=== PATIENT | female | born 1955 | race Two or more races ===

== ENCOUNTER → 2020-06-14 14:00 | Outpatient (BNV) | payer OTHER, SELFPAY | PROVIDERS: PCP Internal Medicine; Visit Provider Internal Medicine Medical Oncology | DX: M85.80 Other specified disorders of bone density and structure, unspecified site (principal); Z85.3 Personal history of malignant neoplasm of breast; Z86.000 Personal history of in-situ neoplasm of breast | CPT/HCPCS: 99213; 99214 ==

== ENCOUNTER 2020-07-06 13:56 | Outpatient (REF) | payer OTHER, SELFPAY ==
--- NOTE | 2020-07-06 14:04 | US_ITS ---
EXAMINATION: US THYROID CLINICAL INFORMATION: Nontoxic single thyroid nodule. COMPARISON: Ultrasound soft tissue head/neck thyroid dated 10/07/2015. CT neck 12/24/2014. TECHNIQUE: Linear transducer rodriguez-scale and color Doppler examination with attention to the region of the thyroid. FINDINGS: SIZE: Measurements of the thyroid lobes and nodules are given in sagittal, anteroposterior and transverse dimensions respectively. Right Thyroid Lobe: 3.7 x 1.2 x 1.2 cm, volume 2.8 mL. Parenchyma: The gland echotexture is heterogeneous. Thyroid vascularity is normal. Left Thyroid Lobe: 4.5 x 1.3 x 1.1 cm, volume 3.4 mL. Parenchyma: The gland echotexture is homogeneous. Thyroid vascularity is normal. Isthmus: 0.5 cm in maximum AP dimension. RIGHT THYROID LOBE: There is 1 nodule seen. 1. Location: Middle. Size: 0.3 x 0.2 x 0.3 cm. Nodule characteristics: Hypoechoic, smoothly marginated with echogenic calcifications and no intranodular flow, likely colloid cyst. ISTHMUS: No nodules. LEFT THYROID LOBE: No nodules. NODES: There is a 1.3 cm right neck lymph node, likely benign. US/US thyroid IMPRESSION: Small colloid cyst midpole right lobe. Otherwise, unremarkable thyroid ultrasound.
== END 2020-07-06 13:57 | disposition home or self-care (01) ==
LOC: HO.US 13:56
PROVIDERS: PCP Internal Medicine; Visit Provider Internal Medicine
DX: E04.1 Nontoxic single thyroid nodule (principal)
CPT/HCPCS: 76536

== ENCOUNTER → 2020-07-14 14:53 | Outpatient (BNVA) | payer MEDICARE, SELFPAY | PROVIDERS: PCP Internal Medicine; Visit Provider Nurse Practitioner Family | DX: K21.9 Gastro-esophageal reflux disease without esophagitis (principal); R19.7 Diarrhea, unspecified | CPT/HCPCS: 99212 ==

== ENCOUNTER → 2020-09-07 09:38 | Outpatient (BNVA) | payer OTHER, SELFPAY | PROVIDERS: PCP Internal Medicine; Visit Provider Student in an Organized Health Care Education/Training Program | DX: M77.31 Calcaneal spur, right foot (principal); M25.471 Effusion, right ankle | CPT/HCPCS: 99212 ==

== ENCOUNTER → 2020-10-14 13:44 | Outpatient (BNVA) | payer OTHER, SELFPAY | PROVIDERS: PCP Internal Medicine; Visit Provider Student in an Organized Health Care Education/Training Program | DX: M19.011 Primary osteoarthritis, right shoulder (principal); M77.31 Calcaneal spur, right foot | CPT/HCPCS: 20610; 99212 ==

== ENCOUNTER 2020-12-08 11:08 | Outpatient (REF) | payer MEDICARE, SELFPAY ==
[2020-12-08 12:33] LABS: Blood Urea Nitrogen 16 mg/dL (9-16); Calcium 9.7 mg/dL (8.4-10.2); Estimated Glomerular Filt Rate > 60; Glucose Random 89 mg/dL (60-115)
[2020-12-08 12:37] LABS: Alanine Aminotransferase 22 U/L (0-31); Albumin Level 4.1 g/dL (3.5-5.0); Alkaline Phosphatase 94 U/L (39-117); Aspartate Amino Transferase 21 U/L (5-31); Bilirubin Total 0.5 mg/dL (0.0-1.0); Blood Urea Nitrogen 16 mg/dL (9-16); Calcium 9.7 mg/dL (8.4-10.2); Cholesterol 206 mg/dL; Estimated Glomerular Filt Rate > 60; Glucose Fasting 90 mg/dL (60-99); HDL Cholesterol 60 mg/dL; LDL Cholesterol Calculated 126 mg/dl; Total Protein 6.9 g/dL (6.5-8.0); Triglycerides 103 mg/dL
[2020-12-08 13:28] LABS: Anion Gap 12 (12-20); Carbon Dioxide 30 mmol/L (22-29); Chloride 105 mmol/L (96-108); Potassium 4.8 mmol/L (3.3-5.1); Sodium 142 mmol/L (135-145)
[2020-12-08 13:31] LABS: Anion Gap 15 (12-20); Carbon Dioxide 28 mmol/L (22-29); Chloride 104 mmol/L (96-108); Potassium 4.5 mmol/L (3.3-5.1); Sodium 142 mmol/L (135-145)
[2020-12-12 14:17] LABS: Vitamin D 25-OH, D2 26 ng/mL; Vitamin D 25-OH, D3 8 ng/mL; Vitamin D 25-OH, Total 34 ng/mL (30-100)
== END 2020-12-08 11:09 | disposition home or self-care (01) ==
LOC: HO.LAB 11:08
PROVIDERS: Absent Provider Internal Medicine; PCP Internal Medicine; Visit Provider Internal Medicine Hypertension Specialist
DX: E66.9 Obesity, unspecified (principal); I10 Essential (primary) hypertension; E78.5 Hyperlipidemia, unspecified; E55.9 Vitamin D deficiency, unspecified
CPT/HCPCS: 36415; 80048; 80053; 80061; 82306

== ENCOUNTER 2020-12-23 14:41 | Outpatient (REF) | payer MEDICARE, SELFPAY ==
[2020-12-23 18:04] LABS: Hematocrit 46.3 % (37-47); Hemoglobin 15.2 g/dl (12.0-16.0); Mean Corpuscular HGB Conc 32.8 g/dl (31.0-35.0); Mean Corpuscular Volume 91.5 fL (80-98); Mean Platelet Volume 11.7 fL (9.4-12.3); Platelet Count 233 X10*3/uL (160-400); Red Blood Count 5.06 X10*6/uL (4.20-5.50); Red Cell Distribution Width 15.1 % (11.0-16.0); White Blood Count 10.4 X10*3/uL (4.8-10.8)
[2020-12-23 18:23] LABS: C Reactive Protein 0.91 mg/dL (< or = 0.50)
[2020-12-23 19:02] LABS: Erythrocyte Sedimentation Rate 16 MM/HR (0-20)
== END 2020-12-23 14:42 | disposition home or self-care (01) ==
LOC: HO.LAB 14:41
PROVIDERS: PCP Internal Medicine; Visit Provider Nurse Practitioner Family
DX: I10 Essential (primary) hypertension (principal); R10.9 Unspecified abdominal pain; K21.9 Gastro-esophageal reflux disease without esophagitis; Z12.11 Encounter for screening for malignant neoplasm of colon
CPT/HCPCS: 36415; 85027; 85652; 86140; 99212

== ENCOUNTER 2021-01-27 03:24 | Emergency (ER) | payer MEDICARE, SELFPAY ==
--- NOTE | ~2021-01-27 | XR_ITS ---
EXAMINATION: XR CHEST CLINICAL INFORMATION: Right lower chest pain COMPARISON: 10/23/2013 TECHNIQUE: 2 views of the chest were obtained. FINDINGS: No significant abnormality is noted involving the heart, lungs, mediastinum, bony thorax or soft tissues. XR/XR chest 2V IMPRESSION: Unremarkable examination.
--- NOTE | ~2021-01-27 | CT_ITS ---
EXAMINATION: CT ABDOMEN AND PELVIS WITHOUT CONTRAST CLINICAL INFORMATION: Right upper quadrant/flank pain. History of breast cancer. COMPARISON: CT abdomen/pelvis dated 08/22/2011 TECHNIQUE: Multidetector volumetric imaging was performed from the superior aspect of the liver through the pubic symphysis. Sagittal and coronal reformatted images were obtained on the technologist's workstation. This CT examination was performed using dose optimization techniques as appropriate, variously including the following: *Automated exposure control *Adjustment of mA and/or kV according to patient size (this includes techniques or standardized protocols for targeted exams where dose is matched to indication/reason for exam; i.e. extremities or head) *Use of iterative reconstruction technique DLP: 800 mGy-cm FINDINGS: LUNG BASES: The visualized lung bases are unremarkable. LIVER, GALLBLADDER, AND BILIARY TREE: The liver is normal in size, shape, and attenuation. No focal hepatic lesion or biliary ductal dilatation is present. Cholecystectomy. PANCREAS: There is mild fat stranding about the inferior pancreatic head. Pancreatic body and tail unremarkable. SPLEEN: Unremarkable. ADRENAL GLANDS: Unremarkable. KIDNEYS AND URETERS: The kidneys are normal in size, shape, and attenuation. No hydronephrosis, hydroureter, or calculi seen. No perinephric stranding. BLADDER: Unremarkable. GASTROINTESTINAL TRACT: The small and large bowel are unremarkable. The appendix is unremarkable. ABDOMINAL WALL: No significant hernia is appreciated. LYMPH NODES: Normal. VASCULAR: Aorta is atherosclerotic but normal caliber. PELVIC VISCERA: Uterus and adnexa unremarkable. OSSEOUS STRUCTURES: No acute or suspicious osseous abnormalities. CT/CT abdomen pelvis wo con IMPRESSION: Findings compatible with mild focal acute pancreatitis involving the inferior pancreatic head
[2021-01-27 03:31] VITALS: BP 188/86; BP 189/90; PULSE 78; PULSE 96; RESP 18; TEMP 36.8; O2SAT 96; BMI 41.0
--- NOTE | 2021-01-27 03:38 | ECG_ITS ---
Test Reason : ABD PAIN Blood Pressure : / mmHG Vent. Rate : 088 BPM Atrial Rate : 088 BPM P-R Int : 132 ms QRS Dur : 084 ms QT Int : 382 ms P-R-T Axes : 043 -10 069 degrees QTc Int : 462 ms Normal sinus rhythm Minimal voltage criteria for LVH, may be normal variant Borderline ECG When compared with ECG of 09-APR-2018 13:20, No significant change was found Referred By: Zonia Lo Electronically Signed By:SETH SO
--- NOTE | 2021-01-27 03:52 | ED.ABDPAIN ---
HPI - Abdominal Pain General Chief Complaint: Abdominal Pain Stated Complaint: ABDOMINAL PAIN Time Seen by Provider: 01/27/21 03:37 Source: patient Mode of arrival: EMS History of Present Illness HPI narrative: 65-year-old female who reports right upper quadrant abdominal pain for 3 days with worsening pain that she describes as constant and sharp. This is not been associated with fever, chills, nausea, vomiting, new cough, diarrhea, or urinary pain/burning/frequency. Patient's past medical history is significant for bilateral breast CA with diagnosis of right breast in 2010. Patient states that she is currently in remission. Related Data Previous Rx's Medication Instructions Recorded diltiazem HCl 60 mg 60 mg PO BID #180 cap 04/28/20 capsule,extended release 12 hr simethicone 80 mg chewable tablet 80 mg PO BID-QID PRN 30 Days #110 04/28/20 tab loratadine 10 mg tablet 10 mg PO DAILY #90 tab 05/14/20 esomeprazole magnesium 40 mg 40 mg PO DAILY #30 cap 07/14/20 capsule,delayed release (Nexium) triamcinolone acetonide 0.5 % 1 appl TOPICAL BID 30 Days #45 g 08/17/20 topical cream loperamide 2 mg capsule 2 mg PO Q4H PRN #120 cap 09/21/20 walker (Ultra-Light Rollator) #1 ea 10/17/20 ergocalciferol (vitamin D2) 1,250 1,250 mcg PO QWEEK 30 Days #5 cap 12/07/20 mcg (50,000 unit) capsule cholestyramine (with sugar) 4 gram 4 g PO BID #378 g 12/23/20 oral powder (Questran) methylcellulose (laxative) 500 mg 500 mg PO DAILY #60 tab 12/23/20 tablet (Citrucel) sennosides 8.6 mg tablet (Natural 8.6 mg PO BEDTIME PRN #30 tab 12/23/20 Senna Laxative) olmesartan 40 mg tablet 40 mg PO DAILY #90 tab 01/03/21 Allergies Allergy/AdvReac Type Severity Reaction Status Date / Time codeine [Codeine] Allergy Severe DIFFICULTY Verified 01/27/21 03:39 BREATHING albuterol Allergy Intermediate unknown Verified 01/27/21 03:39 adhesive [Adhesive] Allergy Mild RASH Verified 01/27/21 03:39 amlodipine [AMLODIPINE] Allergy Mild ITCHING Verified 01/27/21 03:39 clonidine [CLONIDINE] Allergy Mild sleepiness Verified 01/27/21 03:39 hydralazine [HYDRALAZINE] Allergy Mild dizziness Verified 01/27/21 03:39 Iodinated Contrast Media Allergy Mild HIVES Verified 01/27/21 03:39 [IV Dye, Iodine Containing] latex [LATEX] Allergy Mild RASH Verified 01/27/21 03:39 lisinopril [LISINOPRIL] Allergy Mild ITCHING Verified 01/27/21 03:39 oxybutynin [From Ditropan] Allergy Mild UNKNOWN Verified 01/27/21 03:39 Ditropan Allergy Unknown Unknown Verified 01/27/21 03:39 doxazosin [DOXAZOSIN] Allergy Unknown PURITIS, Verified 01/27/21 03:39 pruritus hydrochlorothiazide Allergy Unknown ITCHING, Verified 01/27/21 03:39 [HYDROCHLOROTHIAZIDE] syncope losartan Allergy Unknown pruritus Verified 01/27/21 03:39 metoprolol [METOPROLOL] Allergy Unknown ITCHING Verified 01/27/21 03:39 metronidazole [From FLAGYL] Allergy Unknown VOMITING Verified 01/27/21 03:39 omeprazole [OMEPRAZOLE] Allergy Unknown RASH Verified 01/27/21 03:39 psyllium [Metamucil] Allergy Unknown diarrhea Verified 01/27/21 03:39 Environmental Allergy Mild RUNNY NOSE Uncoded 10/17/20 14:18 IV dye Allergy Unknown Unknown Uncoded 10/17/20 14:18 Toprol XL Allergy Unknown Unknown Uncoded 10/17/20 14:18 Review of Systems Review of Systems Pertinent positives and negatives as stated in HPI 10 point review of systems is otherwise negative. Physical Exam Vital Signs: Vital Signs: Last Vital Signs Temp 98.8 F 01/27/21 07:13 Pulse 77 01/27/21 07:13 Resp 18 01/27/21 07:13 BP 190/76 H 01/27/21 07:13 Pulse Ox 95 01/27/21 07:13 Body Mass Index 41.0 VITAL SIGNS: Reviewed. GENERAL: Well developed, well nourished, in no acute distress. HEAD: Normocephalic/atraumatic EYES: PERRLA, EOMI EARS: Ext canals without abnormality OROPHARYNX: no oral lesions noted, posterior pharynx clear NECK: Supple, no adenopathy LUNGS: Normal breath sounds. No adventitious sounds or accessory muscle use. SpO2<96> CARDIOVASCULAR: Regular rate and rhythm without noted murmurs, no JVD or lower extremity edema. ABDOMEN: Soft, tenderness to palpation right upper quadrant without rebound, non-distended with bowel sounds, no CVA tenderness SKIN: Inspection of the skin reveals no rashes NEUROLOGIC: Alert and oriented x 4. Strength and sensation to light touch were grossly intact x 4. Course Course Course Narrative: 65-year-old female with history and clinical presentation suggestive of possible cancer related symptoms, gastritis, renal colic, but patient is status post cholecystectomy and low clinical suspicion for pancreatitis. Review of all investigations significant for leukocytosis and CT findings demonstrating focal pancreatitis and on re-evaluation patient has had good resolution of her pain with combination analgesics and is otherwise tolerating oral intake. This case was discussed with GI seo consultant who agrees that as patient is otherwise getting good pain control and tolerating oral intake she is stable for discharge to home and follow-up with her county records management officer. No other etiologies were identified for patient's leukocytosis and left shift. All results and findings discussed with the patient at bedside and she was discharged home in stable condition, tolerating oral intake, and provided with return precautions. MDM - Abdominal Pain Lab Data Result diagrams: 01/27/21 04:36 01/27/21 04:36 Labs: Lab Results 01/27/21 01/27/21 01/27/21 Range/Units 04:22 04:36 04:36 WBC 15.9 H (4.8-10.8) X10*3/uL RBC 5.04 (4.20-5.50) X10*6/uL Hgb 14.4 (12.0-16.0) g/dl Hct 44.7 (37-47) % MCV 88.7 (80-98) fL MCH 28.6 (27.0-33.0) pg MCHC 32.2 (31.0-35.0) g/dl RDW 13.9 (11.0-16.0) % Plt Count 255 (160-400) X10*3/uL MPV 11.2 (9.4-12.3) fL Immature Gran % (Auto) 0.4 (0.0-0.4) % Neut % (Auto) 83.2 H (45-73) % Lymph % (Auto) 10.2 L (20-40) % Republic % (Auto) 5.8 (2-11) % Eos % (Auto) 0.1 (0-4) % Baso % (Auto) 0.3 (0-2) % Lymph # (Auto) 1.6 (1.2-4.9) X10*3/uL [place] # (Auto) 0.9 (0.1-1.2) X10*3/uL Eos # (Auto) 0.0 (0.0-0.4) X10*3/uL Baso # (Auto) 0.0 (0.0-0.2) X10*3/uL Abs Immat Gran (auto) 0.07 H (0.00-0.03) X10*3/uL Absolute Neuts (auto) 13.2 H (2.0-8.3) X10*3/uL Absolute Nucleated RBC 0.000 (0.0-0.012) X10*3/uL Nucleated RBC % (auto) 0.0 (0.0-0.2) /100WBC Sodium 140 (135-145) mmol/L Potassium 5.2 H (3.3-5.1) mmol/L Chloride 103 (96-108) mmol/L Carbon Dioxide 26 (22-29) mmol/L Anion Gap 16 (12-20) BUN 11 (9-16) mg/dL Creatinine 0.83 (0.5-1.4) mg/dL Estim Creat Clear Calc 62.5 Estimated GFR > 60 Random Glucose 117 H (60-115) mg/dL Calcium 9.7 (8.4-10.2) mg/dL Total Bilirubin 0.8 (0.0-1.0) mg/dL AST 30 D (5-31) U/L ALT 16 (0-31) U/L Alkaline Phosphatase 105 (39-117) U/L Total Protein 7.7 (6.5-8.0) g/dL Albumin 4.2 (3.5-5.0) g/dL Lipase 49 (8-78) U/L Urine Color YELLOW Urine Appearance CLEAR Urine pH 6.0 (5.0-8.0) Ur Specific [place] 1.010 (1.005-1.025) Urine Protein NEG (NEG-TRACE) MG/DL Urine Glucose (UA) NEG (NEG) MG/DL Urine Ketones 5 (NEG) MG/DL Urine Blood TRACE (NEG) Urine Nitrite NEG (NEG) Ur Leukocyte Esterase NEG (NEG) Urine RBC 0-2 (0) /HPF Urine WBC 1-4 (0-4) /HPF Ur Squamous Epith Cells 1+ /LPF Amorphous Sediment 1+ /LPF Urine Bacteria TRACE /LPF ECG Data Attestation: I personally reviewed and interpreted this ECG as follows: Prior ECG tracings: available for review (04/09/2018 no acute changes on comparison) Interpretation: Normal sinus rhythm, no STEMI, HR-88, CA/QRS/QTC are within normal limits. Discharge Plan Discharge Clinical Impression: Pancreatitis Patient Disposition: Home, Self-Care Instructions: Pancreatitis (ED) Additional Instructions: 1. Resume all home medications as prescribed. 2. Continue to drink plenty of water. 3. Tylenol 1000 mg, orally, every 6 hours as needed for pain control. Do not exceed 4000 mg within 24 hours. 4. Ibuprofen 400 mg, orally with milk or food, every 6 hours as needed for pain control. 5. Please call the office of your county records management officer this morning to set up an appointment for re-evaluation and further outpatient management for your pancreatitis. Do not hesitate to return to the emergency room if you experience any acute worsening of symptoms, development of fevers/chills, nausea, or vomiting. Prescriptions: No Action diltiazem HCl 60 mg capsule,extended release 12 hr 60 mg PO BID Qty: 180 RF: 3 simethicone 80 mg tablet,chewable 80 mg PO BID-QID PRN (Reason: abdominal distention) 30 Days Qty: 110 RF: 4 loratadine 10 mg tablet 10 mg PO DAILY Qty: 90 RF: 3 triamcinolone acetonide 0.5 % cream 1 appl topical BID 30 Days Qty: 45 RF: 2 loperamide 2 mg capsule 2 mg PO Q4H PRN (Reason: for diarrhea) Qty: 120 RF: 7 ergocalciferol (vitamin D2) 1,250 mcg (50,000 unit) capsule 1,250 mcg PO QWEEK 30 Days Qty: 5 RF: 4 olmesartan 40 mg tablet 40 mg PO DAILY Qty: 90 RF: 2 (DME) Ultra-Light Rollator Misc See Rx Instructions .ROUTE .MEDSUPPLY Qty: 1 RF: 0 esomeprazole magnesium [Nexium] 40 mg capsule,delayed release(DR/EC) 40 mg PO DAILY Qty: 30 RF: 5 Citrucel 500 mg tablet 500 mg PO DAILY Qty: 60 RF: 2 cholestyramine (with sugar) [Questran] 4 gram powder 4 g PO BID Qty: 378 RF: 0 sennosides [Natural Senna Laxative] 8.6 mg tablet 8.6 mg PO BEDTIME PRN (Reason: constipation) Qty: 30 RF: 1 Referrals: Aura Frankel, [employer] [Nurse Practitioner] - 2 days (Re-evaluation for focal pancreatitis.) [facility] Past Medical History Source: nursing notes reviewed Medical History Breast implant status Essential hypertension Hypovitaminosis D Obese Thyroid nodule Surgical History H/O esophagogastroduodenoscopy History of appendectomy History of breast biopsy History of breast reconstruction History of breast surgery History of carpal tunnel release History of cholecystectomy History of tubal ligation Hx of colonoscopy Family History Family History Father Prostate cancer Mother Ovarian cancer Chronic mental illness Paternal Aunt Cancer Family/Other FH: mental illness Social History Social History Alcohol intake: former Smoked in Last 30 Days: No Use of substances other than those prescribed or required for medical reasons: No Advance Directives: No Advance Directives Information Provided: No
[2021-01-27 04:17] VITALS: BP 175/85; PULSE 92; RESP 16; O2SAT 96
[2021-01-27 04:32] LABS: Glucose Urine UA NEG (NEG); Leukocyte Esterase Urine NEG (NEG); Nitrite Urine NEG (NEG); UACC Culture Trigger NO; Urine Blood TRACE (NEG); Urine Ketones 5 MG/DL (NEG); Urine Protein NEG (NEG-TRACE)
[2021-01-27 04:34] LABS: Appearance Urine CLEAR; Color Urine YELLOW
[2021-01-27 04:42] LABS: Basophils Percent Auto 0.3 % (0-2); Eosinophils Percent Auto 0.1 % (0-4); Hematocrit 44.7 % (37-47); Hemoglobin 14.4 g/dl (12.0-16.0); Imm Gran Abs Auto 0.07 X10*3/uL (0.00-0.03); Imm Gran Pct Auto 0.4 % (0.0-0.4); Lymphocytes Absolute Auto 1.6 X10*3/uL (1.2-4.9); Lymphocytes Percent Auto 10.2 % (20-40); MANUAL DIFF FLAG NO; Mean Corpuscular HGB Conc 32.2 g/dl (31.0-35.0); Mean Corpuscular Hemoglobin 28.6 pg (27.0-33.0); Mean Corpuscular Volume 88.7 fL (80-98); Mean Platelet Volume 11.2 fL (9.4-12.3); Monocytes Absolute Auto 0.9 X10*3/uL (0.1-1.2); Monocytes Percent Auto 5.8 % (2-11); Neutrophils Absolute Auto 13.2 X10*3/uL (2.0-8.3); Neutrophils Percent Auto 83.2 % (45-73); Platelet Count 255 X10*3/uL (160-400); Red Blood Count 5.04 X10*6/uL (4.20-5.50); Red Cell Distribution Width 13.9 % (11.0-16.0); White Blood Count 15.9 X10*3/uL (4.8-10.8)
[2021-01-27 04:47] LABS: Amorphous Sediment Urine 1+ /LPF; Bacteria Urine TRACE /LPF; RBC Urine 0-2 /HPF (0); Squamous Epithelial Cell Urine 1+ /LPF
[2021-01-27 05:04] LABS: Potassium 5.2 mmol/L (3.3-5.1)
[2021-01-27 05:05] LABS: Alanine Aminotransferase 16 U/L (0-31); Albumin Level 4.2 g/dL (3.5-5.0); Alkaline Phosphatase 105 U/L (39-117); Anion Gap 16 (12-20); Aspartate Amino Transferase 30 U/L (5-31); Bilirubin Total 0.8 mg/dL (0.0-1.0); Blood Urea Nitrogen 11 mg/dL (9-16); Calcium 9.7 mg/dL (8.4-10.2); Carbon Dioxide 26 mmol/L (22-29); Chloride 103 mmol/L (96-108); Creatinine Clr Calc Pharmacy 62.5; Estimated Glomerular Filt Rate > 60; Glucose Random 117 mg/dL (60-115); Lipase 49 U/L (8-78); Sodium 140 mmol/L (135-145); Total Protein 7.7 g/dL (6.5-8.0)
[2021-01-27] MEDS: Acetaminophen 325 MG TABLET 975 MG PO (05:40)
[2021-01-27] MEDS: Ketorolac Tromethamine 15 MG/ML VIAL IVPUSH (05:40)
[2021-01-27 07:13] VITALS: BP 190/76; PULSE 77; RESP 18; TEMP 37.1; O2SAT 95
--- NOTE | 2021-01-27 07:41 | PC.NURSE ---
MD AWARE OF ELEVATED BP. PATIENT ASYMPTOMATIC, OK FOR PATIENT TO BE DC HOME AND TAKE HOME MEDS.
== END 2021-01-27 07:43 | disposition home or self-care (01) ==
PROVIDERS: Emergency Provider Student in an Organized Health Care Education/Training Program
DX: K85.90 Acute pancreatitis without necrosis or infection, unspecified (principal); I10 Essential (primary) hypertension; Z85.3 Personal history of malignant neoplasm of breast; Z79.899 Other long term (current) drug therapy
CPT/HCPCS: 36415; 71046; 74176; 80053; 81001; 83690; 85025; 93005; 96374; 99285; J1885

== ENCOUNTER 2021-01-27 12:52 | Inpatient (IN) | payer MEDICARE, SELFPAY ==
[2021-01-27] VITALS (8 sets, daily range): BP systolic 160–213; BP diastolic 69–100; PULSE 78–120; RESP 16–19; TEMP 35.4–37.1; O2SAT 94–99; BMI 38.8; BMI 40.0
[2021-01-27] MEDS: Morphine Sulfate 4 MG/ML CARTRIDGE IVPUSH (16:35)
--- NOTE | 2021-01-27 16:37 | ED.ABDPAIN ---
HPI - Abdominal Pain General Chief Complaint: Abdominal Pain Stated Complaint: abd pain Time Seen by Provider: 01/27/21 16:11 Source: patient and family Mode of arrival: ambulatory Limitations: no limitations History of Present Illness HPI narrative: 65-year-old female with a past medical history of breast cancer in 2010 in remission, thyroid nodule, hypertension, obesity and diagnosed with pancreatitis this morning and discharged home presenting to the ED with complaints of worsening abdominal pain that has been present for the past 3 days worse since this morning after she was discharged. She reports she was not discharged with any pain medications and that is what she needs. She reports the pain is constant and sharp. She reports she had nausea and 1 episode of vomiting last night. She reports she was constipated although had 2 episodes of diarrhea prior to arrival. She denies any fevers, dizziness, headaches, chest pain, shortness of breath, hematuria, dysuria, black or bloody stools, constipation or any other symptoms complaints or concerns at this time. MD elicited complaint: abdominal pain Pertinent past history: other (Pancreatitis) Onset (ago): day(s) (Three days) Pain Consistency: constant Location: epigastric and RUQ Severity: severe Pain scale (0-10): 10 Quality: sharp Radiation: none Migration to: no migration Exacerbating factors: nothing Relieving factors: nothing Associated symptoms: nausea, vomiting and diarrhea Related Data Home Medications Medication Instructions Recorded Confirmed acetaminophen 325 mg tablet 650 mg PO Q6H PRN 01/27/21 01/27/21 diltiazem HCl 90 mg tablet 1 tab PO BID@0800,1700 01/27/21 01/27/21 ergocalciferol (vitamin D2) 1,250 1,250 mcg PO MO 01/27/21 01/27/21 mcg (50,000 unit) capsule fluticasone propionate 50 1 spray INTRANASAL DAILY PRN 01/27/21 01/27/21 mcg/actuation nasal spray,suspension simethicone 80 mg chewable tablet 80 mg PO QID PRN 01/27/21 01/27/21 triamcinolone acetonide 0.5 % 1 appl TOPICAL BID PRN 01/27/21 01/27/21 topical cream Previous Rx's Medication Instructions Recorded loratadine 10 mg tablet 10 mg PO DAILY #90 tab 05/14/20 esomeprazole magnesium 40 mg 40 mg PO DAILY #30 cap 07/14/20 capsule,delayed release (Nexium) walker (Ultra-Light Rollator) #1 ea 10/17/20 sennosides 8.6 mg tablet (Natural 8.6 mg PO BEDTIME PRN #30 tab 12/23/20 Senna Laxative) olmesartan 40 mg tablet 40 mg PO DAILY #90 tab 01/03/21 Allergies Allergy/AdvReac Type Severity Reaction Status Date / Time codeine [Codeine] Allergy Severe DIFFICULTY Verified 01/27/21 03:39 BREATHING albuterol Allergy Intermediate unknown Verified 01/27/21 03:39 adhesive [Adhesive] Allergy Mild RASH Verified 01/27/21 03:39 amlodipine [AMLODIPINE] Allergy Mild ITCHING Verified 01/27/21 03:39 clonidine [CLONIDINE] Allergy Mild sleepiness Verified 01/27/21 03:39 hydralazine [HYDRALAZINE] Allergy Mild dizziness Verified 01/27/21 03:39 Iodinated Contrast Media Allergy Mild HIVES Verified 01/27/21 03:39 [IV Dye, Iodine Containing] latex [LATEX] Allergy Mild RASH Verified 01/27/21 03:39 lisinopril [LISINOPRIL] Allergy Mild ITCHING Verified 01/27/21 03:39 oxybutynin [From Ditropan] Allergy Mild UNKNOWN Verified 01/27/21 03:39 Ditropan Allergy Unknown Unknown Verified 01/27/21 03:39 doxazosin [DOXAZOSIN] Allergy Unknown PURITIS, Verified 01/27/21 03:39 pruritus hydrochlorothiazide Allergy Unknown ITCHING, Verified 01/27/21 03:39 [HYDROCHLOROTHIAZIDE] syncope losartan Allergy Unknown pruritus Verified 01/27/21 03:39 metoprolol [METOPROLOL] Allergy Unknown ITCHING Verified 01/27/21 03:39 metronidazole [From FLAGYL] Allergy Unknown VOMITING Verified 01/27/21 03:39 omeprazole [OMEPRAZOLE] Allergy Unknown RASH Verified 01/27/21 03:39 psyllium [Metamucil] Allergy Unknown diarrhea Verified 01/27/21 03:39 Environmental Allergy Mild RUNNY NOSE Uncoded 10/17/20 14:18 IV dye Allergy Unknown Unknown Uncoded 10/17/20 14:18 Toprol XL Allergy Unknown Unknown Uncoded 10/17/20 14:18 Review of Systems Review of Systems Constitutional : No Weight loss, No Fever, No Chills, No Night Sweats, No Fatigue, NoMalaise ENT/Mouth: No ear pain, No sore throat, No Difficulty swallowing Cardiovascular : No Chest Pain, No SOB, No Dyspnea on Exertion, No Orthopnea, NoEdema, No Palpitations Respiratory : No Cough, No Sputum, No Wheezing, No Dyspnea Gastrointestinal : Positive nausea/vomiting/abdominal pain/diarrhea, No blood streaked emesis, No coffee-ground emesis, No gross hematemesis, No blood streak stool, No gross hematochezia, No Melena Genitourinary : No irregular bleeding, No Dysuria, No Urinary Frequency, No Hematuria,No Urinary Incontinence, No Urgency, No Flank Pain Musculoskeletal : No joint pain, No Myalgias, No Joint Swelling Skin : No Skin Lesions, No rash Neuro : No Weakness, No Numbness, No Paresthesias, No Loss of Consciousness, NoDizziness, No Headache Psych : No Social Issues, Heme/Lymph: No Bruising, No Bleeding,No Lymphadenopathy Endocrine : No Polyuria, No Polydipsia, No Temperature Intolerance Yes all other systems are reviewed and are negative Physical Exam Vital Signs: Vital Signs: Last Vital Signs Temp 98.8 F 01/27/21 16:48 Pulse 78 01/27/21 18:07 Resp 18 01/27/21 16:48 BP 160/69 H 01/27/21 18:07 Pulse Ox 96 01/27/21 16:48 Body Mass Index 38.8 vital signs have been reviewed as normal and appeared to be correct. Blood pressure normal hypertensive 199/99 Heart rate normal. Respiration rate normal. Temperature low at 95.8. Oxygen saturation normal. Appearance: Alert. Oriented X3. In pain otherwise no other acute distress. Head: Normal external exam. Normocephalic. Eyes: PERRLA. EOMI. Conjunctiva and sclera normal. Eyelids normal. ENT: Pharynx normal. Uvula midline. Moist mucous membranes. Neck: Normal inspection. Neck supple. FROM. No adenopathy. No meningeal signs. CVS: Normal heart rate and rhythm. Heart sound normal. No murmurs noted. Pulses normal throughout. Respiratory: No respiratory distress. Painless inspiration. Breath sounds normal. No wheezes/rales/rhonchi noted. Chest nontender. No accessory muscle usage noted or decreased air movement noted. Abdomen: Soft and moderate tenderness to palpation to right upper quadrant/epigastric abdominal area with guarding. Nondistended. No rigidity. Bowel sounds normal in all 4 quadrants. No distention noted. No organomegaly noted. No visible injury noted. No rebound tenderness. Negative Rovsing sign. Negative obturator's sign. Negative psoas sign. Negative Lopez sign. Back: No CVA tenderness. Full range of motion noted. Skin: Skin warm and dry. Normal skin color. Normal skin turgor. No rashes/lesions/lacerations noted. Extremities: Extremities exhibit normal range of motion. Extremities nontender. Neuro: Oriented X 3. No motor deficit. No sensory deficit. Reflexes normal. Normal steady gait. Course Course Course Narrative: 16:18pm - 65-year-old female who was recently diagnosed with pancreatitis this morning and discharged home without any symptomatic with treatment presenting to the ED with complaints of worsening abdominal pain in the epigastric/right upper quadrant with associated N/V/D. Denies fevers, chills or any other symptoms. Plan: Labs, UA. Provide a L of IV fluids, 4 mg of Zofran and 4 mg of morphine and plan to admit for acute pancreatitis. Patient and family at bedside understand and agree with this plan. Reevaluation(s) Reevaluation #1: - labs reviewed patient when elevated white blood cell count at 17,000. Total bilirubin 1.1. LDH 311. Otherwise all other labs are within normal limits. UA with +1 protein and blood with 40 ketones otherwise no evidence of UTI. COVID swab negative. Patient was hypertensive therefore I gave her 10 mg of labetalol. I also gave her some Dilaudid and more Zofran and she is much comfortable now and now her blood pressure is 160/69. Dr. Zendejas to admit at this time for acute pancreatitis. Patient understands agrees with this plan. Time: 18:16 MDM - Abdominal Pain Lab Data Result diagrams: 01/27/21 16:47 01/27/21 16:46 Labs: Lab Results 01/27/21 01/27/21 01/27/21 Range/Units 16:29 16:39 16:46 WBC (4.8-10.8) X10*3/uL RBC (4.20-5.50) X10*6/uL Hgb (12.0-16.0) g/dl Hct (37-47) % MCV (80-98) fL MCH (27.0-33.0) pg MCHC (31.0-35.0) g/dl RDW (11.0-16.0) % Plt Count (160-400) X10*3/uL MPV (9.4-12.3) fL Immature Gran % (Auto) (0.0-0.4) % Neut % (Auto) (45-73) % Lymph % (Auto) (20-40) % [place] % (Auto) (2-11) % Eos % (Auto) (0-4) % Baso % (Auto) (0-2) % Lymph # (Auto) (1.2-4.9) X10*3/uL [place] # (Auto) (0.1-1.2) X10*3/uL Eos # (Auto) (0.0-0.4) X10*3/uL Baso # (Auto) (0.0-0.2) X10*3/uL Abs Immat Gran (auto) (0.00-0.03) X10*3/uL Absolute Neuts (auto) (2.0-8.3) X10*3/uL Absolute Nucleated RBC (0.0-0.012) X10*3/uL Nucleated RBC % (auto) (0.0-0.2) /100WBC Smear Tech's Comments Sodium 142 (135-145) mmol/L Potassium 4.3 (3.3-5.1) mmol/L Chloride 104 (96-108) mmol/L Carbon Dioxide 24 (22-29) mmol/L Anion Gap 18 (12-20) BUN 10 (9-16) mg/dL Creatinine 0.77 (0.5-1.4) mg/dL Estim Creat Clear Calc 65.2 Estimated GFR > 60 Random Glucose 86 (60-115) mg/dL Calcium 9.6 (8.4-10.2) mg/dL Magnesium 2.2 (1.6-2.6) mg/dL Total Bilirubin 1.1 H (0.0-1.0) mg/dL AST 26 (5-31) U/L ALT 19 (0-31) U/L Alkaline Phosphatase 114 (39-117) U/L Lactate Dehydrogenase 311 H (122-220) U/L Total Protein 7.7 (6.5-8.0) g/dL Albumin 4.3 (3.5-5.0) g/dL Triglycerides 69 mg/dL Lipase 36 (8-78) U/L Urine Color YELLOW Urine Appearance HAZY Urine pH 6.0 (5.0-8.0) Ur Specific [place] >= 1.030 H (1.005-1.025) Urine Protein 1+ H (NEG-TRACE) MG/DL Urine Glucose (UA) NEG (NEG) MG/DL Urine Ketones 40 (NEG) MG/DL Urine Blood 1+ H (NEG) Urine Nitrite NEG (NEG) Ur Leukocyte Esterase NEG (NEG) Urine RBC 1-4 (0) /HPF Urine WBC 0 (0-4) /HPF Ur Squamous Epith Cells 3+ /LPF Urine Bacteria 2+ /LPF Urine Mucus 1+ /LPF COVID-19 ([facility]) Negative (Negative) COVID-19 Clin Com See Note 01/27/21 Range/Units 16:47 WBC 17.3 H (4.8-10.8) X10*3/uL RBC 5.11 (4.20-5.50) X10*6/uL Hgb 14.4 (12.0-16.0) g/dl Hct 45.4 (37-47) % MCV 88.8 (80-98) fL MCH 28.2 (27.0-33.0) pg MCHC 31.7 (31.0-35.0) g/dl RDW 13.7 (11.0-16.0) % Plt Count 211 (160-400) X10*3/uL MPV 11.5 (9.4-12.3) fL Immature Gran % (Auto) 0.5 H (0.0-0.4) % Neut % (Auto) 85.0 H (45-73) % Lymph % (Auto) 8.5 L (20-40) % [place] % (Auto) 5.6 (2-11) % Eos % (Auto) 0.1 (0-4) % Baso % (Auto) 0.3 (0-2) % Lymph # (Auto) 1.5 (1.2-4.9) X10*3/uL [place] # (Auto) 1.0 (0.1-1.2) X10*3/uL Eos # (Auto) 0.0 (0.0-0.4) X10*3/uL Baso # (Auto) 0.1 (0.0-0.2) X10*3/uL Abs Immat Gran (auto) 0.08 H (0.00-0.03) X10*3/uL Absolute Neuts (auto) 14.8 H (2.0-8.3) X10*3/uL Absolute Nucleated RBC 0.000 (0.0-0.012) X10*3/uL Nucleated RBC % (auto) 0.0 (0.0-0.2) /100WBC Smear Tech's Comments VERIFIED Sodium (135-145) mmol/L Potassium (3.3-5.1) mmol/L Chloride (96-108) mmol/L Carbon Dioxide (22-29) mmol/L Anion Gap (12-20) BUN (9-16) mg/dL Creatinine (0.5-1.4) mg/dL Estim Creat Clear Calc Estimated GFR Random Glucose (60-115) mg/dL Calcium (8.4-10.2) mg/dL Magnesium (1.6-2.6) mg/dL Total Bilirubin (0.0-1.0) mg/dL AST (5-31) U/L ALT (0-31) U/L Alkaline Phosphatase (39-117) U/L Lactate Dehydrogenase (122-220) U/L Total Protein (6.5-8.0) g/dL Albumin (3.5-5.0) g/dL Triglycerides mg/dL Lipase (8-78) U/L Urine Color Urine Appearance Urine pH (5.0-8.0) Ur Specific [place] (1.005-1.025) Urine Protein (NEG-TRACE) MG/DL Urine Glucose (UA) (NEG) MG/DL Urine Ketones (NEG) MG/DL Urine Blood (NEG) Urine Nitrite (NEG) Ur Leukocyte Esterase (NEG) Urine RBC (0) /HPF Urine WBC (0-4) /HPF Ur Squamous Epith Cells /LPF Urine Bacteria /LPF Urine Mucus /LPF COVID-19 ([facility]) (Negative) COVID-19 Clin Com Critical Care Time Critical Care Time Critical Care Time: Yes Total Critical Care Time: 60 Attestation: I personally attest to this time spent taking care of the patient Discharge Plan Discharge Clinical Impression: Pancreatitis Patient Disposition: Admitted As Inpatient [facility] Past Medical History Attestation statement: The following information was validated with the patient. Medical History Breast implant status Essential hypertension Hypovitaminosis D Obese Thyroid nodule Surgical History H/O esophagogastroduodenoscopy History of appendectomy History of breast biopsy History of breast reconstruction History of breast surgery History of carpal tunnel release History of cholecystectomy History of tubal ligation Hx of colonoscopy Family History Family History Father Prostate cancer Mother Ovarian cancer Chronic mental illness Paternal Aunt Cancer Family/Other FH: mental illness Social History Social History Alcohol intake: former Advance Directives: No Advance Directives Information Provided: No
[2021-01-27 16:44] LABS: Glucose Urine UA NEG (NEG); Leukocyte Esterase Urine NEG (NEG); Nitrite Urine NEG (NEG); Specific Gravity - Urine >= 1.030 (1.005-1.025); UACC Culture Trigger NO; Urine Blood 1+ (NEG); Urine Ketones 40 MG/DL (NEG); Urine Protein 1+ MG/DL (NEG-TRACE)
[2021-01-27 16:45] LABS: Appearance Urine HAZY; Color Urine YELLOW
[2021-01-27 16:50] LABS: Bacteria Urine 2+ /LPF; Mucus Urine 1+ /LPF; Squamous Epithelial Cell Urine 3+ /LPF; WBC Urine 0 /HPF (0-4)
[2021-01-27 17:00] LABS: Basophils Absolute Auto 0.1 X10*3/uL (0.0-0.2); Basophils Percent Auto 0.3 % (0-2); Eosinophils Percent Auto 0.1 % (0-4); MANUAL DIFF FLAG SCAN; PLT CLUMP 1; SCAN SMEAR FLAG 1
[2021-01-27 17:01] LABS: COVID-19 Test Negative (Negative)
[2021-01-27 17:02] LABS: Hematocrit 45.4 % (37-47); Hemoglobin 14.4 g/dl (12.0-16.0); Imm Gran Abs Auto 0.08 X10*3/uL (0.00-0.03); Imm Gran Pct Auto 0.5 % (0.0-0.4); Lymphocytes Absolute Auto 1.5 X10*3/uL (1.2-4.9); Lymphocytes Percent Auto 8.5 % (20-40); Mean Corpuscular HGB Conc 31.7 g/dl (31.0-35.0); Mean Corpuscular Hemoglobin 28.2 pg (27.0-33.0); Mean Corpuscular Volume 88.8 fL (80-98); Monocytes Percent Auto 5.6 % (2-11); Neutrophils Absolute Auto 14.8 X10*3/uL (2.0-8.3); Red Blood Count 5.11 X10*6/uL (4.20-5.50); Red Cell Distribution Width 13.7 % (11.0-16.0); White Blood Count 17.3 X10*3/uL (4.8-10.8)
--- NOTE | 2021-01-27 17:18 | PHA.MEDREC ---
Pharmacy Consult ? Medication Reconciliation Pharmacy has completed the medication reconciliation. Patient reports that she takes her second dose of diltiazem at 1700. There are no other remarkable issues for provider's attention Trinity LedbetterD
[2021-01-27 17:19] LABS: Mean Platelet Volume 11.5 fL (9.4-12.3); Platelet Count 211 X10*3/uL (160-400); SLIDE REVIEW VERIFIED
[2021-01-27 17:39] LABS: Alanine Aminotransferase 19 U/L (0-31); Albumin Level 4.3 g/dL (3.5-5.0); Alkaline Phosphatase 114 U/L (39-117); Anion Gap 18 (12-20); Aspartate Amino Transferase 26 U/L (5-31); Bilirubin Total 1.1 mg/dL (0.0-1.0); Blood Urea Nitrogen 10 mg/dL (9-16); Calcium 9.6 mg/dL (8.4-10.2); Carbon Dioxide 24 mmol/L (22-29); Chloride 104 mmol/L (96-108); Creatinine Clr Calc Pharmacy 65.2; Estimated Glomerular Filt Rate > 60; Glucose Random 86 mg/dL (60-115); Lactate Dehydrogenase 311 U/L (122-220); Lipase 36 U/L (8-78); Magnesium 2.2 mg/dL (1.6-2.6); Potassium 4.3 mmol/L (3.3-5.1); Sodium 142 mmol/L (135-145); Total Protein 7.7 g/dL (6.5-8.0); Triglycerides 69 mg/dL
[2021-01-27] MEDS: Labetalol HCL 100 MG/20 ML VIAL 10 MG IVPUSH (17:43)
[2021-01-27] MEDS: HYDROmorphone HCl 0.5 MG/0.5 ML SYRINGE IVPUSH (17:43)
[2021-01-27] MEDS: 0.9 % Sodium Chloride 1,000 ML 999 ML IVCONT ×2 (17:47→18:51)
--- NOTE | 2021-01-27 18:22 | P.HPHOSP_ITS ---
History of Present Illness Date of Service: 01/27/21 Chief Complaint: abdominal pain, nausea a 65 years old lady with PMH of HTN, GERD who presents to the hospital with a complaint of abdominal pain for the last 4 days associated with nausea and vomiting. The patient reported that she was doing well until 4 days ago when she started feeling abdominal pain in the epigastric and right upper quadrant. Deep, aching, associated with nausea and vomiting with no associated fever, chills, shortness of breath or chest pain. She was unable to tolerate diet and was vomiting almost everything she is eating including pain medications and her blood pressure meds. She came to the emergency last night but she ended up leaving as she thought she is doing better. Later this noon she started vomiting again in the pain was unbearable so she came back to the hospital. A CT scan in the emergency was consistent with head of pancreas picture of pancreatitis involving the inferior part. Admitted for further evaluation and treatment. Review of Systems Review of Systems: No fever, chills But reportsweakness No chest pain, palpitation No shortness of breath or coughing epigastric and right upper quadrant pain associated with nausea and vomiting, decreased oral intake No urinary symptoms No any rash or wounds PMFSH Medical History Breast implant status Essential hypertension Hypovitaminosis D Obese Thyroid nodule Family History Father Prostate cancer Mother Ovarian cancer Chronic mental illness Paternal Aunt Cancer Family/Other FH: mental illness Surgical History H/O esophagogastroduodenoscopy History of appendectomy History of breast biopsy History of breast reconstruction History of breast surgery History of carpal tunnel release History of cholecystectomy History of tubal ligation Hx of colonoscopy Social History Alcohol intake: former Advance Directives: No Advance Directives Information Provided: No Meds Allergies Allergy/AdvReac Type Severity Reaction Status Date / Time codeine [Codeine] Allergy Severe DIFFICULTY Verified 01/27/21 03:39 BREATHING albuterol Allergy Intermediate unknown Verified 01/27/21 03:39 adhesive [Adhesive] Allergy Mild RASH Verified 01/27/21 03:39 amlodipine [AMLODIPINE] Allergy Mild ITCHING Verified 01/27/21 03:39 clonidine [CLONIDINE] Allergy Mild sleepiness Verified 01/27/21 03:39 hydralazine [HYDRALAZINE] Allergy Mild dizziness Verified 01/27/21 03:39 Iodinated Contrast Media Allergy Mild HIVES Verified 01/27/21 03:39 [IV Dye, Iodine Containing] latex [LATEX] Allergy Mild RASH Verified 01/27/21 03:39 lisinopril [LISINOPRIL] Allergy Mild ITCHING Verified 01/27/21 03:39 oxybutynin [From Ditropan] Allergy Mild UNKNOWN Verified 01/27/21 03:39 Ditropan Allergy Unknown Unknown Verified 01/27/21 03:39 doxazosin [DOXAZOSIN] Allergy Unknown PURITIS, Verified 01/27/21 03:39 pruritus hydrochlorothiazide Allergy Unknown ITCHING, Verified 01/27/21 03:39 [HYDROCHLOROTHIAZIDE] syncope losartan Allergy Unknown pruritus Verified 01/27/21 03:39 metoprolol [METOPROLOL] Allergy Unknown ITCHING Verified 01/27/21 03:39 metronidazole [From FLAGYL] Allergy Unknown VOMITING Verified 01/27/21 03:39 omeprazole [OMEPRAZOLE] Allergy Unknown RASH Verified 01/27/21 03:39 psyllium [Metamucil] Allergy Unknown diarrhea Verified 01/27/21 03:39 Environmental Allergy Mild RUNNY NOSE Uncoded 10/17/20 14:18 IV dye Allergy Unknown Unknown Uncoded 10/17/20 14:18 Toprol XL Allergy Unknown Unknown Uncoded 10/17/20 14:18 Active Medications: Current Medications Generic Name Dose Route Start Last Admin Trade Name Freq PRN Reason Stop Dose Admin Sodium Chloride 1,000 mls @ 999 mls/hr 01/27/21 17:30 01/27/21 17:47 Ns IVCONT 01/27/21 18:30 999 mls/hr .Q1H1M ERICA Administration Sodium Chloride 1,000 mls @ 999 mls/hr 01/27/21 17:30 Ns IVCONT 01/27/21 18:30 .Q1H1M ERICA Pharmacy Consult 1 each 01/27/21 16:18 Consult Rx Perform Med Rec MISCELLANE ONCE PRN Consult order Home Medications Medication Instructions Recorded Confirmed Last Taken Type acetaminophen 325 mg tablet 650 mg PO Q6H PRN 01/27/21 01/27/21 Unknown History diltiazem HCl 90 mg tablet 1 tab PO BID@0800,1700 01/27/21 01/27/21 01/27/21 History ergocalciferol (vitamin D2) 1,250 1,250 mcg PO MO 01/27/21 01/27/21 01/27/21 History mcg (50,000 unit) capsule fluticasone propionate 50 1 spray INTRANASAL DAILY PRN 01/27/21 01/27/21 01/26/21 History mcg/actuation nasal spray,suspension simethicone 80 mg chewable tablet 80 mg PO QID PRN 01/27/21 01/27/21 01/26/21 History triamcinolone acetonide 0.5 % 1 appl TOPICAL BID PRN 01/27/21 01/27/21 Unknown History topical cream Physical Exam Vital Signs and Narrative: Vital Signs: Last Vital Signs Temp 98.8 F 01/27/21 16:48 Pulse 78 01/27/21 18:07 Resp 18 01/27/21 16:48 BP 160/69 H 01/27/21 18:07 Pulse Ox 96 01/27/21 16:48 Body Mass Index 38.8 Const: Other: Constitutional : Alert, oriented, in mild distress from the pain Neck : Normal inspection, Supple Cardiovascular : RRR, S1 S2, no lower extremity edema Respiratory : Good bilateral air entry, no crackles, wheezes or rhonchi Gastrointestinal: soft, lax, decreased bowel sounds, mainly epigastric tenderness Skin : Warm/Dry, No rash Neurological : Alert & oriented x3, No focal deficit Results Labs CBC and Chem 7: 01/27/21 16:47 01/27/21 16:46 Labs: Laboratory Results - last 24 hr 01/27/21 01/27/21 01/27/21 16:29 16:39 16:46 MCV MCH MCHC RDW Plt Count MPV Immature Gran % (Auto) Neut % (Auto) Lymph % (Auto) [place] % (Auto) Eos % (Auto) Baso % (Auto) Lymph # (Auto) [place] # (Auto) Eos # (Auto) Baso # (Auto) Abs Immat Gran (auto) Absolute Neuts (auto) Absolute Nucleated RBC Nucleated RBC % (auto) Smear Tech's Comments Anion Gap 18 Estim Creat Clear Calc 65.2 Estimated GFR > 60 Random Glucose 86 Calcium 9.6 Magnesium 2.2 Total Bilirubin 1.1 H AST 26 ALT 19 Alkaline Phosphatase 114 Lactate Dehydrogenase 311 H Total Protein 7.7 Albumin 4.3 Triglycerides 69 Lipase 36 Urine Color YELLOW Urine Appearance HAZY Urine pH 6.0 Ur Specific [place] >= 1.030 H Urine Protein 1+ H Urine Glucose (UA) NEG Urine Ketones 40 Urine Blood 1+ H Urine Nitrite NEG Ur Leukocyte Esterase NEG Urine RBC 1-4 Urine WBC 0 Ur Squamous Epith Cells 3+ Urine Bacteria 2+ Urine Mucus 1+ COVID-19 ([facility]) Negative COVID-19 Clin Com See Note 01/27/21 16:47 MCV 88.8 MCH 28.2 MCHC 31.7 RDW 13.7 Plt Count 211 MPV 11.5 Immature Gran % (Auto) 0.5 H Neut % (Auto) 85.0 H Lymph % (Auto) 8.5 L [place] % (Auto) 5.6 Eos % (Auto) 0.1 Baso % (Auto) 0.3 Lymph # (Auto) 1.5 [place] # (Auto) 1.0 Eos # (Auto) 0.0 Baso # (Auto) 0.1 Abs Immat Gran (auto) 0.08 H Absolute Neuts (auto) 14.8 H Absolute Nucleated RBC 0.000 Nucleated RBC % (auto) 0.0 Smear Tech's Comments VERIFIED Anion Gap Estim Creat Clear Calc Estimated GFR Random Glucose Calcium Magnesium Total Bilirubin AST ALT Alkaline Phosphatase Lactate Dehydrogenase Total Protein Albumin Triglycerides Lipase Urine Color Urine Appearance Urine pH Ur Specific [place] Urine Protein Urine Glucose (UA) Urine Ketones Urine Blood Urine Nitrite Ur Leukocyte Esterase Urine RBC Urine WBC Ur Squamous Epith Cells Urine Bacteria Urine Mucus COVID-19 ([facility]) COVID-19 Clin Com Assessment and Plan (1) Pancreatitis: Status: Acute (2) Obese: Status: Acute (3) Intractable nausea and vomiting: Status: Acute (4) Leukocytosis: Status: Acute (5) Hypertensive urgency: Status: Acute a 65 years old lady with PMH of HTN, GERD who presents to the hospital with a complaint of abdominal pain for the last 4 days associated with nausea and vomiting. acute pancreatitis Reports social drinking, gallbladder is out, low triglyceride CT scan showing evidence of head of pancreas pancreatitis, concerning Start IV fluid Pain medication with morphine Intractable nausea and vomiting From pancreatitis Zofran as needed for nausea Advanced diet as tolerated Hypertensive urgency Blood pressure of 210/100 in the emergency From vomiting her blood pressure medications Received IV labetalol with fair response Start Cardizem and losartan Continue to monitor leukocytosis No source of infection identified Likely secondary to vomiting Obesity Advised to lose weight DVT PPX Lovenox Quality Stroke Does the patient have a stroke diagnosis?: No VTE Prior VTE?: No VTE Risk Level:: Medical - moderate - high VTE Device Contraindication: Treatment Not Indicated VTE Drug Contraindication: N/A - Med Ordered
[2021-01-27] MEDS: Enoxaparin Sodium 40 MG/0.4 ML SYRINGE SUBCUT (18:52)
[2021-01-27] MEDS: Metoclopramide HCl 10 MG/2 ML VIAL IVPUSH (19:05)
[2021-01-27] MEDS: diphenhydrAMINE HCL 50 MG/ML VIAL IVPUSH (19:05)
[2021-01-27] MEDS: 0.9 % Sodium Chloride 1,000 ML 150 ML IVCONT (21:09)
[2021-01-28] VITALS (10 sets, daily range): BP systolic 138–205; BP diastolic 63–90; PULSE 69–103; RESP 16–18; TEMP 35.9–36.9; O2SAT 94–97
[2021-01-28] MEDS: 0.9 % Sodium Chloride 1,000 ML 150 ML IVCONT ×3 (04:34→21:28)
[2021-01-28 08:22] LABS: Hematocrit 43.3 % (37-47); Mean Corpuscular HGB Conc 32.3 g/dl (31.0-35.0); Mean Corpuscular Hemoglobin 28.7 pg (27.0-33.0); Mean Corpuscular Volume 88.9 fL (80-98); Mean Platelet Volume 11.5 fL (9.4-12.3); Platelet Count 255 X10*3/uL (160-400); Red Blood Count 4.87 X10*6/uL (4.20-5.50); Red Cell Distribution Width 13.8 % (11.0-16.0); White Blood Count 17.5 X10*3/uL (4.8-10.8)
[2021-01-28] MEDS: dilTIAZem HCL 30 MG TABLET 90 MG PO ×2 (08:23→16:17)
[2021-01-28 09:01] LABS: Anion Gap 14 (12-20); Blood Urea Nitrogen 6 mg/dL (9-16); Carbon Dioxide 21 mmol/L (22-29); Chloride 108 mmol/L (96-108); Estimated Glomerular Filt Rate > 60; Glucose Random 87 mg/dL (60-115); Potassium 4.1 mmol/L (3.3-5.1); Sodium 139 mmol/L (135-145)
[2021-01-28] MEDS: Labetalol HCL 100 MG TABLET 50 MG PO ×2 (09:43→12:42)
--- NOTE | 2021-01-28 12:08 | P.PNIM_ITS ---
Subjective Subjective Date of Service: 01/28/21 Interval History: the patient was seen and evaluated this morning Laying in bed, feels little better but still complaining of abdominal pain No vomiting Blood pressure is better controlled Denies any fever, chills or shortness of breath No reported other overnight events. Review of Systems No fever, chills But reportsweakness No chest pain, palpitation No shortness of breath or coughing epigastric and right upper quadrant pain improved, decreased oral intake No urinary symptoms No wounds Physical Exam Vital Signs: Vital Signs: Last Vital Signs Temp 98.4 F 01/28/21 11:39 Pulse 71 01/28/21 11:39 Resp 18 01/28/21 11:39 BP 173/74 H 01/28/21 11:39 Pulse Ox 97 01/28/21 11:39 Body Mass Index 40.0 Const: Other: Constitutional : Alert, oriented, not in distress Neck : Normal inspection, Supple Cardiovascular : RRR, S1 S2, no lower extremity edema Respiratory : Fair bilateral air entry, no crackles, wheezes or rhonchi Gastrointestinal: soft, lax, decreased bowel sounds, mainly epigastric tenderness Skin : Warm/Dry, No rash Neurological : Alert & oriented x3, No focal deficit Objective Data Current Medications Generic Name Dose Route Start Last Admin Trade Name Freq PRN Reason Stop Dose Admin Acetaminophen 650 mg 01/27/21 18:17 Acetaminophen 325 Mg Tablet PO Q6H PRN Pain Acetaminophen 650 mg 01/27/21 18:18 Acetaminophen 325 Mg Tablet PO Q6H PRN Pain, Mild (Pain Scale 1-3) Diltiazem HCl 90 mg 01/28/21 08:00 01/28/21 08:23 Diltiazem Hcl 30 Mg Tablet PO 90 mg BID@0800,1700 [facility] Administration Protocol Enoxaparin Sodium 40 mg 01/27/21 19:00 01/27/21 18:52 Enoxaparin Sodium 40 Mg/0.4 Ml Syringe SUBCUT 40 mg Q24H ERICA Administration Ergocalciferol 1,250 mcg 01/30/21 09:00 Ergocalciferol (Vitamin D2) 1,250 Mcg Capsule PO MO ERICA Fluticasone Propionate 1 spray 01/27/21 18:17 Fluticasone Propionate Nasal 16 Gm Howe NOSTRIL-B DAILY PRN Allergy Symptoms Sodium Chloride 1,000 mls @ 150 mls/hr 01/27/21 18:30 01/28/21 08:29 Ns IVCONT 0 mls/hr .Q6H40M ERICA Infusion Labetalol HCl 100 mg 01/28/21 21:00 Labetalol Hcl 100 Mg Tablet PO BID [facility] Protocol Loratadine 10 mg 01/28/21 09:00 01/28/21 08:28 Loratadine 10 Mg Tablet PO Not Given DAILY ERICA Morphine Sulfate 4 mg 01/27/21 18:25 Morphine Sulfate 4 Mg/Ml Cartridge IVPUSH Q4H PRN Pain, Severe (Pain Scale 7-10) Ondansetron HCl 4 mg 01/27/21 18:18 Ondansetron Hcl 4 Mg/2 Ml Vial IVPUSH Q8H PRN Nausea and Vomiting Pharmacy Consult 1 each 01/27/21 16:18 Consult Rx Perform Med Rec MISCELLANE ONCE PRN Consult order Senna 8.6 mg 01/27/21 18:17 Sennosides 8.6 Mg Tablet PO BEDTIME PRN constipation Simethicone 80 mg 01/27/21 18:17 Simethicone 80 Mg Tab.Chew PO QID PRN abdominal distention Labs CBC & Chem 7: 01/28/21 08:00 01/28/21 08:00 Labs: Laboratory Results - last 24 hr 01/27/21 01/27/21 01/27/21 16:29 16:39 16:46 MCV MCH MCHC RDW Plt Count MPV Immature Gran % (Auto) Neut % (Auto) Lymph % (Auto) [place] % (Auto) Eos % (Auto) Baso % (Auto) Lymph # (Auto) [place] # (Auto) Eos # (Auto) Baso # (Auto) Abs Immat Gran (auto) Absolute Neuts (auto) Absolute Nucleated RBC Nucleated RBC % (auto) Smear Tech's Comments Anion Gap 18 Estim Creat Clear Calc 65.2 Estimated GFR > 60 Random Glucose 86 Calcium 9.6 Magnesium 2.2 Total Bilirubin 1.1 H AST 26 ALT 19 Alkaline Phosphatase 114 Lactate Dehydrogenase 311 H Total Protein 7.7 Albumin 4.3 Triglycerides 69 Lipase 36 Urine Color YELLOW Urine Appearance HAZY Urine pH 6.0 Ur Specific [place] >= 1.030 H Urine Protein 1+ H Urine Glucose (UA) NEG Urine Ketones 40 Urine Blood 1+ H Urine Nitrite NEG Ur Leukocyte Esterase NEG Urine RBC 1-4 Urine WBC 0 Ur Squamous Epith Cells 3+ Urine Bacteria 2+ Urine Mucus 1+ COVID-19 ([facility]) Negative COVID-19 Clin Com See Note 01/27/21 01/28/21 01/28/21 16:47 08:00 08:00 MCV 88.8 88.9 MCH 28.2 28.7 MCHC 31.7 32.3 RDW 13.7 13.8 Plt Count 211 255 MPV 11.5 11.5 Immature Gran % (Auto) 0.5 H Neut % (Auto) 85.0 H Lymph % (Auto) 8.5 L [place] % (Auto) 5.6 Eos % (Auto) 0.1 Baso % (Auto) 0.3 Lymph # (Auto) 1.5 [place] # (Auto) 1.0 Eos # (Auto) 0.0 Baso # (Auto) 0.1 Abs Immat Gran (auto) 0.08 H Absolute Neuts (auto) 14.8 H Absolute Nucleated RBC 0.000 0.000 Nucleated RBC % (auto) 0.0 0.0 Smear Tech's Comments VERIFIED Anion Gap 14 Estim Creat Clear Calc 71.0 Estimated GFR > 60 Random Glucose 87 Calcium 9.0 D Magnesium Total Bilirubin AST ALT Alkaline Phosphatase Lactate Dehydrogenase Total Protein Albumin Triglycerides Lipase Urine Color Urine Appearance Urine pH Ur Specific [place] Urine Protein Urine Glucose (UA) Urine Ketones Urine Blood Urine Nitrite Ur Leukocyte Esterase Urine RBC Urine WBC Ur Squamous Epith Cells Urine Bacteria Urine Mucus COVID-19 ([facility]) COVID-19 Clin Com Assessment and Plan (1) Hypertensive urgency: Status: Acute (2) Leukocytosis: Status: Acute (3) Intractable nausea and vomiting: Status: Acute (4) Pancreatitis: Status: Acute Assessment and Plan: a 65 years old lady with PMH of HTN, GERD who presents to the hospital with a complaint of abdominal pain for the last 4 days associated with nausea and vomiting. acute pancreatitis Reports social drinking, gallbladder is out, low triglyceride Could be secondary to cholelithiasis CT scan showing evidence of head of pancreas pancreatitis, concerning Continue IV fluid Pain medication with morphine Intractable nausea and vomiting From pancreatitis Zofran as needed for nausea Advanced diet as tolerated Hypertensive urgency Better controlled blood pressures From vomiting her blood pressure medications Start p.o. labetalol 100 b.i.d. Continue Cardizem Continue to monitor leukocytosis No source of infection identified Likely secondary to vomiting Obesity Advised to lose weight DVT PPX Lovenox Quality Stroke Does the patient have a stroke diagnosis?: No VTE Prior VTE?: No VTE Risk Level:: Medical - moderate - high VTE Device Contraindication: Treatment Not Indicated VTE Drug Contraindication: N/A - Med Ordered
--- NOTE | 2021-01-28 14:53 | MHC.CM.PN ---
NURSE HIRED HELP NOTE ELECTRONIC MEDICAL RECORD REVIEWED ALONG WITH CASE DISCUSSED WITH [facility] , MET WITH PATIENT ALERT AND ORIENTATED , SHE LIVES ALONE IN APARTMENT,SHE HAS [facility] [facility] [employer] [facility], SHE HAS NO VNA , NO DME SERVICES. SHE AT THIS TIME DOES NOT FEEL THIS SHE WILL NEED ANY VNA SERVICES SHE IS ABLE TO COMPLETE MOST OF HER ADLS FOR SELF CARE BUT AT TIMES SHE NEEDS ASSISTANCE. HER [employer] WILL HELP HER WITH THIS , OR DO HOUSE SHE HAS NO VNA /NO DME SERVICES IN THE HOME. DISCHARGE PLAN HOME NO SERVCIES SE;LF RESUMTPION OF HER [employer] THROUGHT [facility] [employer] FAMILY PCP DR DARIEN BOONE [employer] , AND [employer] AND [employer]
[2021-01-28] MEDS: NIFEdipine ER 30 MG TAB.ER.24 PO (16:18)
[2021-01-28] MEDS: Labetalol HCL 100 MG TABLET PO (21:28)
[2021-01-29] VITALS (7 sets, daily range): BP systolic 124–184; BP diastolic 54–81; PULSE 57–72; RESP 16–18; TEMP 36–36.4; O2SAT 93–99
[2021-01-29] MEDS: 0.9 % Sodium Chloride 1,000 ML 150 ML IVCONT (05:27)
[2021-01-29 07:27] LABS: Hematocrit 40.5 % (37-47); Mean Corpuscular HGB Conc 32.1 g/dl (31.0-35.0); Mean Corpuscular Hemoglobin 28.6 pg (27.0-33.0); Mean Corpuscular Volume 89.2 fL (80-98); Mean Platelet Volume 11.8 fL (9.4-12.3); Platelet Count 250 X10*3/uL (160-400); Red Blood Count 4.54 X10*6/uL (4.20-5.50); Red Cell Distribution Width 13.9 % (11.0-16.0)
[2021-01-29 08:00] LABS: Anion Gap 15 (12-20); Blood Urea Nitrogen 5 mg/dL (9-16); Calcium 8.7 mg/dL (8.4-10.2); Carbon Dioxide 23 mmol/L (22-29); Chloride 109 mmol/L (96-108); Estimated Glomerular Filt Rate > 60; Glucose Random 87 mg/dL (60-115); Potassium 3.7 mmol/L (3.3-5.1); Sodium 143 mmol/L (135-145)
[2021-01-29] MEDS: NIFEdipine ER 30 MG TAB.ER.24 60 MG PO (08:19)
[2021-01-29] MEDS: dilTIAZem HCL 30 MG TABLET 90 MG PO ×2 (08:19→16:20)
[2021-01-29] MEDS: Labetalol HCL 100 MG TABLET PO ×2 (08:20→20:15)
--- NOTE | 2021-01-29 11:03 | HO.PM.IMPN ---
Subjective Subjective Date of Service: 01/29/21 Interval History: the patient was seen and evaluated this morning Abdominal pain improved Tolerating clear liquids, no vomiting but feeling nauseous Blood pressure still running high Denies any fever, chills or shortness of breath No reported other overnight events. No fever, chills ? But reportsweakness No chest pain, palpitation No shortness of breath or coughing ?epigastric and? right upper quadrant pain improved, decreased oral intake No urinary symptoms Physical Exam Vital Signs: Vital Signs: Last Vital Signs Temp 97.6 F 01/29/21 07:58 Pulse 72 01/29/21 07:58 Resp 16 01/29/21 07:58 BP 184/81 H 01/29/21 07:58 Pulse Ox 99 01/29/21 07:58 Body Mass Index 40.0 Const: Other: Constitutional : Alert, oriented,? not in distress Neck : Normal inspection, Supple Cardiovascular : RRR, S1 S2, no lower extremity edema Respiratory :? Fair bilateral air entry,? no crackles, wheezes or rhonchi Gastrointestinal:? soft, lax,? decreased bowel sounds,? mild epigastric tenderness Skin : Warm/Dry, No rash Neurological : Alert & oriented x3, No focal deficit Objective Data Current Medications Generic Name Dose Route Start Last Admin Trade Name Freq PRN Reason Stop Dose Admin Acetaminophen 650 mg 01/27/21 18:17 Acetaminophen 325 Mg Tablet PO Q6H PRN Pain Acetaminophen 650 mg 01/27/21 18:18 Acetaminophen 325 Mg Tablet PO Q6H PRN Pain, Mild (Pain Scale 1-3) Diltiazem HCl 90 mg 01/28/21 08:00 01/29/21 08:19 Diltiazem Hcl 30 Mg Tablet PO 90 mg BID@0800,1700 [facility] Administration Protocol Enoxaparin Sodium 40 mg 01/27/21 19:00 01/28/21 18:08 Enoxaparin Sodium 40 Mg/0.4 Ml Syringe SUBCUT Not Given Q24H [facility] Ergocalciferol 1,250 mcg 01/30/21 09:00 Ergocalciferol (Vitamin D2) 1,250 Mcg Capsule PO MO [facility] Fluticasone Propionate 1 spray 01/27/21 18:17 Fluticasone Propionate Nasal 16 Gm Moriarty NOSTRIL-B DAILY PRN Allergy Symptoms Sodium Chloride 1,000 mls @ 100 mls/hr 07/30/21 18:30 01/29/21 10:49 Ns IVCONT 100 mls/hr .Q10H ERICA Infusion Labetalol HCl 100 mg 01/28/21 21:00 01/29/21 08:20 Labetalol Hcl 100 Mg Tablet PO 100 mg BID ERICA Administration Protocol Loratadine 10 mg 01/28/21 09:00 01/29/21 08:20 Loratadine 10 Mg Tablet PO Not Given DAILY [facility] Morphine Sulfate 4 mg 01/27/21 18:25 Morphine Sulfate 4 Mg/Ml Cartridge IVPUSH Q4H PRN Pain, Severe (Pain Scale 7-10) Nifedipine 60 mg 01/29/21 09:00 01/29/21 08:19 Nifedipine Er 30 Mg Tab.Er.24 PO 60 mg DAILY ERICA Administration Protocol Ondansetron HCl 4 mg 01/27/21 18:18 Ondansetron Hcl 4 Mg/2 Ml Vial IVPUSH Q8H PRN Nausea and Vomiting Pharmacy Consult 1 each 01/27/21 16:18 Consult Rx Perform Med Rec MISCELLANE ONCE PRN Consult order Senna 8.6 mg 01/27/21 18:17 Sennosides 8.6 Mg Tablet PO BEDTIME PRN constipation Simethicone 80 mg 01/27/21 18:17 Simethicone 80 Mg Tab.Chew PO QID PRN abdominal distention Labs CBC & Chem 7: 01/29/21 06:34 01/29/21 06:34 Labs: Laboratory Results - last 24 hr 01/29/21 01/29/21 06:34 06:34 MCV 89.2 MCH 28.6 MCHC 32.1 RDW 13.9 Plt Count 250 MPV 11.8 Absolute Nucleated RBC 0.000 Nucleated RBC % (auto) 0.0 Anion Gap 15 Estim Creat Clear Calc 71.0 Estimated GFR > 60 Random Glucose 87 Calcium 8.7 Assessment and Plan (1) Hypertensive urgency: Status: Acute (2) Intractable nausea and vomiting: Status: Acute (3) Pancreatitis: Status: Acute Assessment and Plan: a 65 years old lady with PMH of HTN, GERD who presents to the hospital with a complaint of abdominal pain for the last 4 days associated with nausea and vomiting. acute pancreatitis Reports social drinking, gallbladder is out, low triglyceride Could be secondary to cholelithiasis CT scan showing evidence of head of pancreas pancreatitis, concerning Continue IV fluid Pain medication with morphine Advanced diet to full liquids Intractable nausea and vomiting From pancreatitis Improving Zofran as needed for nausea Advanced diet as tolerated Hypertensive urgency Still running high around 180s Continue p.o. labetalol 100 b.i.d. Continue Cardizem Start nifedipine 60 mg daily Continue to monitor leukocytosis No source of infection identified Likely secondary to vomiting Obesity Advised to lose weight DVT PPX Lovenox Quality Stroke Does the patient have a stroke diagnosis?: No VTE Prior VTE?: No VTE Risk Level:: Medical - moderate - high VTE Device Contraindication: Treatment Not Indicated VTE Drug Contraindication: N/A - Med Ordered
[2021-01-29] MEDS: 0.9 % Sodium Chloride 1,000 ML 100 ML IVCONT ×2 (13:47→23:52)
[2021-01-29] MEDS: Omeprazole 40 MG CAPSULE.DR PO (22:08)
[2021-01-30] VITALS: BP 125/67; PULSE 62; RESP 16; TEMP 36.7; O2SAT 94
[2021-01-30 04:00] VITALS: BP 141/70; PULSE 78; RESP 18; TEMP 36.2; O2SAT 94
[2021-01-30] MEDS: Omeprazole 40 MG CAPSULE.DR PO (05:46)
[2021-01-30 08:00] VITALS: BP 131/61; PULSE 76; RESP 19; TEMP 36.6; O2SAT 95
[2021-01-30] MEDS: dilTIAZem HCL 30 MG TABLET 90 MG PO (09:29)
[2021-01-30] MEDS: Labetalol HCL 100 MG TABLET PO (09:29)
[2021-01-30] MEDS: NIFEdipine ER 30 MG TAB.ER.24 60 MG PO (09:30)
--- NOTE | 2021-01-30 11:38 | MHC.CM.PN ---
IMM 01/30/21, PT DISCHARGING HOME W/[employer]UMP OF [employer], PT WILL CALL [facility] FOR TRANSPORT.
[2021-01-30 11:52] VITALS: BP 115/59; PULSE 59; RESP 18; TEMP 36.1; O2SAT 96
--- NOTE | 2021-01-30 11:53 | PM.DS ---
DS: Providers Provider Date of Service: 01/30/21 Date of admission: 01/27/21 18:18 Primary care physician: Susana Holcomb MD DS: Diagnosis Discharge Diagnosis (1) Hypertensive urgency: Status: Acute (2) Intractable nausea and vomiting: Status: Acute (3) Pancreatitis: Status: Acute DS: Medications Discharge Medications Home Medications: Home Medications Medication Instructions Recorded Confirmed acetaminophen 325 mg tablet 650 mg PO Q6H PRN 01/27/21 01/27/21 diltiazem HCl 90 mg tablet 1 tab PO BID@0800,1700 01/27/21 01/27/21 ergocalciferol (vitamin D2) 1,250 1,250 mcg PO MO 01/27/21 01/27/21 mcg (50,000 unit) capsule fluticasone propionate 50 1 spray INTRANASAL DAILY PRN 01/27/21 01/27/21 mcg/actuation nasal spray,suspension simethicone 80 mg chewable tablet 80 mg PO QID PRN 01/27/21 01/27/21 triamcinolone acetonide 0.5 % 1 appl TOPICAL BID PRN 01/27/21 01/27/21 topical cream Previous Rx's Medication Instructions Recorded loratadine 10 mg tablet 10 mg PO DAILY #90 tab 05/14/20 esomeprazole magnesium 40 mg 40 mg PO DAILY #30 cap 07/14/20 capsule,delayed release (Nexium) walker (Ultra-Light Rollator) #1 ea 10/17/20 sennosides 8.6 mg tablet (Natural 8.6 mg PO BEDTIME PRN #30 tab 12/23/20 Senna Laxative) olmesartan 40 mg tablet 40 mg PO DAILY #90 tab 01/03/21 nifedipine 30 mg tablet,extended 30 mg PO DAILY #30 tab 01/30/21 release 24 hr ondansetron 4 mg disintegrating 4 mg PO Q8H PRN #10 tab 01/30/21 tablet DS: Summary Hospital Course Hospital Course: Admission note HPI ?a 65 years old lady with PMH of HTN, GERD who presents to the hospital with a complaint of abdominal pain for the last 4 days? associated with nausea and vomiting.? The patient reported that she was doing well until 4 days ago when she started feeling abdominal pain in the epigastric and? right upper quadrant.? Deep, aching, associated with nausea and vomiting with no associated fever, chills, shortness of breath or chest pain. She was unable to tolerate diet and was vomiting almost everything she is eating including pain medications and her blood pressure meds.? She came to the emergency last night but she ended up leaving as she thought she is doing better.? Later this noon she started vomiting again in the pain was unbearable so she came back to the hospital.? A CT scan in the? emergency was consistent with head of pancreas picture of pancreatitis involving the inferior part. Admitted for further evaluation and treatment. Hospital course Patient was admitted for evaluation of abdominal pain. CT scan was concerning for head of pancreas pancreatitis. Treated with IV fluids with good response over the course of hospital stay as Zofran was used for nausea and morphine for pain as needed. Her diet was advanced slowly with good tolerance. Her blood pressure was noticed to be significantly elevated. She has multiple allergies to a lot of blood pressure medications and her olmesartan was not available so she was treated with nifedipine and labetalol with good response of her blood pressure. Upon discharge labetalol was held as she will restart her home does on meds start an and continue on nifedipine. Advised to continue advancing her diet as tolerated and to follow up with GI as outpatient for further evaluation of the head of pancreas pancreatitis. Ask to monitor her blood pressure at home and started using nifedipine. Time Spent with Patient Time attestation: Total time spent providing and/or coordinating discharge services: Discharge coordination time: Greater than 30 minutes Quality: Stroke Does the patient have a stroke diagnosis?: No Physical Exam Vital Signs: Vital Signs: Last Vital Signs Temp 97.0 F 01/30/21 11:52 Pulse 59 01/30/21 11:52 Resp 18 01/30/21 11:52 BP 115/59 L 01/30/21 11:52 Pulse Ox 96 01/30/21 11:52 Body Mass Index 40.0 Const: Other: Constitutional : Alert, oriented,? not in distress Neck : Normal inspection, Supple Cardiovascular : RRR, S1 S2, no lower extremity edema Respiratory :? Fair bilateral air entry,? no crackles, wheezes or rhonchi Gastrointestinal:? soft, lax,? decreased bowel sounds, no tenderness Skin : Warm/Dry, No rash Neurological : Alert & oriented x3, No focal deficit Discharge Plan Discharge Patient Disposition: Home, Self-Care Discharge Diagnosis: Acute pancreatitis Hypertensive urgency Referrals: Susana Schmitz MD [Primary Care Provider] - 1 Week Discharge Medications: New nifedipine 30 mg Tablet Extended Release 24hr 30 mg PO DAILY Qty: 30 RF: 1 ondansetron 4 mg tablet,disintegrating 4 mg PO Q8H PRN (Reason: nausea and vomiting) Qty: 10 RF: 0 Continued loratadine 10 mg tablet 10 mg PO DAILY Qty: 90 RF: 3 olmesartan 40 mg tablet 40 mg PO DAILY Qty: 90 RF: 2 fluticasone propionate 50 mcg/actuation spray,suspension 1 spray intranasal DAILY PRN (Reason: Allergy Symptoms) RF: 0 diltiazem HCl 90 mg tablet 1 tab PO BID@0800,1700 RF: 0 triamcinolone acetonide 0.5 % cream 1 appl topical BID PRN (Reason: Rash) RF: 0 ergocalciferol (vitamin D2) 1,250 mcg (50,000 unit) capsule 1,250 mcg PO MO RF: 0 simethicone 80 mg tablet,chewable 80 mg PO QID PRN (Reason: abdominal distention) RF: 0 acetaminophen 325 mg Tablet 650 mg PO Q6H PRN (Reason: Pain) RF: 0 (DME) Ultra-Light Rollator Misc See Rx Instructions .ROUTE .MEDSUPPLY Qty: 1 RF: 0 esomeprazole magnesium [Nexium] 40 mg capsule,delayed release(DR/EC) 40 mg PO DAILY Qty: 30 RF: 5 sennosides [Natural Senna Laxative] 8.6 mg tablet 8.6 mg PO BEDTIME PRN (Reason: constipation) Qty: 30 RF: 1 Discharge Orders: Discharge Order (Routine); Ordered 01/30/21 Ordered By: Mary Zendejas Diet: advance to usual diet Activity on Discharge: As tolerated Stand Alone Forms: Patient Portal Discharge page Care Plan Goals: Read below Health Concerns: Read below Plan of Treatment: You were admitted to the hospital for evaluation of abdominal pain. Found to have pancreatitis. Treated with IV fluid with good response over the course of hospital stay. You were noticed to have significantly elevated blood pressure readings requiring IV and oral medications. Blood pressure controlled during the hospital stay. Assessment: Advance your diet slowly over the next few days Use Zofran as needed for nausea Start nifedipine 30 mg XL, you tolerated that well in the hospital Monitor your blood pressure at home twice daily and report 1 week readings to your PCP for further adjustments
== END 2021-01-30 12:47 | disposition home or self-care (01) | DRG 439 ==
LOC: HO.ED 16:52 → HO.EDOVER 19:11 → HO.S3 19:25
PROVIDERS: Physician Assistant Medical; Admitting Provider Student in an Organized Health Care Education/Training Program; Emergency Provider Internal Medicine; PCP Internal Medicine; Visit Provider Student in an Organized Health Care Education/Training Program
DX: K85.90 Acute pancreatitis without necrosis or infection, unspecified (principal); Z68.41 Body mass index [BMI] 40.0-44.9, adult; K21.9 Gastro-esophageal reflux disease without esophagitis; Z20.822 Contact with and (suspected) exposure to COVID-19; I10 Essential (primary) hypertension; D72.829 Elevated white blood cell count, unspecified; E66.9 Obesity, unspecified; I16.0 Hypertensive urgency; Z88.5 Allergy status to narcotic agent; Z79.51 Long term (current) use of inhaled steroids; Z79.899 Other long term (current) drug therapy
CPT/HCPCS: 36415; 80048; 80053; 81001; 83615; 83690; 83735; 84478; 85025; 85027; 87635; 99285; J1170; J1200; J1650; J2270; J2405; J2765

== ENCOUNTER → 2021-02-08 15:03 | Outpatient (BNVA) | payer MEDICARE, SELFPAY | PROVIDERS: PCP Internal Medicine; Visit Provider Nurse Practitioner Family | DX: K59.01 Slow transit constipation (principal); Z87.19 Personal history of other diseases of the digestive system | CPT/HCPCS: 99212 ==

== ENCOUNTER → 2021-03-01 14:43 | Outpatient (BNVA) | payer MEDICARE, SELFPAY | PROVIDERS: PCP Internal Medicine; Referring Provider Internal Medicine; Visit Provider Internal Medicine | DX: I10 Essential (primary) hypertension (principal); E55.9 Vitamin D deficiency, unspecified; Z88.5 Allergy status to narcotic agent; Z88.8 Allergy status to other drugs, medicaments and biological substances; Z91.041 Radiographic dye allergy status; Z91.040 Latex allergy status; Z79.899 Other long term (current) drug therapy | CPT/HCPCS: 99202 ==

== ENCOUNTER → 2021-05-01 15:01 | Outpatient (BNVA) | payer MEDICARE, SELFPAY | PROVIDERS: PCP Internal Medicine; Visit Provider Internal Medicine | DX: I10 Essential (primary) hypertension (principal) | CPT/HCPCS: Q3014 ==

== ENCOUNTER → 2021-05-17 14:15 | Outpatient (BNVA) | payer MEDICARE, SELFPAY | PROVIDERS: PCP Internal Medicine; Referring Provider Internal Medicine; Visit Provider Nurse Practitioner Family | DX: R19.7 Diarrhea, unspecified (principal); K59.01 Slow transit constipation; K58.2 Mixed irritable bowel syndrome; K64.9 Unspecified hemorrhoids; Z90.49 Acquired absence of other specified parts of digestive tract; Z80.42 Family history of malignant neoplasm of prostate; Z80.41 Family history of malignant neoplasm of ovary; Z81.8 Family history of other mental and behavioral disorders; Z79.899 Other long term (current) drug therapy | CPT/HCPCS: 99212 ==

== ENCOUNTER 2021-06-13 10:08 | Outpatient (REF) | payer MEDICARE, SELFPAY ==
[2021-06-13 11:50] LABS: MANUAL DIFF FLAG NO
[2021-06-13 12:10] LABS: Basophils Percent Auto 0.5 % (0-2); Eosinophils Absolute Auto 0.1 X10*3/uL (0.0-0.4); Eosinophils Percent Auto 0.7 % (0-4); Hematocrit 45.9 % (37.0-47.0); Hemoglobin 14.5 g/dl (12.0-16.0); Imm Gran Abs Auto 0.03 X10*3/uL (0.00-0.03); Imm Gran Pct Auto 0.4 % (0.0-0.4); Lymphocytes Absolute Auto 2.3 X10*3/uL (1.2-4.9); Lymphocytes Percent Auto 27.3 % (20-40); Mean Corpuscular HGB Conc 31.6 g/dl (31.0-35.0); Mean Corpuscular Hemoglobin 28.3 pg (27.0-33.0); Mean Corpuscular Volume 89.5 fL (80.0-98.0); Mean Platelet Volume 11.5 fL (9.4-12.3); Monocytes Absolute Auto 0.5 X10*3/uL (0.1-1.2); Monocytes Percent Auto 6.2 % (2-11); Neutrophils Absolute Auto 5.4 x10*3/uL (2.0-8.3); Neutrophils Percent Auto 64.9 % (45-73); Platelet Count 253 X10*3/uL (160-400); Red Blood Count 5.13 X10*6/uL (4.20-5.50); Red Cell Distribution Width 15.3 % (11.0-16.0); White Blood Count 8.3 X10*3/uL (4.8-10.8)
[2021-06-13 12:43] LABS: Alanine Aminotransferase 17 U/L (0-31); Albumin Level 4.3 g/dL (3.5-5.0); Alkaline Phosphatase 108 U/L (39-117); Anion Gap 13 (12-20); Aspartate Amino Transferase 19 U/L (5-31); Bilirubin Total 0.5 mg/dL (0.0-1.0); Blood Urea Nitrogen 17 mg/dL (9-16); Calcium 9.9 mg/dL (8.4-10.2); Carbon Dioxide 28 mmol/L (22-29); Chloride 106 mmol/L (96-108); Estimated Glomerular Filt Rate > 60; Glucose Random 94 mg/dL (60-115); Lipase 46 U/L (8-78); Potassium 4.8 mmol/L (3.3-5.1); Sodium 142 mmol/L (135-145); Total Protein 7.4 g/dL (6.5-8.0)
[2021-06-13 12:56] LABS: TSH reflex Free T4 1.81 uIU/mL (0.32-4.0)
[2021-06-13 13:09] LABS: Folate 9.1 ng/mL (> or = 4.0); Vitamin B12 246 pg/mL (200-900)
[2021-06-17 12:11] LABS: Vitamin D 25-OH, D2 37 ng/mL; Vitamin D 25-OH, D3 6 ng/mL; Vitamin D 25-OH, Total 43 ng/mL (30-100)
== END 2021-06-13 10:09 | disposition home or self-care (01) ==
LOC: HO.LAB 10:08
PROVIDERS: Absent Provider Internal Medicine Medical Oncology; PCP Internal Medicine; Referring Provider Internal Medicine; Visit Provider Nurse Practitioner Family
DX: K58.2 Mixed irritable bowel syndrome (principal); R19.7 Diarrhea, unspecified; K59.01 Slow transit constipation; E55.9 Vitamin D deficiency, unspecified; R10.9 Unspecified abdominal pain; C50.919 Malignant neoplasm of unspecified site of unspecified female breast
CPT/HCPCS: 36415; 80053; 81479; 82306; 82397; 82607; 82746; 83520; 83690; 84443; 85025; 86140; 88346; 88350; 99212

== ENCOUNTER 2021-07-25 14:32 | Outpatient (REF) | payer MEDICARE, SELFPAY ==
[2021-07-31 23:12] LABS: Pancreatic Elastase-1 >500 mcg/g
== END 2021-07-25 14:33 | disposition home or self-care (01) ==
LOC: CF 14:32
PROVIDERS: PCP Internal Medicine; Visit Provider Nurse Practitioner Family
DX: R19.7 Diarrhea, unspecified (principal); K86.1 Other chronic pancreatitis; K58.2 Mixed irritable bowel syndrome; K21.9 Gastro-esophageal reflux disease without esophagitis
CPT/HCPCS: 82656; 99212

== ENCOUNTER 2021-11-30 14:35 | Outpatient (REF) | payer MEDICARE, SELFPAY ==
[2021-12-01 02:31] LABS: CT PCR NOT DETECTED (Not Detect.); NG PCR NOT DETECTED (Not Detect.)
[2021-12-01 08:49] LABS: BV Int Neg Control Negative (Negative); BV Int Pos Control Positive (Positive)
[2021-12-05 09:47] LABS: HPV mRNA E6/E7 rflx Not Detected (Not Detected)
== END 2021-11-30 14:36 | disposition home or self-care (01) ==
LOC: HO.LAB 14:35
PROVIDERS: PCP Internal Medicine; Visit Provider Advanced Practice Midwife
DX: Z01.411 Encounter for gynecological examination (general) (routine) with abnormal findings (principal); Z11.51 Encounter for screening for human papillomavirus (HPV); N95.0 Postmenopausal bleeding; Z20.2 Contact with and (suspected) exposure to infections with a predominantly sexual mode of transmission
CPT/HCPCS: 87480; 87491; 87510; 87591; 87624; 87660; 88142; 99212

== ENCOUNTER 2022-01-04 14:44 | Outpatient (REF) | payer MEDICARE, SELFPAY ==
--- NOTE | ~2022-01-04 | US_ITS ---
EXAMINATION: US PELVIS CLINICAL INFORMATION: Postmenopausal bleeding COMPARISON: CT abdomen pelvis 01/27/2021, pelvic ultrasound 02/17/2019 TECHNIQUE: Ultrasound of the pelvis is performed using both transabdominal and transvaginal transducers along with Doppler. Transvaginal imaging is performed due to inadequate visualization transabdominally. FINDINGS: Uterus: The uterus is anteverted and measures 7.2 x 3.0 x 4.1 cm. There is complex fluid within the endocervical canal compatible with history of postmenopausal bleeding. The double wall endometrial thickness is 8 mm. The uterus is smooth in contour and has normal myometrial echogenicity. Again seen is an 6 mm echogenic focus along the lower uterine segment, possibly reflective of an adjacent calcified phlebolith or myometrial vascular calcification given no definite CT findings of calcified myoma on prior. Adnexa: The ovaries are not identified. No adnexal mass. No free fluid. US/US pelvic and transvaginal IMPRESSION: Endometrium measures 8 mm in thickness. There is complex fluid within the endocervical canal, compatible with history of postmenopausal bleeding. Recommend gynecologic evaluation. Again seen is an 6 mm echogenic focus along the lower uterine segment, possibly reflective of an adjacent calcified phlebolith or myometrial vascular calcification given no definite CT findings of calcified myoma on prior. Ovaries were not identified sonographically. No adnexal mass.
== END 2022-01-04 14:45 | disposition home or self-care (01) ==
LOC: HO.US 14:44
PROVIDERS: Visit Provider Advanced Practice Midwife
DX: N95.0 Postmenopausal bleeding (principal)
CPT/HCPCS: 76830; 76856

== ENCOUNTER → 2022-01-22 14:13 | Outpatient (BNVA) | payer MEDICARE, SELFPAY | PROVIDERS: PCP Internal Medicine; Referring Provider Internal Medicine; Visit Provider Nurse Practitioner Family | DX: K86.1 Other chronic pancreatitis (principal); K58.9 Irritable bowel syndrome, unspecified; K64.9 Unspecified hemorrhoids | CPT/HCPCS: 99212 ==

== ENCOUNTER → 2022-02-01 15:16 | Outpatient (BNVA) | payer MEDICARE, SELFPAY | PROVIDERS: PCP Internal Medicine; Visit Provider Advanced Practice Midwife | DX: Z71.2 Person consulting for explanation of examination or test findings (principal) | CPT/HCPCS: 99212 ==

== ENCOUNTER → 2022-03-13 15:25 | Outpatient (BNVA) | payer MEDICARE, SELFPAY | PROVIDERS: Visit Provider Obstetrics & Gynecology | DX: N95.0 Postmenopausal bleeding (principal) | CPT/HCPCS: 99212 ==

== ENCOUNTER 2022-03-27 19:08 | Emergency (ER) | payer MEDICARE, SELFPAY ==
--- NOTE | ~2022-03-27 | XR_ITS ---
EXAMINATION: XR CHEST CLINICAL INFORMATION: Chest pain COMPARISON: Previous chest x-ray most recent December 2020 TECHNIQUE: Frontal view of the chest was obtained. FINDINGS: The cardiac and mediastinal contours are stable. The lungs are clear. There is no pleural effusion or pneumothorax. There are degenerative changes of the spine. There are surgical clips in the left axilla. There are bilateral breast implants. XR/XR chest 1V IMPRESSION: No evidence for acute disease in the chest.
--- NOTE | 2022-03-27 19:15 | ECG_ITS ---
Test Reason : CHEST PRESSURE Blood Pressure : / mmHG Vent. Rate : 085 BPM Atrial Rate : 085 BPM P-R Int : 130 ms QRS Dur : 084 ms QT Int : 374 ms P-R-T Axes : 047 000 080 degrees QTc Int : 445 ms Normal sinus rhythm Left ventricular hypertrophy with repolarization abnormality ( R in aVL , Stanton product ) Abnormal ECG When compared with ECG of 27-JAN-2021 03:52, No significant change was found Referred By: Generic ED Physician Electronically Signed By:KULWINDER CHAMORRO
[2022-03-27 19:20] VITALS: BP 212/96; BP 224/106; PULSE 84; PULSE 87; RESP 16; TEMP 36.8; O2SAT 97; O2SAT 99; BMI 37.3
--- NOTE | 2022-03-27 19:25 | ED.CHESTPAIN ---
HPI - Chest Pain General Chief Complaint: Chest Pain Stated Complaint: CHEST PRESSURE Time Seen by Provider: 03/27/22 19:16 Source: patient and EMS Mode of arrival: EMS Limitations: no limitations History of Present Illness HPI narrative: 66-year-old female presents with 3 days of intermittent chest pressure that started substernally and radiates out to the left chest and shoulder. States pressure is intermittent it is not associated with fevers, shortness of breath. She does report some nausea this morning, however the nausea and the chest pressure subsided. She presents now because the chest pressure has returned and she noted elevated blood pressure she does have a history of breast cancer, had bilateral mastectomies MD complaint: chest pain and chest heaviness Onset (ago): day(s) (3) Timing of current episode: episodic Prior episodes: Yes Onset: during rest Pain location: substernal and left chest Pain radiation: left arm Severity: moderate Pain scale (0-10): 6 Quality: heaviness Relieving factors: nothing Exacerbating factors: exertion and movement Associated symptoms: nausea Treatment prior to arrival: none Risk Factors Coronary artery disease risk factors: hypertension Pulmonary embolism risk factors: malignancy Related Data On Oral Contraceptives: No Previous Rx's Medication Instructions Recorded walker (Ultra-Light Rollator misc) #1 ea 10/17/20 loratadine 10 mg tablet 10 mg PO DAILY #90 tabs 05/09/21 olmesartan 40 mg tablet 40 mg PO DAILY #90 tabs 07/10/21 acetaminophen 650 mg 650 mg PO Q8H PRN pain 30 days #90 11/27/21 tablet,extended release (Mapap tabs Arthritis Pain) triamcinolone acetonide 0.5 % 1 appl topical BID PRN Rash 30 01/03/22 topical cream days #15 grams hydrocortisone 2.5 % topical cream 1 appl IN BID-QID PRN hemorrhoids 01/22/22 with perineal applicator #30 grams (Proctosol HC) cholecalciferol (vitamin D3) 25 25 mcg PO DAILY 90 days #90 caps 02/02/22 mcg (1,000 unit) capsule esomeprazole magnesium 40 mg 40 mg PO DAILY 90 days #90 caps 02/02/22 capsule,delayed release loperamide 2 mg capsule 2 mg PO Q4H PRN loose stool 30 02/02/22 days #180 caps diltiazem HCl 60 mg 60 mg PO BID 90 days #180 caps 02/05/22 capsule,extended release 12 hr cefuroxime axetil 500 mg tablet 500 mg PO Q12H 7 days #14 tabs 03/27/22 Allergies Allergy/AdvReac Type Severity Reaction Status Date / Time codeine [Codeine] Allergy Severe DIFFICULTY Verified 03/13/22 15:29 BREATHING albuterol Allergy Intermediate unknown Verified 03/13/22 15:29 adhesive [Adhesive] Allergy Mild RASH Verified 03/13/22 15:29 amlodipine [AMLODIPINE] Allergy Mild ITCHING Verified 03/13/22 15:29 clonidine [CLONIDINE] Allergy Mild sleepiness Verified 03/13/22 15:29 hydralazine [HYDRALAZINE] Allergy Mild dizziness Verified 03/13/22 15:29 Iodinated Contrast Media Allergy Mild HIVES Verified 03/13/22 15:29 [IV Dye, Iodine Containing] latex [LATEX] Allergy Mild RASH Verified 03/13/22 15:29 lisinopril [LISINOPRIL] Allergy Mild ITCHING Verified 03/13/22 15:29 oxybutynin [From Ditropan] Allergy Mild UNKNOWN Verified 03/13/22 15:29 doxazosin [DOXAZOSIN] Allergy Unknown PURITIS, Verified 03/13/22 15:29 pruritus hydrochlorothiazide Allergy Unknown ITCHING, Verified 03/13/22 15:29 [HYDROCHLOROTHIAZIDE] syncope losartan Allergy Unknown pruritus Verified 03/13/22 15:29 metoprolol [METOPROLOL] Allergy Unknown ITCHING Verified 03/13/22 15:29 metronidazole [From FLAGYL] Allergy Unknown VOMITING Verified 03/13/22 15:29 omeprazole [OMEPRAZOLE] Allergy Unknown RASH Verified 03/13/22 15:29 psyllium [Metamucil] Allergy Unknown diarrhea Verified 03/13/22 15:29 Review of Systems Review of Systems: Constitutional: No Fever, No Chills ENT/Mouth: No Ear Pain, No Hoarseness, No sore throat Eyes: No Eye Pain, No Swelling, No Redness, No Foreign Body Cardiovascular: Positive chest pressure, No Chest Pain, No SOB Respiratory: No Cough, No Dyspnea Gastrointestinal: Positive Nausea, No Vomiting, No Diarrhea, No abdominal Pain Genitourinary: No Dysuria, No Hematuria Musculoskeletal: positive joint pain, No Myalgias, No Joint Swelling Skin: No Skin lacerations, No rash Neuro: No Weakness, No Numbness, No Paresthesias, No Loss of Consciousness, No Dizziness, No Headache Psych: No Anxiety/Panic, No Depression Heme/Lymph: no easy bruising, no Lymphadenopathy Endocrine: No Polyuria, No Polydipsia Yes all other systems are reviewed and are negative [facility] Past Medical History Attestation statement: The following information was validated with the patient. Source: old records reviewed Medical History Breast implant status Chronic pancreatitis Essential hypertension History of breast cancer HTN (hypertension) Hypovitaminosis D Obese Polyarthralgia Postmenopausal bleeding Thyroid nodule Surgical History H/O esophagogastroduodenoscopy History of appendectomy History of breast biopsy History of breast reconstruction History of breast surgery History of carpal tunnel release History of cholecystectomy History of suburethral sling procedure History of tubal ligation Hx of colonoscopy Family History Family History Father Prostate cancer Mother Ovarian cancer Chronic mental illness Mental health disorder Paternal Aunt Cancer Family/Other FH: mental illness Mental health disorder Social History Social History Household Members: None Housing: Apartment Alcohol intake: former Patient Tobacco Use Status: Never used Tobacco e-Cigarette/Vaping Use: Never Used Second Hand Smoke Exposure: No Advance Directives: No service: No Current occupational status: unemployed Cognitive needs: Yes Hearing needs: No Vision needs: No Physical Exam Vital Signs: Vital Signs: Last Vital Signs Temp 97.7 F 03/27/22 21:36 Pulse 77 03/27/22 21:58 Resp 16 03/27/22 21:58 BP 178/90 H 03/27/22 21:58 Pulse Ox 97 03/27/22 21:58 O2 Del Method 03/27/22 21:58 BMI result Body Mass Index 37.3 Appearance: Alert. Oriented X3. No acute distress. Eyes: Pupils equal, round and reactive to light. ENT: Pharynx normal. Neck: Normal inspection. Neck supple. CVS: Normal heart rate and rhythm. Apical pulse equal the pulses to extremities. S1-S2, no murmurs gallops or rubs. Bilateral mastectomy Well-healed surgical incisions with implants. Respiratory: No respiratory distress. Breath sounds normal. Abdomen: Soft and nontender. Skin: Skin warm and dry. Normal skin color. Normal skin turgor. Extremities: No lower extremity edema. Gait well-balanced well coordinated. Neuro: No motor deficit. No sensory deficit. Cranial nerves 2-12 intact. Course Course Course Narrative: 66-year-old female presents with 3 days substernal chest pressure that radiates out to the left chest and elevated blood pressure that is not controlled by her current medication. Has a history of bilateral mastectomy secondary to breast cancer, hypertension, hyperlipidemia, has multiple allergies to blood pressure medications. Patient's physical exam is unremarkable, even unlabored respirations, cranial nerves 2-12 intact, full range of motion to all extremities, no nuchal rigidity or tenderness. Will order labs, EKG, and troponins. EKG no significant changes, no ST elevations or depressions. Troponins are negative. Lab values are within normal limits. Urinalysis is positive for UTI. Blood pressure is elevated 212/96, this could be related to UTI, anxiety due to chest pressure, low likelihood of ACS. Will give Ativan for anxiety, I did discuss this with Dr. Chance who agrees with this plan. Will add on D-dimer. I did discuss this plan in detail with the patient, patient feels that Ativan is a more appropriate choice versus blood pressure medications as she does have significant sensitivities. D-dimer 273, age adjusted D-dimer is within normal limits. Low likelihood of VTE. Heart rate is within normal limits at 77 beats per minute, O2 sat 97% on room air, no pain on inspiration. No reports of recent syncope. Plan of care is to treat for UTI, I did offer IV and p.o. antibiotics while patient was in the emergency department waiting room. She states that she prefers to start the home tomorrow morning. Did order cefuroxime 500 mg twice a day for the next 7 days. Patient verbalized understanding of and agrees to plan of care to discharge home with follow-up with primary care physician. Patient verbalized understanding of signs and symptoms indicating need for emergent intervention. MDM - Chest Pain Differential Diagnosis Differential diagnosis: Likely fracture of rib, pneumothorax, stable angina, unstable angina pectoris, atypical chest pain, st elevation myocardial infarction, costochondritis and biliary colic Medical Records Data Attestation: I reviewed the patient's medical records. Lab Data Attestation: I reviewed the patient's lab results. Result diagrams: 03/27/22 19:38 03/27/22 19:38 Labs: Lab Results 03/27/22 03/27/22 03/27/22 Range/Units 19:38 19:38 19:38 WBC 11.8 H (4.8-10.8) X10*3/uL RBC 5.12 (4.20-5.50) X10*6/uL Hgb 14.4 (12.0-16.0) g/dl Hct 44.8 (37.0-47.0) % MCV 87.5 (80.0-98.0) fL MCH 28.1 (27.0-33.0) pg MCHC 32.1 (31.0-35.0) g/dl RDW 15.6 (11.0-16.0) % Plt Count 220 (160-400) X10*3/uL MPV 11.2 (9.4-12.3) fL Immature Gran % (Auto) 0.3 (0.0-0.4) % Neut % (Auto) 72.8 (45-73) % Lymph % (Auto) 20.3 (20-40) % Antelope % (Auto) 6.0 (2-11) % Eos % (Auto) 0.2 (0-4) % Baso % (Auto) 0.4 (0-2) % Lymph # (Auto) 2.4 (1.2-4.9) X10*3/uL Antelope # (Auto) 0.7 (0.1-1.2) X10*3/uL Eos # (Auto) 0.0 (0.0-0.4) X10*3/uL Baso # (Auto) 0.1 (0.0-0.2) X10*3/uL Abs Immat Gran (auto) 0.03 (0.00-0.03) X10*3/uL Absolute Neuts (auto) 8.6 H (2.0-8.3) x10*3/uL Absolute Nucleated RBC 0.000 (0.0-0.012) X10*3/uL Nucleated RBC % (auto) 0.0 (0.0-0.2) /100WBC PT 11.9 (10.0-13.1) SEC INR 1.0 (0.9-1.1) D-Dimer High Sensitivty 273 NG/ML Sodium 141 (135-145) mmol/L Potassium 4.5 (3.3-5.1) mmol/L Chloride 106 (96-108) mmol/L Carbon Dioxide 22 (22-29) mmol/L Anion Gap 18 (12-20) BUN 16 (9-16) mg/dL Creatinine 0.97 (0.5-1.4) mg/dL Estim Creat Clear Calc 49.9 Estimated GFR 57 Random Glucose 117 H (60-115) mg/dL Calcium 9.0 D (8.4-10.2) mg/dL Magnesium 1.8 (1.6-2.6) mg/dL Total Bilirubin 0.3 (0.0-1.0) mg/dL Direct Bilirubin < 0.2 (0.0-0.5) mg/dL AST 20 (5-31) U/L ALT 27 (0-31) U/L Alkaline Phosphatase 98 (39-117) U/L Troponin I High Sens (<3.5-17.0) ng/L B-Natriuretic Peptide (<100) pg/mL Total Protein 6.9 (6.5-8.0) g/dL Albumin 4.0 (3.5-5.0) g/dL Lipase 36 (8-78) U/L Urine Color Urine Appearance Urine pH (5.0-9.0) Ur Specific D[place]man (1.005-1.025) Urine Protein (Neg-Trace) mg/dL Urine Glucose (UA) (Negative) mg/dL Urine Ketones (Negative) mg/dL Urine Blood (Negative) Urine Nitrite (Negative) Ur Leukocyte Esterase (Negative) Urine RBC (0-2) /HPF Urine WBC (0-5) /HPF Ur Squamous Epith Cells (0-2) /HPF Urine Bacteria (None Seen) Hyaline Casts (0-2) /LPF 03/27/22 03/27/22 Range/Units 19:38 20:09 WBC (4.8-10.8) X10*3/uL RBC (4.20-5.50) X10*6/uL Hgb (12.0-16.0) g/dl Hct (37.0-47.0) % MCV (80.0-98.0) fL MCH (27.0-33.0) pg MCHC (31.0-35.0) g/dl RDW (11.0-16.0) % Plt Count (160-400) X10*3/uL MPV (9.4-12.3) fL Immature Gran % (Auto) (0.0-0.4) % Neut % (Auto) (45-73) % Lymph % (Auto) (20-40) % Antelope % (Auto) (2-11) % Eos % (Auto) (0-4) % Baso % (Auto) (0-2) % Lymph # (Auto) (1.2-4.9) X10*3/uL Antelope # (Auto) (0.1-1.2) X10*3/uL Eos # (Auto) (0.0-0.4) X10*3/uL Baso # (Auto) (0.0-0.2) X10*3/uL Abs Immat Gran (auto) (0.00-0.03) X10*3/uL Absolute Neuts (auto) (2.0-8.3) x10*3/uL Absolute Nucleated RBC (0.0-0.012) X10*3/uL Nucleated RBC % (auto) (0.0-0.2) /100WBC PT (10.0-13.1) SEC INR (0.9-1.1) D-Dimer High Sensitivty NG/ML Sodium (135-145) mmol/L Potassium (3.3-5.1) mmol/L Chloride (96-108) mmol/L Carbon Dioxide (22-29) mmol/L Anion Gap (12-20) BUN (9-16) mg/dL Creatinine (0.5-1.4) mg/dL Estim Creat Clear Calc Estimated GFR Random Glucose (60-115) mg/dL Calcium (8.4-10.2) mg/dL Magnesium (1.6-2.6) mg/dL Total Bilirubin (0.0-1.0) mg/dL Direct Bilirubin (0.0-0.5) mg/dL AST (5-31) U/L ALT (0-31) U/L Alkaline Phosphatase (39-117) U/L Troponin I High Sens < 3.5 (<3.5-17.0) ng/L B-Natriuretic Peptide 46 (<100) pg/mL Total Protein (6.5-8.0) g/dL Albumin (3.5-5.0) g/dL Lipase (8-78) U/L Urine Color Yellow Urine Appearance Clear Urine pH 6.0 (5.0-9.0) Ur Specific [place] 1.010 (1.005-1.025) Urine Protein Negative (Neg-Trace) mg/dL Urine Glucose (UA) Negative (Negative) mg/dL Urine Ketones Negative (Negative) mg/dL Urine Blood Large (3+) H (Negative) Urine Nitrite Negative (Negative) Ur Leukocyte Esterase Moderate (2+) H (Negative) Urine RBC 3-5 H (0-2) /HPF Urine WBC 6-10 H (0-5) /HPF Ur Squamous Epith Cells 6-10 (0-2) /HPF Urine Bacteria Trace (None Seen) Hyaline Casts 0-2 (0-2) /LPF Imaging Data Chest x-ray: Attestation: I personally reviewed and interpreted this imaging study as follows: Radiologist's impression: EXAMINATION: XR CHEST CLINICAL INFORMATION: Chest pain COMPARISON: Previous chest x-ray most recent December 2020 TECHNIQUE: Frontal view of the chest was obtained. FINDINGS: The cardiac and mediastinal contours are stable. The lungs are clear. There is no pleural effusion or pneumothorax. There are degenerative changes of the spine. There are surgical clips in the left axilla. There are bilateral breast implants. XR/XR chest 1V IMPRESSION: No evidence for acute disease in the chest. ? ECG Data ECG #1: Attestation: I personally reviewed and interpreted this ECG as follows: ECG interpretation date: 03/27/22 ECG interpretation time: 19:20 Prior ECG tracings: available for review Interpretation: Vent. rate 85 BPM IN interval 130 ms QRS duration 84 ms QT/QTc 374/445 ms P-R-T axes 47 0 80 Normal sinus rhythm Left ventricular hypertrophy with repolarization abnormality ( R in aVL , Subhash product ) Abnormal ECG When compared with ECG of 27-JAN-2021 03:52, No significant change was found Discharge Plan Discharge Clinical Impression: Essential hypertension, Atypical chest pain, Urinary tract infection Patient Disposition: Home, Self-Care Instructions: Urinary Tract Infection in Women (ED), Chronic Hypertension (ED), Chest Wall Pain (ED) Additional Instructions: You were evaluated for chest pressure. EKG is normal sinus. Your lab values are within your normal limits. Your cardiac enzymes are negative. Her chest x-ray is normal. Urinalysis is positive for urinary tract infection. Please take cefuroxime twice a day for the next 7 days. Follow-up with primary care provider for elevated blood pressures. Thank you for choosing this emergency department for evaluation. Please follow-up with primary care physician as needed. Return to the emergency department for any new, concerning, or worsening symptoms. Prescriptions: New cefuroxime axetil 500 mg tablet 500 mg PO Q12H 7 Days Qty: 14 0RF No Action loratadine 10 mg tablet 10 mg PO DAILY Qty: 90 3RF acetaminophen [Mapap Arthritis Pain] 650 mg tablet extended release 650 mg PO Q8H PRN (Reason: pain) 30 Days Qty: 90 3RF triamcinolone acetonide 0.5 % cream 1 appl topical BID PRN (Reason: Rash) 30 Days Qty: 15 3RF esomeprazole magnesium 40 mg capsule,delayed release(DR/EC) 40 mg PO DAILY 90 Days Qty: 90 1RF cholecalciferol (vitamin D3) 25 mcg (1,000 unit) capsule 25 mcg PO DAILY 90 Days Qty: 90 0RF loperamide 2 mg capsule 2 mg PO Q4H PRN (Reason: loose stool) 30 Days Qty: 180 7RF Rx Instructions: administer after each loose stool until symptoms controlled; do not exceed 8 mg per 24 hrs (DME) Ultra-Light Rollator Misc See Rx Instructions .ROUTE .MEDSUPPLY Qty: 1 0RF Rx Instructions: As directed olmesartan 40 mg tablet 40 mg PO DAILY Qty: 90 2RF diltiazem HCl 60 mg capsule,extended release 12 hr 60 mg PO BID 90 Days Qty: 180 0RF hydrocortisone [Proctosol HC] 2.5 % cream with perineal applicator 1 appl IN BID-QID PRN (Reason: hemorrhoids) Qty: 30 2RF Interventions: ED Discharge Assessment Last Done: 03/27/22 21:53 Discharge Date/Time: 03/27/22 21:59
[2022-03-27 19:28] VITALS: BP 212/96; PULSE 84; RESP 16; TEMP 37.1; O2SAT 97
[2022-03-27 19:43] LABS: MANUAL DIFF FLAG NO
[2022-03-27 19:47] LABS: Basophils Absolute Auto 0.1 X10*3/uL (0.0-0.2); Basophils Percent Auto 0.4 % (0-2); Eosinophils Percent Auto 0.2 % (0-4); Hematocrit 44.8 % (37.0-47.0); Hemoglobin 14.4 g/dl (12.0-16.0); Imm Gran Abs Auto 0.03 X10*3/uL (0.00-0.03); Imm Gran Pct Auto 0.3 % (0.0-0.4); Lymphocytes Absolute Auto 2.4 X10*3/uL (1.2-4.9); Lymphocytes Percent Auto 20.3 % (20-40); Mean Corpuscular HGB Conc 32.1 g/dl (31.0-35.0); Mean Corpuscular Hemoglobin 28.1 pg (27.0-33.0); Mean Corpuscular Volume 87.5 fL (80.0-98.0); Mean Platelet Volume 11.2 fL (9.4-12.3); Monocytes Absolute Auto 0.7 X10*3/uL (0.1-1.2); Neutrophils Absolute Auto 8.6 x10*3/uL (2.0-8.3); Neutrophils Percent Auto 72.8 % (45-73); Platelet Count 220 X10*3/uL (160-400); Red Blood Count 5.12 X10*6/uL (4.20-5.50); Red Cell Distribution Width 15.6 % (11.0-16.0); White Blood Count 11.8 X10*3/uL (4.8-10.8)
[2022-03-27 19:53] LABS: Prothrombin Time 11.9 SEC (10.0-13.1)
[2022-03-27 20:00] VITALS: BP 218/95; PULSE 74; RESP 18; TEMP 36.8; O2SAT 99
[2022-03-27 20:04] LABS: Alanine Aminotransferase 27 U/L (0-31); Alkaline Phosphatase 98 U/L (39-117); Anion Gap 18 (12-20); Aspartate Amino Transferase 20 U/L (5-31); Bilirubin Direct < 0.2 mg/dL (0.0-0.5); Bilirubin Total 0.3 mg/dL (0.0-1.0); Blood Urea Nitrogen 16 mg/dL (9-16); Carbon Dioxide 22 mmol/L (22-29); Chloride 106 mmol/L (96-108); Creatinine Clr Calc Pharmacy 49.9; Estimated Glomerular Filt Rate 57; Glucose Random 117 mg/dL (60-115); Lipase 36 U/L (8-78); Magnesium 1.8 mg/dL (1.6-2.6); Potassium 4.5 mmol/L (3.3-5.1); Sodium 141 mmol/L (135-145); Total Protein 6.9 g/dL (6.5-8.0)
[2022-03-27 20:06] LABS: B Type Natriuretic Peptide 46 pg/mL (<100); Troponin-I High Sensitivity < 3.5 ng/L (<3.5-17.0)
[2022-03-27 20:25] LABS: Appearance Urine Clear; Color Urine Yellow; Glucose Urine UA Negative (Negative); Leukocyte Esterase Urine Moderate (2+) (Negative); Nitrite Urine Negative (Negative); UMIC TRIGGER UACC YES; Urine Blood Large (3+) (Negative); Urine Ketones Negative (Negative); Urine Protein Negative (Neg-Trace)
[2022-03-27 20:48] LABS: Bacteria Urine Trace (None Seen); Hyaline Casts Urine 0-2 /LPF (0-2); UACC Culture Trigger YES
[2022-03-27] MEDS: LORazepam 0.5 MG TABLET PO (20:48)
[2022-03-27 20:55] LABS: D Dimer High Sensitivity 273 NG/ML
[2022-03-27 21:36] VITALS: BP 199/90; PULSE 77; RESP 16; TEMP 36.5; O2SAT 97
[2022-03-27 21:58] VITALS: BP 178/90; PULSE 77; RESP 16; O2SAT 97
== END 2022-03-27 21:59 | disposition home or self-care (01) ==
PROVIDERS: Nurse Practitioner Family; Emergency Provider Emergency Medicine; PCP Internal Medicine
DX: R07.89 Other chest pain (principal); N39.0 Urinary tract infection, site not specified; I10 Essential (primary) hypertension; R06.02 Shortness of breath; M25.512 Pain in left shoulder; Z79.899 Other long term (current) drug therapy
CPT/HCPCS: 36415; 71045; 80048; 80076; 81001; 83690; 83735; 83880; 84484; 85025; 85379; 85610; 87086; 93005; 99283; 99285

== ENCOUNTER 2022-04-04 10:27 | Outpatient (REF) | payer MEDICARE, SELFPAY ==
[2022-04-04 11:59] LABS: Anion Gap 17 (12-20); Blood Urea Nitrogen 15 mg/dL (9-16); Calcium 9.4 mg/dL (8.4-10.2); Carbon Dioxide 26 mmol/L (22-29); Chloride 106 mmol/L (96-108); Estimated Glomerular Filt Rate > 60; Glucose Random 81 mg/dL (60-115); Potassium 4.2 mmol/L (3.3-5.1); Sodium 145 mmol/L (135-145)
== END 2022-04-04 10:28 | disposition home or self-care (01) ==
LOC: HO.LAB 10:27
PROVIDERS: Absent Provider Otolaryngology; PCP Internal Medicine; Visit Provider Internal Medicine
DX: J30.89 Other allergic rhinitis (principal)
CPT/HCPCS: 36415; 80048; 82785; 86003

== ENCOUNTER 2022-04-20 14:41 | Outpatient (REF) | payer MEDICARE, SELFPAY ==
[2022-04-20 15:34] LABS: Creatinine Urine 156.93 mg/dL; Protein/Creatinine Ratio, Ur 0.08 (<0.2); Total Protein Urine Random 12 mg/dL (<12)
== END 2022-04-20 14:42 | disposition home or self-care (01) ==
LOC: HO.LNP 14:41
PROVIDERS: Visit Provider Otolaryngology
DX: F41.9 Anxiety disorder, unspecified (principal); I10 Essential (primary) hypertension; J30.89 Other allergic rhinitis
CPT/HCPCS: 84156

== ENCOUNTER 2022-05-31 14:55 | Outpatient (REF) | payer MEDICARE, SELFPAY | END 2022-05-31 14:56 | disposition home or self-care (01) | LOC: HO.LNP 14:55 | PROVIDERS: Visit Provider Obstetrics & Gynecology | DX: N95.0 Postmenopausal bleeding (principal) | CPT/HCPCS: 58100; 88305 ==

== ENCOUNTER → 2022-07-05 15:10 | Outpatient (BNVA) | payer MEDICARE, SELFPAY | PROVIDERS: Visit Provider Obstetrics & Gynecology | DX: N95.0 Postmenopausal bleeding (principal); Z98.890 Other specified postprocedural states | CPT/HCPCS: 99212 ==

== ENCOUNTER 2022-07-13 14:45 | Outpatient (REF) | payer OTHER, SELFPAY ==
--- NOTE | ~2022-07-13 | MM_ITS ---
EXAMINATION: BONE DENSITOMETRY CLINICAL INDICATION: Osteopenia. COMPARISON: Previous BD dated 09/25/2018 and baseline BD dated 11/25/2007. TECHNIQUE: Using a [employer] medical DXA System (software version: 13.1) manufactured by [employer], dual-energy x-ray absorptiometry was performed of the lumbar spine and left hip. The images are of good technical quality. Summary results are attached. FINDINGS: AP SPINE L1-L4: Current: BMD 1.040 g/cm2, Z-score -0.1, T-score -1.2, osteopenia, 1.2% decrease from previous, 3.5% increase from baseline (<5% change is not significant). Prior: BMD 1.053 g/cm2. Baseline: BMD 1.005 g/cm2. LEFT FEMUR, NECK: Current: BMD 0.743 g/cm2, Z-score -0.9, T-score -2.1, osteopenia. Prior: BMD 0.778 g/cm2. Baseline: BMD 0.827 g/cm2. LEFT FEMUR, TOTAL: Current: BMD 0.942 g/cm2, Z-score 0.5, T-score -0.5, normal, 6.4% decrease from previous, 11.8% decrease from baseline (<5% change is not significant). Prior: BMD 1.006 g/cm2. Baseline: BMD 1.068 g/cm2. IDENTIFIED RISK FACTORS: Menopause, height loss, osteoporosis. HISTORY OF FRACTURE: None listed. MEDICATIONS: Vitamin D. MM/XR DEXA axial skeleton IMPRESSION: 1. DIAGNOSIS: Osteopenia based on the lowest T-score value of -2.1 in the femoral neck applying World Health Organization criteria. 2. 10-YEAR FRACTURE RISK PREDICTION, FRAX: Major osteoporotic fracture (clinical spine, forearm, hip or shoulder) 6.3%. Hip fracture 1.2%. 3. Treatment Recommendations: NOF guidelines recommend consideration for treatment in postmenopausal women and men age 50 and older presenting with the following: -A hip or vertebral (clinical or morphometric) fracture. -T-score less than or equal to -2.5 at the femoral neck or spine after appropriate evaluation to exclude secondary causes. -Low bone mass at the hip or spine and a 10-year fracture probability by FRAX of greater than or equal to 3% for hip fracture or greater than or equal to 20% for major osteoporotic fracture based on the [place] adapted WHO algorithm. 4. Other Recommendations: All treatment decisions require clinical judgment and consideration of individual patient factors, including patient preferences, comorbidities, previous drug use, risk factors not captured in the FRAX model (e.g. frailty, falls, vitamin D deficiency, increased bone turnover, interval significant decline in bone density) and possible under or overestimation of fracture risk by FRAX. Additional medical evaluation for secondary cause of low bone mineral density may be appropriate. FUTURE SCAN RECOMMENDATION: People with diagnosed cases of osteoporosis or at high risk for fracture should have regular bone mineral density tests. For patients eligible for Medicare, routine testing is allowed once every 2 years. The testing frequency can be increased to one year for patients who have rapidly progressing disease, those who are receiving or discontinuing medical therapy to restore bone mass, or have additional risk factors.
== END 2022-07-13 14:46 | disposition home or self-care (01) ==
LOC: HO.MAMMO 14:45
PROVIDERS: PCP Internal Medicine; Visit Provider Internal Medicine Medical Oncology
DX: Z13.820 Encounter for screening for osteoporosis (principal); M85.80 Other specified disorders of bone density and structure, unspecified site; Z78.0 Asymptomatic menopausal state
CPT/HCPCS: 77080

== ENCOUNTER → 2022-07-25 14:25 | Outpatient (BNVA) | payer OTHER, SELFPAY | PROVIDERS: PCP Internal Medicine; Referring Provider Internal Medicine; Visit Provider Nurse Practitioner Family | DX: K86.1 Other chronic pancreatitis (principal); K21.9 Gastro-esophageal reflux disease without esophagitis; K52.9 Noninfective gastroenteritis and colitis, unspecified | CPT/HCPCS: 99212 ==

== ENCOUNTER 2022-07-31 09:44 | Outpatient (REF) | payer OTHER, SELFPAY ==
[2022-07-31 11:21] LABS: Influenza A PCR NEGATIVE (Negative); Influenza B PCR NEGATIVE (Negative); Resp Syncy Virus RNA Qual PCR NEGATIVE (Negative); SARS COV2 PCR INHOUSE NEGATIVE (Negative)
== END 2022-07-31 09:45 | disposition home or self-care (01) ==
LOC: HO.LAB 09:44
PROVIDERS: Visit Provider Nurse Practitioner Family
DX: Z20.822 Contact with and (suspected) exposure to COVID-19 (principal); R09.89 Other specified symptoms and signs involving the circulatory and respiratory systems
CPT/HCPCS: 0241U

== ENCOUNTER → 2022-08-31 15:03 | Outpatient (BNVA) | payer OTHER, SELFPAY | PROVIDERS: PCP Internal Medicine; Referring Provider Internal Medicine; Visit Provider Nurse Practitioner Family | DX: Z12.11 Encounter for screening for malignant neoplasm of colon (principal); K52.9 Noninfective gastroenteritis and colitis, unspecified; K21.9 Gastro-esophageal reflux disease without esophagitis; K58.0 Irritable bowel syndrome with diarrhea; R68.81 Early satiety | CPT/HCPCS: 99212 ==

== ENCOUNTER 2022-10-26 13:19 | Day surgery (SDC) | payer OTHER, SELFPAY ==
[2022-10-24 11:07] VITALS: BMI 39.4
--- NOTE | 2022-10-25 10:16 | HO.ANESPROP2 ---
Documented by User: Kassidy Stanley NP 10/25/22 10:18 HPI - Anesthesia Eval Consult details Narrative: 67yo F for Upper Endoscopy and Colonoscopy *Multiple Allergies* PMFSH Active Problems Active Problems: All Active Problems (Updated 07/31/22 @ 09:39 by NIKOLAS Amezcua) Right ear pain (Acute) Conjunctivitis (Acute) Bilateral breast cancer (Acute) Calcaneal spur, right (Acute) Right ankle swelling (Acute) Primary osteoarthritis, right shoulder (Acute) Acute pancreatitis (Acute) Uncontrolled hypertension (Acute) Encounter to discuss test results (Acute) Allergic reaction (Acute) Anxiety (Acute) Chronic diarrhea (Acute) Chronic GERD (Acute) Chronic pancreatitis (Acute) Postmenopausal bleeding (Acute) Polyarthralgia (Acute) History of breast cancer (Acute) Thyroid nodule (Acute) Hypovitaminosis D (Acute) Essential hypertension (Acute) Past Medical History Medical History Breast implant status Chronic pancreatitis Essential hypertension History of breast cancer HTN (hypertension) Hypovitaminosis D Obese Polyarthralgia Postmenopausal bleeding Thyroid nodule Family History Family History Father Prostate cancer Mother Ovarian cancer Chronic mental illness Mental health disorder Paternal Aunt Cancer Family/Other FH: mental illness Mental health disorder Surgical History Surgical History H/O esophagogastroduodenoscopy History of appendectomy History of biopsy History of breast biopsy History of breast reconstruction History of breast surgery History of carpal tunnel release History of cholecystectomy History of suburethral sling procedure History of tubal ligation Hx of colonoscopy Social History Social History Household Members: None Housing: Apartment Are you a primary healthcare management consultant to a significant other at home: No Do you presently have visiting nurse or other home services: Yes Alcohol intake: former Patient Tobacco Use Status: Never used Tobacco e-Cigarette/Vaping Use: Never Used Second Hand Smoke Exposure: No Are you DNR?: No Advance Directives: No Advance Directives Information Provided: Yes Nutrition Risks: No Nutritional Risk service: No Current occupational status: unemployed Cognitive needs: Yes Hearing needs: No Vision needs: No Meds Allergies Allergy/AdvReac Type Severity Reaction Status Date / Time codeine [Codeine] Allergy Severe DIFFICULTY Verified 10/26/22 13:48 BREATHING albuterol Allergy Intermediate unknown Verified 10/26/22 13:48 adhesive [Adhesive] Allergy Mild RASH Verified 10/26/22 13:48 amlodipine [AMLODIPINE] Allergy Mild ITCHING Verified 10/26/22 13:48 clonidine [CLONIDINE] Allergy Mild sleepiness Verified 10/26/22 13:48 hydralazine [HYDRALAZINE] Allergy Mild dizziness Verified 10/26/22 13:48 Iodinated Contrast Media Allergy Mild HIVES Verified 10/26/22 13:48 [IV Dye, Iodine Containing] latex [LATEX] Allergy Mild RASH Verified 10/26/22 13:48 lisinopril [LISINOPRIL] Allergy Mild ITCHING Verified 10/26/22 13:48 oxybutynin [From Ditropan] Allergy Mild UNKNOWN Verified 10/26/22 13:48 doxazosin [DOXAZOSIN] Allergy Unknown PURITIS, Verified 10/26/22 13:48 pruritus hydrochlorothiazide Allergy Unknown ITCHING, Verified 10/26/22 13:48 [HYDROCHLOROTHIAZIDE] syncope losartan Allergy Unknown pruritus Verified 10/26/22 13:48 metoprolol [METOPROLOL] Allergy Unknown ITCHING Verified 10/26/22 13:48 metronidazole [From FLAGYL] Allergy Unknown VOMITING Verified 10/26/22 13:48 omeprazole [OMEPRAZOLE] Allergy Unknown RASH Verified 10/26/22 13:48 psyllium [Metamucil] Allergy Unknown diarrhea Verified 10/26/22 13:48 diltiazem AdvReac Intermediate Palpitation Verified 10/26/22 13:48 s Home Medications Medication Instructions Recorded Confirmed Last Taken Type carvedilol 6.25 mg tablet 6.25 mg PO Q12H 10/25/22 10/25/22 Unknown History clonidine 0.1 mg/24 hr weekly 1 patch transdermal QWEEK 10/25/22 10/25/22 Unknown History transdermal patch olmesartan 40 mg tablet 40 mg PO DAILY 10/25/22 10/25/22 10/26/22 History Exam Exam Date and Time: October 25, 2022 1016 Height,Weight and Vital Signs: Height 4 ft 10 in Weight 85.729 kg Pertinent Lab Results Pertinent Lab Results: Laboratory Tests 07/03/22 07/03/22 14:42 14:42 WBC 9.1 Hgb 14.3 Hct 44.6 Plt Count 253 Sodium 144 Potassium 4.2 Chloride 106 Carbon Dioxide 30 H BUN 15 Creatinine 0.83 Assessment and Plan Assessment Anesthesia Assessment: Chart Reviewed Documented by User: Domi Wiley MD 10/26/22 15:33 PMFSH Active Problems Active Problems: All Active Problems (Updated 10/26/22 @ 15:20 by Domi Wiley MD) Right ear pain (Acute) Conjunctivitis (Acute) Bilateral breast cancer (Acute) Calcaneal spur, right (Acute) Right ankle swelling (Acute) Primary osteoarthritis, right shoulder (Acute) Acute pancreatitis (Acute) Uncontrolled hypertension (Acute) SBP today 180-209 Encounter to discuss test results (Acute) Allergic reaction (Acute) Anxiety (Acute) Chronic diarrhea (Acute) Chronic GERD (Acute) Chronic pancreatitis (Acute) Postmenopausal bleeding (Acute) Polyarthralgia (Acute) History of breast cancer (Acute) Thyroid nodule (Acute) Hypovitaminosis D (Acute) Essential hypertension (Acute) Denies ABHIJIT Past Medical History Medical History Breast implant status Chronic pancreatitis Essential hypertension History of breast cancer HTN (hypertension) Hypovitaminosis D Obese Polyarthralgia Postmenopausal bleeding Thyroid nodule Family History Family History Father Prostate cancer Mother Ovarian cancer Chronic mental illness Mental health disorder Paternal Aunt Cancer Family/Other FH: mental illness Mental health disorder Family history of problems with anesthesia: No Surgical History Surgical History H/O esophagogastroduodenoscopy History of appendectomy History of biopsy History of breast biopsy History of breast reconstruction History of breast surgery History of carpal tunnel release History of cholecystectomy History of suburethral sling procedure History of tubal ligation Hx of colonoscopy History of Problems with Anesthesia: No Social History Social History Household Members: None Housing: Apartment Are you a primary healthcare management consultant to a significant other at home: No Do you presently have visiting nurse or other home services: Yes Alcohol intake: former Patient Tobacco Use Status: Never used Tobacco e-Cigarette/Vaping Use: Never Used Second Hand Smoke Exposure: No Are you DNR?: No Advance Directives: No Advance Directives Information Provided: Yes Nutrition Risks: No Nutritional Risk service: No Current occupational status: unemployed Cognitive needs: Yes Hearing needs: No Vision needs: No Meds Allergies Allergy/AdvReac Type Severity Reaction Status Date / Time codeine [Codeine] Allergy Severe DIFFICULTY Verified 10/26/22 13:48 BREATHING albuterol Allergy Intermediate unknown Verified 10/26/22 13:48 adhesive [Adhesive] Allergy Mild RASH Verified 10/26/22 13:48 amlodipine [AMLODIPINE] Allergy Mild ITCHING Verified 10/26/22 13:48 clonidine [CLONIDINE] Allergy Mild sleepiness Verified 10/26/22 13:48 hydralazine [HYDRALAZINE] Allergy Mild dizziness Verified 10/26/22 13:48 Iodinated Contrast Media Allergy Mild HIVES Verified 10/26/22 13:48 [IV Dye, Iodine Containing] latex [LATEX] Allergy Mild RASH Verified 10/26/22 13:48 lisinopril [LISINOPRIL] Allergy Mild ITCHING Verified 10/26/22 13:48 oxybutynin [From Ditropan] Allergy Mild UNKNOWN Verified 10/26/22 13:48 doxazosin [DOXAZOSIN] Allergy Unknown PURITIS, Verified 10/26/22 13:48 pruritus hydrochlorothiazide Allergy Unknown ITCHING, Verified 10/26/22 13:48 [HYDROCHLOROTHIAZIDE] syncope losartan Allergy Unknown pruritus Verified 10/26/22 13:48 metoprolol [METOPROLOL] Allergy Unknown ITCHING Verified 10/26/22 13:48 metronidazole [From FLAGYL] Allergy Unknown VOMITING Verified 10/26/22 13:48 omeprazole [OMEPRAZOLE] Allergy Unknown RASH Verified 10/26/22 13:48 psyllium [Metamucil] Allergy Unknown diarrhea Verified 10/26/22 13:48 diltiazem AdvReac Intermediate Palpitation Verified 10/26/22 13:48 s Home Medications Medication Instructions Recorded Confirmed Last Taken Type carvedilol 6.25 mg tablet 6.25 mg PO Q12H 10/25/22 10/25/22 Unknown History clonidine 0.1 mg/24 hr weekly 1 patch transdermal QWEEK 10/25/22 10/25/22 Unknown History transdermal patch olmesartan 40 mg tablet 40 mg PO DAILY 10/25/22 10/25/22 10/26/22 History Exam Height,Weight and Vital Signs: Height 4 ft 10 in Weight 85.729 kg Vital Signs Temp Pulse Resp BP Pulse Ox O2 Del Method 10/26/22 14:01 97.7 F 103 H 16 182/90 H 99 Room Air Airway Mallampati Class: II TM Dist: >3cm Neck ROM: Full Partial: Upper Loose/Missing/Broken Teeth: Yes (Poor dentition. Broken teeth front. Denies loose teeth) Heart: RRR Lungs: CTAB Assessment and Plan Assessment Anesthesia Assessment: Anesthesia Plan Discussed Final Anesthetic Review Family History of Problems with Anesthesia: No History of Problems with Anesthesia: No NPO: Yes ASA Class: III Final Preanesthetic Review: No Changes in Pt Med Stat, Meds/Allgs Chart Reviewed, Consent Obtained/Reviewed and Anes Risks/Benef Reviewed Patient Risk: Intermediate Procedure Risk: Low Assessment/Block/Sedation in SS: Assess/Block/Sedation-SS Anesthetic Plan Anesthetic Plan: MAC: Disposition: Standard PACU
[2022-10-26 14:01] VITALS: BP 182/90; PULSE 103; RESP 16; TEMP 36.5; O2SAT 99
[2022-10-26] MEDS: Lactated Ringers 1,000 ML 100 ML IVCONT (14:05)
--- NOTE | 2022-10-26 15:35 | MHC.SHP ---
Pre-Procedural Eval Section A Date of Service: 10/26/22 The patient is an INPATIENT: No The History & Physical has been completed within 30 days and I have reviewed it.: No Section B Chief Complaint: reflux,ibs,Noninfective gastroenteritis and coliti Relevant Family History (Specify if Yes): No Relevant Social History: None Present Medications: see Short Stay Collaborative assessment Medical History: Significant History (Breast implant status Chronic pancreatitis Essential hypertension History of breast cancer HTN (hypertension) Hypovitaminosis D Obese Polyarthralgia Postmenopausal bleeding Thyroid nodule) History of Previous Operations: Relevant previous surgery/procedure and date(s) (H/O esophagogastroduodenoscopy History of appendectomy History of biopsy History of breast biopsy History of breast reconstruction History of breast surgery History of carpal tunnel release History of cholecystectomy History of suburethral sling procedure History of tubal ligation Hx of colonoscopy) Allergies: Allergies Allergy/AdvReac Type Severity Reaction Status Date / Time codeine [Codeine] Allergy Severe DIFFICULTY Verified 10/26/22 13:48 BREATHING albuterol Allergy Intermediate unknown Verified 10/26/22 13:48 adhesive [Adhesive] Allergy Mild RASH Verified 10/26/22 13:48 amlodipine [AMLODIPINE] Allergy Mild ITCHING Verified 10/26/22 13:48 clonidine [CLONIDINE] Allergy Mild sleepiness Verified 10/26/22 13:48 hydralazine [HYDRALAZINE] Allergy Mild dizziness Verified 10/26/22 13:48 Iodinated Contrast Media Allergy Mild HIVES Verified 10/26/22 13:48 [IV Dye, Iodine Containing] latex [LATEX] Allergy Mild RASH Verified 10/26/22 13:48 lisinopril [LISINOPRIL] Allergy Mild ITCHING Verified 10/26/22 13:48 oxybutynin [From Ditropan] Allergy Mild UNKNOWN Verified 10/26/22 13:48 doxazosin [DOXAZOSIN] Allergy Unknown PURITIS, Verified 10/26/22 13:48 pruritus hydrochlorothiazide Allergy Unknown ITCHING, Verified 10/26/22 13:48 [HYDROCHLOROTHIAZIDE] syncope losartan Allergy Unknown pruritus Verified 10/26/22 13:48 metoprolol [METOPROLOL] Allergy Unknown ITCHING Verified 10/26/22 13:48 metronidazole [From FLAGYL] Allergy Unknown VOMITING Verified 10/26/22 13:48 omeprazole [OMEPRAZOLE] Allergy Unknown RASH Verified 10/26/22 13:48 psyllium [Metamucil] Allergy Unknown diarrhea Verified 10/26/22 13:48 diltiazem AdvReac Intermediate Palpitation Verified 10/26/22 13:48 s Review of Systems Sugical H&P ROS: Negative: Constitution, Cardiovascular, Respiratory and Gastrointestinal Exam Surgical H&P Exam: Normal: Heart, Normal: Lungs, Normal: Extremities and Normal: Abdomen Plan Diagnosis/Plan: Unchanged I have reviewed the history and physical and performed a pertinent physical examination on my patient. No changes have occurred unless specified. Time Spent With Patient Time: Total time managing care of this patient today ____ minutes.
--- NOTE | 2022-10-26 15:42 | P.OP_ITS ---
Operative Note Operative Note Date of Service: 10/26/22 Narrative: FLEXIBLE TRANSORAL UPPER GASTROINTESTINAL ENDOSCOPY WITH BIOPSIES AND COLONOSCOPY TILL CECUM WITH BIOPSIES Pre-op diagnosis: screening, post prandial diarrhea, GERD, dyspepsia Post-op diagnosis: GERD, gastritis, pyloric channel ulcer, colon polyp, diverticulosis, hemorrhoids Endoscopist:? Jina Sandy MD Anesthesia:?MAC UPPER ENDOSCOPY Consent: Indications for the procedure and potential complications of bleeding, perforation, reaction to medications and missed diagnosis were discussed with the patient and informed consent was obtained. Instrument: Olympus GIF H 190 mid size upper endoscope Monitoring: Vital signs and clinical assessment, continuous EKG monitoring, Pulse oximetry, Carbon Dioxide monitoring and blood pressure monitoring were done throughout the procedure. Procedure: The patient was placed in the left lateral decubitis position and pre-procedure medications were administered and a bite block was placed. The endoscope was inserted into the mouth and advanced under direct vision to the third part of duodenum. A careful inspection was made as the upper endoscope was withdrawn including a retroflexed examination of the proximal stomach; Findings and interventions are described below. Findings: Larynx: Normal Esophagus: GE junction at 36 cms. Minimal focal esophagitis at GE junction. Stomach: Mild gastric erythema. Biopsies were obtained. A 1 cms superficial ulcer in the pyloric channel - biopsied Grade 2 flap valve on retroflexed examination of the cardia. Duodenum: Normal bulb and descending duodenum. Biopsies were obtained from 3rd part of duodenum to check for celiac sprue Intervention: Biopsies as noted above COLONOSCOPY PROCEDURE NOTE Consent: Indications for the procedure and potential complications of bleeding, perforation, reaction to medications and missed diagnosis were discussed with the patient and informed consent was obtained. Instrument: Olympus PCF H 190 L variable stiffness pediatric colonoscope Monitoring: Vital signs and clinical assessment, intermittent blood pressure monitoring, continuous EKG monitoring, Pulse oximetry and Carbon Dioxide monitoring were done throughout the procedure. Colon withdrawl time was 25 minutes. Procedure: The patient was placed in the left lateral decubitis position and pre-procedure medications were administered. After a digital rectal examination of the ano-rectum, the video colonoscope was inserted into the rectum and advanced through the colon to the cecum. The colonoscope was slowly withdrawn in a retrograde panoramic fashion and the colon mucosa was carefully examined including a retroflexed view of the rectum. Findings and interventions are described below. Procedure Difficulty: Without difficulty. There was excessive spasm in the colon Findings: Terminal Ileum: Not evaluated Cecum: A 5-6 mm diminutive appearing polyp adjacent to appendicular orifice - removed with a cold biopsy Ascending Colon: Normal Transverse Colon: Moderate diverticulosis Descending Colon: Moderate diverticulosis Sigmoid Colon: Moderate diverticulosis Rectum: Normal Ano-rectum: Moderate internal hemorrhoids Colon preparation: Good in the left colon and fair in the right colon with a thin layer of adherent stools. No large lesions seen and smaller/flat polyps could be missed Impression and Post Procedure Diagnosis: Endoscopy Findings: ESOPHAGUS: Focal esophagitis at GE junction STOMACH: Gastritis, superfical pyloric channel ulcer DUODENUM: Normal Colonoscopy Findings: One small polyp removed Random biopsies were obtained from the right and left colon to check for microscopic colitis Moderate diverticulosis seen in the Transverse and left colon Moderate hemorrhoids on retroflexed exam. Plan: Await pathology results Patient has an appointment on 10/30/22 in the [facility] with Aura Frankel FNP- [facility]. Repeat Colonoscopy interval based on path results - in 5 years if polyp is adenomatous and due to fair prep in the right colon. Above findings were reviewed with the patient and colon polyps and diverticulosis handouts were given in the discharge area
[2022-10-26 16:33] VITALS: BP 110/80; PULSE 80; RESP 16; TEMP 36.2; O2SAT 97
[2022-10-26 16:48] VITALS: BP 165/88; PULSE 79; RESP 20; TEMP 36.1; O2SAT 97
== END 2022-10-26 17:04 | disposition home or self-care (01) ==
PROVIDERS: PCP Internal Medicine; Visit Provider Internal Medicine Gastroenterology
PROC: (CPT 45380; principal; 2022-10-26 14:40)
DX: Z12.11 Encounter for screening for malignant neoplasm of colon (principal); K63.5 Polyp of colon; K57.30 Diverticulosis of large intestine without perforation or abscess without bleeding; K64.8 Other hemorrhoids; K52.9 Noninfective gastroenteritis and colitis, unspecified; K21.9 Gastro-esophageal reflux disease without esophagitis; K29.50 Unspecified chronic gastritis without bleeding; K25.9 Gastric ulcer, unspecified as acute or chronic, without hemorrhage or perforation; K86.1 Other chronic pancreatitis; I10 Essential (primary) hypertension; E55.9 Vitamin D deficiency, unspecified; E04.1 Nontoxic single thyroid nodule; E66.9 Obesity, unspecified; Z68.39 Body mass index [BMI] 39.0-39.9, adult; Z85.3 Personal history of malignant neoplasm of breast; Z98.82 Breast implant status; Z79.899 Other long term (current) drug therapy; L23.1 Allergic contact dermatitis due to adhesives; Z88.8 Allergy status to other drugs, medicaments and biological substances; Z91.040 Latex allergy status; Z91.041 Radiographic dye allergy status; Z90.49 Acquired absence of other specified parts of digestive tract
CPT/HCPCS: 45380; 43239; 88305; 88342

== ENCOUNTER → 2022-10-30 15:27 | Outpatient (BNVA) | payer OTHER, SELFPAY | PROVIDERS: PCP Internal Medicine; Visit Provider Nurse Practitioner Family | DX: K52.9 Noninfective gastroenteritis and colitis, unspecified (principal); K21.9 Gastro-esophageal reflux disease without esophagitis; K85.90 Acute pancreatitis without necrosis or infection, unspecified; K58.2 Mixed irritable bowel syndrome | CPT/HCPCS: 99212 ==

== ENCOUNTER 2023-01-30 15:23 | Outpatient (AMB) | payer OTHER, SELFPAY ==
--- NOTE | 2023-01-30 15:28 | MHC.OFFVIS ---
Intake Vital Signs 01/30/23 15:29 Height 4 ft 10 in Weight 180 lb 12.465 oz BMI 37.8 BP 150/86 H Blood Pressure Location Lt brachial Position Sitting Pulse 83 Intake Visit Reasons: 3 month follow up Intake Note: Serenity presents in office as a est.patient for a 6month f/u for IBS. 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 Accompanied by: Self / Same As Patient Allergies codeine [Codeine] Allergy (Severe, Verified 01/30/23 15:28) DIFFICULTY BREATHING albuterol Allergy (Intermediate, Verified 01/30/23 15:28) unknown adhesive [Adhesive] Allergy (Mild, Verified 01/30/23 15:28) RASH amlodipine [AMLODIPINE] Allergy (Mild, Verified 01/30/23 15:28) ITCHING clonidine [CLONIDINE] Allergy (Mild, Verified 01/30/23 15:28) sleepiness hydralazine [HYDRALAZINE] Allergy (Mild, Verified 01/30/23 15:28) dizziness Iodinated Contrast Media [IV Dye, Iodine Containing] Allergy (Mild, Verified 01/30/23 15:28) HIVES latex [LATEX] Allergy (Mild, Verified 01/30/23 15:28) RASH lisinopril [LISINOPRIL] Allergy (Mild, Verified 01/30/23 15:28) ITCHING oxybutynin [From Ditropan] Allergy (Mild, Verified 01/30/23 15:28) UNKNOWN doxazosin [DOXAZOSIN] Allergy (Unknown, Verified 01/30/23 15:28) PURITIS, pruritus hydrochlorothiazide [HYDROCHLOROTHIAZIDE] Allergy (Unknown, Verified 01/30/23 15:28) ITCHING, syncope losartan Allergy (Unknown, Verified 01/30/23 15:28) pruritus metoprolol [METOPROLOL] Allergy (Unknown, Verified 01/30/23 15:28) ITCHING metronidazole [From FLAGYL] Allergy (Unknown, Verified 01/30/23 15:28) VOMITING omeprazole [OMEPRAZOLE] Allergy (Unknown, Verified 01/30/23 15:28) RASH psyllium [Metamucil] Allergy (Unknown, Verified 01/30/23 15:28) diarrhea diltiazem Adverse Reaction (Intermediate, Verified 08/02/23 15:28) Palpitations HPI 3 month follow up HPI Details LAST VISIT Chronic diarrhea History of chronic loose stools. Will try to bulk her stools by increasing fiber in her diet. Patient also has severe diverticulosis throughout her transverse and left side of her colon. Most likely the peristalsis is decreased due to diverticulosis with loose stools passing through. Will give her MiraLax in the morning to help her evacuated better. Chronic GERD Long history of epigastric discomfort. Upper endoscopy done awaiting path results. She is taking pantoprazole now and states that it is helping her. Discussed with patient avoiding dietary triggers only and late night snacking. Staying upright for minimum 3 hours after meals discussed with her Acute pancreatitis Patient denies any abdominal discomfort. History of pancreatitis in the past. She will call us if she will develops any abdominal pain or discomfort any fever chills, any nausea or vomiting. IBS (irritable bowel syndrome) Loose stools occasionally then constipated. Patient does not feel like she empties her bowels completely. Severe diverticulosis transverse and left side of her colon might be slowing down her peristalsis. Discussed with patient low FODMAP diet. List of food recommended as well as list of food to avoid given to patient. Discussed with her also eliminate shins diet to see if this will be more effective and helpful. I will see her in 3 months, sooner on as needed basis. Patient is agreeable to this plan and verbalizes understanding of instructions. She was given the opportunity to ask questions and all questions answered. Plan Medications New polyethylene glycol 3350 (Miralax) 17 grams PO DAILY 510 grams 2RF sennosides (Natural Senna Laxative) 17.2 mg (2 x 8.6 mg) PO BEDTIME 180 tabs 3RF constipation K59.00 Discontinued methylcellulose (laxative) (Citrucel) Discontinued Reason: Doctor's Order 500 mg PO BID 180 tabs 2RF TODAY'S VISIT: Patient is here today for follow-up. Patient reports that she has epigastric and right upper quadrant discomfort without dyspepsia, dysphagia or odynophagia. Patient reports to have no nausea or vomiting. Symptoms of acid reflux are suppressed with Nexium and sucralfate. Patient continues to have occasional loose stools and she controls that with cholestyramine. Patient does not seem much of a difference. She usually takes it with food and she states that she eats about ones or twice a day the most. Patient denies melena, hematochezia, unintentional weight loss or ribbon like stools. Patient reports the pain is cramping like any usually happens after meals. However patient does report that she will have the pain in epigastric area sometimes even if she drinks water. [facility] Medical History Breast implant status Chronic pancreatitis Essential hypertension History of breast cancer HTN (hypertension) Hypovitaminosis D Obese Polyarthralgia Postmenopausal bleeding Thyroid nodule Surgical History H/O esophagogastroduodenoscopy History of appendectomy History of biopsy History of breast biopsy History of breast reconstruction History of breast surgery History of carpal tunnel release History of cholecystectomy History of suburethral sling procedure History of tubal ligation Hx of colonoscopy Family History Father Prostate cancer Mother Ovarian cancer Chronic mental illness Mental health disorder Paternal Aunt Cancer Family/Other FH: mental illness Mental health disorder Social History Household Members: None Housing: Apartment Are you a primary intensive care anaesthetist to a significant other at home: No Do you presently have visiting nurse or other home services: Yes Alcohol intake: former Patient Tobacco Use Status: Never used Tobacco e-Cigarette/Vaping Use: Never Used Second Hand Smoke Exposure: No service: No Current occupational status: unemployed Cognitive needs: Yes Hearing needs: No Vision needs: No Review of Systems Const Denies weight gain and Denies weight loss ENT Reports no additional complaints, Denies dysphagia and Denies odynophagia Card Reports no additional complaints Resp Reports no additional complaints GI Reports abdominal pain (RUQ), Denies belching, Denies melena, Denies bloating, Denies change in bowel habits, Denies dysphagia, Denies excessive flatus, Denies dyspepsia, Reports heartburn, Denies diarrhea, Reports loose stools (Occasional), Denies nausea, Denies odynophagia and Denies vomiting Reports no additional complaints Musc Reports no additional complaints Neuro Reports no additional complaints Psych Reports no additional complaints Endo Reports no additional complaints Physical Exam Vital Signs: Last Vital Signs Pulse 83 01/30/23 15:29 BP 150/86 H 01/30/23 15:29 BMI result Body Mass Index 37.8 Const General: healthy appearing, no acute distress and well developed Nutritional Appearance: obese Orientation/consciousness: patient oriented x3 HEENT Head: Yes normal to inspection, Yes normocephalic and Yes atraumatic Face and sinus: Yes normal facial exam Mouth: Normal oral and palatal mucosa present Throat: Yes posterior oropharynx normal, Yes tonsils normal and Yes uvula midline Eyes General: appearance normal, both eyes and all related structures Neck Neck: Yes normal visual inspection, Yes full ROM and Yes trachea midline Thyroid: Thyroid normal Resp Effort & Inspection: normal respiratory effort, able to speak in complete sentences, no tracheal deviation and symmetric chest movement Auscultation: clear to auscultation bilaterally Cardio Rate: regular rate Heart sounds: S1 normal heart sound present and S2 normal heart sound present GI Inspection: Yes normal to inspection, No distended and Yes obesity Palpation (GI): Soft to palpation, not firm, nontender and No hepatosplenomegaly present Auscultation: normal bowel sounds General: Yes no CVA tenderness Back/Spine/Pelvis Back: no CVA tenderness Skin General skin exam: elasticity normal, turgor normal and dry skin Neuro General: patient oriented x3 Psych Appearance: grossly normal Mental Status: mental status grossly normal Speech and movement: Normal speech and movement present Affect: normal affect Assessment & Plan Assessment & Plan (1) Chronic GERD: Code(s): K21.9 - Gastro-esophageal reflux disease without esophagitis Plan: Continue current treatment with Nexium and sucralfate. Patient was also encouraged to avoid dietary triggers and late night snacking. Staying upright for minimal 3 hours after meals discussed with patient (2) IBS (irritable bowel syndrome): Code(s): K58.9 - Irritable bowel syndrome without diarrhea Qualifiers: Irritable bowel syndrome type: with diarrhea Qualified Code(s): K58.0 - Irritable bowel syndrome with diarrhea Plan: Patient reports postprandial loose stools. Most likely related to cholecystectomy. Patient was encouraged to avoid food that is high in fat. Patient will continue try elimination diet. Low FODMAP diet recommended (3) RUQ abdominal pain: Code(s): R10.11 - Right upper quadrant pain Plan: Will do HIDA scan to rule out common bile duct obstruction. Patient has otherwise negative exam. Negative for Lopez sign. Hyperactive bowel sounds in the right upper and epigastric area will start patient on Creon to help with symptoms. Patient does postprandial abdominal bloating. States that she continues to have occasional postprandial loose stools taking cholestyramine with food usually once a day. Occasionally patient has to take loperamide. Patient reports that her symptoms of acid reflux are for the most part suppressed with Nexium. Patient also take sucralfate at bedtime. Patient denies melena, hematochezia, unintentional weight loss or ribbon like stools. I will see patient in 3 months, sooner on as needed basis. Patient is agreeable to this plan and verbalizes understanding of instructions. She was given the opportunity to ask questions and all questions answered. Thank you for allowing me to participate in her care Orders: Orders NM hepatobiliary w pharm 02/06/23 R10.11 - Right upper quadrant pain Medications: New qbwhmm-cbvaznkh-uoggyjc 12,000-38,000 -60,000 unit (Creon) administer with meals and/or snacks 1 cap PO QID 120 caps 3RF R10.9 - Unspecified abdominal pain sucralfate 10 mL PO BEDTIME 400 mL 3RF K21.9 - Gastro-esophageal reflux disease without esophagitis Quality Reporting (2019) Adult ([facility] 13808/22/68) Smoking risk assessment performed?: Yes Patient Tobacco Use Status: Never used Tobacco Coding Level of Care Code Est Pt Level 4 (46121) Diagnoses Chronic GERD K21.9 IBS (irritable bowel syndrome) K58.0 Irritable bowel syndrome type: with diarrhea RUQ abdominal pain R10.11 Time Spent (min) 35 Comment 20 minutes spent with patient and additional 15 minutes spent reviewing her records
[2023-01-30 15:29] VITALS: BP 150/86; PULSE 83; BMI 37.8
== END 2023-01-30 16:10 | disposition home or self-care (01) ==
PROVIDERS: Visit Provider Nurse Practitioner Family
DX: K21.9 Gastro-esophageal reflux disease without esophagitis (principal); K58.0 Irritable bowel syndrome with diarrhea; R10.11 Right upper quadrant pain
CPT/HCPCS: 99214

== ENCOUNTER → 2023-01-30 15:23 | Outpatient (BNVA) | payer OTHER, SELFPAY | PROVIDERS: Visit Provider Nurse Practitioner Family | DX: R10.11 Right upper quadrant pain (principal); K86.1 Other chronic pancreatitis; Z90.49 Acquired absence of other specified parts of digestive tract | CPT/HCPCS: 99212 ==

== ENCOUNTER → 2023-02-06 08:52 | Outpatient (REF) | payer OTHER, SELFPAY ==
--- NOTE | ~2023-02-06 | NM_ITS ---
EXAMINATION: RADIONUCLIDE SOLID FOOD GASTRIC EMPTYING 4-HOUR STUDY CLINICAL INFORMATION: GERD without esophagitis. COMPARISON: No previous gastric emptying study is available for comparison. TECHNIQUE: A standard meal consisting of 4 oz of Egg Beaters brand equivalent tagged with 830 microcuries Tc-99m Sulfur Colloid, 8 oz water and 2 slices of toast with jelly was administered orally to the patient. Images were obtained using a dual head gamma camera in the anterior and posterior projections over of the stomach immediately post ingestion and at hourly intervals up to 4 hours post ingestion. The anterior and posterior counts at each time interval were averaged using the geometric mean and expressed as percentage of the immediate post ingestion counts. FINDINGS: There is good visualization of activity in the stomach immediately post ingestion. As the study progresses, there is good clearance of activity from the stomach and visualization of progressively increasing small bowel activity. By the end of the study, there is almost no retention noted in the stomach. Retention in the stomach at each time interval was: 1 hour 57% (normal 37%-90%) 2 hours 33% (normal 30%-60%) 3 hours 10% 4 hours 8% (normal 0%-10%) NM/NM gastric emptying study IMPRESSION: Normal 4-hour solid food gastric emptying study.
== END ==
LOC: HO.NUCMED 08:52
PROVIDERS: PCP Internal Medicine; Visit Provider Nurse Practitioner Family
DX: K21.9 Gastro-esophageal reflux disease without esophagitis (principal)
CPT/HCPCS: 78264; A9541

== ENCOUNTER 2023-05-13 14:10 | Outpatient (AMB) | payer OTHER, SELFPAY ==
--- NOTE | 2023-05-13 14:19 | A.OFFVIS_ITS ---
Intake Vital Signs 05/13/23 14:20 Height 4 ft 10 in Weight 179 lb 7.3 oz BMI 37.5 BP 146/98 H Blood Pressure Location Rt brachial Position Sitting Intake Visit Reasons: 3 Month Follow up Intake Note: Serenity presents to in office visit today in 3 months follow up of IBS. CC: Patient reports that she was in bed from to Saturday with pain from pancreas . Patient states that the medication for pancrease enzymes is good but it gives her diarrhea. She also reports bloating. 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 Accompanied by: Self / Same As Patient Allergies codeine [Codeine] Allergy (Severe, Verified 05/13/23 14:24) DIFFICULTY BREATHING albuterol Allergy (Intermediate, Verified 05/13/23 14:24) unknown adhesive [Adhesive] Allergy (Mild, Verified 05/13/23 14:24) RASH amlodipine [AMLODIPINE] Allergy (Mild, Verified 05/13/23 14:24) ITCHING clonidine [CLONIDINE] Allergy (Mild, Verified 05/13/23 14:24) sleepiness hydralazine [HYDRALAZINE] Allergy (Mild, Verified 05/13/23 14:24) dizziness Iodinated Contrast Media [IV Dye, Iodine Containing] Allergy (Mild, Verified 05/13/23 14:24) HIVES latex [LATEX] Allergy (Mild, Verified 05/13/23 14:24) RASH lisinopril [LISINOPRIL] Allergy (Mild, Verified 05/13/23 14:24) ITCHING oxybutynin [From Ditropan] Allergy (Mild, Verified 05/13/23 14:24) UNKNOWN doxazosin [DOXAZOSIN] Allergy (Unknown, Verified 05/13/23 14:24) PURITIS, pruritus hydrochlorothiazide [HYDROCHLOROTHIAZIDE] Allergy (Unknown, Verified 05/13/23 14:24) ITCHING, syncope losartan Allergy (Unknown, Verified 05/13/23 14:24) pruritus metoprolol [METOPROLOL] Allergy (Unknown, Verified 05/13/23 14:24) ITCHING metronidazole [From FLAGYL] Allergy (Unknown, Verified 05/13/23 14:24) VOMITING omeprazole [OMEPRAZOLE] Allergy (Unknown, Verified 05/13/23 14:24) RASH psyllium [Metamucil] Allergy (Unknown, Verified 05/13/23 14:24) diarrhea diltiazem Adverse Reaction (Intermediate, Verified 05/13/23 14:24) Palpitations HPI 3 Month Follow up HPI Details LAST VISIT Chronic GERD Continue current treatment with Nexium and sucralfate. Patient was also encouraged to avoid dietary triggers and late night snacking. Staying upright for minimal 3 hours after meals discussed with patient IBS (irritable bowel syndrome) Patient reports postprandial loose stools. Most likely related to cholecystectomy. Patient was encouraged to avoid food that is high in fat. Patient will continue try elimination diet. Low FODMAP diet recommended RUQ abdominal pain Will do HIDA scan to rule out common bile duct obstruction. Patient has otherwise negative exam. Negative for Olpez sign. Hyperactive bowel sounds in the right upper and epigastric area will start patient on Creon to help with symptoms. Patient does postprandial abdominal bloating. States that she continues to have occasional postprandial loose stools taking cholestyramine with food usually once a day. Occasionally patient has to take loperamide. Patient reports that her symptoms of acid reflux are for the most part suppressed with Nexium. Patient also take sucralfate at bedtime. Patient denies melena, hematochezia, unintentional weight loss or ribbon like stools. I will see patient in 3 months, sooner on as needed basis. Patient is agreeable to this plan and verbalizes understanding of instructions. She was given the opportunity to ask questions and all questions answered. ? Thank you for allowing me to participate in her care Plan Orders Orders NM hepatobiliary w pharm 02/06/23 R10.11 - Right upper quadrant pain Medications New capgol-kobfupfh-zwzjtdi 12,000-38,000 -60,000 unit (Creon) administer with meals and/or snacks 1 cap PO QID 120 caps 3RF R10.9 - Unspecified abdominal pain sucralfate 10 mL PO BEDTIME 400 mL 3RF K21.9 - Gastro-esophageal reflux disease without esophagitis TODAY'S VISIT: Patient is here today for follow-up. Patient is accompanied by her daughter. Patient reports that past week and she was having abdominal discomfort. Patient reports postprandial abdominal bloating in the right upper quadrant pain. Patient states that she thought it would be her pancreas. Patient denies any nausea or vomiting. Reports that her pain was not after she ate. Gastric emptying study was done and patient had normal study. She was placed on Creon for abdominal bloating, however she feels like maybe does with would cost her diarrhea. However patient reports that she was doing okay on it without having loose stools just in the past week she started with loose stools. Patient did not go for HIDA scan yet, not sure why it was not scheduled yet. Patient is status post cholecystectomy we send her to rule out CBD stone, spasms. Today patient reports that her pain is better. She continues to have a postprandial abdominal bloating. Denies any diarrhea. Denies melena, hematochezia, unintentional weight loss or ribbon like stools. [facility] Medical History HTN (hypertension) Chronic pancreatitis Postmenopausal bleeding Polyarthralgia History of breast cancer Obese Thyroid nodule Hypovitaminosis D Essential hypertension Breast implant status Surgical History History of biopsy History of suburethral sling procedure H/O esophagogastroduodenoscopy Hx of colonoscopy History of breast reconstruction History of appendectomy History of breast surgery History of breast biopsy History of tubal ligation History of carpal tunnel release History of cholecystectomy Family History Father Prostate cancer Mother Ovarian cancer Chronic mental illness Mental health disorder Paternal Aunt Cancer Family/Other FH: mental illness Mental health disorder Household Members: None Housing: Apartment Are you a primary director of healthcare systems to a significant other at home: No Do you presently have visiting nurse or other home services: Yes Alcohol intake: former Patient Tobacco Use Status: Never used Tobacco e-Cigarette/Vaping Use: Never Used Second Hand Smoke Exposure: No service: No Current occupational status: unemployed Cognitive needs: Yes Hearing needs: No Vision needs: No Review of Systems Const Denies weight gain and Denies weight loss ENT Reports no additional complaints, Denies dysphagia and Denies odynophagia Card Reports no additional complaints Resp Reports no additional complaints GI Reports abdominal pain (RUQ), Denies belching, Denies melena, Reports bloating, Denies change in bowel habits, Denies dysphagia, Denies excessive flatus, Denies dyspepsia, Reports heartburn, Denies diarrhea, Reports loose stools, Denies nausea, Denies odynophagia and Denies vomiting Reports no additional complaints Musc Reports no additional complaints Neuro Reports no additional complaints Psych Reports no additional complaints Endo Reports no additional complaints Physical Exam Vital Signs: Last Vital Signs BP 146/98 H 05/13/23 14:20 BMI result Body Mass Index 37.5 Const General: healthy appearing, no acute distress and well developed Nutritional Appearance: obese Orientation/consciousness: patient oriented x3 HEENT Head: Yes normal to inspection, Yes normocephalic and Yes atraumatic Face and sinus: Yes normal facial exam Mouth: Normal oral and palatal mucosa present Throat: Yes posterior oropharynx normal, Yes tonsils normal and Yes uvula midline Eyes General: appearance normal, both eyes and all related structures Neck Neck: Yes normal visual inspection, Yes full ROM and Yes trachea midline Thyroid: Thyroid normal Resp Effort & Inspection: normal respiratory effort, able to speak in complete sentences, no tracheal deviation and symmetric chest movement Auscultation: clear to auscultation bilaterally Cardio Rate: regular rate Heart sounds: S1 normal heart sound present and S2 normal heart sound present GI Inspection: Yes normal to inspection, No distended and Yes obesity Palpation (GI): Soft to palpation, not firm, nontender and No hepatosplenomegaly present Auscultation: normal bowel sounds General: Yes no CVA tenderness Back/Spine/Pelvis Back: no CVA tenderness Skin General skin exam: elasticity normal, turgor normal and dry skin Neuro General: patient oriented x3 Psych Appearance: grossly normal Mental Status: mental status grossly normal Results Reviewed Results Reviewed: GASTRIC EMPTYING STUDY: FINDINGS: There is good visualization of activity in the stomach immediately post ingestion. As the study progresses, there is good clearance of activity from the stomach and visualization of progressively increasing small bowel activity. By the end of the study, there is almost no retention noted in the stomach. Retention in the stomach at each time interval was: 1 hour 57% (normal 37%-90%) 2 hours 33% (normal 30%-60%) 3 hours 10% 4 hours 8% (normal 0%-10%) NM/NM gastric emptying study IMPRESSION: Normal 4-hour solid food gastric emptying study. Assessment & Plan Assessment & Plan (1) RUQ abdominal pain: Code(s): R10.11 - Right upper quadrant pain (2) Chronic GERD: Code(s): K21.9 - Gastro-esophageal reflux disease without esophagitis (3) IBS (irritable bowel syndrome): Code(s): K58.9 - Irritable bowel syndrome without diarrhea Qualifiers: Irritable bowel syndrome type: with both diarrhea and constipation Qualified Code(s): K58.2 - Mixed irritable bowel syndrome (4) Postprandial abdominal bloating: Code(s): R14.0 - Abdominal distension (gaseous) Plan Will send patient for MRI, MRCP to rule out CBD stone/cBD blockage, pancreatitis. Patient was encouraged to avoid dietary triggers. Low FODMAP diet discussed with patient. Patient will start taking Citrucel daily and Dulcolax tablets in the evening to help her evaluate her bowels better. I will see patient in 3 weeks, sooner on as needed basis. Patient is agreeable to this plan and verbalizes understanding of instructions. She was given the opportunity to ask questions and all questions answered. Thank you for allowing me to participate in her care Orders: Orders MRCP 05/13/23 R10.11 - Right upper quadrant pain Medications: New bisacodyl (Dulcolax (bisacodyl)) 10 mg (2 x 5 mg) PO BEDTIME 180 tabs 4RF methylcellulose (laxative) (Citrucel) take it with full glass of water 500 mg PO DAILY 90 tabs 2RF K59.00 - Constipation, unspecified Refilled triamcinolone acetonide 0.5% 1 appl topical BID PRN 15 grams 3RF Rash 30 days hydrocortisone 2.5% (Proctosol HC) 1 appl [place] BID-QID PRN 30 grams 2RF hemorrhoids K64.9 - Unspecified hemorrhoids Discontinued loperamide administer after each loose stool until symptoms controlled; do not exceed 8 mg per 24 hrs Discontinued Reason: Doctor's Order 2 mg PO Q4H 30 days PRN 180 caps 7RF loose stool cholestyramine-aspartame 4 gram no meds 1 hr before/4-6 hr after dose Discontinued Reason: Doctor's Order 4 grams PO QIDACHS 60 ea 4RF sucralfate Discontinued Reason: Doctor's Order 10 mL PO BEDTIME 400 mL 3RF K21.9 - Gastro-esophageal reflux disease without esophagitis Quality Reporting (2019) Adult ([facility] 138/08/22/68) Smoking risk assessment performed?: Yes Patient Tobacco Use Status: Never used Tobacco Coding Level of Care Code Est Pt Level 4 (67343) Diagnoses RUQ abdominal pain R10.11 Chronic GERD K21.9 Irritable bowel syndrome with both constipation and diarrhea K58.2 Irritable bowel syndrome type: with both diarrhea and constipation Postprandial abdominal bloating R14.0 Time Spent (min) 35 Comment 20 minutes spent with patient and additional 15 minutes spent reviewing her records
[2023-05-13 14:20] VITALS: BP 146/98; BMI 37.5
== END 2023-05-13 15:22 | disposition home or self-care (01) ==
PROVIDERS: PCP Internal Medicine; Visit Provider Nurse Practitioner Family
DX: R10.11 Right upper quadrant pain (principal); K21.9 Gastro-esophageal reflux disease without esophagitis; K58.2 Mixed irritable bowel syndrome; R14.0 Abdominal distension (gaseous)
CPT/HCPCS: 99214

== ENCOUNTER → 2023-05-13 14:10 | Outpatient (BNVA) | payer OTHER, SELFPAY | PROVIDERS: PCP Internal Medicine; Visit Provider Nurse Practitioner Family | DX: K21.9 Gastro-esophageal reflux disease without esophagitis (principal); K58.2 Mixed irritable bowel syndrome; R10.11 Right upper quadrant pain; R14.0 Abdominal distension (gaseous) | CPT/HCPCS: 99212 ==

== ENCOUNTER 2023-06-11 14:51 | Outpatient (AMB) | payer OTHER, SELFPAY ==
[2023-06-11 14:59] VITALS: BP 142/82; BMI 36.8
--- NOTE | 2023-06-11 14:59 | A.OFFPC_ITS ---
Vital Signs 06/11/23 14:59 Height 4 ft 10 in Weight 176 lb BMI 36.8 BP 142/82 H Blood Pressure Location Lt brachial Position Sitting Intake Visit Reasons: pe Intake Note: Patient here for a physical exam Nut Grader Required: No Accompanied by: Daughter Allergies codeine [Codeine] Allergy (Severe, Verified 06/11/23 16:28) DIFFICULTY BREATHING albuterol Allergy (Intermediate, Verified 06/11/23 16:28) unknown adhesive [Adhesive] Allergy (Mild, Verified 06/11/23 16:28) RASH amlodipine [AMLODIPINE] Allergy (Mild, Verified 06/11/23 16:28) ITCHING clonidine [CLONIDINE] Allergy (Mild, Verified 06/11/23 16:28) sleepiness hydralazine [HYDRALAZINE] Allergy (Mild, Verified 06/11/23 16:28) dizziness Iodinated Contrast Media [IV Dye, Iodine Containing] Allergy (Mild, Verified 06/11/23 16:28) HIVES latex [LATEX] Allergy (Mild, Verified 06/11/23 16:28) RASH lisinopril [LISINOPRIL] Allergy (Mild, Verified 06/11/23 16:28) ITCHING oxybutynin [From Ditropan] Allergy (Mild, Verified 06/11/23 16:28) UNKNOWN doxazosin [DOXAZOSIN] Allergy (Unknown, Verified 06/11/23 16:28) PURITIS, pruritus hydrochlorothiazide [HYDROCHLOROTHIAZIDE] Allergy (Unknown, Verified 06/11/23 16:28) ITCHING, syncope losartan Allergy (Unknown, Verified 06/11/23 16:28) pruritus metoprolol [METOPROLOL] Allergy (Unknown, Verified 06/11/23 16:28) ITCHING metronidazole [From FLAGYL] Allergy (Unknown, Verified 06/11/23 16:28) VOMITING omeprazole [OMEPRAZOLE] Allergy (Unknown, Verified 06/11/23 16:28) RASH psyllium [Metamucil] Allergy (Unknown, Verified 06/11/23 16:28) diarrhea diltiazem Adverse Reaction (Intermediate, Verified 06/11/23 16:28) Palpitations Medication List - Last Reconciled 06/11/23 by Susana Holcomb MD acetaminophen ER (Mapap Arthritis Pain) 650 mg PO Q8H PRN 30 days bisacodyl (Dulcolax (bisacodyl)) 10 mg (2 x 5 mg) PO BEDTIME cholecalciferol (vitamin D3) 50 mcg (2 x 25 mcg (1,000 unit)) PO DAILY 90 days esomeprazole magnesium 40 mg PO DAILY 90 days hydrocortisone 2.5% (Proctosol HC) 1 appl CA BID-QID PRN [id number] 12,000-38,000 -60,000 unit (Creon) 1 cap PO QID loratadine 10 mg PO DAILY methylcellulose (laxative) (Citrucel) 500 mg PO DAILY olmesartan 40 mg PO DAILY sertraline 25 mg PO DAILY 90 days simethicone (Gas Relief (simethicone)) 125 mg PO TID-QID PRN spironolactone 25 mg PO DAILY triamcinolone acetonide 0.5% 1 appl topical BID PRN 30 days walker (Ultra-Light Rollator misc) As directed Tobacco use date assessed: 07/31/22 Fall risk assessment: No Falls in past year Last assessed Fall Risk: 06/11/23 Dental Screening Dental Screen Date: 06/11/23 Did you have a dental visit in the last 12 months?: No Did you have a dental problem in the last 6 months where you did not have access to dental care?: No Was dental information given to patient?: Patient has dentist HPI HPI Comments History of Present Illness Details This is a 72-year-old female that comes accompanied by daughter for her physical exam. Blood pressure has markedly improved. Last colonoscopy was 2022. Has history of bilateral breast cancer and this is follow by Hematology- Oncology. Has bilateral mastectomy. [facility] Medical History (Updated 06/11/23 @ 16:29 by Susana Holcomb MD) HTN (hypertension) Chronic pancreatitis Postmenopausal bleeding Polyarthralgia History of breast cancer Obese Thyroid nodule Hypovitaminosis D Essential hypertension Breast implant status Surgical History History of biopsy History of suburethral sling procedure H/O esophagogastroduodenoscopy Hx of colonoscopy History of breast reconstruction History of appendectomy History of breast surgery History of breast biopsy History of tubal ligation History of carpal tunnel release History of cholecystectomy Family History Father Prostate cancer Mother Ovarian cancer Chronic mental illness Mental health disorder Paternal Aunt Cancer Family/Other FH: mental illness Mental health disorder Social History Household Members: None Housing: Apartment Are you a primary wild animal caretaker to a significant other at home: No Do you presently have visiting nurse or other home services: Yes Alcohol intake: former Patient Tobacco Use Status: Never used Tobacco e-Cigarette/Vaping Use: Never Used Second Hand Smoke Exposure: No service: No Current occupational status: unemployed Cognitive needs: Yes Hearing needs: No Vision needs: No Questionnaire Thrive Questionnaire Date Thrive assessed: 07/31/22 VENESSA-7 AMB Questionnaire VENESSA-7 Date VENESSA - 7 assessed: 07/31/22 Source: Developed by Drs. Bunny Dennis, Jimena Stock, Jarred Mclaughlin and colleagues, with an educational cruzito from [employer]. Review of Systems Const All systems reviewed & are unremarkable except as noted in HPI and below Eyes Reports no additional complaints, Denies change in vision and Denies other visual disturbances Card Denies chest pain at rest, Denies chest pain with activity, Denies edema, Denies irregular heart rhythm, Denies claudication, Denies dyspnea, Denies dyspnea on exertion, Denies orthopnea, Denies paroxysmal nocturnal dyspnea and Denies slow heart rate Resp Denies cough, Denies dyspnea and Denies dyspnea on exertion GI Denies abdominal pain, Denies change in bowel habits, Denies excessive flatus, Denies nausea and Denies vomiting Denies urinary incontinence, Denies urinary hesitancy and Denies urinary urgency Musc Denies abnormal gait, Denies atrophy, Denies deformity and Denies limited range of motion Skin/Breast Denies bleeding lesions, Denies changing lesions and Denies rash Neuro Denies abnormal gait and Denies lack of coordination Physical exam (Primary Care) Vital Signs: Last Vital Signs BP 142/82 H 06/11/23 14:59 BMI result Body Mass Index 36.8 Tobacco/Smoking Status: Tobacco use Status Tobacco use date assessed 07/31/22 06/11/23 15:03 Patient Tobacco Use Status Never used Tobacco 06/11/23 15:03 e-Cigarette/Vaping Use Never Used 06/11/23 15:03 Thrive Assessment: Date of Thrive Assessment Date Thrive assessed 07/31/22 06/11/23 15:03 Const Orientation/consciousness: patient oriented x3 HENMT Head: Yes normal to inspection, Yes normocephalic and Yes atraumatic Ears: external ears normal Eyes General: appearance normal, both eyes and all related structures Eyelids: Yes eyelids normal Conjunctivae: conjunctivae normal Neck Neck: Yes normal visual inspection and Yes supple Resp Effort & Inspection: normal respiratory effort Auscultation: clear to auscultation bilaterally Cardio Jugular venous distension: no JVD Rate: regular rate Rhythm: regular rhythm Heart sounds: S1 normal heart sound present and S2 normal heart sound present GI Inspection: Yes normal to inspection Palpation (GI): Soft to palpation and nontender Auscultation: normal bowel sounds Skin General skin exam: no rashes or lesions noted Neuro General: patient oriented x3 and no focal motor deficits Extrem General: Yes full ROM Psych Appearance: grossly normal Office Procedures Flu Questionnaire Does the patient have a severe egg allergy?: No Immunizations flu vacc [id number] 6mos up(PF) 60 mcg(15 mcgx4)/0.5 mL IM syringe Performing Provider: Susana Holcomb MD [facility] Documented (not given) by: BEBE Mandel on 06/11/23 15:16 Reason Not Given: Patient Refused Assessment and Plan Assessment & Plan (1) Physical exam: Code(s): Z00.00 - Encounter for general adult medical examination without abnormal findings Plan: Repeat in a year. Orders: Orders Influenza [id number] Immunization Today Z23 - Encounter for immunization Vitamin D 25-OH Total Today E55.9 - Vitamin D deficiency, unspecified Comprehensive [place]. Panel Fast Today I10 - Essential (primary) hypertension Lipid Panel Today E78.5 - Hyperlipidemia, unspecified, I10 - Essential (primary) hypertension Medications: Refilled triamcinolone acetonide 0.5% 1 appl topical BID PRN 15 grams 3RF Rash 30 days Coding Level of Care Code Est Pt Prev Care >65y(52240) Diagnoses Physical exam Z00.00 Time Spent (min) 33
== END 2023-06-11 15:27 | disposition home or self-care (01) ==
PROVIDERS: PCP Internal Medicine; Visit Provider Internal Medicine
DX: Z00.00 Encounter for general adult medical examination without abnormal findings (principal)
CPT/HCPCS: 99397

== ENCOUNTER 2023-07-05 14:03 | Outpatient (AMB) | payer OTHER, SELFPAY ==
--- NOTE | 2023-07-05 14:09 | MHC.OFFVIS ---
Intake Vital Signs 07/05/23 14:11 Height 4 ft 10 in Weight 177 lb BMI 37.0 BP 136/76 Blood Pressure Location Lt brachial Position Sitting Intake Visit Reasons: 4 week follow up MRI results Intake Note: Patient follow up for Chronic GERD and MRI results. Patient denies any other GI issues. Seamer Panty Hose Required: No Accompanied by: Self / Same As Patient Allergies codeine [Codeine] Allergy (Severe, Verified 07/05/23 14:59) DIFFICULTY BREATHING albuterol Allergy (Intermediate, Verified 07/05/23 14:59) unknown adhesive [Adhesive] Allergy (Mild, Verified 07/05/23 14:59) RASH amlodipine [AMLODIPINE] Allergy (Mild, Verified 07/05/23 14:59) ITCHING clonidine [CLONIDINE] Allergy (Mild, Verified 07/05/23 14:59) sleepiness hydralazine [HYDRALAZINE] Allergy (Mild, Verified 07/05/23 14:59) dizziness Iodinated Contrast Media [IV Dye, Iodine Containing] Allergy (Mild, Verified 07/05/23 14:59) HIVES latex [LATEX] Allergy (Mild, Verified 07/05/23 14:59) RASH lisinopril [LISINOPRIL] Allergy (Mild, Verified 07/05/23 14:59) ITCHING oxybutynin [From Ditropan] Allergy (Mild, Verified 07/05/23 14:59) UNKNOWN doxazosin [DOXAZOSIN] Allergy (Unknown, Verified 07/05/23 14:59) PURITIS, pruritus hydrochlorothiazide [HYDROCHLOROTHIAZIDE] Allergy (Unknown, Verified 07/05/23 14:59) ITCHING, syncope losartan Allergy (Unknown, Verified 07/05/23 14:59) pruritus metoprolol [METOPROLOL] Allergy (Unknown, Verified 07/05/23 14:59) ITCHING metronidazole [From FLAGYL] Allergy (Unknown, Verified 07/05/23 14:59) VOMITING omeprazole [OMEPRAZOLE] Allergy (Unknown, Verified 07/05/23 14:59) RASH psyllium [Metamucil] Allergy (Unknown, Verified 07/05/23 14:59) diarrhea diltiazem Adverse Reaction (Intermediate, Verified 07/05/23 14:59) Palpitations HPI 4 week follow up MRI results HPI Details LAST VISIT: RUQ abdominal pain Chronic GERD IBS (irritable bowel syndrome) Postprandial abdominal bloating Plan Will send patient for MRI, MRCP to rule out CBD stone/cBD blockage, pancreatitis. Patient was encouraged to avoid dietary triggers. Low FODMAP diet discussed with patient. Patient will start taking Citrucel daily and Dulcolax tablets in the evening to help her evaluate her bowels better. I will see patient in 3 weeks, sooner on as needed basis. Patient is agreeable to this plan and verbalizes understanding of instructions. She was given the opportunity to ask questions and all questions answered. ? Thank you for allowing me to participate in her care Orders Orders MR MRCP 05/13/23 R10.11 Medications New bisacodyl (Dulcolax (bisacodyl)) 10 mg (2 x 5 mg) PO BEDTIME 180 tabs 4RF methylcellulose (laxative) (Citrucel) take it with full glass of water 500 mg PO DAILY 90 tabs 2RF K59.00 Refilled triamcinolone acetonide 0.5% 1 appl topical BID PRN 15 grams 3RF Rash 30 days hydrocortisone 2.5% (Proctosol HC) 1 appl ME BID-QID PRN 30 grams 2RF hemorrhoids K64.9 Discontinued loperamide administer after each loose stool until symptoms controlled; do not exceed 8 mg per 24 hrs Discontinued Reason: Doctor's Order 2 mg PO Q4H 30 days PRN 180 caps 7RF loose stool cholestyramine-aspartame 4 gram no meds 1 hr before/4-6 hr after dose Discontinued Reason: Doctor's Order 4 grams PO QIDACHS 60 ea 4RF sucralfate Discontinued Reason: Doctor's Order 10 mL PO BEDTIME 400 mL 3RF K21.9 TODAY'S VISIT Patient is here today for follow-up and to discuss MRI results. Patient admits to be feeling better after starting Dulcolax tablets. Patient states that she is moving her bowels better. Patient reports less bloating. Takes Nexium every morning and her symptoms of acid reflux are suppressed for the most part. Patient reports that her pain improved. Patient denies any melena, hematochezia, unintentional weight loss or ribbon like stools. Denies any dyspepsia, dysphagia or odynophagia. [facility] Medical History HTN (hypertension) Chronic pancreatitis Postmenopausal bleeding Polyarthralgia History of breast cancer Obese Thyroid nodule Hypovitaminosis D Essential hypertension Breast implant status Surgical History History of biopsy History of suburethral sling procedure H/O esophagogastroduodenoscopy Hx of colonoscopy History of breast reconstruction History of appendectomy History of breast surgery History of breast biopsy History of tubal ligation History of carpal tunnel release History of cholecystectomy Family History Father Prostate cancer Mother Ovarian cancer Chronic mental illness Mental health disorder Paternal Aunt Cancer Family/Other FH: mental illness Mental health disorder Social History Household Members: None Housing: Apartment Are you a primary career and guidance counselor to a significant other at home: No Do you presently have visiting nurse or other home services: Yes Alcohol intake: former Patient Tobacco Use Status: Never used Tobacco e-Cigarette/Vaping Use: Never Used Second Hand Smoke Exposure: No service: No Current occupational status: unemployed Cognitive needs: Yes Hearing needs: No Vision needs: No Review of Systems Const Denies weight gain and Denies weight loss ENT Reports no additional complaints, Denies dysphagia and Denies odynophagia Card Reports no additional complaints Resp Reports no additional complaints GI Denies abdominal pain, Denies belching, Denies melena, Denies bloating, Denies change in bowel habits, Denies dysphagia, Denies excessive flatus, Denies dyspepsia, Denies heartburn, Denies diarrhea, Denies loose stools, Denies nausea, Denies odynophagia and Denies vomiting Musc Reports no additional complaints Neuro Reports no additional complaints Psych Reports no additional complaints Endo Reports no additional complaints Physical Exam Vital Signs: Last Vital Signs BP 136/76 07/05/23 14:11 BMI result Body Mass Index 37.0 Const General: healthy appearing, no acute distress and well developed Nutritional Appearance: well nourished Orientation/consciousness: patient oriented x3 Resp Effort & Inspection: normal respiratory effort, able to speak in complete sentences, no tracheal deviation and symmetric chest movement Auscultation: clear to auscultation bilaterally Cardio Rate: regular rate GI Inspection: Yes normal to inspection and No distended Palpation (GI): Soft to palpation, not firm, nontender and No hepatosplenomegaly present Auscultation: normal bowel sounds General: Yes no CVA tenderness Back/Spine/Pelvis Back: no CVA tenderness Skin General skin exam: elasticity normal, turgor normal and dry skin Neuro General: patient oriented x3 Psych Appearance: grossly normal Mental Status: mental status grossly normal Assessment & Plan Assessment & Plan (1) Chronic GERD: Code(s): K21.9 - Gastro-esophageal reflux disease without esophagitis (2) RUQ abdominal pain: Code(s): R10.11 - Right upper quadrant pain (3) IBS (irritable bowel syndrome): Code(s): K58.9 - Irritable bowel syndrome without diarrhea Qualifiers: Irritable bowel syndrome type: without diarrhea Qualified Code(s): K58.9 - Irritable bowel syndrome without diarrhea (4) Postprandial abdominal bloating: Code(s): R14.0 - Abdominal distension (gaseous) (5) Constipation: Code(s): K59.00 - Constipation, unspecified Qualifiers: Constipation type: slow transit constipation Qualified Code(s): K59.01 - Slow transit constipation Plan Continue Dulcolax, will add Colace. Patient was also encouraged to increase fluid intake and activity to promote better bowel motility. Continue avoiding dietary triggers. Patient can take Nexium in the morning. May take simethicone on as needed basis. Low FODMAP diet discussed with patient. Patient may use Proctosol on as needed basis. I will see patient in 6 months. Patient will call us sooner if she will have any GI concerning symptom. Both patient and her daughter are agreeable to plan of care and verbalizes understanding of instructions. They were given the opportunity to ask questions and all questions answered. Thank you for allowing me to participate in her care Medications: New docusate sodium 100 mg PO BEDTIME 90 caps 3RF K59.00 - Constipation, unspecified Refilled hydrocortisone 2.5% (Proctosol HC) 1 appl ME BID-QID PRN 30 grams 2RF hemorrhoids K64.9 - Unspecified hemorrhoids Quality Reporting (2019) Adult ([facility] 138/08/22/68) Smoking risk assessment performed?: Yes Patient Tobacco Use Status: Never used Tobacco Coding Level of Care Code Est Pt Level 4 (05578) Diagnoses Chronic GERD K21.9 RUQ abdominal pain R10.11 Irritable bowel syndrome without diarrhea K58.9 Irritable bowel syndrome type: without diarrhea Postprandial abdominal bloating R14.0 Slow transit constipation K59.01 Constipation type: slow transit constipation Time Spent (min) 35 Comment 20 minutes spent with patient and additional 15 minutes spent reviewing her records
[2023-07-05 14:11] VITALS: BP 136/76; BMI 37.0
== END 2023-07-05 14:57 | disposition home or self-care (01) ==
PROVIDERS: PCP Internal Medicine; Visit Provider Nurse Practitioner Family
DX: K21.9 Gastro-esophageal reflux disease without esophagitis (principal); R10.11 Right upper quadrant pain; K58.9 Irritable bowel syndrome, unspecified; R14.0 Abdominal distension (gaseous); K59.01 Slow transit constipation
CPT/HCPCS: 99214

== ENCOUNTER → 2023-07-05 14:03 | Outpatient (BNVA) | payer OTHER, SELFPAY | PROVIDERS: PCP Internal Medicine; Visit Provider Nurse Practitioner Family | DX: K21.9 Gastro-esophageal reflux disease without esophagitis (principal); K58.9 Irritable bowel syndrome, unspecified; K59.01 Slow transit constipation; R10.11 Right upper quadrant pain; R14.0 Abdominal distension (gaseous) | CPT/HCPCS: 99212 ==

== ENCOUNTER 2023-07-08 14:59 | Outpatient (AMB) | payer OTHER, SELFPAY ==
--- NOTE | 2023-07-08 15:01 | MHC.OFFVIS ---
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 Allergies codeine [Codeine] Allergy (Severe, Verified 07/05/23 14:59) DIFFICULTY BREATHING albuterol Allergy (Intermediate, Verified 07/05/23 14:59) unknown adhesive [Adhesive] Allergy (Mild, Verified 07/05/23 14:59) RASH amlodipine [AMLODIPINE] Allergy (Mild, Verified 07/05/23 14:59) ITCHING clonidine [CLONIDINE] Allergy (Mild, Verified 07/05/23 14:59) sleepiness hydralazine [HYDRALAZINE] Allergy (Mild, Verified 07/05/23 14:59) dizziness Iodinated Contrast Media [IV Dye, Iodine Containing] Allergy (Mild, Verified 07/05/23 14:59) HIVES latex [LATEX] Allergy (Mild, Verified 07/05/23 14:59) RASH lisinopril [LISINOPRIL] Allergy (Mild, Verified 07/05/23 14:59) ITCHING oxybutynin [From Ditropan] Allergy (Mild, Verified 07/05/23 14:59) UNKNOWN doxazosin [DOXAZOSIN] Allergy (Unknown, Verified 07/05/23 14:59) PURITIS, pruritus hydrochlorothiazide [HYDROCHLOROTHIAZIDE] Allergy (Unknown, Verified 07/05/23 14:59) ITCHING, syncope losartan Allergy (Unknown, Verified 07/05/23 14:59) pruritus metoprolol [METOPROLOL] Allergy (Unknown, Verified 07/05/23 14:59) ITCHING metronidazole [From FLAGYL] Allergy (Unknown, Verified 07/05/23 14:59) VOMITING omeprazole [OMEPRAZOLE] Allergy (Unknown, Verified 07/05/23 14:59) RASH psyllium [Metamucil] Allergy (Unknown, Verified 07/05/23 14:59) diarrhea diltiazem Adverse Reaction (Intermediate, Verified 07/05/23 14:59) Palpitations HPI HPI Comments History of Present Illness Details Presenting for annual exam. No complaints. Last Pap/HPV was negative in 12/20 Last Colonoscopy was in 11/20 Last DEXA scan was in the low risk category in 07/23 [facility] Medical History HTN (hypertension) Chronic pancreatitis Postmenopausal bleeding Polyarthralgia History of breast cancer Obese Thyroid nodule Hypovitaminosis D Essential hypertension Breast implant status Surgical History History of biopsy History of suburethral sling procedure H/O esophagogastroduodenoscopy Hx of colonoscopy History of breast reconstruction History of appendectomy History of breast surgery History of breast biopsy History of tubal ligation History of carpal tunnel release History of cholecystectomy Family History Father Prostate cancer Mother Ovarian cancer Chronic mental illness Mental health disorder Paternal Aunt Cancer Family/Other FH: mental illness Mental health disorder Social History Household Members: None Housing: Apartment Are you a primary healthcare interpreter to a significant other at home: No Do you presently have visiting nurse or other home services: Yes Alcohol intake: former Patient Tobacco Use Status: Never used Tobacco e-Cigarette/Vaping Use: Never Used Second Hand Smoke Exposure: No service: No Current occupational status: unemployed Cognitive needs: Yes Hearing needs: No Vision needs: No Female Reproductive History Menstrual control method: none Date of menopause: 05/09/05 Total pregnancies: 4 Date of last pap smear: 12/01/21 Date of last Bone Density Screenin07/13/22 Review of Systems Const All systems reviewed & are unremarkable except as noted in HPI and below Card Reports as per HPI Resp Reports as per HPI GI Reports as per HPI and Reports no additional complaints Reports as per HPI Physical Exam Const General: cooperative, healthy appearing and comfortable Chest Chest palpation & inspection: normal inspection of the chest and normal palpation of entire chest wall Breast/axilla inspection: normal inspection of the axillae Breast/axilla palpation: no axillary lymphadenopathy and other (Bilateral implants status post bilateral mastectomy) Resp Effort & Inspection: normal respiratory effort Auscultation: clear to auscultation bilaterally Percussion: percussion normal Cardio Palpation: normal PMI Rate: regular rate Rhythm: regular rhythm Heart sounds: no murmurs and no rubs Peripheral pulses: Peripheral pulses 2+ throughout GI Inspection: Yes normal to inspection Palpation (GI): Soft to palpation, nontender, no guarding, not rigid and No hepatosplenomegaly present Percussion: Yes normal to percussion Auscultation: normal bowel sounds Rectal Exam - Female: deferred General: Yes bladder normal to palpation External Female Exam: No lesion Speculum Exam - Vagina: normal appearance of the vagina, normal palpation, normal vaginal discharge and not erythematous Speculum Exam - Cervix: normal appearance of the cervix and normal palpation Bimanual exam- vagina & uterus: normal bimanual exam, normal palpation, uterine size normal, bladder normal to palpation, consistency normal and normal palpation Bimanual Exam- Adnexa, other: normal adnexae, no masses and no tenderness Assessment & Plan Assessment & Plan (1) Well woman exam: Code(s): Z01.419 - Encounter for gynecological examination (general) (routine) without abnormal findings Plan: Co testing not indicated since the patient 's age is above 65 with no history of abnormal Pap smears last 25 years. Counseled the patient about the recommended dietary allowance of 1200 mg of Calcium & 800 IU of vitamin D. The patient was instructed to perform monthly self-breast exams and to schedule an annual exam in a year; All questions answered and the patient verbalized understanding. Quality Reporting (2020) Adult ([facility] ) Smoking risk assessment performed?: Yes Patient Tobacco Use Status: Never used Tobacco Coding Level of Care Code Est Pt Prev Care >65y(08718) Diagnoses Well woman exam Z01.419
[2023-07-08 15:05] VITALS: BP 140/80; BMI 38.3
== END 2023-07-08 15:22 | disposition home or self-care (01) ==
LOC: HO.HWS 14:59
PROVIDERS: PCP Internal Medicine; Visit Provider Obstetrics & Gynecology
DX: Z01.419 Encounter for gynecological examination (general) (routine) without abnormal findings (principal)
CPT/HCPCS: 99397

== ENCOUNTER → 2023-07-08 14:59 | Outpatient (BNVA) | payer OTHER, SELFPAY | PROVIDERS: PCP Internal Medicine; Visit Provider Obstetrics & Gynecology ==

== ENCOUNTER 2023-11-04 15:23 | Outpatient (AMB) | payer OTHER, SELFPAY ==
--- NOTE | 2023-11-04 15:39 | MHC.OFFVIS ---
Vital Signs 11/04/23 15:47 Height 4 ft 10 in Weight 179 lb BMI 37.4 BP 136/80 Blood Pressure Location Lt brachial Position Sitting Pulse 87 Intake Visit Reasons: RUQ Pain ok per Hyacinth Intake Note: Patient follow up for RUQ pain Patient cc: right middle abdominal pain/bloating, not eating well and less BM. Cuff Matcher Required: No Accompanied by: Family/Other Allergies codeine [Codeine] Allergy (Severe, Verified 11/14/23 13:15) DIFFICULTY BREATHING albuterol Allergy (Intermediate, Verified 11/14/23 13:15) unknown adhesive [Adhesive] Allergy (Mild, Verified 11/14/23 13:15) RASH amlodipine [AMLODIPINE] Allergy (Mild, Verified 11/14/23 13:15) ITCHING clonidine [CLONIDINE] Allergy (Mild, Verified 11/14/23 13:15) sleepiness hydralazine [HYDRALAZINE] Allergy (Mild, Verified 11/14/23 13:15) dizziness Iodinated Contrast Media [IV Dye, Iodine Containing] Allergy (Mild, Verified 11/14/23 13:15) HIVES latex [LATEX] Allergy (Mild, Verified 11/14/23 13:15) RASH lisinopril [LISINOPRIL] Allergy (Mild, Verified 11/14/23 13:15) ITCHING oxybutynin [From Ditropan] Allergy (Mild, Verified 11/14/23 13:15) UNKNOWN doxazosin [DOXAZOSIN] Allergy (Unknown, Verified 11/14/23 13:15) PURITIS, pruritus hydrochlorothiazide [HYDROCHLOROTHIAZIDE] Allergy (Unknown, Verified 11/14/23 13:15) ITCHING, syncope losartan Allergy (Unknown, Verified 11/14/23 13:15) pruritus metoprolol [METOPROLOL] Allergy (Unknown, Verified 11/14/23 13:15) ITCHING metronidazole [From FLAGYL] Allergy (Unknown, Verified 11/14/23 13:15) VOMITING omeprazole [OMEPRAZOLE] Allergy (Unknown, Verified 11/14/23 13:15) RASH psyllium [Metamucil] Allergy (Unknown, Verified 11/14/23 13:15) diarrhea diltiazem Adverse Reaction (Intermediate, Verified 11/14/23 13:15) Palpitations HPI HPI RUQ Pain ok per Hyacinth: Details: LAST VISIT: Chronic GERD RUQ abdominal pain IBS (irritable bowel syndrome) Postprandial abdominal bloating Constipation Plan Continue Dulcolax, will add Colace. Patient was also encouraged to increase fluid intake and activity to promote better bowel motility. Continue avoiding dietary triggers. Patient can take Nexium in the morning. May take simethicone on as needed basis. Low FODMAP diet discussed with patient. Patient may use Proctosol on as needed basis. I will see patient in 6 months. Patient will call us sooner if she will have any GI concerning symptom. Both patient and her daughter are agreeable to plan of care and verbalizes understanding of instructions. They were given the opportunity to ask questions and all questions answered. ? Thank you for allowing me to participate in her care Medications New docusate sodium 100 mg PO BEDTIME 90 caps 3RF K59.00 Refilled hydrocortisone 2.5% (Proctosol HC) 1 appl TN BID-QID PRN 30 grams 2RF hemorrhoids K64.9 TODAY'S VISIT Patient is here today for requested visit. Patient states that she was doing fine, however about week or so ago she started having right upper quadrant pain. Patient states that she is going to the bathroom less than she was before. She continues to take her stool softener and Dulcolax. Unable to eat much as she states that she feels bloated and has pain in the right upper quadrant. Patient states that when she goes to the bathroom only able to go very small amount. Patient reports feeling nauseous and dyspepsia. Patient denies any fever or chills. Patient denies changing her diet. [facility] Medical History HTN (hypertension) Chronic pancreatitis Postmenopausal bleeding Polyarthralgia History of breast cancer Obese Thyroid nodule Hypovitaminosis D Essential hypertension Breast implant status Surgical History Hx of total mastectomy of right breast (2004) Hx of total mastectomy of left breast (1985) History of biopsy History of suburethral sling procedure H/O esophagogastroduodenoscopy Hx of colonoscopy History of breast reconstruction History of appendectomy History of breast surgery History of breast biopsy History of tubal ligation History of carpal tunnel release History of cholecystectomy Family History Father Prostate cancer Mother Ovarian cancer Chronic mental illness Mental health disorder Paternal Aunt Cancer Family/Other FH: mental illness Mental health disorder Social History Household Members: None Housing: Apartment Are you a primary eye care professional to a significant other at home: No Do you presently have visiting nurse or other home services: Yes Alcohol intake: former Patient Tobacco Use Status: Never used Tobacco e-Cigarette/Vaping Use: Never Used Second Hand Smoke Exposure: No service: No Current occupational status: unemployed Cognitive needs: Yes Hearing needs: No Vision needs: No Female Reproductive History Menstrual Date of menopause: 05/09/05 Review of Systems Const Denies weight gain and Denies weight loss ENT Reports no additional complaints, Denies dysphagia and Denies odynophagia Card Reports no additional complaints Resp Reports no additional complaints GI Reports abdominal pain (RUQ), Denies belching, Denies melena, Reports bloating, Denies change in bowel habits, Reports constipation, Denies dysphagia, Denies excessive flatus, Denies dyspepsia, Denies heartburn, Denies diarrhea, Denies loose stools, Denies nausea, Denies odynophagia and Denies vomiting Reports no additional complaints Musc Reports no additional complaints Neuro Reports no additional complaints Psych Reports no additional complaints Endo Reports no additional complaints Physical Exam Vital Signs: Last Vital Signs Pulse 87 11/04/23 15:47 BP 136/80 11/04/23 15:47 BMI result Body Mass Index 37.4 Const General: healthy appearing and no acute distress Nutritional Appearance: obese Orientation/consciousness: patient oriented x3 Resp Effort & Inspection: normal respiratory effort, able to speak in complete sentences, no tracheal deviation and symmetric chest movement Auscultation: clear to auscultation bilaterally Cardio Rate: regular rate GI Inspection: Yes normal to inspection, No distended and Yes obesity Palpation (GI): Soft to palpation, not firm, nontender and No hepatosplenomegaly present Auscultation: normal bowel sounds General: Yes no CVA tenderness Back/Spine/Pelvis Back: no CVA tenderness Skin General skin exam: elasticity normal, turgor normal and dry skin Neuro General: patient oriented x3 Psych Appearance: grossly normal Mental Status: mental status grossly normal Quality Reporting (2019) Adult ([facility] 138/08/22/68) Smoking risk assessment performed?: Yes Patient Tobacco Use Status: Never used Tobacco Assessment & Plan Assessment & Plan (1) Chronic GERD: Code(s): K21.9 - Gastro-esophageal reflux disease without esophagitis Category: Medical (2) RUQ abdominal pain: Code(s): R10.11 - Right upper quadrant pain (3) IBS (irritable bowel syndrome): Code(s): K58.9 - Irritable bowel syndrome without diarrhea Qualifiers: Irritable bowel syndrome type: with constipation Qualified Code(s): K58.1 - Irritable bowel syndrome with constipation (4) Postprandial abdominal bloating: Code(s): R14.0 - Abdominal distension (gaseous) (5) Constipation: Code(s): K59.00 - Constipation, unspecified Qualifiers: Constipation type: chronic idiopathic constipation Qualified Code(s): K59.04 - Chronic idiopathic constipation Plan Will check patient's lipase, CBC, CMP. Patient will be sent for x-ray to see if she is constipated. Patient was encouraged to increase fluid intake. Continue taking Dulcolax. Will send her script for milk of magnesia. Will try taking simethicone. Avoid dietary triggers. Patient was encouraged to increase fluid intake and activity to promote better bowel motility. Patient was also encouraged to follow FODMAP diet. Avoid food that is gassy. Possible gas trapping pain in the right upper quadrant. If patient's pain continues she was encouraged to call the office or go to emergency room for further evaluation. Both patient and her daughter are agreeable to plan of care and verbalizes understanding of instructions. They were given the opportunity to ask questions and all questions answered. Thank you for allowing me to participate in her care Orders: Orders Lipase 11/04/23 R10.9 - Unspecified abdominal pain Complete Blood Count no Diff 11/04/23 K21.9 - Gastro-esophageal reflux disease without esophagitis Comprehensive Met. Panel 11/04/23 K21.9 - Gastro-esophageal reflux disease without esophagitis XR KUB 11/04/23 K59.00 - Constipation, unspecified Medications: New magnesium hydroxide (Milk of Magnesia) 10 mL PO DAILY PRN 355 mL 2RF constipation Refilled simethicone (Gas Relief (simethicone)) 125 mg PO TID-QID PRN 120 caps 2RF abdominal distention Coding Level of Care Code Est Pt Level 4 (94092) Diagnoses Chronic GERD K21.9 RUQ abdominal pain R10.11 Irritable bowel syndrome with constipation K58.1 Irritable bowel syndrome type: with constipation Postprandial abdominal bloating R14.0 Chronic idiopathic constipation K59.04 Constipation type: chronic idiopathic constipation Time Spent (min) 40 Comment 25 minutes spent with patient and additional 15 minutes spent reviewing her records
[2023-11-04 15:47] VITALS: BP 136/80; PULSE 87; BMI 37.4
== END 2023-11-04 16:16 | disposition home or self-care (01) ==
PROVIDERS: PCP Internal Medicine; Visit Provider Nurse Practitioner Family
DX: K21.9 Gastro-esophageal reflux disease without esophagitis (principal); R10.11 Right upper quadrant pain; K58.1 Irritable bowel syndrome with constipation; R14.0 Abdominal distension (gaseous); K59.04 Chronic idiopathic constipation
CPT/HCPCS: 99214

== ENCOUNTER 2023-11-04 15:23 | Outpatient (REF) | payer OTHER, SELFPAY ==
--- NOTE | ~2023-11-04 | XR_ITS ---
EXAMINATION: XR ABDOMEN KUB CLINICAL INDICATION: Constipation, unspecified COMPARISON: None available. TECHNIQUE: AP view of the abdomen. FINDINGS: The bowel gas pattern is normal with no evidence of ileus or obstruction. No excessive stool burden. Phlebolith in the right side of the pelvis is seen. There are surgical clips in the right upper quadrant consistent with prior cholecystectomy. There is mild degenerative changes in the lower lumbar spine. XR/XR KUB IMPRESSION: No obstruction. Findings are not consistent with constipation.
[2023-11-04 17:46] LABS: Hematocrit 42.3 % (37.0-47.0); Hemoglobin 13.9 g/dl (12.0-16.0); Mean Corpuscular HGB Conc 32.9 g/dl (31.0-35.0); Mean Corpuscular Hemoglobin 29.4 pg (27.0-33.0); Mean Corpuscular Volume 89.6 fL (80.0-98.0); Mean Platelet Volume 11.8 fL (9.4-12.3); Platelet Count 226 X10*3/uL (160-400); Red Blood Count 4.72 X10*6/uL (4.20-5.50); Red Cell Distribution Width 14.2 % (11.0-16.0); White Blood Count 11.4 X10*3/uL (4.8-10.8)
[2023-11-04 19:14] LABS: Alanine Aminotransferase 15 U/L (0-31); Albumin Level 4.3 g/dL (3.5-5.0); Alkaline Phosphatase 97 U/L (39-117); Anion Gap 20 (12-20); Aspartate Amino Transferase 20 U/L (5-31); Bilirubin Total 0.6 mg/dL (0.0-1.0); Blood Urea Nitrogen 14 mg/dL (9-16); Calcium 10.1 mg/dL (8.4-10.2); Carbon Dioxide 22 mmol/L (22-29); Chloride 104 mmol/L (96-108); Estimated Glomerular Filt Rate > 60; Glucose Random 82 mg/dL (60-115); Lipase 32 U/L (8-78); Potassium 4.2 mmol/L (3.3-5.1); Sodium 142 mmol/L (135-145); Total Protein 7.9 g/dL (6.5-8.0)
== END 2023-11-04 15:24 | disposition home or self-care (01) ==
LOC: HO.XRAY 15:23
PROVIDERS: PCP Internal Medicine; Visit Provider Nurse Practitioner Family
DX: K21.9 Gastro-esophageal reflux disease without esophagitis (principal); K58.1 Irritable bowel syndrome with constipation; K59.00 Constipation, unspecified; R10.11 Right upper quadrant pain
CPT/HCPCS: 36415; 74018; 80053; 83690; 85027; 99212

== ENCOUNTER 2023-11-14 12:28 | Outpatient (AMB) | payer OTHER, SELFPAY ==
--- NOTE | 2023-11-14 13:14 | MHC.OFFVIS ---
Vital Signs 11/14/23 13:16 Height 4 ft 10 in Weight 184 lb BMI 38.5 BP 140/90 H Blood Pressure Location Lt brachial Position Sitting Intake Visit Reasons: Rt br pain/ hx of mastectomy- Intake Note: Patient is seen in office for evaluation of a right breast pain. Pt c/o: pain comes and goes left breast, has not been following with Dr Hanson for the breast, denies lumps or bumps, has breast implants, b/l mastectomy Marketing Communications Manager Required: No Slot Machine Repairer: Slot Machine Repairer Present Accompanied by: Self / Same As Patient Allergies codeine [Codeine] Allergy (Severe, Verified 11/14/23 13:15) DIFFICULTY BREATHING albuterol Allergy (Intermediate, Verified 11/14/23 13:15) unknown adhesive [Adhesive] Allergy (Mild, Verified 11/14/23 13:15) RASH amlodipine [AMLODIPINE] Allergy (Mild, Verified 11/14/23 13:15) ITCHING clonidine [CLONIDINE] Allergy (Mild, Verified 11/14/23 13:15) sleepiness hydralazine [HYDRALAZINE] Allergy (Mild, Verified 11/14/23 13:15) dizziness Iodinated Contrast Media [IV Dye, Iodine Containing] Allergy (Mild, Verified 11/14/23 13:15) HIVES latex [LATEX] Allergy (Mild, Verified 11/14/23 13:15) RASH lisinopril [LISINOPRIL] Allergy (Mild, Verified 11/14/23 13:15) ITCHING oxybutynin [From Ditropan] Allergy (Mild, Verified 11/14/23 13:15) UNKNOWN doxazosin [DOXAZOSIN] Allergy (Unknown, Verified 11/14/23 13:15) PURITIS, pruritus hydrochlorothiazide [HYDROCHLOROTHIAZIDE] Allergy (Unknown, Verified 11/14/23 13:15) ITCHING, syncope losartan Allergy (Unknown, Verified 11/14/23 13:15) pruritus metoprolol [METOPROLOL] Allergy (Unknown, Verified 11/14/23 13:15) ITCHING metronidazole [From FLAGYL] Allergy (Unknown, Verified 11/14/23 13:15) VOMITING omeprazole [OMEPRAZOLE] Allergy (Unknown, Verified 11/14/23 13:15) RASH psyllium [Metamucil] Allergy (Unknown, Verified 11/14/23 13:15) diarrhea diltiazem Adverse Reaction (Intermediate, Verified 11/14/23 13:15) Palpitations HPI Comments Details: 68-year-old female patient, previous patient of Dr. Allison presenting with complaints of right breast pain of a least 2 weeks duration. She has a history of left breast carcinoma treated with by modified radical mastectomy without reconstruction. 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 [place] node was benign. Reconstruction was performed by Dr. Noel Mckeon at [facility]. In 2016 and MRI suggested a rupture of the right implant. This was subsequently replaced in December of 2016. She returns today with a several week history of pain in the right breast in the lower outer quadrant. She denies any skin changes but does seem to feel the shape of the breast changing. She denies any recent trauma to the chest wall. [facility] Medical History HTN (hypertension) Chronic pancreatitis Postmenopausal bleeding Polyarthralgia History of breast cancer Obese Thyroid nodule Hypovitaminosis D Essential hypertension Breast implant status Surgical History Hx of total mastectomy of right breast (2004) Hx of total mastectomy of left breast (1985) History of biopsy History of suburethral sling procedure H/O esophagogastroduodenoscopy Hx of colonoscopy History of breast reconstruction History of appendectomy History of breast surgery History of breast biopsy History of tubal ligation History of carpal tunnel release History of cholecystectomy Family History Father Prostate cancer Mother Ovarian cancer Chronic mental illness Mental health disorder Paternal Aunt Cancer Family/Other FH: mental illness Mental health disorder Social History Household Members: None Housing: Apartment Are you a primary healthcare associate to a significant other at home: No Do you presently have visiting nurse or other home services: Yes Alcohol intake: former Patient Tobacco Use Status: Never used Tobacco e-Cigarette/Vaping Use: Never Used Second Hand Smoke Exposure: No service: No Current occupational status: unemployed Cognitive needs: Yes Hearing needs: No Vision needs: No Female Reproductive History Menstrual Date of menopause: 05/09/05 Review of Systems Const All systems reviewed & are unremarkable except as noted in HPI and below Physical Exam Vital Signs: Last Vital Signs BP 140/90 H 11/14/23 13:16 BMI result Body Mass Index 38.5 Const General: cooperative and no acute distress Nutritional Appearance: well nourished Orientation/consciousness: patient oriented x3 Limitations: no limitations HEENT Head: Yes normocephalic and Yes atraumatic Ears: hearing grossly normal bilaterally Chest Other: Bilateral mastectomy with reconstruction using implants. Right breast incision is clean and intact without redness. No subcutaneous nodules are palpable. Capsule is soft without evidence of calcification. No palpable lymph nodes appreciated. Left breast reveals implant below the inframammary crease. No capsule calcifications are identified. No enlarged lymph nodes appreciated. Resp Effort & Inspection: normal respiratory effort, no audible wheezes, no cough and no respiratory distress Cardio Jugular venous distension: no JVD GI Inspection: Yes normal to inspection Skin Other: Warm, dry, no rash Neuro General: patient oriented x3 Extrem General: Yes no clubbing, cyanosis or edema Quality Reporting (2019) Adult ([facility] 138/08/22/68) Smoking risk assessment performed?: Yes Patient Tobacco Use Status: Never used Tobacco Assessment & Plan Assessment & Plan (1) Breast implant status: Code(s): Z98.82 - Breast implant status Category: Medical (2) Bilateral breast cancer: Code(s): C50.911 - Malignant neoplasm of unspecified site of right female breast; C50.912 - Malignant neoplasm of unspecified site of left female breast Category: Medical Qualifiers: Breast location: unspecified site of breast Estrogen receptor status: unspecified Patient sex: female Qualified Code(s): C50.911 - Malignant neoplasm of unspecified site of right female breast; C50.912 - Malignant neoplasm of unspecified site of left female breast Plan 68-year-old female patient with a remote history of bilateral breast cancer now presenting with a new onset of right breast pain. She is status post bilateral breast implants reconstruction following bilateral mastectomies. Examination reveals no obvious evidence of recurrent disease or of implant disruption however the implant on the left side does appear to be much lower than on the right side. I recommended further evaluation with MRI. She should follow up following the study to review the results and discuss treatment options. The patient expressed understanding and agrees with the plan. Orders: Orders MR breast BI wo/w con Today C50.911 - Malignant neoplasm of unspecified site of right female breast, C50.912 - Malignant neoplasm of unspecified site of left female breast, Z98.82 - Breast implant status Coding Level of Care Code New Pt Level 4 (18865) Diagnoses Breast implant status Z98.82 Bilateral malignant neoplasm of breast in female, unspecified estrogen receptor status, unspecified site of breast C50.911; C50.912 Breast location: unspecified site of breast Estrogen receptor status: unspecified Patient sex: female
[2023-11-14 13:16] VITALS: BP 140/90; BMI 38.5
== END 2023-11-14 13:25 | disposition home or self-care (01) ==
PROVIDERS: PCP Internal Medicine; Referring Provider Internal Medicine Medical Oncology; Visit Provider Surgery
DX: N64.4 Mastodynia (principal); C50.911 Malignant neoplasm of unspecified site of right female breast; C50.912 Malignant neoplasm of unspecified site of left female breast; Z98.82 Breast implant status
CPT/HCPCS: 99204

== ENCOUNTER → 2023-11-14 12:28 | Outpatient (BNVA) | payer OTHER, SELFPAY | PROVIDERS: PCP Internal Medicine; Referring Provider Internal Medicine Medical Oncology; Visit Provider Surgery | DX: N64.4 Mastodynia (principal); Z98.82 Breast implant status; Z90.13 Acquired absence of bilateral breasts and nipples; Z85.3 Personal history of malignant neoplasm of breast | CPT/HCPCS: 99202 ==

== ENCOUNTER 2024-01-10 14:20 | Outpatient (AMB) | payer OTHER, SELFPAY ==
[2024-01-10 14:34] VITALS: BP 142/78; BMI 37.7
--- NOTE | 2024-01-10 14:34 | A.OFFVIS_ITS ---
Vital Signs 01/10/24 14:34 Height 4 ft 10 in Weight 180 lb 5.41 oz BMI 37.7 BP 142/78 H Blood Pressure Location Lt brachial Position Sitting Intake Visit Reasons: 2 month follow up Intake Note: Serenity Tena presents to in office 2 months follow up of RUQ abd pain. CC: Patient states that on father's day weekend she had diarrhea. She also report RUQ abdominal pain off and on. Allergies codeine [Codeine] Allergy (Severe, Verified 01/10/24 14:35) DIFFICULTY BREATHING albuterol Allergy (Intermediate, Verified 01/10/24 14:35) unknown adhesive [Adhesive] Allergy (Mild, Verified 01/10/24 14:35) RASH amlodipine [AMLODIPINE] Allergy (Mild, Verified 01/10/24 14:35) ITCHING clonidine [CLONIDINE] Allergy (Mild, Verified 01/10/24 14:35) sleepiness hydralazine [HYDRALAZINE] Allergy (Mild, Verified 01/10/24 14:35) dizziness Iodinated Contrast Media [IV Dye, Iodine Containing] Allergy (Mild, Verified 01/10/24 14:35) HIVES latex [LATEX] Allergy (Mild, Verified 01/10/24 14:35) RASH lisinopril [LISINOPRIL] Allergy (Mild, Verified 01/10/24 14:35) ITCHING oxybutynin [From Ditropan] Allergy (Mild, Verified 01/10/24 14:35) UNKNOWN doxazosin [DOXAZOSIN] Allergy (Unknown, Verified 01/10/24 14:35) PURITIS, pruritus hydrochlorothiazide [HYDROCHLOROTHIAZIDE] Allergy (Unknown, Verified 01/10/24 14:35) ITCHING, syncope losartan Allergy (Unknown, Verified 01/10/24 14:35) pruritus metoprolol [METOPROLOL] Allergy (Unknown, Verified 01/10/24 14:35) ITCHING metronidazole [From FLAGYL] Allergy (Unknown, Verified 01/10/24 14:35) VOMITING omeprazole [OMEPRAZOLE] Allergy (Unknown, Verified 01/10/24 14:35) RASH psyllium [Metamucil] Allergy (Unknown, Verified 01/10/24 14:35) diarrhea diltiazem Adverse Reaction (Intermediate, Verified 01/10/24 14:35) Palpitations HPI HPI 2 month follow up: Details: LAST VISIT: Chronic GERD RUQ abdominal pain IBS (irritable bowel syndrome) Postprandial abdominal bloating Constipation Plan Will check patient's lipase, CBC, CMP. Patient will be sent for x-ray to see if she is constipated. Patient was encouraged to increase fluid intake. Continue taking Dulcolax. Will send her script for milk of magnesia. Will try taking simethicone. Avoid dietary triggers. Patient was encouraged to increase fluid intake and activity to promote better bowel motility. Patient was also encouraged to follow FODMAP diet. Avoid food that is gassy. Possible gas trapping pain in the right upper quadrant. If patient's pain continues she was encouraged to call the office or go to emergency room for further evaluation. Both patient and her daughter are agreeable to plan of care and verbalizes understanding of instructions. They were given the opportunity to ask questions and all questions answered. ? Thank you for allowing me to participate in her care Orders Orders Lipase 11/04/23 R10.9 Complete Blood Count no Diff 11/04/23 K21.9 Comprehensive Met. Panel 11/04/23 K21.9 XR KUB 11/04/23 K59.00 Medications New magnesium hydroxide (Milk of Magnesia) 10 mL PO DAILY PRN 355 mL 2RF constipation Refilled simethicone (Gas Relief (simethicone)) 125 mg PO TID-QID PRN 120 caps 2RF abdominal distention TODAY'S VISIT Patient is here today for follow-up. Patient is accompanied by her daughter. Patient reports that she has been feeling better able to move her bowels daily. Takes Dulcolax daily and has bowel movement every morning. 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 Reports diarrhea few weeks ago on the weekend, however patient reports that the went away. Patient did not had abdominal pain at that time. Patient denies melena, hematochezia. Patient denies any dyspepsia, dysphagia or odynophagia. Patient reports that she takes Nexium every morning and her symptoms of acid reflux suppressed. Patient reports to have good appetite. KUB showed no stool burden. [facility] Medical History HTN (hypertension) Chronic pancreatitis Postmenopausal bleeding Polyarthralgia History of breast cancer Obese Thyroid nodule Hypovitaminosis D Essential hypertension Breast implant status Surgical History Hx of total mastectomy of right breast (2004) Hx of total mastectomy of left breast (1985) History of biopsy History of suburethral sling procedure H/O esophagogastroduodenoscopy Hx of colonoscopy History of breast reconstruction History of appendectomy History of breast surgery History of breast biopsy History of tubal ligation History of carpal tunnel release History of cholecystectomy Family History Father Prostate cancer Mother Ovarian cancer Chronic mental illness Mental health disorder Paternal Aunt Cancer Family/Other FH: mental illness Mental health disorder Social History Household Members: None Housing: Apartment Are you a primary complex care nurse to a significant other at home: No Do you presently have visiting nurse or other home services: Yes Alcohol intake: former Patient Tobacco Use Status: Never used Tobacco e-Cigarette/Vaping Use: Never Used Second Hand Smoke Exposure: No service: No Current occupational status: unemployed Cognitive needs: Yes Hearing needs: No Vision needs: No Female Reproductive History Menstrual Date of menopause: 05/09/05 Review of Systems Const Denies weight gain and Denies weight loss ENT Reports no additional complaints, Denies dysphagia and Denies odynophagia Card Reports no additional complaints Resp Reports no additional complaints GI Reports abdominal pain (Occasional RUQ), Denies belching, Denies melena, Denies bloating, Denies change in bowel habits, Reports constipation (Occasional), Denies dysphagia, Denies excessive flatus, Denies dyspepsia, Denies heartburn, Denies diarrhea, Denies loose stools, Denies nausea, Denies odynophagia and Denies vomiting Reports no additional complaints Musc Reports no additional complaints Neuro Reports no additional complaints Psych Reports no additional complaints Endo Reports no additional complaints Physical Exam Vital Signs: Last Vital Signs BP 142/78 H 01/10/24 14:34 BMI result Body Mass Index 37.7 Const General: healthy appearing and no acute distress Nutritional Appearance: obese Orientation/consciousness: patient oriented x3 Resp Effort & Inspection: normal respiratory effort, able to speak in complete sentences, no tracheal deviation and symmetric chest movement Auscultation: clear to auscultation bilaterally Cardio Rate: regular rate GI Inspection: Yes normal to inspection, No distended and Yes obesity Palpation (GI): Soft to palpation, not firm, nontender and No hepatosplenomegaly present Auscultation: normal bowel sounds General: Yes no CVA tenderness Back/Spine/Pelvis Back: no CVA tenderness Skin General skin exam: elasticity normal, turgor normal and dry skin Neuro General: patient oriented x3 Psych Appearance: grossly normal Mental Status: mental status grossly normal Quality Reporting (2019) Adult ([facility] 13808/22/68) Smoking risk assessment performed?: Yes Patient Tobacco Use Status: Never used Tobacco Assessment & Plan Assessment & Plan (1) Chronic GERD: Code(s): K21.9 - Gastro-esophageal reflux disease without esophagitis Category: Medical (2) RUQ abdominal pain: Code(s): R10.11 - Right upper quadrant pain (3) IBS (irritable bowel syndrome): Code(s): K58.9 - Irritable bowel syndrome without diarrhea Qualifiers: Irritable bowel syndrome type: without diarrhea Qualified Code(s): K58.9 - Irritable bowel syndrome without diarrhea (4) Postprandial abdominal bloating: Code(s): R14.0 - Abdominal distension (gaseous) (5) Constipation: Code(s): K59.00 - Constipation, unspecified Qualifiers: Constipation type: slow transit constipation Qualified Code(s): K59.01 - Slow transit constipation Plan Continue Nexium daily. Continue avoiding dietary triggers and late night snacking. Patient will continue taking Dulcolax tablets daily. Increase fluid intake and activity to promote better bowel motility. High-fiber diet. Patient will continue try to eat low FODMAP diet. May use milk of magnesia on as- needed basis if no bowel movement for 2 days. Follow-up in our office in 6 months, sooner on as needed basis. Patient is agreeable to this plan and verbalizes understanding of instructions. She was given the opportunity to ask questions and all questions answered. Medications: Refilled bisacodyl (Dulcolax (bisacodyl)) 10 mg (2 x 5 mg) PO BEDTIME 180 tabs 4RF Coding Level of Care Code Est Pt Level 3 (90435) Diagnoses Chronic GERD K21.9 RUQ abdominal pain R10.11 Irritable bowel syndrome without diarrhea K58.9 Irritable bowel syndrome type: without diarrhea Postprandial abdominal bloating R14.0 Slow transit constipation K59.01 Constipation type: slow transit constipation Time Spent (min) 30 Comment 20 minutes spent with patient and additional 10 minutes spent reviewing her records
== END 2024-01-10 15:14 | disposition home or self-care (01) ==
PROVIDERS: PCP Internal Medicine; Visit Provider Nurse Practitioner Family
DX: K21.9 Gastro-esophageal reflux disease without esophagitis (principal); R10.11 Right upper quadrant pain; K58.9 Irritable bowel syndrome, unspecified; R14.0 Abdominal distension (gaseous); K59.01 Slow transit constipation
CPT/HCPCS: 99213

== ENCOUNTER → 2024-01-10 14:20 | Outpatient (BNVA) | payer OTHER, SELFPAY | PROVIDERS: PCP Internal Medicine; Visit Provider Nurse Practitioner Family | DX: R10.11 Right upper quadrant pain (principal); R14.0 Abdominal distension (gaseous); K21.9 Gastro-esophageal reflux disease without esophagitis; K58.9 Irritable bowel syndrome, unspecified; K59.01 Slow transit constipation | CPT/HCPCS: 99212 ==

== ENCOUNTER 2024-01-22 16:14 | Outpatient (AMB) | payer OTHER, SELFPAY ==
--- NOTE | 2024-01-22 16:18 | MHC.PC.OV ---
Vital Signs 01/22/24 16:23 01/22/24 16:38 Height 4 ft 10 in Weight 182 lb BMI 38.0 BP 148/80 H 140/80 H Blood Pressure Location Lt brachial Lt brachial Position Sitting Sitting Intake Visit Reasons: BP Intake Note: Patient here for a follow up BP Correctional Substance Abuse Counselor Required: No Accompanied by: daughter/ vat operator Allergies codeine [Codeine] Allergy (Severe, Verified 01/22/24 16:38) DIFFICULTY BREATHING albuterol Allergy (Intermediate, Verified 01/22/24 16:38) unknown adhesive [Adhesive] Allergy (Mild, Verified 01/22/24 16:38) RASH amlodipine [AMLODIPINE] Allergy (Mild, Verified 01/22/24 16:38) ITCHING clonidine [CLONIDINE] Allergy (Mild, Verified 01/22/24 16:38) sleepiness hydralazine [HYDRALAZINE] Allergy (Mild, Verified 01/22/24 16:38) dizziness Iodinated Contrast Media [IV Dye, Iodine Containing] Allergy (Mild, Verified 01/22/24 16:38) HIVES latex [LATEX] Allergy (Mild, Verified 01/22/24 16:38) RASH lisinopril [LISINOPRIL] Allergy (Mild, Verified 01/22/24 16:38) ITCHING oxybutynin [From Ditropan] Allergy (Mild, Verified 01/22/24 16:38) UNKNOWN doxazosin [DOXAZOSIN] Allergy (Unknown, Verified 01/22/24 16:38) PURITIS, pruritus hydrochlorothiazide [HYDROCHLOROTHIAZIDE] Allergy (Unknown, Verified 01/22/24 16:38) ITCHING, syncope losartan Allergy (Unknown, Verified 01/22/24 16:38) pruritus metoprolol [METOPROLOL] Allergy (Unknown, Verified 01/22/24 16:38) ITCHING metronidazole [From FLAGYL] Allergy (Unknown, Verified 01/22/24 16:38) VOMITING omeprazole [OMEPRAZOLE] Allergy (Unknown, Verified 01/22/24 16:38) RASH psyllium [Metamucil] Allergy (Unknown, Verified 01/22/24 16:38) diarrhea diltiazem Adverse Reaction (Intermediate, Verified 01/22/24 16:38) Palpitations Medication List - Last Reconciled 01/22/24 by Susana Holcomb MD acetaminophen ER 650 mg PO Q8H PRN 30 days bisacodyl (Dulcolax (bisacodyl)) 10 mg (2 x 5 mg) PO BEDTIME cholecalciferol (vitamin D3) 50 mcg (2 x 25 mcg (1,000 unit)) PO DAILY 90 days esomeprazole magnesium 40 mg PO DAILY 90 days hydrocortisone 2.5% (Proctosol HC) 1 appl [place] BID-QID PRN [id number] 12,000-38,000 -60,000 unit (Creon) 1 cap PO QID loratadine 10 mg PO DAILY magnesium hydroxide (Milk of Magnesia) 10 mL PO DAILY PRN olmesartan 40 mg PO DAILY sertraline 25 mg PO DAILY 90 days simethicone (Gas Relief (simethicone)) 125 mg PO TID-QID PRN spironolactone 25 mg PO DAILY triamcinolone acetonide 0.5% 1 appl topical BID PRN 30 days walker (Ultra-Light Rollator misc) As directed Tobacco use date assessed: 01/22/24 Fall risk assessment: No Falls in past year Last assessed Fall Risk: 01/22/24 Dental Screening Dental Screen Date: 01/22/24 Did you have a dental visit in the last 12 months?: Yes Did you have a dental problem in the last 6 months where you did not have access to dental care?: No Was dental information given to patient?: Patient has dentist HPI HPI Comments History of Present Illness Details This is a 68-year-old female with hypertension and chronic pancreatitis that comes today accompanied by daughter complaining of right hip pain that has been present for few weeks. Also complains of bilateral hand and leg numbness even during daytime. Also has some urge urinary incontinence and will benefit from the use of diapers at bedtime and incontinence liner pads during the day. Denies any chest pain or shortness on breath. Blood pressure stable. Chronic pancreatitis is follow by Gastroenterology and has been stable with Creon. [facility] Medical History (Updated 01/22/24 @ 16:52 by Susana Holcomb MD) HTN (hypertension) Chronic pancreatitis Postmenopausal bleeding Polyarthralgia History of breast cancer Obese Thyroid nodule Hypovitaminosis D Essential hypertension Breast implant status Surgical History Hx of total mastectomy of right breast (2004) Hx of total mastectomy of left breast (1985) History of biopsy History of suburethral sling procedure H/O esophagogastroduodenoscopy Hx of colonoscopy History of breast reconstruction History of appendectomy History of breast surgery History of breast biopsy History of tubal ligation History of carpal tunnel release History of cholecystectomy Family History Father Prostate cancer Mother Ovarian cancer Chronic mental illness Mental health disorder Paternal Aunt Cancer Family/Other FH: mental illness Mental health disorder Social History (Updated 01/22/24 @ 16:43 by Susana Holcomb MD) Household Members: None Housing: Apartment Are you a primary clinical manager home care to a significant other at home: No Do you presently have visiting nurse or other home services: Yes Alcohol intake: current Alcohol intake frequency: holidays/special occasions only Patient Tobacco Use Status: Never used Tobacco e-Cigarette/Vaping Use: Never Used Second Hand Smoke Exposure: No service: No Current occupational status: unemployed Cognitive needs: Yes Hearing needs: No Vision needs: No Female Reproductive History Menstrual Date of menopause: 05/09/05 Questionnaire PHQ-9 Over the last 2 weeks, how often have you been bothered by any of the following problems? 1. Little interest or pleasure in doing things: not at all 2. Feeling down, depressed, or hopeless: not at all 3. Trouble falling or staying asleep, or sleeping too much: not at all 4. Feeling tired or having little energy: not at all 5. Poor appetite or overeating: not at all 6. Feeling bad about yourself - or that you are a failure or have let yourself or your family down: not at all 7. Trouble concentrating on things, such as reading the newspaper or watching television: not at all 8. Moving or speaking so slowly that other people could have noticed. Or the opposite - being so fidgety or restless that you have been moving around a lot more than usual: not at all 9. Thoughts that you would be better off or of hurting yourself in some way: not at all Total score: 0 Depression Screening Interpretation: Negative Depression Screening Done: Yes 19878 - PHQ-9 Billing: Yes Source: Developed by Drs. Bunny Dennis, Jimena Stock, Jarred Mclaughlin and colleagues, with an educational cruzito from [employer]. Thrive Questionnaire Date Thrive assessed: 01/22/24 I am a: Patient What is your living situation today?: I have a steady place to live Within the past 12 months, did the food you bought not last and you didn't have the money to get more?: Never true Within the past 12 months, did you worry whether your food would run out before you got money to buy more?: Never true Do you have trouble paying for medicines?: No Do you have trouble getting transportation to medical appointments?: No Do you have trouble paying your heating and electricity bill?: No Do you have trouble taking care of your child, family member or friend?: No Do you have trouble with day-to-day activities such as bathing, preparing meals, shopping, managing finances, etc.?: No Are you currently unemployed and looking for a job?: No Are you interested in more education?: No Please select the resources that you would like help with: None Currently or been in a relationship where the following occur: No concerns reported THRIVE Score: 0 AUDIT C Alcohol Use Questionnaire (AUDIT-C) 1. How often do you have a drink containing alcohol?: Never Total Score: 0 Score Reviewed/Action Taken: No VENESSA-7 AMB Questionnaire VENESSA-7 Date VENESSA - 7 assessed: 01/22/24 Feeling nervous, anxious, or on edge: 0 = Not at all Not being able to stop or control worryin = Not at all Worrying too much about different things: 0 = Not at all Trouble relaxin = Not at all Being so restless that it is hard to sit still: 0 = Not at all Becoming easily annoyed or irritable: 0 = Not at all Feeling afraid as if something awful might happen: 0 = Not at all Total VENESSA-7 score (0-4 normal; 5-9 mild; 10-14 moderate; 15-21 severe): 0 Source: Developed by Drs. Bunny Dennis, Jimena Stock, Jarred Mclaughlin and colleagues, with an educational cruzito from [employer]. VENESSA-7 Assessment Billing VENESSA-7 Assessment Tool: VENESSA-7 Assessment 59750 Review of Systems Const All systems reviewed & are unremarkable except as noted in HPI and below Card Denies chest pain at rest, Denies chest pain with activity, Denies edema, Denies irregular heart rhythm, Denies claudication, Denies dyspnea, Denies dyspnea on exertion, Denies orthopnea, Denies paroxysmal nocturnal dyspnea and Denies slow heart rate Resp Denies cough, Denies dyspnea and Denies dyspnea on exertion Reports urinary incontinence Musc Reports arthralgias and Reports numbness Neuro Reports numbness Physical exam (Primary Care) Vital Signs: Last Vital Signs BP 140/80 H 01/22/24 16:38 BMI result Body Mass Index 38.0 BMI Assessment/Plan discussion: High BMI High, discussed plan: lifestyle, weight reduction, dietary and physical activity Tobacco/Smoking Status: Tobacco use Status Tobacco use date assessed 01/22/24 01/22/24 16:27 Patient Tobacco Use Status Never used Tobacco 01/22/24 16:43 e-Cigarette/Vaping Use Never Used 01/22/24 16:43 PHQ-9: PHQ-9 Score PHQ-9: Total score 0 01/22/24 16:41 Depression Screening Interpretation: Negative Thrive Assessment: Date of Thrive Assessment Date Thrive assessed 01/22/24 01/22/24 16:28 Currently or been in a relationship where the following occur: No concerns reported Resp Effort & Inspection: normal respiratory effort Auscultation: clear to auscultation bilaterally Cardio Jugular venous distension: no JVD Rate: regular rate Rhythm: regular rhythm Heart sounds: S1 normal heart sound present and S2 normal heart sound present Extrem General: Yes full ROM Assessment and Plan Assessment & Plan (1) Essential hypertension: Code(s): I10 - Essential (primary) hypertension Plan: Continue olmesartan and spironolactone. Blood pressure goal is equal or less than 130/80. (2) Chronic pancreatitis: Code(s): K86.1 - Other chronic pancreatitis Qualifiers: Pancreatitis type: unspecified pancreatitis type Qualified Code(s): K86.1 - Other chronic pancreatitis Plan: Continue Creon. Follow-up with Gastroenterology. (3) Urge urinary incontinence: Code(s): N39.41 - Urge incontinence Plan: Continue the use of diapers and incontinence liner as needed. (4) Right hip pain: Code(s): M25.551 - Pain in right hip Plan: X-ray ordered. (5) Paresthesia: Code(s): R20.2 - Paresthesia of skin Plan: Nerve conduction study ordered. Orders: Orders XR hip RT min 2V Today M25.551 - Pain in right hip NE nerve conduction velocity Today R20.2 - Paresthesia of skin Referrals Orthopedics Referral M25.551 - Pain in right hip Medications: New underpads (Bed Underpads) As directed 150 ea 11RF N39.41 - Urge incontinence [wipes] As directed 200 ea 11RF N39.41 - Urge incontinence incontinence pad, liner, disp As directed 90 ea 11RF N39.41 - Urge incontinence [adult diapers pull-ups] As directed 120 ea 11RF N39.41 - Urge incontinence Coding Level of Care Code Est Pt Level 4 (07841) Complex EM visit Add On G2211 Diagnoses Essential hypertension I10 Chronic pancreatitis, unspecified pancreatitis type K86.1 Pancreatitis type: unspecified pancreatitis type Urge urinary incontinence N39.41 Right hip pain M25.551 Paresthesia R20.2 Additional Codes VENESSA-7 Assessment Billing - VENESSA-7 Assessment Tool: VENESSA-7 Assessment 90783 ([id number]) Time Spent (min) 23
[2024-01-22 16:23] VITALS: BP 148/80; BMI 38.0
[2024-01-22 16:38] VITALS: BP 140/80
== END 2024-01-22 16:50 | disposition home or self-care (01) ==
PROVIDERS: PCP Internal Medicine; Visit Provider Internal Medicine
DX: I10 Essential (primary) hypertension (principal); K86.1 Other chronic pancreatitis; N39.41 Urge incontinence; M25.551 Pain in right hip; R20.2 Paresthesia of skin
CPT/HCPCS: 99214; G2211

== ENCOUNTER 2024-02-26 13:18 | Outpatient (REF) | payer OTHER, SELFPAY ==
--- NOTE | ~2024-02-26 | XR_ITS ---
EXAMINATION: XR HIP, RIGHT CLINICAL INFORMATION: Right hip pain. COMPARISON: 01/27/2021 TECHNIQUE: AP and frog-leg lateral views of the right hip. 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 [id number] osteoarthritis in the right hip with axial joint space narrowing and marginal osteophytes. No fracture. Mild-moderate osteoarthritis in the pubic symphysis. Ankylosis of the right SI joint is noted superiorly. Enthesopathic spurs at the anterior superior iliac spine. XR/XR hip RT min 2V IMPRESSION: [id number] osteoarthritis in the right hip. No acute osseous findings. Electronically signed by: Yimi Arthur MD 03/03/2024 03:33 PM EDT
--- NOTE | 2024-02-26 13:42 | EMG_ITS ---
Chief complaint: Bilateral hand numbness, bilateral leg numbness Reason for referral: Evaluate for neuropathy Referred by: Dr. Susana Holcomb Procedure done: Bilateral upper and lower extremities NCS/EMG Precautions and/or limitations: Lymphedema on left upper extremity, needle EMG avoided. History of right Carpal Tunnel Syndrome surgery on right. The limb temperature was monitored continuously and remained between 32-36 degrees C during the performance of the NCS. Ulnar motor NCS was performed with moderate elbow flexion between 70-90 degrees, with across-elbow distance of 10 cm. Nerve Conduction Studies Anti Sensory Summary Table ?Stim Site NR Onset (ms) Norm Onset (ms) Peak (ms) Norm Peak (ms) O-P Amp (?V) Norm O-P Amp Site1 Site2 Delta-0 (ms) Dist (cm) Pop (m/s) Norm Pop (m/s) Left Median Anti Sensory (2nd Digit) Wrist ? 3.6 4.5 <3.6 14.3 >10 Wrist 2nd Digit 3.6 14.0 39 Right Median Anti Sensory (2nd Digit) Wrist ? 2.6 3.4 <3.6 32.5 >10 Wrist 2nd Digit 2.6 14.0 54 Right Radial Anti Sensory (Thumb) Forearm ? 1.7 2.0 <3.1 20.3 Forearm Thumb 1.7 0.0 Left Sural Anti Sensory (Lat Mall) Calf ? 3.0 3.8 <4.0 14.8 >5.0 Calf Lat Mall 3.0 14.0 47 Right Sural Anti Sensory (Lat Mall) Calf ? 2.3 3.4 <4.0 14.1 >5.0 Calf Lat Mall 2.3 14.0 61 Left Ulnar Anti Sensory (5th Digit) Wrist ? 2.5 3.3 <3.7 28.3 >15.0 Wrist 5th Digit 2.5 14.0 56 Right Ulnar Anti Sensory (5th Digit) Wrist NR <3.7 >15.0 Wrist 5th Digit 14.0 Motor Summary Table ?Stim Site NR Onset (ms) Norm Onset (ms) O-P Amp (mV) Norm O-P Amp iAmp (mV) Amp (1st) (%) Site1 Site2 Delta-0 (ms) Dist (cm) Pop (m/s) Norm Pop (m/s) Left Median Motor (Abd Poll Brev) Wrist ? 4.6 <3.9 7.4 >4.5 8.8 100.0 Elbow Wrist 3.8 19.0 50 >45 Elbow ? 8.4 6.7 8.1 90.5 Right Median Motor (Abd Poll Brev) Wrist ? 3.7 <3.9 6.7 >4.5 7.5 100.0 Elbow Wrist 3.6 20.0 56 >45 Elbow ? 7.3 6.3 7.1 94.0 Right Peroneal Motor (Ext Dig Brev) Ankle ? 3.5 <4.0 3.9 >2.5 4.8 100.0 Ankle Ext Dig Brev 3.5 0.0 B Fib ? 8.5 3.1 3.9 79.5 B Fib Ankle 5.0 26.0 52 >40 Poplt ? 9.4 3.6 4.5 92.3 Poplt B Fib 0.9 5.0 56 >40 Left Tibial Motor (Abd Herron Brev) Ankle ? 3.3 <5 14.5 >2.5 20.5 100.0 Ankle Abd Herron Brev 3.3 0.0 Knee ? 9.1 11.7 17.4 80.7 Knee Ankle 5.8 31.0 53 >40 Right Tibial Motor (Abd Herron Brev) Ankle ? 3.4 <5 15.7 >2.5 20.4 100.0 Ankle Abd Herron Brev 3.4 0.0 Knee ? 10.7 6.7 9.6 42.7 Knee Ankle 7.3 35.0 48 >40 Left Ulnar Motor (Abd Dig Minimi) Wrist ? 2.9 <3.0 11.0 >5 12.0 100.0 B Elbow Wrist 2.9 18.0 62 >45 B Elbow ? 5.8 10.9 12.0 99.1 A Elbow B Elbow 1.5 10.0 67 >45 A Elbow ? 7.3 10.7 11.8 97.3 Right Ulnar Motor (Abd Dig Minimi) Wrist ? 2.8 <3.0 5.7 >5 6.4 100.0 B Elbow Wrist 3.1 19.0 61 >45 B Elbow ? 5.9 4.7 5.3 82.5 A Elbow B Elbow 2.9 10.0 34 >45 A Elbow ? 8.8 3.2 3.6 56.1 EMG ?Side Muscle Nerve Root Ins Act Fibs Psw Amp Dur Poly Recrt Int Pat Comment Right 1stDorInt Ulnar C8-T1 Incr 1+ 1+ Nml Nml 0 Nml Complete Right FlexCarRad Median C6-7 Nml Nml Nml Nml Nml 0 Nml Complete Right Biceps Musculocut C5-6 Nml Nml Nml Nml Nml 0 Nml Complete Right Triceps Radial C6-7-8 Nml Nml Nml Nml Nml 0 Nml Complete Right Deltoid Axillary C5-6 Nml Nml Nml Nml Nml 0 Nml Complete Right AbdHallucis MedPlantar S1-2 Nml Nml Nml Nml Nml 0 Nml Complete Right AntTibialis Dp Br Peron L4-5 Nml Nml Nml Nml Nml 0 Nml Complete Right PostTibialis Tibial L5, S1 Nml Nml Nml Nml Nml 0 Nml Complete Right MedGastroc Tibial S1-2 Nml Nml Nml Nml Nml 0 Nml Complete Right VastusMed Femoral L2-4 Nml Nml Nml Nml Nml 0 Nml Complete Left AbdHallucis MedPlantar S1-2 Nml Nml Nml Nml Nml 0 Nml Complete Left AntTibialis Dp Br Peron L4-5 Nml Nml Nml Nml Nml 0 Nml Complete Left PostTibialis Tibial L5, S1 Nml Nml Nml Nml Nml 0 Nml Complete Left MedGastroc Tibial S1-2 Nml Nml Nml Nml Nml 0 Nml Complete Left VastusMed Femoral L2-4 Nml Nml Nml Nml Nml 0 Nml Complete FINDINGS: Right ulnar motor nerve showed normal distal latency, drop in amplitude above the elbow and slow conduction velocity above the elbow. Right ulnar sensory nerve absent response. Left median motor nerve showed prolonged distal latency, normal amplitude and normal conduction velocity. Left median sensory nerve prolonged peak latencies. All other nerves tested were within normal. Concentric needle EMG was performed in selected muscles of the right upper extremity and bilateral lower extremities. Study revealed signs of electric abnormalities as shown in the table above. Right FDI showed increased insertional activity, PSWs and fibrillations. IMPRESSION: 1. This is an abnormal study. 2. There is electrodiagnostic evidence for right ulnar neuropathy at the elbow. 3. There is electrodiagnostic evidence for left moderate-severe median neuropathy at the wrist, consistent with Carpal Tunnel Syndrome. 4. There is no electrodiagnostic evidence for brachial plexopathy, cervical radiculopathy. peroneal neuropathy, tibial neuropathy. lumbosacral plexopathy, lumbar radiculopathy, peripheral neuropathy. 5. There is no electrodiagnostic evidence for median neuropathy on right; or ulnar neuropathy on left. Thank you for your kind referral. Madeline Robertson MD, PHANI Board Certified, [place] [employer] and [employer] (ABPMR) Board Certified, [place] [employer] Electrodiagnostic Medicine (ABEM) CODIN 12086 x 3 MTDD
== END 2024-02-26 13:19 | disposition home or self-care (01) ==
LOC: HO.NEURO 13:18
PROVIDERS: PCP Internal Medicine; Visit Provider Internal Medicine
DX: M25.551 Pain in right hip (principal); R20.2 Paresthesia of skin
CPT/HCPCS: 73502; 95886; 95913

== ENCOUNTER → 2024-02-26 13:42 | Outpatient (BNV) | payer OTHER, SELFPAY | PROVIDERS: PCP Internal Medicine; Visit Provider Physical Medicine & Rehabilitation | DX: G56.21 Lesion of ulnar nerve, right upper limb (principal); G56.02 Carpal tunnel syndrome, left upper limb | CPT/HCPCS: 95886; 95913 ==

== ENCOUNTER 2024-06-08 16:24 | Outpatient (AMB) | payer OTHER, SELFPAY ==
--- NOTE | 2024-06-08 16:28 | MHC.PC.OV ---
Vital Signs 06/08/24 16:29 Height 4 ft 10 in Weight 185 lb BMI 38.7 BP 160/76 H Blood Pressure Location Lt brachial Position Sitting Intake Visit Reasons: physical Intake Note: Patient here for a physical exam Tearer Required: No Accompanied by: Daughter Allergies codeine [Codeine] Allergy (Severe, Verified 06/08/24 16:40) DIFFICULTY BREATHING albuterol Allergy (Intermediate, Verified 06/08/24 16:40) unknown adhesive [Adhesive] Allergy (Mild, Verified 06/08/24 16:40) RASH amlodipine [AMLODIPINE] Allergy (Mild, Verified 06/08/24 16:40) ITCHING clonidine [CLONIDINE] Allergy (Mild, Verified 06/08/24 16:40) sleepiness hydralazine [HYDRALAZINE] Allergy (Mild, Verified 06/08/24 16:40) dizziness Iodinated Contrast Media [IV Dye, Iodine Containing] Allergy (Mild, Verified 06/08/24 16:40) HIVES latex [LATEX] Allergy (Mild, Verified 06/08/24 16:40) RASH lisinopril [LISINOPRIL] Allergy (Mild, Verified 06/08/24 16:40) ITCHING oxybutynin [From Ditropan] Allergy (Mild, Verified 06/08/24 16:40) UNKNOWN doxazosin [DOXAZOSIN] Allergy (Unknown, Verified 06/08/24 16:40) PURITIS, pruritus hydrochlorothiazide [HYDROCHLOROTHIAZIDE] Allergy (Unknown, Verified 06/08/24 16:40) ITCHING, syncope losartan Allergy (Unknown, Verified 06/08/24 16:40) pruritus metoprolol [METOPROLOL] Allergy (Unknown, Verified 06/08/24 16:40) ITCHING metronidazole [From FLAGYL] Allergy (Unknown, Verified 06/08/24 16:40) VOMITING omeprazole [OMEPRAZOLE] Allergy (Unknown, Verified 06/08/24 16:40) RASH psyllium [Metamucil] Allergy (Unknown, Verified 06/08/24 16:40) diarrhea diltiazem Adverse Reaction (Intermediate, Verified 06/08/24 16:40) Palpitations Medication List - Last Reconciled 06/08/24 by Susana Holcomb MD acetaminophen ER 650 mg PO Q8H PRN 30 days [adult diapers pull-ups Use 1 diaper four times a day] bisacodyl (Dulcolax (bisacodyl)) 10 mg (2 x 5 mg) PO BEDTIME cholecalciferol (vitamin D3) 50 mcg (2 x 25 mcg (1,000 unit)) PO DAILY 90 days esomeprazole magnesium 40 mg PO DAILY 90 days hydrocortisone 2.5% (Proctosol HC) 1 appl CO BID-QID PRN incontinence pad, liner, disp As directed [id number] 12,000-38,000 -60,000 unit (Creon) 1 cap PO QID loratadine 10 mg PO DAILY magnesium hydroxide (Milk of Magnesia) 10 mL PO DAILY PRN olmesartan 40 mg PO DAILY sertraline 25 mg PO DAILY 90 days simethicone (Gas Relief (simethicone)) 125 mg PO TID-QID PRN spironolactone 25 mg PO DAILY triamcinolone acetonide 0.5% 1 appl topical BID PRN 30 days underpads (Bed Underpads) Use 5 pads per day prn walker (Ultra-Light Rollator misc) As directed [wipes Use 10 wipes per day prn] Tobacco use date assessed: 01/22/24 Fall risk assessment: No Falls in past year Last assessed Fall Risk: 06/08/24 Dental Screening Dental Screen Date: 01/22/24 HPI HPI Comments History of Present Illness Details The patient is a 69-year-old female presenting with multiple chronic conditions including hypertension and depression, as well as for an annual physical examination. She reports a history of difficulty breathing associated with codeine allergy and other medication sensitivities, including reactions to albuterol, amlodipine, clonidine, hydralazine, lisinopril, doxazosin, hydrochlorothiazide, losartan, metoprolol, metronidazole, and oxybutynin. Additionally, she has experienced significant bloating and abdominal discomfort for the past two to three weeks, which is affecting her breathing. The patient has a history of bilateral mastectomy and breast reconstruction, bilateral mastectomy renders mammograms unnecessary. She's had various surgeries, including a tubal ligation, cholecystectomy, and right carpal tunnel surgery. There is a family history of cancer, including ovarian cancer in her mother and prostate cancer in her father. - Pneumonia and tetanus vaccinations discussed but declined - Last bone density scan in 2022 showed osteopenia; next scan due in 2024 - Colonoscopy performed last year - Encouraged to monitor weight changes and diet adjustments as advised by a chucking and sawing machine operator - Labs recommended for sugar and cholesterol testing [facility] Medical History (Updated 06/08/24 @ 17:02 by Susana Holcomb MD) HTN (hypertension) Chronic pancreatitis Postmenopausal bleeding Polyarthralgia History of breast cancer Obese Thyroid nodule Hypovitaminosis D Essential hypertension Breast implant status Surgical History Hx of total mastectomy of right breast (2004) Hx of total mastectomy of left breast (1985) History of biopsy History of suburethral sling procedure H/O esophagogastroduodenoscopy Hx of colonoscopy History of breast reconstruction History of appendectomy History of breast surgery History of breast biopsy History of tubal ligation History of carpal tunnel release History of cholecystectomy Family History Father Prostate cancer Mother Ovarian cancer Chronic mental illness Mental health disorder Paternal Aunt Cancer Family/Other FH: mental illness Mental health disorder Social History (Updated 06/08/24 @ 16:46 by Susana Holcomb MD) Household Members: None Housing: Apartment Are you a primary pulmonary care nurse to a significant other at home: No Do you presently have visiting nurse or other home services: Yes Alcohol intake: current Alcohol intake frequency: holidays/special occasions only Patient Tobacco Use Status: Never used Tobacco e-Cigarette/Vaping Use: Never Used Second Hand Smoke Exposure: No service: No Current occupational status: unemployed Cognitive needs: Yes Hearing needs: No Vision needs: No Female Reproductive History Menstrual Date of menopause: 05/09/05 Questionnaire Thrive Questionnaire Date Thrive assessed: 06/08/24 I am a: Patient VENESSA-7 AMB Questionnaire VENESSA-7 Date VENESSA - 7 assessed: 01/22/24 Source: Developed by Drs. Bunny Dennis, Jimena Stock, Jarred Mclaughlin and colleagues, with an educational cruzito from [employer]. Review of Systems Const All systems reviewed & are unremarkable except as noted in HPI and below Card Denies chest pain at rest, Denies chest pain with activity, Denies edema, Denies irregular heart rhythm, Denies claudication, Denies dyspnea, Denies dyspnea on exertion, Denies orthopnea, Denies paroxysmal nocturnal dyspnea and Denies slow heart rate Resp Denies cough, Denies dyspnea and Denies dyspnea on exertion GI Denies abdominal pain, Denies change in bowel habits, Denies excessive flatus, Denies nausea and Denies vomiting Neuro Denies behavioral changes and Denies lack of coordination Psych Denies behavioral changes Physical exam (Primary Care) Vital Signs: Last Vital Signs BP 160/76 H 06/08/24 16:29 BMI result Body Mass Index 38.7 BMI Assessment/Plan discussion: High BMI High, discussed plan: lifestyle, weight reduction, dietary and physical activity Tobacco/Smoking Status: Tobacco use Status Tobacco use date assessed 01/22/24 06/08/24 16:34 Patient Tobacco Use Status Never used Tobacco 06/08/24 16:34 e-Cigarette/Vaping Use Never Used 06/08/24 16:34 Thrive Assessment: Date of Thrive Assessment Date Thrive assessed 06/08/24 06/08/24 16:34 HENKY Head: Yes normal to inspection, Yes normocephalic and Yes atraumatic Ears: external ears normal Eyes General: appearance normal, both eyes and all related structures Eyelids: Yes eyelids normal Conjunctivae: conjunctivae normal Neck Neck: Yes normal visual inspection and Yes supple Resp Effort & Inspection: normal respiratory effort Auscultation: clear to auscultation bilaterally Cardio Jugular venous distension: no JVD Rate: regular rate Rhythm: regular rhythm Heart sounds: S1 normal heart sound present and S2 normal heart sound present GI Inspection: Yes normal to inspection Palpation (GI): Soft to palpation and nontender Auscultation: normal bowel sounds Skin General skin exam: no rashes or lesions noted Neuro General: no focal motor deficits Extrem General: Yes full ROM Psych Appearance: grossly normal Office Procedures Flu Questionnaire Does the patient have a severe egg allergy?: No Immunizations Fluarix Triv [id number] (PF) 45 mcg (15 mcg x 3)/0.5 mL IM syringe Performing Provider: Susana Holcomb MD [facility] Documented (not given) by: BEBE Mandel on 06/08/24 16:36 Reason Not Given: Patient Refused Coding Level of Care Code Est Pt Prev Care >65y(07715) Diagnoses Physical exam Z00.00 Bilateral malignant neoplasm of breast in female, unspecified estrogen receptor status, unspecified site of breast C50.911; C50.912 Breast location: unspecified site of breast Estrogen receptor status: unspecified Patient sex: female Time Spent (min) 31 Assessment & Plan Assessment & Plan (1) Physical exam: Code(s): Z00.00 - Encounter for general adult medical examination without abnormal findings Category: Medical (2) Bilateral breast cancer: Code(s): C50.911 - Malignant neoplasm of unspecified site of right female breast; C50.912 - Malignant neoplasm of unspecified site of left female breast Category: Medical Qualifiers: Breast location: unspecified site of breast Estrogen receptor status: unspecified Patient sex: female Qualified Code(s): C50.911 - Malignant neoplasm of unspecified site of right female breast; C50.912 - Malignant neoplasm of unspecified site of left female breast Plan Continue chucking and sawing machine operator's dietary recommendations. Patient was informed and verbally consented to the use of an ambient scribe for clinic note documentation during this visit. I discussed at length the patient's management of hypertension and depression. The potential side effects and reactions to various medications were reviewed, ensuring the patient understood their implications. I advised her to continue her current medications and to watch for any adverse reactions. The necessity and benefits of vaccinations were explained, and although the patient declined the pneumonia and tetanus vaccines during this visit, we plan to revisit the discussion at a later time. The patient was reminded about the importance of regular screenings and lab tests, including the follow-up bone density scan scheduled for 2024. We also reviewed her foot surgery options, explaining that local anesthesia would be used, and emphasizing the importance of post-operative care. I assured her that monitoring dietary changes due to her chucking and sawing machine operator's recommendations is crucial and instructed her to follow up with any concerns. Orders: Orders Influenza [id number] Immunization Today Z23 - Encounter for immunization Vitamin D 25-OH Total Today E55.9 - Vitamin D deficiency, unspecified Lipid Panel Today E78.5 - Hyperlipidemia, unspecified, Z00.00 - Encounter for general adult medical examination without abnormal findings Comprehensive [place]. Panel Fast Today Z00.00 - Encounter for general adult medical examination without abnormal findings Complete Blood Count Auto Diff Today D72.829 - Elevated white blood cell count, unspecified Patient Instructions: - Follow dietary guidelines as advised by your chucking and sawing machine operator. - Monitor for any adverse reactions to medications. - Schedule and complete recommended laboratory work for sugar and cholesterol levels. - Consider rescheduling vaccinations at a future appointment. - Continue current medications for hypertension and depression. - Plan for post-operative care and communicate with the surgeon regarding foot surgery. - Schedule follow-up appointments as needed to monitor health conditions.
[2024-06-08 16:29] VITALS: BP 160/76; BMI 38.7
== END 2024-06-08 16:57 | disposition home or self-care (01) ==
PROVIDERS: PCP Internal Medicine; Visit Provider Internal Medicine
DX: Z00.00 Encounter for general adult medical examination without abnormal findings (principal); C50.911 Malignant neoplasm of unspecified site of right female breast; C50.912 Malignant neoplasm of unspecified site of left female breast; Z23 Encounter for immunization

== ENCOUNTER → 2024-06-08 16:24 | Outpatient (BNVA) | payer OTHER, SELFPAY | PROVIDERS: PCP Internal Medicine; Visit Provider Internal Medicine | DX: Z00.00 Encounter for general adult medical examination without abnormal findings (principal); C50.911 Malignant neoplasm of unspecified site of right female breast; C50.912 Malignant neoplasm of unspecified site of left female breast | CPT/HCPCS: 90471; 99397 ==

== ENCOUNTER 2024-07-10 13:41 | Outpatient (AMB) | payer OTHER, SELFPAY ==
[2024-07-10 13:43] VITALS: PULSE 92; O2SAT 99; BMI 39.1
--- NOTE | 2024-07-10 13:43 | A.OFFVIS_ITS ---
Vital Signs 07/10/24 13:43 Height 4 ft 10 in Weight 186 lb 15.232 oz BMI 39.1 Pulse 92 Pulse Source Pulse Oximeter Pulse Oximetry (%) 99 Oxygen Delivery Method Room Air Intake Visit Reasons: 6 mnth follow up Intake Note: ESTABLISHED PATIENT Reason; 6 mos Changes/concerns? Abd pain, frequently / most nights. Bloating. Accompanied by: Family/Other Allergies codeine [Codeine] Allergy (Severe, Verified 07/10/24 13:43) DIFFICULTY BREATHING albuterol Allergy (Intermediate, Verified 07/10/24 13:43) unknown adhesive [Adhesive] Allergy (Mild, Verified 07/10/24 13:43) RASH amlodipine [AMLODIPINE] Allergy (Mild, Verified 07/10/24 13:43) ITCHING clonidine [CLONIDINE] Allergy (Mild, Verified 07/10/24 13:43) sleepiness hydralazine [HYDRALAZINE] Allergy (Mild, Verified 07/10/24 13:43) dizziness Iodinated Contrast Media [IV Dye, Iodine Containing] Allergy (Mild, Verified 07/10/24 13:43) HIVES latex [LATEX] Allergy (Mild, Verified 07/10/24 13:43) RASH lisinopril [LISINOPRIL] Allergy (Mild, Verified 07/10/24 13:43) ITCHING oxybutynin [From Ditropan] Allergy (Mild, Verified 07/10/24 13:43) UNKNOWN doxazosin [DOXAZOSIN] Allergy (Unknown, Verified 07/10/24 13:43) PURITIS, pruritus hydrochlorothiazide [HYDROCHLOROTHIAZIDE] Allergy (Unknown, Verified 07/10/24 13:43) ITCHING, syncope losartan Allergy (Unknown, Verified 07/10/24 13:43) pruritus metoprolol [METOPROLOL] Allergy (Unknown, Verified 07/10/24 13:43) ITCHING metronidazole [From FLAGYL] Allergy (Unknown, Verified 07/10/24 13:43) VOMITING omeprazole [OMEPRAZOLE] Allergy (Unknown, Verified 07/10/24 13:43) RASH psyllium [Metamucil] Allergy (Unknown, Verified 07/10/24 13:43) diarrhea diltiazem Adverse Reaction (Intermediate, Verified 07/10/24 13:43) Palpitations HPI HPI 6 mnth follow up: Details: LAST VISIT: Chronic GERD RUQ abdominal pain IBS (irritable bowel syndrome) Postprandial abdominal bloating Constipation Plan Continue Nexium daily. Continue avoiding dietary triggers and late night snacking. Patient will continue taking Dulcolax tablets daily. Increase fluid intake and activity to promote better bowel motility. High-fiber diet. Patient will continue try to eat low FODMAP diet. May use milk of magnesia on as-needed basis if no bowel movement for 2 days. Follow-up in our office in 6 months, sooner on as needed basis. Patient is agreeable to this plan and verbalizes understanding of instructions. She was given the opportunity to ask questions and all questions answered. Medications Refilled bisacodyl (Dulcolax (bisacodyl)) 10 mg (2 x 5 mg) PO BEDTIME 180 tabs 4RF TODAY'S VISIT Patient is here today for follow-up. Patient is accompanied by her daughter. Patient reports that she continues to have abdominal bloating and right upper quadrant abdominal pain. Patient reports that her symptoms are worse at night. Patient reports that she is moving her bowels better. She admits not following up low FODMAP diet. Patient is not eating enough fiber or not drinking enough water. Patient reports that she is moving her bowels well, however occasionally she will have constipation and occasionally blood in her stools when wiping. Patient denies any nausea or vomiting. Patient had previously normal liver enzymes as well as abdominal MRI. [facility] Medical History HTN (hypertension) Chronic pancreatitis Postmenopausal bleeding Polyarthralgia History of breast cancer Obese Thyroid nodule Hypovitaminosis D Essential hypertension Breast implant status Surgical History Hx of total mastectomy of right breast (2004) Hx of total mastectomy of left breast (1985) History of biopsy History of suburethral sling procedure H/O esophagogastroduodenoscopy Hx of colonoscopy History of breast reconstruction History of appendectomy History of breast surgery History of breast biopsy History of tubal ligation History of carpal tunnel release History of cholecystectomy Family History Father Prostate cancer Mother Ovarian cancer Chronic mental illness Mental health disorder Paternal Aunt Cancer Family/Other FH: mental illness Mental health disorder Social History Household Members: None Housing: Apartment Are you a primary client care coordinator to a significant other at home: No Do you presently have visiting nurse or other home services: Yes Alcohol intake: current Alcohol intake frequency: holidays/special occasions only Patient Tobacco Use Status: Never used Tobacco e-Cigarette/Vaping Use: Never Used Second Hand Smoke Exposure: No service: No Current occupational status: unemployed Cognitive needs: Yes Hearing needs: No Vision needs: No Female Reproductive History Menstrual Date of menopause: 05/09/05 Review of Systems Const Denies weight gain and Denies weight loss ENT Reports no additional complaints, Denies dysphagia and Denies odynophagia Card Reports no additional complaints Resp Reports no additional complaints GI Reports abdominal pain, Denies belching, Denies melena, Denies bloating, Denies change in bowel habits, Reports constipation, Denies dysphagia, Denies excessive flatus, Denies dyspepsia, Denies heartburn, Denies diarrhea, Denies loose stools, Denies nausea, Denies odynophagia and Denies vomiting Reports no additional complaints Musc Reports no additional complaints Neuro Reports no additional complaints Psych Reports no additional complaints Endo Reports no additional complaints Physical Exam Vital Signs: Last Vital Signs Pulse 92 07/10/24 13:43 Pulse Ox 99 07/10/24 13:43 Oxygen Delivery Method Room Air 07/10/24 13:43 BMI result Body Mass Index 39.1 Const General: healthy appearing and no acute distress Nutritional Appearance: obese Orientation/consciousness: patient oriented x3 Resp Effort & Inspection: normal respiratory effort, able to speak in complete sentences, no tracheal deviation and symmetric chest movement Auscultation: clear to auscultation bilaterally Cardio Rate: regular rate GI Inspection: Yes normal to inspection, No distended and Yes obesity Palpation (GI): Soft to palpation, not firm, nontender and No hepatosplenomegaly present Auscultation: normal bowel sounds General: Yes no CVA tenderness Back/Spine/Pelvis Back: no CVA tenderness Skin General skin exam: elasticity normal, turgor normal and dry skin Neuro General: patient oriented x3 Psych Appearance: grossly normal Mental Status: mental status grossly normal Quality Reporting (2019) Adult ([facility] 138//) Smoking risk assessment performed?: Yes Patient Tobacco Use Status: Never used Tobacco Assessment & Plan Assessment & Plan (1) Right upper quadrant abdominal pain: Code(s): R10.11 - Right upper quadrant pain (2) Chronic GERD: Code(s): K21.9 - Gastro-esophageal reflux disease without esophagitis Category: Medical (3) IBS (irritable bowel syndrome): Code(s): K58.9 - Irritable bowel syndrome, unspecified Qualifiers: Irritable bowel syndrome type: with constipation Qualified Code(s): K58.1 - Irritable bowel syndrome with constipation (4) Postprandial abdominal bloating: Code(s): R14.0 - Abdominal distension (gaseous) (5) Constipation: Code(s): K59.00 - Constipation, unspecified Qualifiers: Constipation type: slow transit constipation Qualified Code(s): K59.01 - Slow transit constipation Plan Previously normal MRI. Patient continues to have a right upper quadrant pain. Patient's liver was normal, normal size, echogenicity. Most likely this is gas trapping pain as patient has occasional constipation. Patient reports that her pain is worse at night time that is after her last big meal. Patient denies eating late at night. Continue avoiding late night snacking. Staying upright for minimum 3 hours after meals discussed with patient. Continue taking Dulcolax. Increase fluid intake and activity to promote better bowel motility. Stressed with patient the importance of low FODMAP diet. Will order limited right upper quadrant ultrasound, will repeat liver panel. Patient will follow-u p in the office in 3 months, sooner on as needed basis. She is agreeable to this plan and verbalizes understanding of instructions. She was given the opportunity to ask questions and all questions answered. Thank you for allowing me to participate in her care Orders: Orders US abdomen limited 07/10/24 R10.11 - Right upper quadrant pain Liver Panel 07/15/24 R74.01 - Elevation of levels of liver transaminase levels Medications: Refilled bisacodyl (Dulcolax (bisacodyl)) 10 mg (2 x 5 mg) PO BEDTIME 180 tabs 4RF hydrocortisone 2.5% (Proctosol HC) 1 appl ME BID-QID PRN 30 grams 2RF hemorrhoids K64.9 - Unspecified hemorrhoids Coding Level of Care Code Est Pt Level 4 (18621) Complex EM visit Add On G2211 Diagnoses Right upper quadrant abdominal pain R10.11 Chronic GERD K21.9 Irritable bowel syndrome with constipation K58.1 Irritable bowel syndrome type: with constipation Postprandial abdominal bloating R14.0 Slow transit constipation K59.01 Constipation type: slow transit constipation Time Spent (min) 35 Comment 20 minutes spent with patient and additional 15 minutes spent reviewing her records
== END 2024-07-10 14:06 | disposition home or self-care (01) ==
PROVIDERS: PCP Internal Medicine; Visit Provider Nurse Practitioner Family
DX: R10.11 Right upper quadrant pain (principal); K21.9 Gastro-esophageal reflux disease without esophagitis; K58.1 Irritable bowel syndrome with constipation; R14.0 Abdominal distension (gaseous); K59.01 Slow transit constipation
CPT/HCPCS: 99214; G2211

== ENCOUNTER → 2024-07-10 13:41 | Outpatient (BNVA) | payer OTHER, SELFPAY | PROVIDERS: PCP Internal Medicine; Visit Provider Nurse Practitioner Family | DX: K21.9 Gastro-esophageal reflux disease without esophagitis (principal); K58.1 Irritable bowel syndrome with constipation; K59.01 Slow transit constipation; R10.11 Right upper quadrant pain; R14.0 Abdominal distension (gaseous) | CPT/HCPCS: 99212 ==

== ENCOUNTER 2024-07-15 12:03 | Outpatient (REF) | payer OTHER, SELFPAY ==
[2024-07-15 13:11] LABS: Alanine Aminotransferase 21 U/L (0-31); Albumin Level 4.1 g/dL (3.5-5.0); Alkaline Phosphatase 103 U/L (39-117); Aspartate Amino Transferase 27 U/L (5-31); Bilirubin Direct 0.2 mg/dL (0.0-0.5); Bilirubin Total 0.6 mg/dL (0.0-1.0); Total Protein 7.5 g/dL (6.5-8.0)
== END 2024-07-15 12:04 | disposition home or self-care (01) ==
LOC: HO.LAB 12:03
PROVIDERS: PCP Internal Medicine; Visit Provider Nurse Practitioner Family
DX: R74.01 Elevation of levels of liver transaminase levels (principal)
CPT/HCPCS: 36415; 80076

== ENCOUNTER 2024-07-29 12:14 | Outpatient (REF) | payer OTHER, SELFPAY ==
--- NOTE | ~2024-07-29 | US_ITS ---
CLINICAL HISTORY: R10.11 - Right upper quadrant pain US abdomen limited Comparison: None Findings: The visualized pancreas is normal. The aorta and inferior vena cava are normal caliber. The liver is normal in size and increased in echotexture. There is no intrahepatic bile duct dilatation. The common duct is 6 mm in diameter. Status post cholecystectomy. The main portal vein is antegrade. The right kidney is 10.3 cm in length. No ascites. IMPRESSION: Hepatic steatosis. No acute process. This document has been electronically signed by: Gaurang Bynum MD on 07/31/2024 12:38:31
--- OUTSIDE RECORDS SUMMARY | 2024-07-29 14:34 | XMS_ITS | Patient Health Record ---
[facility] Address [address] [place] [address] Care Team Providers Care Care Nurse Rn Name Role Phone Alan ROBERTSON, Susana Primary Care Provider Unavail able Patrick Mcnally Unavailable [phone] Allergies Allergen (clinical drug ingredient) Drug/Non Drug Allergy documented on EMR Reaction Allergy Type Onset Date Status Ditropan Unknown Drug Allergy Active metoprolol Toprol XL Unknown Drug Allergy Active Adhesive rash Allergy Active albuterol Albuterol Unknown Drug Allergy Active amlodipine Amlodipine itching Drug Allergy Active clonidine Clonidine sleepiness Drug Allergy Active codeine Codeine Difficulty breathing Drug Allergy Active doxazosin Doxazosin Puritis Drug Allergy Active hydralazine Hydralazine dizziness Drug Allergy Active hydrochlorothiazide Hydrochlorothiazide syncope, itching Drug Allergy Active Iodinated contrast media (substance) Iodinated Diagnostic Agents hives Drug Allergy Active Latex Latex rash Allergy Active lisinopril Lisinopril itching Drug Allergy Active losartan Losartan puritis Drug Allergy Active metoprolol Metoprolol itching Drug Allergy Active metronidazole Metronidazole vomiting Drug Allergy Active omeprazole Omeprazole rash Drug Allergy Active oxybutynin Oxybutynin Unknown Drug Allergy Active Pollen Pollen Runny Nose Allergy Active psyllium Psyllium Unknown Drug Allergy Active Reason For Referral No Information Medications Medication SIG (Take, Route, Frequency, Duration) Notes Start Date End Date Status Methylcellulose (Laxative) 500 MG 2 tablets with a full glass of water as needed Orally Six times a day Active Loratadine 10 MG 1 tablet Orally Once a day for 30 day(s) Active Simethicone 80 MG 1 tablet after meals and at bedtime as needed Orally Four times a day Active Olmesartan Medoxomil 40 MG 1 tablet Oral ly Once a day for 30 day(s) Active Triamcinolone Acetonide 0.5 % 1 application Externally Two times a Week Active Esomeprazole Magnesium 40 MG 1 capsule O rally Once a day for 30 day(s) Active Ergocalciferol 1.25 MG (62013 UT) 1 capsule Orally for 30 day(s) Active Loperamide HCl 2 MG 1 capsule as needed Orally Four times a day Active dilTIAZem HCl ER 60 MG 1 capsule Orally Twice a day for 30 day(s) Active Immunizations Vaccine Route Administration Date Status Comme nts COVID-19 Moderna Vaccine Unknown 08/23/2020 Administere d COVID-19 Moderna Vaccine Unknown 09/20/2020 Administere d Social History Tobacco Use: Social History Observation Description Date Details (start date - stop date) Never Smoker NA - NA Tobacco Use/Smoking Question Answer Notes Are you a: nonsmoker Additional Findings: Tobacco Non-User Current no n-smoker Alcohol Screen Question Answer Notes Did you have a drink contain ing alcohol in the past year? Yes How often did you have a dri nk containing alcohol in the past year? 2 to 4 times a month (2 points) Points 2 Interpretation Negative Tobacco use other than smoking: Question Answer Notes Are you an other tobacco user? No Plan Of Treatment No Information Insurance Providers Payer Name Payer Address Payer Phone Subscriber Number Group Number Insured Name Patient Relationship to Insured Coverage Start Date Coverage End Date [facility] [employer] Claims [address] [place] [phone] [id number] Serenity Tena Self - patient is the insured Medical (General) History Medical History History ICD Code Primary osteoarthritis, right shoulder Essential Hypertension hypovitaminosis D thyroid nodule Obesity bilateral breast cancer Calcaneal spur, right right ankle swelling Surgical History Surgery Date(Month/Year) breast biopsy esophagogastroduodenoscopy appendectomy breast reconstruction Breast Surgery 1985, 2010 carpal tunnel release 2004 cholecystectomy tubal ligation colonoscopy gall bladder 1985 urinerestricter
--- OUTSIDE RECORDS SUMMARY | 2024-07-29 14:34 | XMS_ITS | Encounter Summary ---
Author Organization [facility] Address [address] [facility] [address] [place] [address] Phone Care Team Providers Care Diamond Driller Helper Name Role Phone Reese Ragland MD Primary Care Provider Encounter Details Date Type Department Care Team (Late Contact Info) Description 07/28/2024 Refill [facility] [address] [facility] [address] [place] [address] Skinny Awan MD [address] [address] Social History Tobacco Use Types Packs/Day Years Used Date Smoking Tobacco: Never Smokeless Tobacco: Never Alcohol Use Standard Drinks/Week Comments Yes 0 (1 standard drink = 0.6 oz pure alcohol) Alcoholic Drinks/day: Occasional social drink Comments Unknown Sex and Gender Information Value Date Recorded Sex Assigned at Not on file Legal Sex Female 5:03 PM EST Gender Identity Not on file Sexual Orientation Not on file documented as of this encounter Miscellaneous Notes * Telephone Encounter - Skinny Awan MD - 07/28/2024 9:29 AM EST Refill sent - please let her know documented in this encounter Plan of Treatment Upcoming Encounters Date Type Department Care Team (Late st Contact Info) Description 08/13/2024 3:30 PM EST Office Visit [facility] [address] [place] [address] Skinny Awan MD [address] [facility] [address] [place] [address] documented as of this encounter Visit Diagnoses Not on filedocumented in this encounter Care Teams Diamond Driller Helper Relationship Specialty Start Date End Date Reese Ragland MD [address] [place], [place] PCP - General 07/11/20 documented as of this encounter
--- OUTSIDE RECORDS SUMMARY | 2024-07-29 14:34 | XMS_ITS | Clinical Summary ---
Author Organization [facility] Address [address] [facility] [address] [place] [address] Phone Care Team Providers Care Special Procedures Technologist Name Role Phone Reese Ragland MD Primary Care Provider [phone] Allergies Active Allergy Reactions Criticality Noted Date Comments Amlodipine Other (see comments) 09/21/2020 Codeine Other (see comments) 09/21/2020 Hydralazine Other (see comments) 09/21/2020 Hydrochlorothiazide Other (see comments) 2020 Lisinopril Other (see comments) 09/21/2020 Metoprolol Other (see comments) 09/21/2020 Metronidazole Other (see comments) 09/21/2020 Omeprazole Other (see comments) 09/21/2020 Oxybutynin Other (see comments) 09/21/2020 Psyllium Other (see comments) 09/21/2020 Medications acetaminophen (TYLENOL 8 HOUR) 650 MG 8 hr tablet as needed for pain Active loratadine (CLARITIN) 10 MG tablet Take 1 tablet by mouth 1 (one) time each day Active olmesartan (BENICAR) 40 MG tablet Take 1 tablet by mouth 1 (one) time each day Active ergocalciferol (VITAMIN D2) 1.25 MG (53256 UT) capsule 1 Active esomeprazole (NexIUM) [address] capsule Take by mouth 1 (one) time each day 1 Active fluticasone (FLONASE) 50 MCG/ACT nasal spray SPRAY 1 SPRAY INTO EACH NOSTRIL EVERY DAY 1 Active triamcinolone (KENALOG) 0.5 % cream APPLY TO AFFECTED AREA TWICE A DAY 1 Active Hydrocortisone , Perianal, 2.5 % cream APPLY RECTALLY 2 TO 4 TIMES A DAY NEEDED FOR HEMORRHOIDS 2 Active Creon 51305-87372 units capsule TAKE 1 CAP ORALLY 4 TIMES A DAY ADMINISTER WITH MEALS AND/OR SNACKS 3 Active spironolactone (ALDACTONE) 25 MG tablet Take 1 tablet (25 mg total) by mouth 1 (one) time each day 90 tablet 3 5 07/28/19 26 Active spironolactone (ALDACTONE) 25 MG tablet Take 1 tablet (25 mg total) by mouth 1 (one) time each day 90 tablet 3 4 07/28/19 25 Discontin ued(Reord er (does not appear on AVS)) Active Problems Problem Noted Date Diagnosed Date Benign essential hypertension 09/21/2020 Incontinence 09/21/2020 Irritable bowel syndrome 09/21/2020 Encounters Date Type Department Care Team Description 07/28/2024 [facility]ill [facility] [address] [place] [phone] Skinny Awan MD 07/26/2024 Refill [facility] [address] [place] [phone] Skinny Awan MD from Last 3 Months Immunizations Name Administration Dates Next Due Moderna SARS-COV-2 09/20/2020,08/23/2020 Family History Medical History Relation Comments Stroke Father Cancer Mother Ovarian Cancer Heart disease Mother Hypertension Sibling Brother and Sist er Relation Status Comments Father Mother Sibling Social History Tobacco Use Types Packs/Day Years Used Date Smoking Tobacco: Never Smokeless Tobacco: Never Tobacco Cessation:Counseling Given: Not Answered Alcohol Use Standard Drinks/Week Comments Yes 0 (1 standard drink = 0.6 oz pure alcohol) Alcoholic Drinks/day: Occasional social drink Comments Unknown Sex and Gender Information Value Date Recorded Sex Assigned at Not on file Legal Sex Female 5:03 PM EST Gender Identity Not on file Sexual Orientation Not on file Last Filed Vital Signs Vital Sign Reading Time Taken Comments Blood Pressure 130/70 08/08/2023 4:23 PM EST Pulse 81 08/08/2023 4:23 PM EST Temperature - - Respiratory Rate - - Oxygen Saturation 99% 02/25/2023 3:26 PM EDT Inhaled Oxygen Concentration - - Weight 82.1 kg (181 lb) 08/08/2023 4:23 PM EST Height 147.3 cm (4' 10 ) 09/26/2020 3:48 PM EDT Body Mass Index 37.83 09/26/2020 3:48 PM EDT Plan of Treatment Upcoming Encounters Date Type Department Care Team (Late st Contact Info) Description 08/13/2024 3:30 PM EST Office Visit [facility] [address] [place] [address] Skinny Awan MD [address] [facility] [address] [place] [address] Health Maintenance Due Date Last Done Comments Breast Cancer Screening 1955 Pneumococcal Vaccine: 65+ Ye ars (1 of 2 - PCV) 1959 Colorectal Cancer Screening: Annual FOBT 2002 Colorectal Cancer Screening: Colonoscopy 2002 Colorectal Cancer Screening: Sigmoidoscopy 2002 Influenza Vaccine (#1) 2024 Hepatitis B Vaccine Aged Out No longe r eligible based on patient's age to complete this topic Insurance [facility] ([id number]) [facility] MCR ([id number]) [place] [id number] Care Teams Special Procedures Technologist Relationship Specialty Start Date End Date Reese Ragland MD [address] [place], [place] PCP - General 07/11/20
--- OUTSIDE RECORDS SUMMARY | 2024-07-29 14:34 | XMS_ITS | Encounter Summary ---
Author Organization [facility] Address [address] [place] [address] Care Team Providers Care Accounting Consultant Name Role Phone Susana Holcomb MD Primary Care Provider [phone] Reason for Visit * Reason Onset Date Comments SURGERY 07/03/2024 Encounter Details Date Type Department Care Team (Late st Contact Info) Description 07/03/2024 Telephone Orthopedic Surgery - [place] [address] [address] Lionel Almaguer, DPM [address] [address] SURGERY Social History Tobacco Use Types Packs/Day Years Used Date Smoking Tobacco: Never Assessed Sex and Gender Information Value Date Recorded Sex Assigned at Not on file Gender Identity Not on file Sexual Orientation Not on file Job Start Date Occupation Industry Not on file Not on file Not on file documented as of this encounter Progress Notes * Mini Veloz - 07/03/2024 1:28 PM EST Patient calling asking to schedule surgery, is this a patient that needs to have surgery done? documented in this encounter Plan of Treatment Not on file documented as of this encounter Visit Diagnoses Not on filedocumented in this encounter Care Teams Accounting Consultant Relationship Specialty Start Date End Date Susana Holcomb MD [address] [place] [address] , [facility] [address] [facility] [place], [place] PCP - General 12/27/16 documented as of this encounter
--- OUTSIDE RECORDS SUMMARY | 2024-07-29 14:34 | XMS_ITS | Clinical Summary ---
Author Organization [facility] Address [address] [place] [address] Phone Care Team Providers Care Automation Clerk Name Role Phone Susana Holcomb MD Primary Care Provider [phone] Allergies Active Allergy Reactions Criticality Noted Date Comments Albuterol 06/04/2023 Amlodipine 06/04/2023 Clonidine 06/04/2023 Codeine 06/04/2023 Diltiazem 06/04/2023 Doxazosin 06/04/2023 Hydralazine 06/04/2023 Hydrochlorothiazide 06/04/2023 Latex 06/04/2023 Lisinopril 06/04/2023 Losartan 06/04/2023 Metoprolol 06/04/2023 Metronidazole 06/04/2023 Omeprazole 06/04/2023 Other Reaction(s): Rash/Dermatitis Other 04/28/2024 [facility] Materials Oxybutynin 06/04/2023 Psyllium Husk Diarrhea 06/04/2023 Medications Medication Sig Dispensed Refills Start Date End Date Status sertraline (ZOLOFT) 25 mg tablet Take 1 tablet (25 mg total) by mouth 1 (one) time each day. Active cholecalciferol (VITAMIN D-3) 25 mcg (1,000 unit) capsule Take 25 mcg by mouth. Active olmesartan (BENICAR) 40 mg tablet Take 1 tablet (40 mg total) by mouth 1 (one) time each day. Active esomeprazole (NexIUM) [address] capsule Take 1 Capsule by mouth every morning (before breakfast). Active loratadine (CLARITIN) 10 mg tablet Take 1 tablet (10 mg total) by mouth 1 (one) time each day. Active spironolactone (ALDACTONE) 25 mg tablet Take 1 tablet (25 mg total) by mouth 1 (one) time each day. Active ACETAMINOPHEN ORAL Take 650 mg by mouth. Active triamcinolone (KENALOG) 0.5 % cream Apply topically 3 times daily. Active WALKER MISC by Does not apply route. Active simethicone (MYLICON,GAS-X) 125 mg capsule Take by mouth. Active hydrocortisone 2.5 % cream Apply topically 2 times daily. Active bisacodyL (DULCOLAX) 5 mg EC tablet Take 1 tablet (5 mg total) by mouth 1 (one) time each day if needed. Active [id number] SE ORAL Take by mouth. Active Active Problems Problem Noted Date Diagnosed Date Anxiety 06/25/2023 GERD (gastroesophageal reflux disease) Benign essential hypertension 09/21/2020 Incontinence 09/21/2020 Irritable bowel syndrome 09/21/2020 Encounters Date Type Department Care Team Description 07/03/2024 Telephone Orthopedic Surgery [address] [phone] Lionel Almaguer DPM SURGERY 06/08/2024 2:45 PM EST Office Visit Orthopedic Surgery [address] [phone] Lionel Almaguer DPM Lipoma of right lower extremity (Primary Dx); Right foot pain; Neuritis; Disorder of ligament of right foot from Last 3 Months Social History Tobacco Use Types Packs/Day Years Used Date Smoking Tobacco: Never Assessed Sex and Gender Information Value Date Recorded Sex Assigned at Not on file Gender Identity Not on file Sexual Orientation Not on file Job Start Date Occupation Industry Not on file Not on file Not on file Last Filed Vital Signs Vital Sign Reading Time Taken Comments Blood Pressure - - Pulse - - Temperature - - Respiratory Rate - - Oxygen Saturation - - Inhaled Oxygen Concentration - - Weight 81.2 kg (179 lb) 06/08/2024 3:00 PM EST Height 147.3 cm (4' 9.99 ) 06/08/2024 3:00 PM ES T Body Mass Index 37.42 06/08/2024 3:00 PM EST Plan of Treatment Health Maintenance Due Date Last Done Comments Breast Cancer Screening 1955 Zoster Vaccines (1 of 2) 2003 Pneumococcal Vaccine: 65+ Years (1 of 1 - PCV) 2018 DTaP,Tdap,and Td Vaccines (2 - Td or Tdap) 10/05/2018 10/05/2008 Cholesterol Screening (Lipid Panel) 07/31/2023 Colorectal Cancer Screening: Colonoscopy 07/31/2023 Depression Screening 07/31/2023 Falls Risk Assessment 07/31/2023 Hepatitis C Screening 07/31/2023 Medicare Annual Wellness Visit 07/31/2023 Osteoporosis Screening (Bone Density Screening) 07/31/2023 Social Influencers of Health Screening 07/31/2023 Hypertension/CHF/CAD Annual BMP Blood Test 08/02/2023 COVID-19 Vaccine (4 - 2023-2 5 season) 2024 04/27/2021, 09/20/2020, 08/23/2020 Influenza Vaccine (#1) 2024 RSV Immunization Patients 60 + Years Old (1 - 1-dose 75+ series) 2028 HIB Vaccines Aged Out No longer eligi ble based on patient's age to complete this topic HPV Vaccines Aged Out No longer eligi ble based on patient's age to complete this topic Hepatitis A Vaccines Aged Out No long er eligible based on patient's age to complete this topic Hepatitis B Vaccines Aged Out No long er eligible based on patient's age to complete this topic IPV Vaccines Aged Out No longer eligi ble based on patient's age to complete this topic MMR Vaccines Aged Out No longer eligi ble based on patient's age to complete this topic Meningococcal ACWY Vaccine Aged Out N o longer eligible based on patient's age to complete this topic RSV Immunization Patients Under 20 months Aged Out No longer eligible b ased on patient's age to complete this topic Varicella Vaccines Aged Out No longer eligible based on patient's age to complete this topic Procedures Procedure Name Priority Date/Time Associated Diagnosis Comments XR FOOT 3+ VIEWS RIGHT Routine 06/08/2024 3:05 PM EST Right foot pain from Last 3 Months Results * XR Foot 3+ Views Right (06/08/2024 3:05 PM EST) Anatomical Region Laterality Modality Lower Extremities, Foot Right Computed Radiography Narrative 06/08/2024 5:32 PM EST Right foot 3 views: Mild diffuse hindfoot midfoot forefoot arthritis relatively normal alignment hindfoot midfoot and forefoot Normal pedal radiographs no acute findings Lionel Almaguer DPM IMG XR PROCEDURES from Last 3 Months Care Teams Automation Clerk Relationship Specialty Start Date End Date Susana Holcomb MD [address] [place] [address] , [address] [facility] Associ D/B/A: [facility] [place], [place] PCP - General 12/27/16
--- OUTSIDE RECORDS SUMMARY | 2024-07-29 14:34 | XMS_ITS | Encounter Summary ---
Author Organization [facility] Address [address] [facility] Briana [facility] [address] [place] [address] Phone Care Team Providers Care Machine Etcher Name Role Phone Reese Ragland MD Primary Care Provider [phone] Reason for Visit * Reason Comments Med Refill Encounter Details Date Type Department Care Team (Late st Contact Info) Description 07/26/2024 Refill [facility] [address] [place] [address] Skinny Awan MD [address] [address] Social History Tobacco Use Types [...] on file documented as of this encounter Plan of Treatment Upcoming Encounters Date Type Department Care Team (Late st Contact Info) Description 08/13/2024 3:30 PM EST Office Visit [facility] [address] [place] [address] Skinny Awan MD [address] [address] documented as of this encounter Visit Diagnoses Not on filedocumented in this encounter Care Teams Machine Etcher Relationship Specialty Start Date End Date Reese Ragland MD [address] [place] PCP - General 07/11/20 documented as of this encounter
== END 2024-07-29 12:15 | disposition home or self-care (01) ==
LOC: HO.US 12:14
PROVIDERS: PCP Internal Medicine; Visit Provider Nurse Practitioner Family
DX: R10.11 Right upper quadrant pain (principal)
CPT/HCPCS: 76705

== ENCOUNTER → 2024-07-29 12:17 | Outpatient (BNV) | payer OTHER, SELFPAY | PROVIDERS: PCP Internal Medicine; Visit Provider Radiology Vascular & Interventional Radiology | DX: K76.0 Fatty (change of) liver, not elsewhere classified (principal) | CPT/HCPCS: 76705 ==

== ENCOUNTER 2024-08-26 14:01 | Outpatient (REF) | payer OTHER, SELFPAY ==
--- NOTE | ~2024-08-26 | MM_ITS ---
EXAMINATION: DXA BONE DENSITY AXIAL HISTORY: Estrogen deficiency TECHNIQUE: comScore Dual energy absorptiometry (DEXA) of the lumbar spine, total left hip, and femoral neck was performed. COMPARISON: Comparison is made with the prior examination dated 07/13/2022. FINDINGS: The bone mineral density of the lumbar spine is 1.085 with a T-score of -0.8, and a Z-score of 0.3. This represents a BMD change of 4.3% compared to the prior exam. This is statistically significant. The bone mineral density of the left total hip is 0.948 with a T-score of -0.5, and a Z-score of 0.6. This represents BMD change of 0.6% compared to the prior exam. This is not statistically significant. The bone mineral density of the left femoral neck is 0.768 with a T-score of -1.9, and a Z-score of -0.6. This represents BMD change of 3.4% compared to the prior exam. FRACTURE RISK: The FRAX index suggests a ten year probability of major osteoporotic fracture of 6.1%, and of hip fracture 1.1%. MM/XR DEXA axial skeleton IMPRESSION: Based on bone mineral density, and according to World Health Organization (WHO) criteria, the diagnosis is consistent with osteopenia. All bone density values are in grams per centimeter squared (g/cm2). Statistically, 68% of repeat scans fall within 1 SD (+/- 0.010 g/cm2 for AP spine L1-L4) and 1 SD (+/- 0.012 g/cm2 for femur total) FRAX is a trademark of the [employer]'s [place] for Metabolic Bone Disease, a World Health Organization (WHO) Collaborating Center. Electronically signed by: Bunny Leon MD 08/26/2024 02:58 PM [facility]
--- OUTSIDE RECORDS SUMMARY | 2024-08-26 17:17 | XMS_ITS | Encounter Summary ---
Author Organization [facility] Address [address] [facility] [address] [place] [address] Phone Care Team Providers Care Straightening Machine Operator Name Role Phone Reese Ragland MD Primary Care Provider [phone] Reason for Visit * Reason Comments Med Refill Encounter Details Date Type Department Care Team (Late Contact Info) Description 07/26/2024 Refill [facility] [address] [place] [address] Skinny Awan MD [address] [address] Social History Tobacco Use Types [...] Encounters Date Type Department Care Team (Late Contact Info) Description 11/05/2024 3:15 PM EDT Office Visit [facility] [address] [place] [address] Skinny Awan MD [address] [facility] [address] [place] [address] documented as of this encounter Visit Diagnoses Not on filedocumented in this encounter Care Teams Straightening Machine Operator Relationship Specialty Start Date End Date Reese Ragland MD [address] [place], [place] PCP - General 07/11/20 documented as of this encounter
--- OUTSIDE RECORDS SUMMARY | 2024-08-26 17:17 | XMS_ITS | Patient Health Record ---
[facility] Address [address] [place] [address] Care Team Providers Care Software Test And Validation Engineer Name Role Phone Alan ROBERTSON, Susana Primary Care Provider Unavail able Patrick Mcnally Unavailable [phone] Allergies Allergen (clinical drug ingredient) Drug/Non Drug [...] for 30 day(s) Active Ergocalciferol 1.25 MG (96291 UT) 1 capsule Orally for 30 day(s) [...] Insured Coverage Start Date Coverage End Date [facility] SCO Claims [id number] [place] [phone] [id number] Serenity Tena Self - patient is the [...]
--- OUTSIDE RECORDS SUMMARY | 2024-08-26 17:17 | XMS_ITS | Encounter Summary ---
Author Organization [facility] Address [address] [place] [address] Phone Care Team Providers Care Nuclear Plant Construction Worker Name Role Phone Reese Ragland MD Primary Care Provider [phone] Encounter Details Date Type Department Care Team (Late Contact Info) Description 07/28/2024 Refill [facility] [place] [address] [place] [address] Skinny Awan MD [address] [address] Social History Tobacco Use Types [...] Visit [facility] [address] [place] [address] Skinny Awan MD [address] [address] documented as of this encounter Visit Diagnoses Not on filedocumented in this encounter Care Teams Nuclear Plant Construction Worker Relationship Specialty Start Date End Date Reese Ragland MD [address] [place], [place] PCP - General 07/11/20 documented as of this encounter
--- OUTSIDE RECORDS SUMMARY | 2024-08-26 17:17 | XMS_ITS | Clinical Summary ---
Author Organization [facility] Address [address] [place] [address] Phone Care Team Providers Care Psychiatric Tech Name Role Phone Susana Holcomb MD Primary Care Provider [phone] Allergies Active Allergy Reactions Criticality Noted Date Comments Albuterol 06/04/2023 Amlodipine 06/04/2023 Clonidine 06/04/2023 Codeine 06/04/2023 Diltiazem 06/04/2023 Doxazosin 06/04/2023 Hydralazine 06/04/2023 Hydrochlorothiazide 06/04/2023 Latex 06/04/2023 Lisinopril 06/04/2023 Losartan 06/04/2023 Metoprolol 06/04/2023 Metronidazole 06/04/2023 Omeprazole 06/04/2023 Other Reaction(s): Rash/Dermatitis Other 04/28/2024 Diagnostic X-[facility] Materials Oxybutynin 06/04/2023 Psyllium Husk Diarrhea 06/04/2023 Medications sertraline (ZOLOFT) 25 mg tablet Take 1 [...] (one) time each day if needed. Active LIPASE-PROTEASE -AMYLASE ORAL Take by mouth. A ctive Active Problems Problem Noted Date Diagnosed Date Anxiety 06/25/2023 GERD (gastroesophageal reflux disease) Benign essential hypertension 09/21/2020 Incontinence 09/21/2020 Irritable bowel syndrome 09/21/2020 Encounters Date Type Department Care Team Description 07/03/2024 Telephone Orthopedic Surgery [address] [phone] Lionel Almaguer DPM SURGERY 06/08/2024 2:45 PM EST Office Visit Orthopedic Surgery [address] [phone] Lionel Almaguer DPM Lipoma of right lower extremity (Primary Dx); Right foot pain; Neuritis; Disorder of ligament of right foot from Last 3 Months Social History Tobacco Use Types Packs/Day Years Used Date Smoking Tobacco: Never Assessed Comments Unknown Sex and Gender Information Value Date Recorded Sex Assigned at Not on file Legal Sex Female 10:47 PM EST Gender Identity Not on file [...] Comments Breast Cancer Screening 1955 Pneumococcal Vaccine: 50+ Years (1 of 1 - PCV) 2003 Zoster Vaccines (1 of 2) 2003 DTaP,Tdap,and Td Vaccines (2 - Td or Tdap) 10/05/2018 10/05/2008 Cholesterol Screening (Lipid Panel) 07/31/2023 Colorectal Cancer Screening: Colonoscopy 07/31/2023 Depression Screening 07/31/2023 Falls Risk Assessment 07/31/2023 Hepatitis C Screening 07/31/2023 Medicare Annual Wellness Visit 07/31/2023 Osteoporosis Screening (Bone Density Screening) 07/31/2023 Social Influencers of Health Screening 07/31/2023 Hypertension/CHF/CAD Annual BMP Blood Test 08/02/2023 COVID-19 Vaccine (2023-2 5 season) 2024 04/27/2021, 09/20/2020, 08/23/2020 Influenza [...] patient's age to complete this topic Meningococcal B Vacine Aged Out No lo nger eligible based on patient's age to complete [...] forefoot Normal pedal radiographs no acute findings us Lionel Almaguer DPM IMG XR PROCEDURES Final R esult from Last 3 Months Insurance [employer] MEDICARE Member Subscriber Plan / Payer (Ef fective 2018-Present) Name:Serenity Tena Relation to Subscriber:Self Name:Serenity Tena Payer ID:[id number] Group ID:[id number] Type:Not on file Address: [place] [address] [place] [phone] Care Teams Psychiatric Tech Relationship Specialty Start Date End Date Susana Holcomb MD [address] [facility] , [address] [facility] Physician Associ D/B/A: [facility] [place] PCP - General 12/27/16
--- OUTSIDE RECORDS SUMMARY | 2024-08-26 17:17 | XMS_ITS | Clinical Summary ---
Author Organization [facility] Address [address] [facility] [place] [address] Phone Care Team Providers Care Rn Diabetes Name Role Phone Reese Ragland MD Primary Care Provider [phone] Allergies Active Allergy Reactions Criticality Noted Date [...] day Active ergocalciferol (VITAMIN D2) 1.25 MG (96013 UT) capsule 1 Active esomeprazole (NexIUM) 40 [...] DAY NEEDED FOR HEMORRHOIDS 2 Active Creon 78179-68370 units capsule TAKE 1 CAP ORALLY 4 [...] Description 07/28/2024 [facility]ill [facility] [address] [place] [phone] Skinny Awan MD 07/26/2024 Refill [facility] [address] [place] [phone] Skinny Awan MD from Last 3 Months [...] Care Team (Late st Contact Info) Description 11/05/2024 3:15 PM EDT Office Visit [facility] [address] [place] [address] Skinny Awan MD [address] [facility] [address] [place] [address] Health Maintenance Due Date Last Done Comments Breast Cancer Screening 1955 Pneumococcal Vaccine: 65+ Ye ars (1 of 2 - PCV) 1959 Colorectal Cancer Screening: Annual FOBT 2002 Colorectal Cancer Screening: Colonoscopy 2002 Colorectal Cancer Screening: Sigmoidoscopy 2002 Influenza Vaccine (#1) 2024 Hepatitis B Vaccine Aged Out No longe r eligible based on patient's age to complete this topic Insurance [facility] ([id number]) [address] [place] [address] [facility] ([id number]) [place] [phone] Care Teams Rn Diabetes Relationship Specialty Start Date End Date Reese Ragland MD [address] [place] PCP - General 07/11/20
--- OUTSIDE RECORDS SUMMARY | 2024-08-26 17:17 | XMS_ITS | Encounter Summary ---
Author Organization [facility] Address [address] [place] [address] Care Team Providers Care Metal Solderer Name Role Phone Susana Holcomb MD Primary Care Provider [phone] Reason for Visit * Reason Onset Date Comments SURGERY 07/03/2024 Encounter Details Date Type Department Care Team (Late st Contact Info) Description 07/03/2024 Telephone Orthopedic Surgery - [place] [address] [facility] [address] [place] [address] Lionel Almaguer, DPM [address] [facility] [address] [place] [address] SURGERY Social History Tobacco Use Types Packs/Day [...] on filedocumented in this encounter Care Teams Metal Solderer Relationship Specialty Start Date End Date Susana Holcomb MD [address] [place] [address] , [address] Physician Associ D/B/A: [facility] [place] PCP - General 12/27/16 documented as of this encounter
== END 2024-08-26 14:02 | disposition home or self-care (01) ==
LOC: HO.MAMMO 14:01
PROVIDERS: PCP Internal Medicine; Visit Provider Internal Medicine Medical Oncology
DX: Z13.820 Encounter for screening for osteoporosis (principal); M85.80 Other specified disorders of bone density and structure, unspecified site; E28.39 Other primary ovarian failure
CPT/HCPCS: 77080

== ENCOUNTER → 2024-08-26 14:06 | Outpatient (BNV) | payer OTHER, SELFPAY | PROVIDERS: PCP Internal Medicine; Visit Provider Radiology Diagnostic Radiology | DX: E28.39 Other primary ovarian failure (principal) | CPT/HCPCS: 77080 ==

== ENCOUNTER 2024-08-27 11:39 | Outpatient (REF) | payer OTHER, SELFPAY ==
--- NOTE | ~2024-08-27 | US_ITS ---
EXAMINATION: US DIAGNOSTIC ULTRASOUND BREAST, RIGHT CLINICAL INFORMATION: History of bilateral breast cancer status post bilateral mastectomies and implant reconstruction. Right post mastectomy bed pain. COMPARISON: Comparison is made with relevant prior imaging. TECHNIQUE: Ultrasound of the breast/postmastectomy bed is performed with real-time rodriguez scale imaging and color Doppler. FINDINGS: Targeted color Doppler ultrasound scanning in the area the patient's right post mastectomy bed pain from 3-8 o'clock demonstrates normal tissue there is no sonographic abnormality. Results are discussed with the patient at time of visit. US/US breast RT limited mamm only IMPRESSION: Normal post mastectomy beds tissue. No sonographic abnormality to correlate with the patient's pain. ASSESSMENT: BI-RADS 2: Benign RECOMMENDATION: Clinical management and follow-up. This patient's information was entered into a reminder system with a target due date for their next mammogram. Electronically signed by: pOal Dove DO 08/27/2024 12:36 PM [facility]
--- OUTSIDE RECORDS SUMMARY | 2024-08-27 14:10 | XMS_ITS | Clinical Summary ---
Author Organization [facility] Address [address] [place] [address] Phone Care Team Providers Care Child Monitor Name Role Phone Susana Holcomb MD Primary Care Provider [phone] Allergies Active Allergy Reactions Criticality Noted Date [...] Care Team Description 07/03/2024 Telephone Orthopedic Surgery [address] [address] Lionel Almaguer DPM SURGERY 06/08/2024 2:45 PM EST Office Visit Orthopedic Surgery [address] [phone] Lionel Almaguer DPM Lipoma of right lower [...] ID:[id number] Group ID:[id number] Type:Not on file Address: [place] [address] [place] [phone] Care Teams Child Monitor Relationship Specialty Start Date End Date Susana Holcomb MD [address] [facility] , [address] [facility] Physician Associ D/B/A: [facility] [place] PCP - General 12/27/16
--- OUTSIDE RECORDS SUMMARY | 2024-08-27 14:10 | XMS_ITS | Encounter Summary ---
Author Organization [facility] Address [address] [place] [address] Phone Care Team Providers Care Supervisor Of Operations Name Role Phone Reese Ragland MD Primary Care Provider Encounter Details Date Type Department Care Team (Late Contact Info) Description 07/28/2024 Refill [facility] [address] [place] [address] Skinny Awan MD [address] [address] Social History Tobacco Use Types [...] Visit [facility] [address] [place] [address] Skinny Awan MD [address] [address] documented as of this encounter Visit Diagnoses Not on filedocumented in this encounter Care Teams Supervisor Of Operations Relationship Specialty Start Date End Date Reese Ragland MD [address] [place], [place] PCP - General 07/11/20 documented as of this encounter
--- OUTSIDE RECORDS SUMMARY | 2024-08-27 14:10 | XMS_ITS | Encounter Summary ---
Author Organization [employer] Address [address] [place] [address] Care Team Providers Care Egg Gatherer Name Role Phone Susana Holcomb MD Primary Care Provider [phone] Reason for Visit * Reason Onset Date Comments SURGERY 07/03/2024 Encounter Details Date Type Department Care Team (Late st Contact Info) Description 07/03/2024 Telephone Orthopedic Surgery - [place] [address] [facility] [address] [place] [address] Lionel Almaguer, DPM 175 [facility] [address] [place] [address] SURGERY Social History Tobacco Use Types Packs/Day [...] on filedocumented in this encounter Care Teams Egg Gatherer Relationship Specialty Start Date End Date Susana Holcomb MD [address] [place] [address] , [address] Physician Associ D/B/A: [facility] [place] PCP - General 12/27/16 documented as of this encounter
--- OUTSIDE RECORDS SUMMARY | 2024-08-27 14:10 | XMS_ITS | Patient Health Record ---
Author [facility] Address [address] [place] [address] Care Team Providers Care Client Support Associate Name Role Phone Alan ROBERTSON, Susana Primary Care Provider Unavail able Patrick Mcnally Unavailable [phone] Allergies Allergen (clinical drug ingredient) Drug/Non Drug [...] for 30 day(s) Active Ergocalciferol 1.25 MG (06032 UT) 1 capsule Orally for 30 day(s) [...] Insured Coverage Start Date Coverage End Date [facility] SCO Claims [address] [place] [phone] [id number] Serenity Tena Self - patient is the [...]
--- OUTSIDE RECORDS SUMMARY | 2024-08-27 14:10 | XMS_ITS | Clinical Summary ---
Author Organization [facility] Address [address] [place] [address] Phone Care Team Providers Care Microbiology Manager Name Role Phone Reese Ragland MD Primary Care Provider [phone] Allergies Active Allergy Reactions Criticality Noted Date [...] day Active ergocalciferol (VITAMIN D2) 1.25 MG (14651 UT) capsule 1 Active esomeprazole (NexIUM) [address] capsule Take by mouth 1 (one) time each day 1 Active fluticasone (FLONASE) 50 MCG/ACT nasal spray SPRAY 1 SPRAY INTO EACH NOSTRIL EVERY DAY 1 Active triamcinolone (KENALOG) 0.5 % cream APPLY TO AFFECTED AREA TWICE A DAY 1 Active Hydrocortisone, Perianal, 2.5 % cream APPLY RECTALLY 2 TO 4 TIMES A DAY NEEDED FOR HEMORRHOIDS 2 Active Creon 07547-47361 units capsule TAKE 1 CAP ORALLY 4 TIMES A DAY ADMINISTER WITH MEALS AND/OR SNACKS 3 Active spironolactone (ALDACTONE) 25 MG tablet Take 1 tablet (25 mg total) by mouth 1 (one) time each day 90 tablet 3 5 07/28/19 Active Active Problems Problem Noted Date Diagnosed Date Benign essential hypertension 09/21/2020 Incontinence 09/21/2020 Irritable bowel syndrome 09/21/2020 Encounters Date Type Department Care Team Description 07/28/2024 [facility] [address] [place] [address] Skinny Awan MD 07/26/2024 Refill [facility] [address] [place] [address] Skinny Awan MD from Last 3 Months [...] Visit [facility] [address] [place] [address] Skinny Awan MD [address] [facility] [address] [place] [address] Health Maintenance Due Date Last Done Comments Breast Cancer Screening 1955 Pneumococcal Vaccine: 65+ Ye ars (1 of 2 - PCV) 1959 Colorectal Cancer Screening: Annual FOBT 2002 Colorectal Cancer Screening: Colonoscopy 2002 Colorectal Cancer Screening: Sigmoidoscopy 2002 Influenza Vaccine (#1) 2024 Hepatitis B Vaccine Aged Out No longe r eligible based on patient's age to complete this topic Insurance ([id number]) [place] [id number] [facility] ([id number]) [place] [id number] Care Teams Microbiology Manager Relationship Specialty Start Date End Date Reese Ragland MD [address] [place], [place] PCP - General 07/11/20
--- OUTSIDE RECORDS SUMMARY | 2024-08-27 14:10 | XMS_ITS | Encounter Summary ---
Author Organization [facility] Address [address] [facility] [address] [place] [address] Phone Care Team Providers Care Tug Hand Name Role Phone Reese Ragland MD Primary Care Provider [phone] Reason for Visit * Reason Comments Med Refill Encounter Details Date Type Department Care Team (Late Contact Info) Description 07/26/2024 Refill [facility] [address] [place] [address] Skinny Awan MD [address] [address] Social History Tobacco Use Types [...] Office Visit [facility] [address] [place] [address] Skinny Awan MD 35[address] [facility] [address] [place] [address] documented as of this encounter Visit Diagnoses Not on filedocumented in this encounter Care Teams Tug Hand Relationship Specialty Start Date End Date Reese Ragland MD [address] [place], [place] PCP - General 07/11/20 documented as of this encounter
== END 2024-08-27 11:40 | disposition home or self-care (01) ==
LOC: HO.MAMMO 11:39
PROVIDERS: PCP Internal Medicine; Visit Provider Internal Medicine Medical Oncology
DX: N64.4 Mastodynia (principal)
CPT/HCPCS: 76642

== ENCOUNTER → 2024-08-27 12:00 | Outpatient (BNV) | payer OTHER, SELFPAY | PROVIDERS: PCP Internal Medicine; Visit Provider Internal Medicine | DX: Z90.11 Acquired absence of right breast and nipple (principal); N64.4 Mastodynia | CPT/HCPCS: 76642 ==

== ENCOUNTER 2024-10-07 14:44 | Outpatient (AMB) | payer OTHER, SELFPAY ==
[2024-10-07 14:53] VITALS: BP 126/84; PULSE 86; O2SAT 97; BMI 38.8
--- NOTE | 2024-10-07 14:53 | MHC.PC.OV ---
Vital Signs 10/07/24 14:53 Height 4 ft 10 in Weight 185 lb 8 oz BMI 38.8 BP 126/84 Blood Pressure Location Lt brachial Position Sitting Pulse 86 Pulse Source Pulse Oximeter Pulse Oximetry (%) 97 Oxygen Delivery Method Room Air Intake Visit Reasons: bp Storm Window Installer Required: No Accompanied by: Self / Same As Patient Allergies codeine [Codeine] Allergy (Severe, Verified 10/09/24 15:01) DIFFICULTY BREATHING albuterol Allergy (Intermediate, Verified 10/09/24 15:01) unknown adhesive [Adhesive] Allergy (Mild, Verified 10/09/24 15:01) RASH amlodipine [AMLODIPINE] Allergy (Mild, Verified 10/09/24 15:01) ITCHING clonidine [CLONIDINE] Allergy (Mild, Verified 10/09/24 15:) sleepiness hydralazine [HYDRALAZINE] Allergy (Mild, Verified 10/09/24 15:) dizziness Iodinated Contrast Media [IV Dye, Iodine Containing] Allergy (Mild, Verified 10/09/24 15:01) HIVES latex [LATEX] Allergy (Mild, Verified 10/09/24 15:01) RASH lisinopril [LISINOPRIL] Allergy (Mild, Verified 10/09/24 15:01) ITCHING oxybutynin [From Ditropan] Allergy (Mild, Verified 10/09/24 15:01) UNKNOWN doxazosin [DOXAZOSIN] Allergy (Unknown, Verified 10/09/24 15:01) PURITIS, pruritus hydrochlorothiazide [HYDROCHLOROTHIAZIDE] Allergy (Unknown, Verified 10/09/24 15:01) ITCHING, syncope losartan Allergy (Unknown, Verified 10/09/24 15:01) pruritus metoprolol [METOPROLOL] Allergy (Unknown, Verified 10/09/24 15:01) ITCHING metronidazole [From FLAGYL] Allergy (Unknown, Verified 10/09/24 15:01) VOMITING omeprazole [OMEPRAZOLE] Allergy (Unknown, Verified 10/09/24 15:01) RASH psyllium [Metamucil] Allergy (Unknown, Verified 10/09/24 15:01) diarrhea diltiazem Adverse Reaction (Intermediate, Verified 10/09/24 15:01) Palpitations Medication List - Last Reconciled 10/07/24 by Josh Thomson MD acetaminophen ER 650 mg PO Q8H PRN 30 days [adult diapers pull-ups Use 1 diaper four times a day] bisacodyl (Dulcolax (bisacodyl)) 10 mg (2 x 5 mg) PO BEDTIME cholecalciferol (vitamin D3) 50 mcg (2 x 25 mcg (1,000 unit)) PO DAILY 90 days esomeprazole magnesium 40 mg PO DAILY 90 days hydrocortisone 2.5% (Proctosol HC) 1 appl IN BID-QID PRN incontinence pad, liner, disp As directed fluery-bnbdrdvo-lwtgldt 12,000-38,000 -60,000 unit (Creon) 1 cap PO QID loratadine 10 mg PO DAILY magnesium hydroxide (Milk of Magnesia) 10 mL PO DAILY PRN olmesartan 40 mg PO DAILY sertraline 25 mg PO DAILY 90 days simethicone (Gas Relief (simethicone)) 125 mg PO TID-QID PRN spironolactone 25 mg PO DAILY triamcinolone acetonide 0.5% 1 appl topical BID PRN 30 days underpads (Bed Underpads) Use 5 pads per day prn walker (Ultra-Light Rollator misc) As directed [wipes Use 10 wipes per day prn] Tobacco use date assessed: 10/07/24 Fall risk assessment: No Falls in past year Last assessed Fall Risk: 10/07/24 Dental Screening Dental Screen Date: 10/07/24 Did you have a dental visit in the last 12 months?: Yes Did you have a dental problem in the last 6 months where you did not have access to dental care?: No Was dental information given to patient?: Patient has dentist HPI bp HPI Details Patient comes in today for her follow-up visit States that she feels okay but reports experiencing increased pain over her lower back over the past 1 to 2 weeks Patient does not recall any recent injury or trauma to her lower back She denies any headaches or dizziness Denies any chest pains, no increased shortness of breath No nausea/vomiting, still has occasional abdominal pain, especially over her right upper quadrant area No change in bowel habits noted [facility] Medical History Obesity (BMI 30-39.9) Depression Allergic rhinitis GERD without esophagitis Vitamin D deficiency HTN (hypertension) Chronic pancreatitis Postmenopausal bleeding Polyarthralgia History of breast cancer Obese Thyroid nodule Hypovitaminosis D Essential hypertension Breast implant status Surgical History Hx of total mastectomy of right breast (2004) Hx of total mastectomy of left breast (1985) History of biopsy History of suburethral sling procedure H/O esophagogastroduodenoscopy Hx of colonoscopy History of breast reconstruction History of appendectomy History of breast surgery History of breast biopsy History of tubal ligation History of carpal tunnel release History of cholecystectomy Family History Father Prostate cancer Mother Ovarian cancer Chronic mental illness Mental health disorder Paternal Aunt Cancer Family/Other FH: mental illness Mental health disorder Social History Household Members: None Housing: Apartment Are you a primary resident care coordinator to a significant other at home: No Do you presently have visiting nurse or other home services: Yes Alcohol intake: current Alcohol intake frequency: holidays/special occasions only Patient Tobacco Use Status: Never used Tobacco e-Cigarette/Vaping Use: Never Used Second Hand Smoke Exposure: No service: No Current occupational status: unemployed Cognitive needs: Yes Hearing needs: No Vision needs: No Female Reproductive History Menstrual Date of menopause: 05/09/05 Questionnaire PHQ-9 Over the last 2 weeks, how often have you been bothered by any of the following problems? 1. Little interest or pleasure in doing things: not at all 2. Feeling down, depressed, or hopeless: not at all 3. Trouble falling or staying asleep, or sleeping too much: not at all 4. Feeling tired or having little energy: not at all 5. Poor appetite or overeating: not at all 6. Feeling bad about yourself - or that you are a failure or have let yourself or your family down: not at all 7. Trouble concentrating on things, such as reading the newspaper or watching television: not at all 8. Moving or speaking so slowly that other people could have noticed. Or the opposite - being so fidgety or restless that you have been moving around a lot more than usual: not at all 9. Thoughts that you would be better off or of hurting yourself in some way: not at all Total score: 0 Depression Screening Interpretation: Negative Depression Screening Done: Yes 16764 - PHQ-9 Billing: Yes Source: Developed by Drs. Bunny Dennis, Jimena Stock, Jarred Mclaughlin and colleagues, with an educational cruzito from [employer]. Thrive Questionnaire Date Thrive assessed: 10/07/24 I am a: Patient What is your living situation today?: I have a steady place to live Within the past 12 months, did the food you bought not last and you didn't have the money to get more?: Never true Within the past 12 months, did you worry whether your food would run out before you got money to buy more?: Never true Do you have trouble paying for medicines?: No Do you have trouble getting transportation to medical appointments?: No Do you have trouble paying your heating and electricity bill?: No Do you have trouble taking care of your child, family member or friend?: No Do you have trouble with day-to-day activities such as bathing, preparing meals, shopping, managing finances, etc.?: No Are you currently unemployed and looking for a job?: No Are you interested in more education?: No Please select the resources that you would like help with: None Currently or been in a relationship where the following occur: No concerns reported THRIVE Score: 0 AUDIT C Alcohol Use Questionnaire (AUDIT-C) 1. How often do you have a drink containing alcohol?: Never 3. How often do you have six or more drinks on one occasion?: Never Total Score: 0 Score Reviewed/Action Taken: Yes VENESSA-7 AMB Questionnaire VENESSA-7 Date VENESSA - 7 assessed: 10/07/24 Feeling nervous, anxious, or on edge: 0 = Not at all Not being able to stop or control worryin = Not at all Worrying too much about different things: 0 = Not at all Trouble relaxin = Not at all Being so restless that it is hard to sit still: 0 = Not at all Becoming easily annoyed or irritable: 0 = Not at all Feeling afraid as if something awful might happen: 0 = Not at all Total VENESSA-7 score (0-4 normal; 5-9 mild; 10-14 moderate; 15-21 severe): 0 Source: Developed by Drs. Bunny Dennis, Jimena Stock, Jarred Mclaughlin and colleagues, with an educational cruzito from [employer]. Review of Systems Const Denies chills, Denies fatigue, Denies fever(s) and Denies headache(s) ENT Denies dysphagia, Denies dizziness, Denies otalgia, Denies headache(s), Denies neck pain, Denies odynophagia and Denies sore throat Card Denies chest pain, Denies palpitations and Denies dyspnea Resp Denies cough and Denies dyspnea GI Reports abdominal pain (on and off, mostly over the RUQ), Denies constipation, Denies dysphagia, Denies heartburn, Denies diarrhea, Denies nausea, Denies odynophagia and Denies vomiting Denies difficulty conceiving, Denies difficulty voiding, Denies nocturia, Denies dysuria and Denies urinary urgency Musc Reports back pain (over the lower back), Denies arthralgias and Denies neck pain Skin/Breast Denies rash Neuro Denies dizziness and Denies headache(s) Endo Denies fatigue and Denies palpitations Physical exam (Primary Care) Vital Signs: Last Vital Signs Pulse 86 10/07/24 14:53 BP 126/84 10/07/24 14:53 Pulse Ox 97 10/07/24 14:53 Oxygen Delivery Method Room Air 10/07/24 14:53 BMI result Body Mass Index 38.8 Tobacco/Smoking Status: Tobacco use Status Tobacco use date assessed 10/07/24 10/07/24 15:07 Patient Tobacco Use Status Never used Tobacco 10/07/24 15:07 e-Cigarette/Vaping Use Never Used 10/07/24 15:07 PHQ-9: PHQ-9 Score PHQ-9: Total score 0 10/07/24 15:20 Depression Screening Interpretation: Negative Thrive Assessment: Date of Thrive Assessment Date Thrive assessed 10/07/24 10/07/24 15:07 Currently or been in a relationship where the following occur: No concerns reported Const General: no acute distress and alert HENMT Throat: Yes posterior oropharynx normal and Yes tonsils normal (no TP congestion) Neck Neck: Yes supple and No lymphadenopathy Thyroid: Thyroid normal Resp Auscultation: clear to auscultation bilaterally, no rales and no wheezes Cardio Rate: regular rate Rhythm: regular rhythm Heart sounds: no murmurs GI Palpation (GI): Soft to palpation and nontender Auscultation: normal bowel sounds General: Yes no CVA tenderness Back/Spine/Pelvis Back: no CVA tenderness Thoracic/Lumbar Spine: lumbar spinal tenderness (mild) Skin Rashes: no rashes Extrem General: Yes no clubbing, cyanosis or edema Coding Level of Care Code Est Pt Level 4 (30153) Diagnoses Essential hypertension I10 Acute midline low back pain without sciatica M54.50 Chronicity: acute Back pain laterality: midline Sciatica presence: without sciatica Vitamin D deficiency E55.9 GERD without esophagitis K21.9 Right upper quadrant abdominal pain R10.11 Abdominal location: right upper quadrant Allergic rhinitis, unspecified seasonality, unspecified trigger J30.9 Allergic rhinitis trigger: unspecified Allergic rhinitis seasonality: unspecified Episode of recurrent major depressive disorder, unspecified depression episode severity F33.9 Depression Type: major depressive disorder Major depression recurrence: recurrent Active/Remission status: currently active Major depression episode severity: unspecified Obesity (BMI 30-39.9) E66.9 Additional Codes PHQ-9 - 32115 - PHQ-9 Billing: Yes ([id number]) Assessment & Plan Assessment & Plan (1) Essential hypertension: Code(s): I10 - Essential (primary) hypertension Category: Medical Plan: Reinforced low sodium diet - goal is systolic BP of at least 130 mm or less Her blood pressure appears to be much better controlled currently compared to her reading at her last visit a few months ago Continue Olmesartan 40 mg QD and Spironolactone 25 mg QD Patient is reminded to continue monitoring her blood pressure regularly (2) Low back pain: Code(s): M54.50 - Low back pain, unspecified Category: Medical Qualifiers: Chronicity: acute Back pain laterality: midline Sciatica presence: without sciatica Qualified Code(s): M54.50 - Low back pain, unspecified Plan: Will send patient for lumbar spine x-rays for further evaluation Have advised patient in the meantime to avoid any exertional activities, including lifting anything over 5 to 10 lbs, currently that may potentially aggravate her lower back symptoms Will start her in the meantime on Tizanidine 4 mg Q HS PRN and on Lidocaine ointment 5% to apply to the painful area(s) over her lower back QID PRN for symptomatic relief (3) Vitamin D deficiency: Code(s): E55.9 - Vitamin D deficiency, unspecified Category: Medical Plan: Continue Vitamin D3 2000 units QD (4) GERD without esophagitis: Code(s): K21.9 - Gastro-esophageal reflux disease without esophagitis Category: Medical Plan: Dietary restrictions reinforced Continue Esomeprazole 40 mg QD (5) Abdominal pain: Code(s): R10.9 - Unspecified abdominal pain Category: Medical Qualifiers: Abdominal location: right upper quadrant Qualified Code(s): R10.11 - Right upper quadrant pain Plan: Abdominal US done a few months ago in July 2024 revealed only (+) hepatic steatosis with no acute process Patient is also S/P cholecystectomy Follow up with GI as scheduled (6) Allergic rhinitis: Code(s): J30.9 - Allergic rhinitis, unspecified Category: Medical Qualifiers: Allergic rhinitis trigger: unspecified Allergic rhinitis seasonality: unspecified Qualified Code(s): J30.9 - Allergic rhinitis, unspecified Plan: Continue Loratadine 10 mg QD PRN (7) Depression: Code(s): F32.A - Depression, unspecified Category: Medical Qualifiers: Depression Type: major depressive disorder Major depression recurrence: recurrent Active/Remission status: currently active Major depression episode severity: unspecified Qualified Code(s): F33.9 - Major depressive disorder, recurrent, unspecified Plan: Continue Sertraline 25 mg QD (8) Obesity (BMI 30-39.9): Code(s): E66.9 - Obesity, unspecified Category: Medical Plan: Reinforced diet; exercise and weight loss are likely unrealistic in this patient due to her age and physical issues Plan Follow up with PCP in 3 months Orders: Orders XR lumbar spine 2-3V 10/07/24 M54.50 - Low back pain, unspecified Medications: New tizanidine 4 mg PO BEDTIME 30 days PRN 30 tabs 0RF muscle spasms/back pain lidocaine 5% 1 appl topical QID 15 days PRN 60 grams 1RF pain
--- OUTSIDE RECORDS SUMMARY | 2024-10-07 16:58 | XMS_ITS | Clinical Summary ---
Author Organization [facility] Address [address] [place] [address] Phone Care Team Providers Care Cooker Operator Name Role Phone Reese Ragland MD Primary Care Provider [phone] Allergies Active Allergy Reactions Criticality Noted Date [...] day Active ergocalciferol (VITAMIN D2) 1.25 MG (46704 UT) capsule 1 Active esomeprazole (NexIUM) 40 [...] DAY NEEDED FOR HEMORRHOIDS 2 Active Creon 90862-75676 units capsule TAKE 1 CAP ORALLY 4 [...] Description 07/28/2024 [facility] [address] [place] [address] Skinny Awan MD 07/26/2024 Refill [facility] [address] [place] [address] [...] [facility] [address] [place] [address] Skinny Awan MD [address] [facility] [address] [place] [address] Health Maintenance Due Date Last Done Comments Breast Cancer Screening 1955 Pneumococcal Vaccine: 65+ Ye ars (1 of 2 - PCV) 1959 Colorectal Cancer Screening: Annual FOBT 2002 Colorectal Cancer Screening: Colonoscopy 2002 Colorectal Cancer Screening: Sigmoidoscopy 2002 Influenza Vaccine (Season Ended) 2025 Hepatitis B Vaccine Aged Out No longe r eligible based on patient's age to complete this topic Insurance ([id number]) FAB[place]LA[place] [id number] [facility] ([id number]) [place] [id number] Care Teams Cooker Operator Relationship Specialty Start Date End Date Reese Ragland MD [address] [place], [place] PCP - General 07/11/20
--- OUTSIDE RECORDS SUMMARY | 2024-10-07 16:58 | XMS_ITS | Clinical Summary ---
Author Organization [facility] Address [address] [place] [address] Phone Care Team Providers Care System Validation Engineer Name Role Phone Susana Holcomb MD Primary Care Provider [phone] Allergies Active Allergy Reactions Criticality Noted Date [...] 09/21/2020 Incontinence 09/21/2020 Irritable bowel syndrome 09/21/2020 Social History Tobacco Use Types Packs/Day Years [...] BMP Blood Test 08/02/2023 COVID-19 Vaccine (4 2023-2 5 season) 2024 04/27/2021, 09/20/2020, 08/23/2020 Influenza Vaccine (#1) 2024 RSV Immunization Adult Patients (1 - 1-dose 75+ series) 2028 HIB [...] age to complete this topic Meningococcal B Vaccine Aged Out No l onger eligible based on patient's age to complete this topic RSV Immunization Patients Under 20 months Aged Out No longer eligible b ased on patient's age to complete this topic Varicella Vaccines Aged Out No longer eligible based on patient's age to complete this topic [facility] [place] [address] [employer] MEDICARE Member Subscriber Plan / Payer (Ef fective 2018-Present) Name:Serenity Tena Relation to Subscriber:Self Name:Serenity Tena Payer ID:[id number] Group ID:[id number] Type:Not on file Address: [place] [address] [place] [id number] Care Teams System Validation Engineer Relationship Specialty Start Date End Date Susana Holcomb MD [address] [place] [address] , [address] [facility] [place], [place] PCP - General 12/27/16
--- OUTSIDE RECORDS SUMMARY | 2024-10-07 16:58 | XMS_ITS | Encounter Summary ---
Author Organization [facility] Address [address] [facility] [address] [place] [address] Phone Care Team Providers Care Level Glass Vial Filler Name Role Phone Reese Ragland MD Primary Care Provider [phone] Reason for Visit * Reason Comments Med Refill Encounter Details Date Type Department Care Team (Late Contact Info) Description 07/26/2024 [facility]ill [facility] [address] [place] [address] Skinny Awan MD [address] [address] Social History Tobacco Use Types [...] Office Visit [facility] [address] [place] [address] Skinny Awan MD [address] [facility] [address] [place] [address] documented as of this encounter Visit Diagnoses Not on filedocumented in this encounter Care Teams Level Glass Vial Filler Relationship Specialty Start Date End Date Reese Ragland MD [address] [place], [place] PCP - General 07/11/20 documented as of this encounter
== END 2024-10-07 15:34 | disposition home or self-care (01) ==
LOC: HO.HMCH 14:44
PROVIDERS: PCP Internal Medicine; Visit Provider Internal Medicine
DX: I10 Essential (primary) hypertension (principal); F33.9 Major depressive disorder, recurrent, unspecified; E66.9 Obesity, unspecified; Z68.38 Body mass index [BMI] 38.0-38.9, adult; M54.50 Low back pain, unspecified; E55.9 Vitamin D deficiency, unspecified; K21.9 Gastro-esophageal reflux disease without esophagitis; R10.11 Right upper quadrant pain; J30.9 Allergic rhinitis, unspecified

== ENCOUNTER → 2024-10-07 14:44 | Outpatient (BNVA) | payer OTHER, SELFPAY | PROVIDERS: PCP Internal Medicine; Visit Provider Internal Medicine | DX: I10 Essential (primary) hypertension (principal); M54.50 Low back pain, unspecified; E55.9 Vitamin D deficiency, unspecified; K21.9 Gastro-esophageal reflux disease without esophagitis; R10.11 Right upper quadrant pain; J30.9 Allergic rhinitis, unspecified; F33.9 Major depressive disorder, recurrent, unspecified; E66.9 Obesity, unspecified; Z68.38 Body mass index [BMI] 38.0-38.9, adult | CPT/HCPCS: 96127; 99212 ==

== ENCOUNTER 2024-10-09 14:40 | Outpatient (AMB) | payer OTHER, SELFPAY ==
--- NOTE | 2024-10-09 14:49 | MHC.OFFVIS ---
Vital Signs 10/09/24 15:00 Height 4 ft 10 in Weight 185 lb BMI 38.7 BP 112/72 Blood Pressure Location Rt brachial Position Sitting Pulse 72 Pulse Source Pulse Oximeter Pulse Oximetry (%) 97 Oxygen Delivery Method Room Air Intake Visit Reasons: 3 mo f/u liver US Intake Note: ESTABLISHED PATIENT for liver pnl and US done. GERD, constipation, abd pain mgmt. Chief Complaint; C/O rectal pain with BRB. Pt denies any significant constipation, pt has less abd pain and gas. Pt would like to discuss stopping creon because she feels better without it, also pt has stopped bisacodyl. Animal Laboratory Technician Required: No Accompanied by: Daughter Allergies codeine [Codeine] Allergy (Severe, Verified 10/09/24 15:01) DIFFICULTY BREATHING albuterol Allergy (Intermediate, Verified 10/09/24 15:01) unknown adhesive [Adhesive] Allergy (Mild, Verified 10/09/24 15:01) RASH amlodipine [AMLODIPINE] Allergy (Mild, Verified 10/09/24 15:01) ITCHING clonidine [CLONIDINE] Allergy (Mild, Verified 10/09/24 15:01) sleepiness hydralazine [HYDRALAZINE] Allergy (Mild, Verified 10/09/24 15:01) dizziness Iodinated Contrast Media [IV Dye, Iodine Containing] Allergy (Mild, Verified 10/09/24 15:01) HIVES latex [LATEX] Allergy (Mild, Verified 10/09/24 15:01) RASH lisinopril [LISINOPRIL] Allergy (Mild, Verified 10/09/24 15:01) ITCHING oxybutynin [From Ditropan] Allergy (Mild, Verified 10/09/24 15:01) UNKNOWN doxazosin [DOXAZOSIN] Allergy (Unknown, Verified 10/09/24 15:01) PURITIS, pruritus hydrochlorothiazide [HYDROCHLOROTHIAZIDE] Allergy (Unknown, Verified 10/09/24 15:01) ITCHING, syncope losartan Allergy (Unknown, Verified 10/09/24 15:01) pruritus metoprolol [METOPROLOL] Allergy (Unknown, Verified 10/09/24 15:01) ITCHING metronidazole [From FLAGYL] Allergy (Unknown, Verified 10/09/24 15:01) VOMITING omeprazole [OMEPRAZOLE] Allergy (Unknown, Verified 10/09/24 15:01) RASH psyllium [Metamucil] Allergy (Unknown, Verified 10/09/24 15:01) diarrhea diltiazem Adverse Reaction (Intermediate, Verified 10/09/24 15:01) Palpitations HPI HPI 3 mo f/u liver US: Details: LAST VISIT: Right upper quadrant abdominal pain Chronic GERD IBS (irritable bowel syndrome) Postprandial abdominal bloating Constipation Plan Previously normal MRI. Patient continues to have a right upper quadrant pain. Patient's liver was normal, normal size, echogenicity. Most likely this is gas trapping pain as patient has occasional constipation. Patient reports that her pain is worse at night time that is after her last big meal. Patient denies eating late at night. Continue avoiding late night snacking. Staying upright for minimum 3 hours after meals discussed with patient. Continue taking Dulcolax. Increase fluid intake and activity to promote better bowel motility. Stressed with patient the importance of low FODMAP diet. Will order limited right upper quadrant ultrasound, will repeat liver panel. Patient will follow-up in the office in 3 months, sooner on as needed basis. She is agreeable to this plan and verbalizes understanding of instructions. She was given the opportunity to ask questions and all questions answered. ? Thank you for allowing me to participate in her care Orders Orders US abdomen limited 07/10/24 R10.11 Liver Panel 07/15/24 R74.01 Medications Refilled bisacodyl (Dulcolax (bisacodyl)) 10 mg (2 x 5 mg) PO BEDTIME 180 tabs 4RF hydrocortisone 2.5% (Proctosol HC) 1 appl MA BID-QID PRN 30 grams 2RF hemorrhoids K64.9 TODAY'S VISIT Patient is here today for follow-up. Patient is accompanied by her daughter. Patient reports that she has been feeling better since last visit. Less abdominal bloating and cramping. Ultrasound showed fatty liver no acute processes seen. Patient reports that she is moving her bowels, bowels soft no mucus, occasional blood when wiping. Patient denies any dyspepsia, dysphagia or odynophagia. Denies any nausea or vomiting. Reports to have a fair appetite. Not on any particular diet. Mostly Indonesian food [facility] Medical History Obesity (BMI 30-39.9) Depression Allergic rhinitis GERD without esophagitis Vitamin D deficiency HTN (hypertension) Chronic pancreatitis Postmenopausal bleeding Polyarthralgia History of breast cancer Obese Thyroid nodule Hypovitaminosis D Essential hypertension Breast implant status Surgical History Hx of total mastectomy of right breast (2004) Hx of total mastectomy of left breast (1985) History of biopsy History of suburethral sling procedure H/O esophagogastroduodenoscopy Hx of colonoscopy History of breast reconstruction History of appendectomy History of breast surgery History of breast biopsy History of tubal ligation History of carpal tunnel release History of cholecystectomy Family History Father Prostate cancer Mother Ovarian cancer Chronic mental illness Mental health disorder Paternal Aunt Cancer Family/Other FH: mental illness Mental health disorder Social History Household Members: None Housing: Apartment Are you a primary day care worker to a significant other at home: No Do you presently have visiting nurse or other home services: Yes Alcohol intake: current Alcohol intake frequency: holidays/special occasions only Patient Tobacco Use Status: Never used Tobacco e-Cigarette/Vaping Use: Never Used Second Hand Smoke Exposure: No service: No Current occupational status: unemployed Cognitive needs: Yes Hearing needs: No Vision needs: No Female Reproductive History Menstrual Date of menopause: 05/09/05 Review of Systems Const Denies weight gain and Denies weight loss ENT Reports no additional complaints, Denies dysphagia and Denies odynophagia Card Reports no additional complaints Resp Reports no additional complaints GI Denies abdominal pain, Denies belching, Denies melena, Reports bloating, Denies change in bowel habits, Denies dysphagia, Denies excessive flatus, Denies dyspepsia, Denies heartburn, Denies diarrhea, Denies loose stools, Denies nausea, Denies odynophagia and Denies vomiting Reports no additional complaints Musc Reports no additional complaints Neuro Reports no additional complaints Psych Reports no additional complaints Endo Reports no additional complaints Physical Exam Vital Signs: Last Vital Signs Pulse 72 10/09/24 15:00 BP 112/72 10/09/24 15:00 Pulse Ox 97 10/09/24 15:00 Oxygen Delivery Method Room Air 10/09/24 15:00 BMI result Body Mass Index 38.7 Const General: healthy appearing and no acute distress Nutritional Appearance: obese Orientation/consciousness: patient oriented x3 Resp Effort & Inspection: normal respiratory effort, able to speak in complete sentences, no tracheal deviation and symmetric chest movement Auscultation: clear to auscultation bilaterally Cardio Rate: regular rate GI Inspection: Yes normal to inspection, No distended and Yes obesity Palpation (GI): Soft to palpation, not firm, nontender and No hepatosplenomegaly present Auscultation: normal bowel sounds General: Yes no CVA tenderness Back/Spine/Pelvis Back: no CVA tenderness Skin General skin exam: elasticity normal, turgor normal and dry skin Neuro General: patient oriented x3 Psych Appearance: grossly normal Mental Status: mental status grossly normal Results Reviewed Results Reviewed: Abdominal ultrasound Findings: The visualized pancreas is normal. The aorta and inferior vena cava are normal caliber. The liver is normal in size and increased in echotexture. There is no intrahepatic bile duct dilatation. The common duct is 6 mm in diameter. Status post cholecystectomy. The main portal vein is antegrade. The right kidney is 10.3 cm in length. No ascites. IMPRESSION: Hepatic steatosis. No acute process. Assessment & Plan Assessment & Plan (1) Chronic GERD: Code(s): K21.9 - Gastro-esophageal reflux disease without esophagitis Category: Medical (2) Right upper quadrant abdominal pain: Code(s): R10.11 - Right upper quadrant pain (3) IBS (irritable bowel syndrome): Code(s): K58.9 - Irritable bowel syndrome, unspecified Qualifiers: Irritable bowel syndrome type: without diarrhea Qualified Code(s): K58.9 - Irritable bowel syndrome, unspecified (4) Postprandial abdominal bloating: Code(s): R14.0 - Abdominal distension (gaseous) (5) Constipation: Code(s): K59.00 - Constipation, unspecified Qualifiers: Constipation type: slow transit constipation Qualified Code(s): K59.01 - Slow transit constipation Plan Patient reports occasional blood when wiping after bowel movement. Patient denies having constipation. Will send her script for Proctosol. Continue taking Nexium daily. May use simethicone for bloating. Avoid dietary triggers and late night snacking. Staying upright for minimum 3 hours after meals discussed with patient. Patient will follow-up in our office in 6 months, sooner on as needed basis. She is agreeable to this plan and verbalizes understanding of instructions. She was given the opportunity to ask questions and all questions answered. Thank you for allowing me to participate in her care Medications: Refilled hydrocortisone 2.5% (Proctosol HC) 1 appl MA BID-QID PRN 30 grams 2RF hemorrhoids K64.9 - Unspecified hemorrhoids Coding Level of Care Code Est Pt Level 3 (34592) Diagnoses Chronic GERD K21.9 Right upper quadrant abdominal pain R10.11 Irritable bowel syndrome without diarrhea K58.9 Irritable bowel syndrome type: without diarrhea Postprandial abdominal bloating R14.0 Slow transit constipation K59.01 Constipation type: slow transit constipation Time Spent (min) 30 Comment 20 minutes spent with patient and additional 10 minutes spent reviewing her records
--- OUTSIDE RECORDS SUMMARY | 2024-10-09 14:56 | XMS_ITS | Patient Health Record ---
Demographics Address [address] [facility] [address] [place] [address] Email Address Preferred Language en Marital Status Unknown Congregation Affiliation Unknown Race Unknown Additional Race(s) Other Race Ethnic Group or Author Organization [facility] Address [address] [place] [address] Care Team Providers Care Mcat Instructor Name Role Phone Alan ROBERTSON, Susana Primary Care Provider Unavail able Patrick Mcnally Unavailable [phone] Allergies Allergen (clinical drug ingredient) Drug/Non Drug [...] for 30 day(s) Active Ergocalciferol 1.25 MG (02458 UT) 1 capsule Orally for 30 day(s) [...] Insured Coverage Start Date Coverage End Date [facility] SCO Claims [id number] [place] [id number] [phone] [id number] Serenity Tena Self - patient is the [...]
--- OUTSIDE RECORDS SUMMARY | 2024-10-09 14:56 | XMS_ITS | Encounter Summary ---
Author Organization [facility] Address [address] [facility] [address] [place] [address] Phone Care Team Providers Care Manager Terminal Name Role Phone Reese Ragland MD Primary Care Provider [phone] Reason for Visit * Reason Comments Med Refill Encounter Details Date Type Department Care Team (Late Contact Info) Description 07/26/2024 Refill [facility] [address] [place] [address] Skinny Awan MD [address] [address] Social History Tobacco Use Types [...] Visit [facility] of [address] [place] [address] Skinny Awan MD [address] [facility] [address] [place] [address] documented as of this encounter Visit Diagnoses Not on filedocumented in this encounter Care Teams Manager Terminal Relationship Specialty Start Date End Date Reese Ragland MD [address] [place], [place] PCP - General 07/11/20 documented as of this encounter
--- OUTSIDE RECORDS SUMMARY | 2024-10-09 14:56 | XMS_ITS | Clinical Summary ---
Author Organization [address] [facility] Address [address] [place] [address] Phone Care Team Providers Care Model Builder Display Name Role Phone Susana Holcomb MD Primary Care Provider [phone] Allergies Active Allergy Reactions Criticality Noted Date [...] Blood Test 08/02/2023 COVID-19 Vaccine (4 - 2024-2 5 season) 2024 04/27/2021, 09/20/2020, 08/23/2020 Influenza Vaccine (Season Ended) 2025 RSV Immunization Adult Patients (1 - 1-dose [...] to complete this topic [facility] [address] [employer] MEDICARE Member Subscriber Plan / Payer (Ef fective 2018-Present) Name:Serenity Tena Relation to Subscriber:Self Name:Serenity Tena Payer ID:[id number] Group ID:[id number] Type:Not on file Address: [place] [address] [place] [phone] Care Teams Model Builder Display Relationship Specialty Start Date End Date Susana Holcomb MD [address] [place] [address] , [address] [facility] D/B/A: [facility] [place], [place] PCP - General 12/27/16
--- OUTSIDE RECORDS SUMMARY | 2024-10-09 14:56 | XMS_ITS | Clinical Summary ---
Author Organization [facility] Address [address] [place] [address] Phone Care Team Providers Care Umbrella Frame Maker Name Role Phone Reese Ragland MD Primary Care Provider [phone] Allergies Active Allergy Reactions Criticality Noted Date [...] day Active ergocalciferol (VITAMIN D2) 1.25 MG (89277 UT) capsule 1 Active esomeprazole (NexIUM) 40 [...] DAY NEEDED FOR HEMORRHOIDS 2 Active Creon 43082-20974 units capsule TAKE 1 CAP ORALLY 4 [...] Description 07/28/2024 Refill [facility] [address] [place] [address] Skinny Awan MD 07/26/2024 Refill [facility] Of [address] [place] [address] Skinny Awan MD from Last 3 Months Immunizations Immunization Administration Dates Next Due Moderna SARS-COV-2 09/20/2020,08/23/2020 [...] [facility] [address] [place] [address] Skinny Awan MD [address] [facility] [address] [place] [address] Health Maintenance Due Date Last Done Comments Breast Cancer Screening 1955 Pneumococcal Vaccine: 50+ Ye ars (1 of 2 - PCV) 1959 Colorectal Cancer Screening: Annual FOBT 2002 Colorectal Cancer Screening: Colonoscopy 2002 Colorectal Cancer Screening: Sigmoidoscopy 2002 Influenza Vaccine (Season Ended) 2025 Hepatitis B Vaccine Aged Out No longe r eligible based on patient's age to complete this topic Insurance ([id number]) [place] [id number] [facility] ([id number]) [place] [phone] Care Teams Umbrella Frame Maker Relationship Specialty Start Date End Date Reese Ragland MD [address] [place], [place] PCP - General 07/11/20
[2024-10-09 15:00] VITALS: BP 112/72; PULSE 72; O2SAT 97; BMI 38.7
== END 2024-10-09 15:26 | disposition home or self-care (01) ==
LOC: HO.HGI 14:41
PROVIDERS: PCP Internal Medicine; Visit Provider Nurse Practitioner Family
DX: K21.9 Gastro-esophageal reflux disease without esophagitis (principal); R10.11 Right upper quadrant pain; K58.9 Irritable bowel syndrome, unspecified; R14.0 Abdominal distension (gaseous); K59.01 Slow transit constipation
CPT/HCPCS: 99213

== ENCOUNTER → 2024-10-09 14:40 | Outpatient (BNVA) | payer OTHER, SELFPAY | PROVIDERS: PCP Internal Medicine; Visit Provider Nurse Practitioner Family | DX: K21.9 Gastro-esophageal reflux disease without esophagitis (principal); K58.9 Irritable bowel syndrome, unspecified; K59.01 Slow transit constipation; R10.11 Right upper quadrant pain; R14.0 Abdominal distension (gaseous) | CPT/HCPCS: 99212 ==

== ENCOUNTER 2024-10-14 14:24 | Outpatient (REF) | payer OTHER, SELFPAY ==
--- NOTE | ~2024-10-14 | XR_ITS ---
CLINICAL HISTORY: M54.50 - Low back pain, unspecified 3 views lumbar spine Comparison: None Findings: Normal alignment. No acute fractures or dislocation. There is multiple level degenerative facet change. There is spondylo arthropathic osteophytes. There is aortic calcification. IMPRESSION: No acute findings. This document has been electronically signed by: Yonny Brown MD on 10/16/2024 08:32:23
--- OUTSIDE RECORDS SUMMARY | 2024-10-14 17:11 | XMS_ITS | Encounter Summary ---
Author Organization [facility] Address [address] [facility] [address] [place] [address] Phone Care Team Providers Care Comptroller Name Role Phone Reese Ragland MD Primary Care Provider [phone] Reason for Visit * Reason Comments Med Refill Encounter Details Date Type Department Care Team (Late Contact Info) Description 07/26/2024 Refill [facility] [address] [place] [address] Skinny Awan MD [address] [address] Social History Tobacco Use Types [...] Office Visit [facility] [address] [place] [address] Skinny Awan MD [address] [facility] [address] [place] [address] documented as of this encounter Visit Diagnoses Not on filedocumented in this encounter Care Teams Comptroller Relationship Specialty Start Date End Date Reese Ragland MD [address] [place], [place] PCP - General 07/11/20 documented as of this encounter
--- OUTSIDE RECORDS SUMMARY | 2024-10-14 17:11 | XMS_ITS | Patient Health Record ---
Author Organization [facility] Address [address] [place] [address] Care Team Providers Care Ping Pong Table Assembler Name Role Phone Alan ROBERTSON, Susana Primary Care Provider Unavail able Patrick Mcnally Unavailable [phone] Allergies Allergen (clinical drug ingredient) Drug/Non Drug [...] for 30 day(s) Active Ergocalciferol 1.25 MG (04807 UT) 1 capsule Orally for 30 day(s) [...] Coverage Start Date Coverage End Date [facility] SCO Claims [id number] [place] [phone] [id number] Serenity Tena Self - patient is the [...]
--- OUTSIDE RECORDS SUMMARY | 2024-10-14 17:11 | XMS_ITS | Clinical Summary ---
Author Organization [facility] Address [address] [facility] [place] [address] Phone Care Team Providers Care Gear Repairer Name Role Phone Reese Ragland MD Primary Care Provider [phone] Allergies Active Allergy Reactions Criticality Noted Date [...] day Active ergocalciferol (VITAMIN D2) 1.25 MG (03562 UT) capsule 1 Active esomeprazole (NexIUM) 40 [...] DAY NEEDED FOR HEMORRHOIDS 2 Active Creon 20746-97214 units capsule TAKE 1 CAP ORALLY 4 [...] Description 07/28/2024 Refill [facility] [address] [place] [address] Skinny Awan MD 07/26/2024 Refill [facility] Of [address] [place] [address] [...] Visit [facility] the [address] [place] [address] Skinny Awan MD [address] [facility] [address] [place] [address] Health Maintenance Due Date Last Done Comments Breast Cancer Screening 1955 Pneumococcal Vaccine: 50+ Ye ars (1 of 2 - PCV) 1972 Colorectal Cancer Screening: Annual FOBT 2002 Colorectal Cancer Screening: Colonoscopy 2002 Colorectal Cancer Screening: Sigmoidoscopy 2002 Influenza Vaccine (Season Ended) 2025 Hepatitis B Vaccine Aged Out No longe r eligible based on patient's age to complete this topic Insurance ([id number]) [place] [id number] [facility] ([id number]) [place] [id number] Care Teams Gear Repairer Relationship Specialty Start Date End Date Reese Ragland MD [address] [place], [place] PCP - General 07/11/20
--- OUTSIDE RECORDS SUMMARY | 2024-10-14 17:11 | XMS_ITS | Clinical Summary ---
Author Organization [facility] Address [address] [place] [address] Phone Care Team Providers Care Personal Clothing Laundry Aide Name Role Phone Susana Holcomb MD Primary Care Provider [phone] Allergies Active Allergy Reactions Criticality Noted Date [...] patient's age to complete this topic [place] [address] [employer] MEDICARE Member Subscriber Plan / Payer (Ef fective 2018-Present) Name:Serenity Tena Relation to Subscriber:Self Name:Serenity Tena Payer ID:[id number] Group ID:[id number] Type:Not on file Address: [place] [address] [place] [phone] Care Teams Personal Clothing Laundry Aide Relationship Specialty Start Date End Date Susana Holcomb MD [address] [place] [address] , [address] [facility]ician [facility] D/B/A: [facility] [place], [place] PCP - General 12/27/16
== END 2024-10-14 14:25 | disposition home or self-care (01) ==
LOC: HO.XRAY 14:24
PROVIDERS: PCP Internal Medicine; Visit Provider Internal Medicine
DX: M54.50 Low back pain, unspecified (principal)
CPT/HCPCS: 72100

== ENCOUNTER → 2024-10-14 14:32 | Outpatient (BNV) | payer OTHER, SELFPAY | PROVIDERS: PCP Internal Medicine; Visit Provider Specialist | DX: M54.50 Low back pain, unspecified (principal) | CPT/HCPCS: 72100 ==

== ENCOUNTER 2024-11-03 13:29 | Outpatient (REF) | payer OTHER, SELFPAY ==
--- OUTSIDE RECORDS SUMMARY | 2024-11-03 14:46 | XMS_ITS | Encounter Summary ---
Author Organization [facility] Address [address] [facility] [address] [address] [place] [address] Phone Care Team Providers Care Slip Sheeter Name Role Phone Reese Ragland MD Primary Care Provider [phone] Reason for Visit * Reason Comments Med Refill Encounter Details Date Type Department Care Team ([facility] Contact Info) Description 07/26/2024 Refill [facility] [address] [place] [address] Skinny Awan MD [address] [address] Social History Tobacco Use Types [...] Upcoming Encounters Date Type Department Care Team ([facility] Contact Info) Description 11/05/2024 3:15 PM EDT Office Visit [facility] [address] [place] [address] Skinny Awan MD [address]50 [facility] [address] [place] [address] documented as of this encounter Visit Diagnoses Not on filedocumented in this encounter Care Teams Slip Sheeter Relationship Specialty Start Date End Date Reese Ragland MD [address] [place] PCP - General 07/11/20 documented as of this encounter
--- OUTSIDE RECORDS SUMMARY | 2024-11-03 14:46 | XMS_ITS | Patient Health Record ---
Author Organization [facility] Address [address] [place] [address] Care Team Providers Care Medical Management Trainer Name Role Phone Alan ROBERTSON, Susana Primary Care Provider Unavail able Patrick Mcnally Unavailable [phone] Allergies Allergen (clinical drug ingredient) Drug/Non Drug [...] for 30 day(s) Active Ergocalciferol 1.25 MG (92550 UT) 1 capsule Orally for 30 day(s) [...] Insured Coverage Start Date Coverage End Date [facility] SCO Claims [id number] [place] [id number] [phone] [id number] Serenity Tena Self - patient is the [...]
--- OUTSIDE RECORDS SUMMARY | 2024-11-03 14:46 | XMS_ITS | Clinical Summary ---
Author Organization [facility] Address [address] [address] [address] [address] [place] [address] Phone Care Team Providers Care Benefits Officer Name Role Phone Reese Ragland MD Primary Care Provider Allergies Active Allergy Reactions Criticality Noted Date [...] day Active ergocalciferol (VITAMIN D2) 1.25 MG (65717 UT) capsule 1 Active esomeprazole (NexIUM) 40 [...] DAY NEEDED FOR HEMORRHOIDS 2 Active Creon 21926-38265 units capsule TAKE 1 CAP ORALLY 4 TIMES A DAY ADMINISTER WITH MEALS AND/OR SNACKS 3 Active spironolactone (ALDACTONE) 25 MG tablet Take 1 tablet (25 mg total) by mouth 1 (one) time each day 90 tablet 3 5 07/28/19 26 Active Active Problems Problem Noted Date Diagnosed Date Benign essential hypertension 09/21/2020 Incontinence 09/21/2020 Irritable bowel syndrome 09/21/2020 Immunizations Immunization Administration Dates Next Due Moderna [...] Visit [facility] the [address] [place] [address] Skinny Awan MD [address] [address] Health Maintenance Due Date Last Done Comments Breast Cancer Screening 1955 Pneumococcal Vaccine: 50+ Ye ars (1 of 2 - PCV) 1972 Colorectal Cancer Screening: Annual FOBT 2002 Colorectal Cancer Screening: Colonoscopy 2002 Colorectal Cancer Screening: Sigmoidoscopy 2002 Influenza Vaccine (Season Ended) 2025 Hepatitis B Vaccine Aged Out No longe r eligible based on patient's age to complete this topic Insurance MCR ([id number]) [place] [address] ([id number]) Care Teams Benefits Officer Relationship Specialty Start Date End Date Reese Ragland MD [address] [place] PCP - General 07/11/20
[2024-11-03 14:57] LABS: Anion Gap 10 (12-20); Blood Urea Nitrogen 18 mg/dL (9-16); Calcium 9.3 mg/dL (8.4-10.2); Carbon Dioxide 31 mmol/L (22-29); Chloride 106 mmol/L (96-108); Cholesterol 187 mg/dL (<200); Estimated Glomerular Filt Rate > 60; Glucose Random 88 mg/dL (60-115); HDL Cholesterol 49 mg/dL (>40); LDL Cholesterol Calculated 105 mg/dL (<100); Potassium 4.7 mmol/L (3.3-5.1); Sodium 142 mmol/L (135-145); Triglycerides 167 mg/dL (<150)
== END 2024-11-03 13:30 | disposition home or self-care (01) ==
LOC: HO.LAB 13:29
PROVIDERS: PCP Internal Medicine; Visit Provider Internal Medicine
DX: I10 Essential (primary) hypertension (principal)
CPT/HCPCS: 36415; 80048; 80061

== ENCOUNTER 2024-11-26 14:58 | Outpatient (AMB) | payer OTHER, SELFPAY ==
--- OUTSIDE RECORDS SUMMARY | 2024-11-26 15:01 | XMS_ITS | Patient Health Record ---
Author Organization [facility] Address [address] [place] [address] Care Team Providers Care Visual And Stock Associate Name Role Phone Alan ROBERTSON, Susana Primary Care Provider Unavail able Patrick Mcnally Unavailable [phone] Allergies Allergen (clinical drug ingredient) Drug/Non Drug [...] for 30 day(s) Active Ergocalciferol 1.25 MG (96847 UT) 1 capsule Orally for 30 day(s) [...] Insured Coverage Start Date Coverage End Date [facility] SCO Claims [id number] [place] [id number] [phone] [id number] Serenity Tena Self - patient is the [...]
[2024-11-26 15:21] VITALS: BP 140/80; BMI 38.7
--- NOTE | 2024-11-26 15:21 | MHC.OFFVIS ---
Vital Signs 11/26/24 15:21 Height 4 ft 10 in Weight 185 lb BMI 38.7 BP 140/80 H Intake Visit Reasons: RN TRIAGE annual exam/DO NOT RS X2 Intake Note: c/o of burning urination Hedis Coordinator Required: No Hedis Coordinator Name: Kylah SPENCE Information Interpreted: non-clinical & clinical Technical Administrative Assistant: Technical Administrative Assistant Present (Kylah SPENCE) Accompanied by: Self / Same As Patient Allergies codeine [Codeine] Allergy (Severe, Verified 11/26/24 15:22) DIFFICULTY BREATHING albuterol Allergy (Intermediate, Verified 11/26/24 15:22) unknown adhesive [Adhesive] Allergy (Mild, Verified 11/26/24 15:22) RASH amlodipine [AMLODIPINE] Allergy (Mild, Verified 11/26/24 15:22) ITCHING clonidine [CLONIDINE] Allergy (Mild, Verified 11/26/24 15:22) sleepiness hydralazine [HYDRALAZINE] Allergy (Mild, Verified 11/26/24 15:22) dizziness Iodinated Contrast Media [IV Dye, Iodine Containing] Allergy (Mild, Verified 11/26/24 15:22) HIVES latex [LATEX] Allergy (Mild, Verified 11/26/24 15:22) RASH lisinopril [LISINOPRIL] Allergy (Mild, Verified 11/26/24 15:22) ITCHING oxybutynin [From Ditropan] Allergy (Mild, Verified 11/26/24 15:22) UNKNOWN doxazosin [DOXAZOSIN] Allergy (Unknown, Verified 11/26/24 15:22) PURITIS, pruritus hydrochlorothiazide [HYDROCHLOROTHIAZIDE] Allergy (Unknown, Verified 11/26/24 15:22) ITCHING, syncope losartan Allergy (Unknown, Verified 11/26/24 15:22) pruritus metoprolol [METOPROLOL] Allergy (Unknown, Verified 11/26/24 15:22) ITCHING metronidazole [From FLAGYL] Allergy (Unknown, Verified 11/26/24 15:22) VOMITING omeprazole [OMEPRAZOLE] Allergy (Unknown, Verified 11/26/24 15:22) RASH psyllium [Metamucil] Allergy (Unknown, Verified 11/26/24 15:22) diarrhea diltiazem Adverse Reaction (Intermediate, Verified 11/26/24 15:22) Palpitations Post menopausal: Yes HPI Comments Details: Presenting for annual exam. No complaints. Last Pap/HPV was negative in 12/20 No recent Mammogram since the patient has bilateral mastectomy Last Colonoscopy was in 10/21, the recommendation was to repeat in 5 years Last DEXA scan was in 08/25 [facility] Medical History Obesity (BMI 30-39.9) Depression Allergic rhinitis GERD without esophagitis Vitamin D deficiency HTN (hypertension) Chronic pancreatitis Postmenopausal bleeding Polyarthralgia History of breast cancer Obese Thyroid nodule Hypovitaminosis D Essential hypertension Breast implant status Surgical History Hx of total mastectomy of right breast (2004) Hx of total mastectomy of left breast (1985) History of biopsy History of suburethral sling procedure H/O esophagogastroduodenoscopy Hx of colonoscopy History of breast reconstruction History of appendectomy History of breast surgery History of breast biopsy History of tubal ligation History of carpal tunnel release History of cholecystectomy Family History Father Prostate cancer Mother Ovarian cancer Chronic mental illness Mental health disorder Paternal Aunt Cancer Family/Other FH: mental illness Mental health disorder Social History Household Members: None Housing: Apartment Are you a primary child day care provider to a significant other at home: No Do you presently have visiting nurse or other home services: Yes Alcohol intake: current Alcohol intake frequency: holidays/special occasions only Patient Tobacco Use Status: Never used Tobacco e-Cigarette/Vaping Use: Never Used Second Hand Smoke Exposure: No service: No Current occupational status: unemployed Cognitive needs: Yes Hearing needs: No Vision needs: No Female Reproductive History Menstrual Date of menopause: 05/09/05 Date of last pap smear: 12/01/21 Date of last Bone Density Screenin08/26/24 Review of Systems Const All systems reviewed & are unremarkable except as noted in HPI and below Card Reports as per HPI Resp Reports as per HPI GI Reports as per HPI and Reports no additional complaints Reports as per HPI Physical Exam Vital Signs: Last Vital Signs BP 140/80 H 11/26/24 15:21 BMI result Body Mass Index 38.7 Const General: cooperative, healthy appearing and comfortable Chest Breast/axilla palpation: other (Status post mastectomy bilateral) Resp Effort & Inspection: normal respiratory effort Auscultation: clear to auscultation bilaterally Percussion: percussion normal Cardio Palpation: normal PMI Rate: regular rate Rhythm: regular rhythm Heart sounds: no murmurs and no rubs Peripheral pulses: Peripheral pulses 2+ throughout GI Inspection: Yes normal to inspection Palpation (GI): Soft to palpation, nontender, no guarding, not rigid and No hepatosplenomegaly present Percussion: Yes normal to percussion Auscultation: normal bowel sounds Rectal Exam - Female: deferred General: Yes bladder normal to palpation External Female Exam: No lesion Speculum Exam - Vagina: normal appearance of the vagina, normal palpation, normal vaginal discharge and not erythematous Speculum Exam - Cervix: normal appearance of the cervix and normal palpation Bimanual exam- vagina & uterus: normal bimanual exam, normal palpation, uterine size normal, bladder normal to palpation, consistency normal and normal palpation Bimanual Exam- Adnexa, other: normal adnexae, no masses and no tenderness Assessment & Plan Assessment & Plan (1) Well woman exam: Code(s): Z01.419 - Encounter for gynecological examination (general) (routine) without abnormal findings Category: Medical Plan: Co testing not indicated this year Counseled the patient about the recommended dietary allowance of 1200 mg of Calcium & 800 IU of vitamin D. The patient was instructed to perform monthly self-breast exams and to schedule a 2 week DEXA scan follow-up appointment and an annual exam in a year; All questions answered and the patient verbalized understanding. Coding Level of Care Code Est Pt Prev Care >65y(02387) Diagnoses Well woman exam Z01.419
== END 2024-11-26 15:45 | disposition home or self-care (01) ==
LOC: HO.HWS 14:58
PROVIDERS: PCP Internal Medicine; Visit Provider Obstetrics & Gynecology
DX: Z01.419 Encounter for gynecological examination (general) (routine) without abnormal findings (principal)
CPT/HCPCS: 99397; 99459

== ENCOUNTER → 2024-11-26 14:58 | Outpatient (BNVA) | payer OTHER, SELFPAY | PROVIDERS: PCP Internal Medicine; Visit Provider Obstetrics & Gynecology | DX: Z01.419 Encounter for gynecological examination (general) (routine) without abnormal findings (principal) | CPT/HCPCS: 99397; 99459 ==

== ENCOUNTER 2025-02-05 14:46 | Outpatient (AMB) | payer OTHER, SELFPAY ==
--- OUTSIDE RECORDS SUMMARY | 2025-02-05 14:49 | XMS_ITS | Encounter Summary ---
Author Organization [facility] Address [address] [facility] [address] [place] [address] Phone Care Team Providers Care Sewer Head Name Role Phone Reese Ragland MD Primary Care Provider [phone] Reason for Visit * Reason Comments Med Refill Encounter Details Date Type Department Care Team ([facility] Contact Info) Description 07/26/2024 Refill [facility] [address] [place] [phone] Skinny Awan MD [facility] [address] [address] Social History Tobacco Use Types [...] Upcoming Encounters Date Type Department Care Team ([facility] Contact Info) Description 11/04/2025 3:00 PM EDT Office Visit [facility] [address] [place] [phone] Skinny Awan MD [address] [facility] [address] [place] [address] documented as of this encounter Visit Diagnoses Not on filedocumented in this encounter Care Teams Sewer Head Relationship Specialty Start Date End Date Reese Ragland MD [address] [place] PCP - General 07/11/20 documented as of this encounter
--- OUTSIDE RECORDS SUMMARY | 2025-02-05 14:49 | XMS_ITS | Clinical Summary ---
Author Organization [facility] Address [address] [place] [address] Phone Care Team Providers Care Coal Or Ore Controller Name Role Phone Susana Holcomb MD Primary Care Provider Allergies Active Allergy [...] LIPASE-PROTEASE -AMYLASE ORAL Take by mouth. A [facility], or Other Facility Administered Medication Ordered Dose Route Frequency Start Date End Date Status lidocaine (PF) (XYLOCAINE-MPF) 1 % injection 0.5 mLIndications:Disord er of ligament of right foot .5 mL inj Once PRN Procedure 01/19/2025 01/19/2025 Ended triamcinolone acetonide (KENALOG-40) 40 mg/mL injection 20 mgIndications:Disord er of ligament of right foot 20 mg IAtc Once PRN Procedure 01/19/2025 01/19/2025 Ended Active Problems Problem Noted Date Diagnosed Date Lipoma of right lower extremity 01/19/2025 Anxiety 06/25/2023 GERD (gastroesophageal reflux disease) Benign essential hypertension 09/21/2020 Incontinence 09/21/2020 Irritable bowel syndrome 09/21/2020 Encounters Date Type Department Care Team Description 01/19/2025 1:30 PM EDT Office Visit Orthopedic Surgery - [address] [address] Lionel Almaguer, DPM Lipoma of right lower extremity (Primary Dx); Disorder of ligament of right foot; Neuritis from Last 3 Months Social History Tobacco [...] - - Weight 81.2 kg (179 lb) 01/19/2025 2:04 PM EDT Height 147.3 cm (4' 9.99 ) 01/19/2025 2:04 PM ED T Body Mass Index 37.42 01/19/2025 2:04 PM EDT Plan of Treatment Upcoming Encounters Date Type Department Care Team (Late st Contact Info) Description 04/13/2025 8:00 AM EDT Consult Orthopedic Surgery [facility] [address] [phone] Lionel Almaguer DPM [address] [address] 04/16/2025 11:30 AM EDT Hospital Encounter [facility] [place] [address] [place] [phone] Lionel Almaguer DPM [address] [address] 04/16/2025 11:30 AM EDT - 04/16/2025 1:00 PM EDT Surgery [facility] [place] [address] [place] [phone] Lionel Almaguer DPM [address] [address] EXCISION LESION SOFT TISSUE RIGHT FOOT [03024 (CPT )] 04/29/2025 9:45 AM EDT Office Visit Orthopedic Surgery [place] [address] [phone] Lionel Almaguer DPM [address] [address] Scheduled Procedures Name Priority Associated Diagnoses Date/Ti me EXCISION LESION SOFT TISSUE FOOT Lipoma of right lower extremity 04/16/2025 11:30 AM EDT Health Maintenance Due Date Last Done Comments Breast Cancer Screening 1955 Pneumococcal Vaccine: 50+ Years (1 of 1 - PCV) 2003 Zoster Vaccines (1 of 2) 2003 DTaP,Tdap,and Td Vaccines (2 - Td or Tdap) 10/05/2018 10/05/2008 Cholesterol Screening (Lipid Panel) 07/31/2023 Colorectal Cancer Screening: Colonoscopy 07/31/2023 Falls Risk Assessment 07/31/2023 Hepatitis C Screening 07/31/2023 Medicare Annual Wellness Visit 07/31/2023 Osteoporosis Screening (Bone Density Screening) 07/31/2023 Social Influencers of Health Screening 07/31/2023 Hypertension/CHF/CAD Annual BMP Blood Test 08/02/2023 COVID-19 Vaccine (4 - 2023-2 5 season) 2024 04/27/2021, 09/20/2020, 08/23/2020 Depression Screening 07/01/2024 Influenza Vaccine (#1) 2025 RSV Immunization Adult Patients (1 - [...] Procedure Name Priority Date/Time Associated Diagnosis Comments INJECTION TENDON OR LIGAMENT Routine 01/19/2025 1:30 PM EDT Disorder of ligament of right foot from Last 3 Months Results * Injection tendon or ligament (01/19/2025 1:30 PM EDT) Narrative Lionel Almaguer DPM - 01/19/2025 1:30 PM EDT Lionel Almaguer DPM 01/19/2025 5:54 PM Injection tendon or ligament Indications: pain Details: 25 G needle Medications: 0.5 mL lidocaine (PF) 1 %; 20 mg triamcinolone acetonide 40 mg/mL Informed Consent: Site: Foot ligament tendon us Lionel Almaguer DPAlba IN CLINIC/BEDSIDE ORDERAB LES Final Result from Last 3 Months Insurance [employer] MEDICARE Member Subscriber Plan / Payer (Ef fective 2018-Present) Name:Serenity Tena Relation to Subscriber:Self Name:Serenity Tena Payer ID:[id number] Group ID:[id number] Type:Not on file Address: [place] [address] [place] [address] Care Teams Coal Or Ore Controller Relationship Specialty Start Date End Date Susana Holcomb MD [address] [place] [address] , [address] [facility] GREG Valles PCP - General 12/27/16
--- OUTSIDE RECORDS SUMMARY | 2025-02-05 14:49 | XMS_ITS | Patient Health Record ---
[facility] Address [address] [place] [address] Care Team Providers Care Automotive Product Engineer Name Role Phone Alan ROBERTSON, Susana Primary Care Provider Unavail able Patrick Mcnally Unavailable [phone] Allergies Allergen (clinical drug ingredient) Drug/Non Drug [...] 10 MG 1 tablet Orally Once a day; Duration: 30 day(s) Active Simethicone 80 MG 1 tablet after meals and at bedtime as needed Orally Four times a day Active Olmesartan Medoxomil 40 MG 1 tablet Oral ly Once a day; Duration: 30 day(s) Active Triamcinolone Acetonide 0.5 % 1 application Externally Two times a Week Active Esomeprazole Magnesium 40 MG 1 capsule O rally Once a day; Duration: 30 day(s) Active Ergocalciferol 1.25 MG (25176 UT) 1 capsule Orally; Duration: 30 day(s) Active Loperamide HCl 2 MG 1 capsule as needed Orally Four times a day Active dilTIAZem HCl ER 60 MG 1 capsule Orally Twice a day; Duration: 30 day(s) Active Immunizations Vaccine Route Administration [...] Hospital [employer] Claims [id number] [place] [address] [id number] Serenity Tena Self - patient is the [...]
--- OUTSIDE RECORDS SUMMARY | 2025-02-05 14:49 | XMS_ITS | Patient Health Record ---
Author Organization [facility] Address [address] [place] [address] Care Team Providers Care Barge Worker Name Role Phone Po Jya ROBERTSON Primary Care Provider Bunny Reece [phone] Reason For Referral No Information Plan Of Treatment No Information Insurance Providers Payer Name Payer Address Payer Phone Subscriber Number Group Number Insured Name Patient Relationship to Insured Coverage Start Date Coverage End Date MEDICAID OF [facility] [address] [place] [address] [id number] KATHERINE BARKER Self - patient is the insured
--- NOTE | 2025-02-05 14:51 | MHC.OFFVIS ---
Vital Signs 02/05/25 14:53 Height 4 ft 10 in Weight 186 lb BMI 38.9 BP 152/82 H Blood Pressure Location Rt brachial Position Sitting Pulse 66 Pulse Source Pulse Oximeter Pulse Oximetry (%) 98 Oxygen Delivery Method Room Air Intake Visit Reasons: 3 mos FUV. Intake Note: Est pt for mgmt of GERD. CC: Pt denies any changes or new sx since last visit. Denture Processor Required: No Accompanied by: Daughter Allergies codeine (Codeine) Allergy (Severe, Verified 02/05/25 14:52) DIFFICULTY BREATHING albuterol Allergy (Intermediate, Verified 02/05/25 14:52) unknown adhesive (Adhesive) Allergy (Mild, Verified 02/05/25 14:52) RASH amlodipine (AMLODIPINE) Allergy (Mild, Verified 02/05/25 14:52) ITCHING clonidine (CLONIDINE) Allergy (Mild, Verified 02/05/25 14:52) sleepiness hydralazine (HYDRALAZINE) Allergy (Mild, Verified 02/05/25 14:52) dizziness Iodinated Contrast Media (IV Dye, Iodine Containing) Allergy (Mild, Verified 02/05/25 14:52) HIVES latex (LATEX) Allergy (Mild, Verified 02/05/25 14:52) RASH lisinopril (LISINOPRIL) Allergy (Mild, Verified 02/05/25 14:52) ITCHING oxybutynin (From Ditropan) Allergy (Mild, Verified 02/05/25 14:52) UNKNOWN doxazosin (DOXAZOSIN) Allergy (Unknown, Verified 02/05/25 14:52) PURITIS, pruritus hydrochlorothiazide (HYDROCHLOROTHIAZIDE) Allergy (Unknown, Verified 02/05/25 14:52) ITCHING, syncope losartan Allergy (Unknown, Verified 02/05/25 14:52) pruritus metoprolol (METOPROLOL) Allergy (Unknown, Verified 02/05/25 14:52) ITCHING metronidazole (From FLAGYL) Allergy (Unknown, Verified 02/05/25 14:52) VOMITING omeprazole (OMEPRAZOLE) Allergy (Unknown, Verified 02/05/25 14:52) RASH psyllium (Metamucil) Allergy (Unknown, Verified 02/05/25 14:52) diarrhea diltiazem Adverse Reaction (Intermediate, Verified 02/05/25 14:52) Palpitations HPI HPI 3 mos FUV.: Details: LAST VISIT Chronic GERD Right upper quadrant abdominal pain IBS (irritable bowel syndrome) Postprandial abdominal bloating Constipation Plan Patient reports occasional blood when wiping after bowel movement. Patient denies having constipation. Will send her script for Proctosol. Continue taking Nexium daily. May use simethicone for bloating. Avoid dietary triggers and late night snacking. Staying upright for minimum 3 hours after meals discussed with patient. Patient will follow-up in our office in 6 months, sooner on as needed basis. She is agreeable to this plan and verbalizes understanding of instructions. She was given the opportunity to ask questions and all questions answered. ? Thank you for allowing me to participate in her care Refilled hydrocortisone 2.5% (Proctosol HC) 1 appl DE BID-QID PRN 30 grams 2RF hemorrhoids K64.9 TODAY'S VISIT: Patient is here today for follow-up. Patient is accompanied by her daughter. Patient denies any abdominal pain or discomfort. Continues to have blood with almost every bowel movement. Patient is using hydrocortisone as needed. Colonoscopy did show moderate hemorrhoids. Bleeding subsides when she does use the Proctosol. Patient admits that she does strain sometimes. Reports occasional pain in her rectum. Patient had hemorrhoidectomy in the past over a decade ago. Patient denies melena, unintentional weight loss or ribbon like stools. Currently patient is using Dulcolax to help with bowel movements. Symptoms of acid reflux are suppressed with Nexium. Patient denies any dyspepsia, dysphagia or odynophagia [facility] Medical History (Updated 02/05/25 @ 15:42 by JOSELUIS PereyraP-) Internal hemorrhoid Obesity (BMI 30-39.9) Depression Allergic rhinitis GERD without esophagitis Vitamin D deficiency HTN (hypertension) Chronic pancreatitis Postmenopausal bleeding Polyarthralgia History of breast cancer Obese Thyroid nodule Hypovitaminosis D Essential hypertension Breast implant status Surgical History Hx of total mastectomy of right breast (2004) Hx of total mastectomy of left breast (1985) History of biopsy History of suburethral sling procedure H/O esophagogastroduodenoscopy Hx of colonoscopy History of breast reconstruction History of appendectomy History of breast surgery History of breast biopsy History of tubal ligation History of carpal tunnel release History of cholecystectomy Family History Father Prostate cancer Mother Ovarian cancer Chronic mental illness Mental health disorder Paternal Aunt Cancer Family/Other FH: mental illness Mental health disorder Social History Household Members: None Housing: Apartment Are you a primary wound care coordinator to a significant other at home: No Do you presently have visiting nurse or other home services: Yes Alcohol intake: current Alcohol intake frequency: holidays/special occasions only Patient Tobacco Use Status: Never used Tobacco e-Cigarette/Vaping Use: Never Used Second Hand Smoke Exposure: No service: No Current occupational status: unemployed Cognitive needs: Yes Hearing needs: No Vision needs: No Female Reproductive History Menstrual Date of menopause: 05/09/05 Review of Systems Const Denies weight gain and Denies weight loss ENT Reports no additional complaints, Denies dysphagia and Denies odynophagia Card Reports no additional complaints Resp Reports no additional complaints GI Denies abdominal pain, Denies belching, Denies melena, Reports bloating, Reports hematochezia (When wiping after bowel movement), Denies change in bowel habits, Denies dysphagia, Denies excessive flatus, Denies dyspepsia, Denies heartburn, Denies diarrhea, Denies loose stools, Denies nausea, Denies odynophagia and Denies vomiting Reports no additional complaints Musc Reports no additional complaints Neuro Reports no additional complaints Psych Reports no additional complaints Endo Reports no additional complaints Physical Exam Vital Signs: Last Vital Signs Pulse 66 02/05/25 14:53 BP 152/82 H 02/05/25 14:53 Pulse Ox 98 02/05/25 14:53 Oxygen Delivery Method Room Air 02/05/25 14:53 BMI result Body Mass Index 38.9 Const General: healthy appearing and no acute distress Nutritional Appearance: obese Orientation/consciousness: patient oriented x3 Resp Effort & Inspection: normal respiratory effort, able to speak in complete sentences, no tracheal deviation and symmetric chest movement Auscultation: clear to auscultation bilaterally Cardio Rate: regular rate GI Inspection: Yes normal to inspection, No distended and Yes obesity Palpation (GI): Soft to palpation, not firm, nontender and No hepatosplenomegaly present Auscultation: normal bowel sounds General: Yes no CVA tenderness Back/Spine/Pelvis Back: no CVA tenderness Skin General skin exam: elasticity normal, turgor normal and dry skin Neuro General: patient oriented x3 Psych Appearance: grossly normal Mental Status: mental status grossly normal Assessment & Plan Assessment & Plan (1) Chronic GERD: Code(s): K21.9 - Gastro-esophageal reflux disease without esophagitis Category: Medical (2) GERD without esophagitis: Code(s): K21.9 - Gastro-esophageal reflux disease without esophagitis Category: Medical (3) Chronic pancreatitis: Code(s): K86.1 - Other chronic pancreatitis Category: Medical Qualifiers: Pancreatitis type: unspecified pancreatitis type Qualified Code(s): K86.1 - Other chronic pancreatitis (4) Chronic diarrhea: Code(s): K52.9 - Noninfective gastroenteritis and colitis, unspecified Category: Medical (5) Internal hemorrhoid: Code(s): K64.8 - Other hemorrhoids Category: Medical (6) Abdominal pain: Code(s): R10.9 - Unspecified abdominal pain Category: Medical Qualifiers: Abdominal location: right upper quadrant Qualified Code(s): R10.11 - Right upper quadrant pain Plan Continue Nexium daily. Avoid dietary triggers and late night snacking. Staying upright for minimal 3 hours after meals discussed with patient. Continue Dulcolax and add stool softeners 1-2 capsules daily. Referral to General surgery to evaluate the need for possible hemorrhoidectomy per patient's request. Patient was encouraged to increase fluid intake and activity to promote better bowel motility. Continue using Proctosol as needed. Patient will return to the office in 3 months, sooner on as needed basis. Patient is agreeable to this plan and verbalizes understanding of instructions. She was given the opportunity to ask questions and all questions answered. Thank you for allowing me to participate in her care Orders: Referrals General Surgery Referral K64.8 - Other hemorrhoids Coding Level of Care Code Est Pt Level 4 (53118) Complex EM visit Add On G2211 Diagnoses Chronic GERD K21.9 GERD without esophagitis K21.9 Chronic pancreatitis, unspecified pancreatitis type K86.1 Pancreatitis type: unspecified pancreatitis type Chronic diarrhea K52.9 Internal hemorrhoid K64.8 Right upper quadrant abdominal pain R10.11 Abdominal location: right upper quadrant Time Spent (min) 35 Comment 25 minutes spent with patient and additional 10 minutes spent reviewing her records
[2025-02-05 14:53] VITALS: BP 152/82; PULSE 66; O2SAT 98; BMI 38.9
== END 2025-02-05 15:43 | disposition home or self-care (01) ==
LOC: HO.HGI 14:46
PROVIDERS: PCP Internal Medicine; Visit Provider Nurse Practitioner Family
DX: K21.9 Gastro-esophageal reflux disease without esophagitis (principal); K86.1 Other chronic pancreatitis; K52.9 Noninfective gastroenteritis and colitis, unspecified; K64.8 Other hemorrhoids; R10.11 Right upper quadrant pain
CPT/HCPCS: 99214; G2211

== ENCOUNTER → 2025-02-05 14:46 | Outpatient (BNVA) | payer OTHER, SELFPAY | PROVIDERS: PCP Internal Medicine; Visit Provider Nurse Practitioner Family | DX: K21.9 Gastro-esophageal reflux disease without esophagitis (principal); K86.1 Other chronic pancreatitis; K52.9 Noninfective gastroenteritis and colitis, unspecified; K64.8 Other hemorrhoids; R10.11 Right upper quadrant pain | CPT/HCPCS: 99212 ==

== ENCOUNTER 2025-02-11 14:49 | Outpatient (AMB) | payer OTHER, SELFPAY ==
[2025-02-11 14:56] VITALS: BP 150/62; PULSE 78; RESP 18; O2SAT 97; BMI 38.2
--- NOTE | 2025-02-11 14:56 | MHC.PC.OV ---
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 Accompanied by: Self / Same As Patient Allergies codeine (Codeine) Allergy (Severe, Verified 02/11/25 15:13) DIFFICULTY BREATHING albuterol Allergy (Intermediate, Verified 02/11/25 15:13) unknown adhesive (Adhesive) Allergy (Mild, Verified 02/11/25 15:13) RASH amlodipine (AMLODIPINE) Allergy (Mild, Verified 02/11/25 15:13) ITCHING clonidine (CLONIDINE) Allergy (Mild, Verified 02/11/25 15:13) sleepiness hydralazine (HYDRALAZINE) Allergy (Mild, Verified 02/11/25 15:13) dizziness Iodinated Contrast Media (IV Dye, Iodine Containing) Allergy (Mild, Verified 02/11/25 15:13) HIVES latex (LATEX) Allergy (Mild, Verified 02/11/25 15:13) RASH lisinopril (LISINOPRIL) Allergy (Mild, Verified 02/11/25 15:13) ITCHING oxybutynin (From Ditropan) Allergy (Mild, Verified 02/11/25 15:13) UNKNOWN doxazosin (DOXAZOSIN) Allergy (Unknown, Verified 02/11/25 15:13) PURITIS, pruritus hydrochlorothiazide (HYDROCHLOROTHIAZIDE) Allergy (Unknown, Verified 02/11/25 15:13) ITCHING, syncope losartan Allergy (Unknown, Verified 02/11/25 15:13) pruritus metoprolol (METOPROLOL) Allergy (Unknown, Verified 02/11/25 15:13) ITCHING metronidazole (From FLAGYL) Allergy (Unknown, Verified 02/11/25 15:13) VOMITING omeprazole (OMEPRAZOLE) Allergy (Unknown, Verified 02/11/25 15:13) RASH psyllium (Metamucil) Allergy (Unknown, Verified 02/11/25 15:13) diarrhea diltiazem Adverse Reaction (Intermediate, Verified 02/11/25 15:13) Palpitations Medication List - Last Reconciled 02/11/25 by Susana Holcomb MD acetaminophen ER 650 mg PO Q8H PRN 30 days [adult diapers pull-ups Use 1 diaper four times a day] bisacodyl (Dulcolax (bisacodyl)) 10 mg (2 x 5 mg) PO BEDTIME cholecalciferol (vitamin D3) 50 mcg (2 x 25 mcg (1,000 unit)) PO DAILY 90 days esomeprazole magnesium 40 mg PO DAILY 90 days hydrocortisone 2.5% (Proctosol HC) 1 appl CO BID-QID PRN incontinence pad, liner, disp As directed lidocaine 5% 1 appl topical QID PRN 15 days loratadine 10 mg PO DAILY magnesium hydroxide (Milk of Magnesia) 10 mL PO DAILY PRN olmesartan 40 mg PO DAILY sertraline 25 mg PO DAILY 90 days simethicone (Gas Relief (simethicone)) 125 mg PO TID-QID PRN spironolactone 25 mg PO DAILY tizanidine 4 mg PO BEDTIME PRN 30 days triamcinolone acetonide 0.5% 1 appl topical BID PRN 30 days underpads (Bed Underpads) Use 5 pads per day prn walker (Ultra-Light Rollator misc) As directed [wipes Use 10 wipes per day prn] Tobacco use date assessed: 02/11/25 Fall risk assessment: No Falls in past year Last assessed Fall Risk: 02/11/25 Dental Screening Dental Screen Date: 02/11/25 Did you have a dental visit in the last 12 months?: No Did you have a dental problem in the last 6 months where you did not have access to dental care?: No Was dental information given to patient?: No HPI HPI Comments History of Present Illness Details The patient is a 69-year-old female presenting with urinary incontinence and arthritis. Has chronic pancreatitis and chronic GERD follow by pool manager. Also has hypertension which is borderline elevated but better at home. Urinary incontinence has been a persistent issue, managed with the use of diapers. The patient is currently using Tylenol for symptom relief. Arthritis is present in multiple sites, contributing to discomfort and mobility challenges. The patient is scheduled for laboratory tests in May to monitor her condition. [facility] Medical History Internal hemorrhoid Obesity (BMI 30-39.9) Depression Allergic rhinitis GERD without esophagitis Vitamin D deficiency HTN (hypertension) Chronic pancreatitis Postmenopausal bleeding Polyarthralgia History of breast cancer Obese Thyroid nodule Hypovitaminosis D Essential hypertension Breast implant status Surgical History Hx of total mastectomy of right breast (2004) Hx of total mastectomy of left breast (1985) History of biopsy History of suburethral sling procedure H/O esophagogastroduodenoscopy Hx of colonoscopy History of breast reconstruction History of appendectomy History of breast surgery History of breast biopsy History of tubal ligation History of carpal tunnel release History of cholecystectomy Family History Father Prostate cancer Mother Ovarian cancer Chronic mental illness Mental health disorder Paternal Aunt Cancer Family/Other FH: mental illness Mental health disorder Social History Household Members: None Housing: Apartment Are you a primary early breastfeeding care specialist to a significant other at home: No Do you presently have visiting nurse or other home services: Yes Alcohol intake: current Alcohol intake frequency: holidays/special occasions only Patient Tobacco Use Status: Never used Tobacco e-Cigarette/Vaping Use: Never Used Second Hand Smoke Exposure: No service: No Current occupational status: unemployed Cognitive needs: Yes Hearing needs: No Vision needs: No Female Reproductive History Menstrual Date of menopause: 05/09/05 Questionnaire PHQ-9 Over the last 2 weeks, how often have you been bothered by any of the following problems? 1. Little interest or pleasure in doing things: several days 2. Feeling down, depressed, or hopeless: several days 3. Trouble falling or staying asleep, or sleeping too much: not at all 4. Feeling tired or having little energy: several days 5. Poor appetite or overeating: not at all 6. Feeling bad about yourself - or that you are a failure or have let yourself or your family down: not at all 7. Trouble concentrating on things, such as reading the newspaper or watching television: not at all 8. Moving or speaking so slowly that other people could have noticed. Or the opposite - being so fidgety or restless that you have been moving around a lot more than usual: not at all 9. Thoughts that you would be better off or of hurting yourself in some way: not at all Total score: 3 Depression Screening Interpretation: Negative Depression Screening Done: Yes 72503 - PHQ-9 Billing: Yes Source: Developed by Drs. Bunny Dennis, Jimena Stock, Jarred Mclaughlin and colleagues, with an educational cruzito from [employer]. Thrive Questionnaire Date Thrive assessed: 02/11/25 I am a: Patient AUDIT C Alcohol Use Questionnaire (AUDIT-C) 1. How often do you have a drink containing alcohol?: Never 3. How often do you have six or more drinks on one occasion?: Never Total Score: 0 Score Reviewed/Action Taken: Yes VENESSA-7 AMB Questionnaire VENESSA-7 Date VENESSA - 7 assessed: 02/11/25 Source: Developed by Drs. Bunny Dennis, Jimena Stock, Jarred Mclaughlin and colleagues, with an educational cruzito from [employer]. Review of Systems Const All systems reviewed & are unremarkable except as noted in HPI and below Card Denies chest pain at rest, Denies chest pain with activity, Denies edema, Denies irregular heart rhythm, Denies claudication, Denies dyspnea, Denies dyspnea on exertion, Denies orthopnea, Denies paroxysmal nocturnal dyspnea and Denies slow heart rate Resp Denies cough, Denies dyspnea and Denies dyspnea on exertion GI Denies abdominal pain, Denies change in bowel habits, Denies excessive flatus, Denies nausea and Denies vomiting Physical exam (Primary Care) Vital Signs: Last Vital Signs Pulse 78 02/11/25 14:56 Resp 18 02/11/25 14:56 BP 150/62 H 02/11/25 14:56 Pulse Ox 97 02/11/25 14:56 Oxygen Delivery Method Room Air 02/11/25 14:56 BMI result Body Mass Index 38.2 Tobacco/Smoking Status: Tobacco use Status Tobacco use date assessed 02/11/25 02/11/25 15:06 Patient Tobacco Use Status Never used Tobacco 02/11/25 15:06 e-Cigarette/Vaping Use Never Used 02/11/25 15:06 PHQ-9: PHQ-9 Score PHQ-9: Total score 3 02/11/25 15:06 Depression Screening Interpretation: Negative Thrive Assessment: Date of Thrive Assessment Date Thrive assessed 02/11/25 02/11/25 15:06 Resp Effort & Inspection: normal respiratory effort Auscultation: clear to auscultation bilaterally Cardio Jugular venous distension: no JVD Rate: regular rate Rhythm: regular rhythm Heart sounds: S1 normal heart sound present and S2 normal heart sound present Extrem General: Yes full ROM Coding Level of Care Code Est Pt Level 4 (09543) Complex EM visit Add On G2211 Diagnoses Essential hypertension I10 Chronic GERD K21.9 Chronic pancreatitis, unspecified pancreatitis type K86.1 Pancreatitis type: unspecified pancreatitis type Urge urinary incontinence N39.41 Additional Codes PHQ-9 - 79698 - PHQ-9 Billing: Yes ([id number]) Time Spent (min) 20 Assessment & Plan Assessment & Plan (1) Essential hypertension: Code(s): I10 - Essential (primary) hypertension Category: Medical (2) Chronic GERD: Code(s): K21.9 - Gastro-esophageal reflux disease without esophagitis Category: Medical (3) Chronic pancreatitis: Code(s): K86.1 - Other chronic pancreatitis Category: Medical Qualifiers: Pancreatitis type: unspecified pancreatitis type Qualified Code(s): K86.1 - Other chronic pancreatitis (4) Urge urinary incontinence: Code(s): N39.41 - Urge incontinence Category: Medical Plan The plan includes managing urinary incontinence with the continued use of diapers and monitoring symptoms. Laboratory tests are scheduled for May to assess the patient's overall health status and monitor arthritis progression. Patient was informed and verbally consented to the use of an ambient scribe for clinic note documentation during this visit.
--- OUTSIDE RECORDS SUMMARY | 2025-02-11 15:28 | XMS_ITS | Patient Health Record ---
[facility] Address [address] [place] [address] Care Team Providers Care Welfare Interviewer Name Role Phone Alan ROBERTSON, Susana Primary Care Provider Unavail able Patrick Mcnally Unavailable [phone] Allergies Allergen (clinical drug ingredient) Drug/Non Drug [...] Duration: 30 day(s) Active Ergocalciferol 1.25 MG (12322 UT) 1 capsule Orally; Duration: 30 day(s) [...] Insured Coverage Start Date Coverage End Date [facility] Claims [id number] [place] [id number] [phone] [id number] Serenity Tena Self - patient is the [...]
--- OUTSIDE RECORDS SUMMARY | 2025-02-11 15:28 | XMS_ITS | Patient Health Record ---
Author Organization [facility] Address [address] [place] [address] Care Team Providers Care Diagrammer Name Role Phone Po Jay ROBERTSON Primary Care Provider Bunny Reece [phone] Reason For Referral No Information Plan Of Treatment No Information Insurance Providers Payer Name Payer Address Payer Phone Subscriber Number Group Number Insured Name Patient Relationship to Insured Coverage Start Date Coverage End Date MEDICA[facility] [address] [place] [address] [id number] KATHERINE BARKER Self - patient is the insured
--- OUTSIDE RECORDS SUMMARY | 2025-02-11 15:28 | XMS_ITS | Encounter Summary ---
Author Organization [facility] Address [address] [facility] [address] [place] [address] Phone Care Team Providers Care Professor Of Fine Art Name Role Phone Reese Ragland MD Primary Care Provider [phone] Reason for Visit * Reason Comments Med Refill Encounter Details Date Type Department Care Team ([facility] Contact Info) Description 07/26/2024 Refill [facility] [address] [place] [phone] Skinny Awan MD [facility] [address] [address] Social History Tobacco Use Types [...] Upcoming Encounters Date Type Department Care Team ([facility] Contact Info) Description 11/04/2025 3:00 PM EDT Office Visit [facility] [address] [place] [phone] Skinny Awan MD [address] [facility] [address] [place] [address] documented as of this encounter Visit Diagnoses Not on filedocumented in this encounter Care Teams Professor Of Fine Art Relationship Specialty Start Date End Date Reese Ragland MD [address] [place] PCP - General 07/11/20 documented as of this encounter
--- OUTSIDE RECORDS SUMMARY | 2025-02-11 15:28 | XMS_ITS | Clinical Summary ---
Author Organization [facility] Address [address] [place] [address] Phone Care Team Providers Care Lining Stamper Name Role Phone Susana Holcomb MD Primary Care Provider [phone] Allergies Active Allergy Reactions Criticality Noted Date [...] LIPASE-PROTEASE -AMYLASE ORAL Take by mouth. A [facility], Clinic, or Other Facility Administered Medication [...] PM EDT Office Visit Orthopedic Surgery - [address] [address] Lionel Almaguer, DPM Lipoma of [...] Orthopedic Surgery [facility] [address] [phone] Lionel Almaguer DPM [address] [address] 04/16/2025 11:30 AM EDT Hospital Encounter [facility] [place] [address] [place] [phone] Lionel Almaguer DPM [address] [address] 04/16/2025 11:30 AM EDT - 04/16/2025 1:00 PM EDT Surgery [facility] Main OR [address] [place] [phone] Lionel Almaguer DPM [address] [address] EXCISION LESION SOFT TISSUE RIGHT FOOT [[id number] (CPT )] 04/29/2025 9:45 AM EDT Office Visit Orthopedic Surgery [place] [address] [phone] Lionel Almaguer DPM [address] [address] Scheduled Procedures Name Priority Associated Diagnoses Date/Ti [...] ID:[id number] Group ID:[id number] Type:Not on file Address: [place] [address] [place] [phone] Care Teams Lining Stamper Relationship Specialty Start Date End Date Susana Holcomb MD [address] [place] [address] , [address] [facility] GREG Valles PCP - General 12/27/16
== END 2025-02-11 15:25 | disposition home or self-care (01) ==
LOC: HO.HMCH 14:50
PROVIDERS: PCP Internal Medicine; Visit Provider Internal Medicine
DX: I10 Essential (primary) hypertension (principal); K21.9 Gastro-esophageal reflux disease without esophagitis; K86.1 Other chronic pancreatitis; N39.41 Urge incontinence

== ENCOUNTER → 2025-02-11 14:49 | Outpatient (BNVA) | payer OTHER, SELFPAY | PROVIDERS: PCP Internal Medicine; Visit Provider Internal Medicine | DX: I10 Essential (primary) hypertension (principal); K21.9 Gastro-esophageal reflux disease without esophagitis; K86.1 Other chronic pancreatitis; N39.41 Urge incontinence | CPT/HCPCS: 96127; 99212 ==

== ENCOUNTER 2025-04-14 09:33 | Outpatient (AMB) | payer OTHER, SELFPAY ==
[2025-04-14 09:37] VITALS: BP 150/68; PULSE 77; RESP 18; TEMP 36.2; O2SAT 98; BMI 38.3
--- NOTE | 2025-04-14 09:37 | MHC.PC.OV ---
Vital Signs 04/14/25 09:37 Height 4 ft 10 in Weight 183 lb 2 oz BMI 38.3 BP 150/68 H Blood Pressure Location Rt brachial Position Sitting Respiration 18 Pulse 77 Pulse Source Pulse Oximeter Temp 97.1 F Temp Source Temporal Artery Scan Pulse Oximetry (%) 98 Oxygen Delivery Method Room Air Intake Visit Reasons: back and leg pain Accounting Software Specialist Required: No Accompanied by: Self / Same As Patient Allergies codeine (Codeine) Allergy (Severe, Verified 04/14/25 09:40) DIFFICULTY BREATHING albuterol Allergy (Intermediate, Verified 04/14/25 09:40) unknown adhesive (Adhesive) Allergy (Mild, Verified 04/14/25 09:40) RASH amlodipine (AMLODIPINE) Allergy (Mild, Verified 04/14/25 09:40) ITCHING clonidine (CLONIDINE) Allergy (Mild, Verified 04/14/25 09:40) sleepiness hydralazine (HYDRALAZINE) Allergy (Mild, Verified 04/14/25 09:40) dizziness Iodinated Contrast Media (IV Dye, Iodine Containing) Allergy (Mild, Verified 04/14/25 09:40) HIVES latex (LATEX) Allergy (Mild, Verified 04/14/25 09:40) RASH lisinopril (LISINOPRIL) Allergy (Mild, Verified 04/14/25 09:40) ITCHING oxybutynin (From Ditropan) Allergy (Mild, Verified 04/14/25 09:40) UNKNOWN doxazosin (DOXAZOSIN) Allergy (Unknown, Verified 04/14/25 09:40) PURITIS, pruritus hydrochlorothiazide (HYDROCHLOROTHIAZIDE) Allergy (Unknown, Verified 04/14/25 09:40) ITCHING, syncope losartan Allergy (Unknown, Verified 04/14/25 09:40) pruritus metoprolol (METOPROLOL) Allergy (Unknown, Verified 04/14/25 09:40) ITCHING metronidazole (From FLAGYL) Allergy (Unknown, Verified 04/14/25 09:40) VOMITING omeprazole (OMEPRAZOLE) Allergy (Unknown, Verified 04/14/25 09:40) RASH psyllium (Metamucil) Allergy (Unknown, Verified 04/14/25 09:40) diarrhea diltiazem Adverse Reaction (Intermediate, Verified 04/14/25 09:40) Palpitations Tobacco use date assessed: 04/14/25 Fall risk assessment: No Falls in past year Last assessed Fall Risk: 04/14/25 Dental Screening Dental Screen Date: 04/14/25 Did you have a dental visit in the last 12 months?: Yes Did you have a dental problem in the last 6 months where you did not have access to dental care?: No Was dental information given to patient?: Patient has dentist HPI HPI Comments History of Present Illness Details The patient is a 69-year-old female presenting with neck and low back pain. The neck pain began on Saturday, the , and has been severe enough to necessitate the use of a walker or cane for ambulation. She reports that the pain is worsening and is located on the left side of her lower back. The low back pain has been persistent, and previous lumbar spine x-rays showed no acute findings. She has not engaged in physical therapy, and the pain exacerbates with prolonged standing or sitting. The patient has a history of osteopenia, which was confirmed through bone density testing. She has not undergone any recent imaging studies like a CT scan to further evaluate her spine. The patient also has a history of irritable bowel syndrome and peptic ulcer disease, which limits the use of NSAIDs for pain management. She reports dietary modifications to manage her IBS, including avoiding fried foods and dairy products. [facility] Medical History Internal hemorrhoid Obesity (BMI 30-39.9) Depression Allergic rhinitis GERD without esophagitis Vitamin D deficiency HTN (hypertension) Chronic pancreatitis Postmenopausal bleeding Polyarthralgia History of breast cancer Obese Thyroid nodule Hypovitaminosis D Essential hypertension Breast implant status Surgical History Hx of total mastectomy of right breast (2004) Hx of total mastectomy of left breast (1985) History of biopsy History of suburethral sling procedure H/O esophagogastroduodenoscopy Hx of colonoscopy History of breast reconstruction History of appendectomy History of breast surgery History of breast biopsy History of tubal ligation History of carpal tunnel release History of cholecystectomy Family History Father Prostate cancer Mother Ovarian cancer Chronic mental illness Mental health disorder Paternal Aunt Cancer Family/Other FH: mental illness Mental health disorder Social History Household Members: None Housing: Apartment Are you a primary infant childcare provider to a significant other at home: No Do you presently have visiting nurse or other home services: Yes Alcohol intake: current Alcohol intake frequency: holidays/special occasions only Patient Tobacco Use Status: Never used Tobacco e-Cigarette/Vaping Use: Never Used Second Hand Smoke Exposure: No service: No Current occupational status: unemployed Cognitive needs: Yes Hearing needs: No Vision needs: No Female Reproductive History Menstrual Date of menopause: 05/09/05 Questionnaire Thrive Questionnaire Date Thrive assessed: 02/11/25 I am a: Patient What is your living situation today?: I have a steady place to live Do you have trouble paying for medicines?: No Do you have trouble getting transportation to medical appointments?: No Do you have trouble taking care of your child, family member or friend?: No Do you have trouble with day-to-day activities such as bathing, preparing meals, shopping, managing finances, etc.?: Yes Are you currently unemployed and looking for a job?: I choose not to answer this question Are you interested in more education?: I choose not to answer this question Please select the resources that you would like help with: None Currently or been in a relationship where the following occur: I choose not to answer THRIVE Score: 0 VENESSA-7 AMB Questionnaire VENESSA-7 Date VENESSA - 7 assessed: 02/11/25 Source: Developed by Drs. Bunny Dennis, Jimena Stock, Jarred Mclaughlin and colleagues, with an educational cruzito from [employer]. Review of Systems Const Details: Positives besides what was mentioned in HPI are in BOLD Constitutional: No Weight Change, No Fever, No Chills, No Night Sweats, No Fatigue, No Malaise ENT/Mouth: No Hearing Changes, No Ear Pain, No Nasal Congestion, No Sinus Pain, No Hoarseness, No sore throat, No Rhinorrhea, No Swallowing Difficulty Eyes: No Eye Pain, No Swelling, No Redness, No Foreign Body, No Discharge, No Vision Changes Cardiovascular: No Chest Pain, No SOB, No PND, No Dyspnea on Exertion, No Orthopnea, No Claudication, No Edema, No Palpitations Respiratory: No Cough, No Sputum, No Wheezing, No Smoke Exposure, No Dyspnea Gastrointestinal: No Nausea, No Vomiting, No Diarrhea, No Constipation, No Pain, No Heartburn, No Anorexia, No Dysphagia, No Hematochezia, No Melena, No Flatulence, No Jaundice Genitourinary: No Dysmenorrhea, No DUB, No Dyspareunia, No Dysuria, No Urinary Frequency, No Hematuria, No Urinary Incontinence, No Urgency, No Flank Pain, No Urinary Flow Changes, No Hesitancy Musculoskeletal: No Arthralgias, No Myalgias, No Joint Swelling, No Joint Stiffness, No Back Pain, No Neck Pain, No Injury History Skin: No Skin Lesions, No Pruritis, No Hair Changes, No Breast/Skin Changes, No Nipple Discharge Neuro: No Weakness, No Numbness, No Paresthesias, No Loss of Consciousness, No Syncope, No Dizziness, No Headache, No Coordination Changes, No Recent Falls Psych: No Anxiety/Panic, No Depression, No Insomnia, No Personality Changes, No Delusions, No Rumination, No SI/HI/AH/VH, No Social Issues, No Memory Changes, No Violence/Abuse Hx., No Eating Concerns Heme/Lymph: No Bruising, No Bleeding, No Transfusions History, No Lymphadenopathy Endocrine: No Polyuria, No Polydipsia, No Temperature Intolerance Physical exam (Primary Care) Vital Signs: Last Vital Signs Temp 97.1 F 04/14/25 09:37 Pulse 77 04/14/25 09:37 Resp 18 04/14/25 09:37 BP 150/68 H 04/14/25 09:37 Pulse Ox 98 04/14/25 09:37 Oxygen Delivery Method Room Air 04/14/25 09:37 BMI result Body Mass Index 38.3 Tobacco/Smoking Status: Tobacco use Status Tobacco use date assessed 04/14/25 04/14/25 09:43 Patient Tobacco Use Status Never used Tobacco 04/14/25 09:38 e-Cigarette/Vaping Use Never Used 04/14/25 09:38 Thrive Assessment: Date of Thrive Assessment Date Thrive assessed 02/11/25 04/14/25 09:38 Currently or been in a relationship where the following occur: I choose not to answer Const Other: Pertinent findings are in BOLD GENERAL APPEARANCE NAD, activity normal for age, well developed/ well nourished, no cyanosis, pallor, or diaphoresis. EYES lids/conjunctiva normal. EARS/NOSE/THROAT Mucous membranes moist, nares normal, lips/teeth normal uvula midline without oral pharyngeal erythema, exudate or swelling TMs normal bilaterally. No lymphangitis/lymphedema. HEAD/NECK normocephalic atraumatic, no facial trauma, neck is supple. RESPIRATORY respiratory effort normal, speaks in full sentences, no tripod position, no accessory muscle use. Lungs clear to auscultation without rhonchi, wheezes, rales CARDIAC Regular rate and rhythm, no edema. ABDOMINAL Soft, ND/NT. No evidence of fluid wave. No pulsatile masses on exam, rebound tenderness, Lopez sign or pain over Mcburney's point. MUSCLES/EXTREMITIES No abnormal range of motion, no swelling. SKIN Warm, pink and dry. No rashes, dermatoses, petechiae or lesions. NEUROLOGICAL Speech is clear and appropriate. Normal level of consciousness. Gait and coordination are normal. 5/5 strength in all extremities. PSYCH Normal mood and affect. Judgement/competence is appropriate Leg raise neagtive. Low back pain on the left side. Coding Level of Care Code Est Pt Level 3 (26051) Diagnoses Acute midline low back pain without sciatica M54.50 Back pain laterality: midline Chronicity: acute Sciatica presence: without sciatica IBS (irritable bowel syndrome) K58.9 Time Spent (min) 20 Assessment & Plan Assessment & Plan (1) Low back pain: Code(s): M54.50 - Low back pain, unspecified Category: Medical Qualifiers: Back pain laterality: midline Chronicity: acute Sciatica presence: without sciatica Qualified Code(s): M54.50 - Low back pain, unspecified Plan: - Continue with Tylenol for pain management, up to 4 grams per day as needed. - Apply Voltaren gel twice daily for localized pain relief. I advised patient to be cautious with voltaren gel knowing her history of peptic ulcer disease. - Referral to physical therapy for stretching and strengthening exercises. - F-U in [address] weeks[address] We can consider CT scan if symptoms do not improve by then. (2) IBS (irritable bowel syndrome): Code(s): K58.9 - Irritable bowel syndrome, unspecified Category: Medical Plan: - Continue dietary modifications to avoid triggers such as fried foods and dairy products. - Advised on considering eliminating other types of food as well, including red meat, gluten, sugar, tomatoes and dairy. Plan I discussed with the patient the management of her neck and low back pain, emphasizing the use of Tylenol and Voltaren gel for pain relief. We talked about the importance of physical therapy to improve her musculoskeletal condition and the potential need for a CT scan if symptoms persist. I advised her to avoid NSAIDs due to her history of peptic ulcer disease and to continue dietary modifications for IBS management. Orders: Orders PT Evaluation and Treatment Today M54.50 - Low back pain, unspecified Medications: New diclofenac sodium 1% (Voltaren Arthritis Pain) apply to single elbow, wrist or hand; for hand includes palm/fingers/back of hand 2 grams topical BID 50 grams 0RF
--- OUTSIDE RECORDS SUMMARY | 2025-04-14 10:56 | XMS_ITS | Encounter Summary ---
Author Organization [facility] Address [address] [address] [place] [address] Phone Care Team Providers Care Sludge Mill Operator Name Role Phone Reese Ragland MD Primary Care Provider [phone] Reason for Visit * Reason Comments Med Refill Encounter Details Date Type Department Care Team ([facility] Contact Info) Description 07/26/2024 Refill [facility] [address] [place] [phone] Skinny Awan MD [facility] [address] [address] Social History Tobacco Use Types [...] Upcoming Encounters Date Type Department Care Team ([facility] Contact Info) Description 11/04/2025 3:00 PM EDT Office Visit [facility] [address] [place] [phone] Skinny Awan MD [address] [facility] [address] [place] [address] documented as of this encounter Visit Diagnoses Not on filedocumented in this encounter Care Teams Sludge Mill Operator Relationship Specialty Start Date End Date Reese Ragland MD [address] [place] PCP - General 07/11/20 documented as of this encounter
--- OUTSIDE RECORDS SUMMARY | 2025-04-14 10:56 | XMS_ITS | Patient Health Record ---
[facility] Address [address] [place] [address] Care Team Providers Care Manager Unit Name Role Phone Alan ROBERTSON, Susana Primary Care Provider Unavail able Patrick Mcnally Unavailable [phone] Allergies Allergen (clinical drug ingredient) Drug/Non Drug [...] Duration: 30 day(s) Active Ergocalciferol 1.25 MG (66002 UT) 1 capsule Orally; Duration: 30 day(s) [...] Insured Coverage Start Date Coverage End Date [facility] [employer] Claims [address] [place] [id number] Serenity Tena Self - patient is the insured Medical (General) History Medical History History ICD Code Primary osteoarthritis, right shoulder Essential Hypertension hypovitaminosis D thyroid nodule Obesity bilateral breast cancer Calcaneal spur, right right ankle swelling Surgical History Surgery Date(Month/Year) breast biopsy esophagogastroduodenoscopy appendectomy breast reconstruction Breast Surgery 1985, 2010 carpal tunnel release 2004 cholecystectomy tubal ligation colonoscopy gall bladder 1986 urinerestricter
--- OUTSIDE RECORDS SUMMARY | 2025-04-14 10:56 | XMS_ITS | Patient Health Record ---
Author Organization [facility] Address [address] [place] [address] Care Team Providers Care Space Studies Faculty Member Name Role Phone Po Jay ROBERTSON Primary Care Provider Bunny Reece [phone] Reason For Referral No Information Plan Of Treatment No Information Insurance Providers Payer Name Payer Address Payer Phone Subscriber Number Group Number Insured Name Patient Relationship to Insured Coverage Start Date Coverage End Date MEDICAID [facility] [address] [place] [address] [phone] [id number] KATHERINE BARKER Self - patient is the insured
--- OUTSIDE RECORDS SUMMARY | 2025-04-14 10:56 | XMS_ITS | Encounter Summary ---
Author Organization [employer] [facility] Address [address] [place] [address] Care Team Providers Care Carbonation Equipment Operator Name Role Phone Susana Holcomb MD Primary Care Provider [phone] Encounter Details Date Type Department Care Team (Late st Contact Info) Description 03/29/2025 Telephone Orthopedic Surgery - [place] [address] [phone] Beatrice Siddiqui Social History Tobacco Use Types Packs/Day Years Used Date Smoking Tobacco: Never Assessed Comments Unknown Sex and Gender Information Value Date Recorded Sex Assigned at Not on file Legal Sex Female 10:47 PM EST Gender Identity Not on file Sexual Orientation Not on file documented as of this encounter Progress Notes * Beatrice Siddiqui - 03/29/2025 11:18 AM EDT Patient called this morning stating that she needs to reschedule her surgery that is scheduled withDr. Almaguer. documented in this encounter Plan of Treatment Upcoming Encounters Date Type Department Care Team (Late st Contact Info) Description 07/16/2025 9:15 AM EST Hospital Encounter [facility] Main [place] [address] [place] [phone] Lionel Almaguer DPM [address] [phone] 07/16/2025 9:15 AM EST - 07/16/2025 10:45 AM EST Surgery [facility] Main OR [address] [place] [phone] Lionel Almaguer DPM [address] [place] [address] EXCISION LESION SOFT TISSUE RIGHT FOOT [70333 (CPT )] Scheduled Procedures Name Priority Associated Diagnoses Date/Ti me EXCISION LESION SOFT TISSUE FOOT Lipoma of right lower extremity 07/16/2025 9:15 AM EST documented as of this encounter Goals Goal Patient Goal Type Associated Problems Recent Progress Patient-Stated? Author Autogenera alberto Goal Care Plan Autogenerated Problem No Lionel Almaguer DPM documented as of this encounter Visit Diagnoses Not on filedocumented in this encounter Additional Health Concerns Active Problems Noted Date Diagnosed Date Autogenerated Problem 03/29/2025 documented as of this encounter Care Teams Carbonation Equipment Operator Relationship Specialty Start Date End Date Susana Holcomb MD [address] [place] [address] , [address] [facility] Associ D/B/A: [facility] [place] PCP - General 12/27/16 documented as of this encounter
--- OUTSIDE RECORDS SUMMARY | 2025-04-14 10:56 | XMS_ITS | Clinical Summary ---
Author Organization [facility] Address [address] [place] [address] Phone Care Team Providers Care Cadd Manager Name Role Phone Susana Holcomb MD Primary Care Provider [phone] Allergies Active Allergy Reactions Criticality Noted Date [...] Encounters Date Type Department Care Team Description 03/29/2025 Telephone Orthopedic Surgery [place] [address] [phone] Beatrice Siddiqui 02/24/2025 Telephone Orthopedic Surgery [place] [address] [phone] Lionel Almaguer DPM 01/19/2025 1:30 PM EDT Office Visit Orthopedic Surgery [place] [address] [phone] Lionel Almaguer, DPAlba Lipoma of right lower extremity (Primary Dx); [...] Description 07/16/2025 9:15 AM EST Hospital Encounter [facility] Main OR [address] [place] [address] Lionel Almaguer DPM [address] [facility] [address] [place] [phone] 07/16/2025 9:15 AM EST - 07/16/2025 10:45 AM EST Surgery [facility] Main OR [address] [place] [address] Lionel Almaguer DPM [address] [facility] [address] [place] [phone] EXCISION LESION SOFT TISSUE RIGHT FOOT [63432 (CPT )] Scheduled Procedures Name Priority Associated Diagnoses Date/Ti me EXCISION LESION SOFT TISSUE FOOT Lipoma of right lower extremity 07/16/2025 9:15 AM EST Health Maintenance Due Date Last Done Comments Breast Cancer Screening 1955 Colorectal Cancer Screening: Colonoscopy 1955 Pneumococcal Vaccine: 50+ Years (1 of 1 - PCV) 2003 Zoster Vaccines (1 of 2) 2003 DTaP,Tdap,and Td Vaccines (2 - Td or Tdap) 10/05/2018 10/05/2008 Cholesterol Screening (Lipid Panel) 07/31/2023 Falls Risk Assessment 07/31/2023 Hepatitis C Screening 07/31/2023 Medicare Annual Wellness Visit 07/31/2023 Osteoporosis Screening (Bone Density Screening) 07/31/2023 Social Influencers of Health Screening 07/31/2023 Hypertension/CHF/CAD Annual BMP Blood Test 08/02/2023 Depression Screening 07/01/2024 COVID-19 Vaccine (4 - 2024-2 6 season) 2025 04/27/2021, 09/20/2020, 08/23/2020 Influenza Vaccine (#1) 2025 RSV Immunization Adult [...] on patient's age to complete this topic Goals Goal Patient Goal Type Associated Problems Recent Progress Patient-Stated? Author Autogenera albreto Goal Care Plan Autogenerated Problem No Lionel Almaguer DPM Procedures Procedure Name Priority Date/Time Associated Diagnosis [...] Site: Foot ligament tendon us Lionel Almaguer DPM IN CLINIC/BEDSIDE ORDERAB LES Final Result from Last 3 Months Additional Health Concerns Active Problems Noted Date Diagnosed Date Autogenerated Problem 03/29/2025 Insurance [employer] MEDICARE Member Subscriber Plan / Payer (Ef fective 2018-Present) Name:Serenity Tena Relation to Subscriber:Self Name:Serenity Tena Payer ID:[id number] Group ID:[id number] Type:Not on file Address: [facility] [address] [place] [place] [address] Care Teams Cadd Manager Relationship Specialty Start Date End Date Susana Holcomb MD 2 [facility] , [address] Physician Associ D/B/A: [facility] [place] PCP - General 12/27/16
--- OUTSIDE RECORDS SUMMARY | 2025-04-14 10:56 | XMS_ITS | Clinical Summary ---
Author Organization [facility] Address [address] [place] [address] Phone Care Team Providers Care Nurse Private Duty Name Role Phone Reese Ragland MD Primary Care Provider [phone] Allergies Active Allergy Reactions Criticality Noted Date [...] day Active ergocalciferol (VITAMIN D2) 1.25 MG (96459 UT) capsule 1 Active esomeprazole (NexIUM) 40 [...] DAY NEEDED FOR HEMORRHOIDS 2 Active Creon 70762-27730 units capsule TAKE 1 CAP ORALLY 4 [...] Sign Reading Time Taken Comments Blood Pressure 158/84 11/05/2024 3:10 PM EDT Pulse 79 11/05/2024 3:10 PM EDT Temperature - - Respiratory Rate - - Oxygen Saturation 98% 11/05/2024 3:10 PM EDT Inhaled Oxygen Concentration - - Weight 8.165 kg (18 lb) 11/05/2024 3:10 PM EDT Height 147.3 cm (4' 10 ) 09/26/2020 3:48 PM EDT Body Mass Index 3.76 09/26/2020 3:48 PM EDT Plan of Treatment Upcoming Encounters Date Type Department Care Team (Late st Contact Info) Description 11/04/2025 3:00 PM EDT Office Visit [facility] the [address] [place] [address] Skinny Awan MD [address] [phone] Health Maintenance Due Date Last Done Comments Breast Cancer Screening 1955 Pneumococcal Vaccine: 50+ Ye ars (1 of 2 - PCV) 1972 Colorectal Cancer Screening: Annual FOBT 2002 Colorectal Cancer Screening: Colonoscopy 2002 Colorectal Cancer Screening: Sigmoidoscopy 2002 Influenza Vaccine (#1) 2025 Hepatitis B Vaccine Aged Out No longe r eligible based on patient's age to complete this topic Insurance ([id number]) [place] [address] ([id number]) Care Teams Nurse Private Duty Relationship Specialty Start Date End Date Reese Ragland MD [address] [place] PCP - General 07/11/20
== END 2025-04-14 10:19 | disposition home or self-care (01) ==
LOC: HO.HMCH 09:33
PROVIDERS: PCP Internal Medicine; Visit Provider Internal Medicine
DX: M54.50 Low back pain, unspecified (principal); K58.9 Irritable bowel syndrome, unspecified

== ENCOUNTER → 2025-04-14 09:33 | Outpatient (BNVA) | payer OTHER, SELFPAY | PROVIDERS: PCP Internal Medicine; Visit Provider Internal Medicine | DX: M54.2 Cervicalgia (principal); M54.50 Low back pain, unspecified; M85.80 Other specified disorders of bone density and structure, unspecified site; K58.9 Irritable bowel syndrome, unspecified | CPT/HCPCS: 99212 ==

== ENCOUNTER 2025-04-28 13:20 | Outpatient (AMB) | payer OTHER, SELFPAY ==
--- NOTE | 2025-04-28 13:26 | A.OFFPC_ITS ---
Vital Signs 04/28/25 13:27 Height 4 ft 10 in Weight 183 lb 2 oz BMI 38.3 BP 110/64 Blood Pressure Location Lt brachial Position Sitting Pulse 88 Pulse Source Pulse Oximeter Temp 97.1 F Temp Source Temporal Artery Scan Pulse Oximetry (%) 97 Oxygen Delivery Method Room Air Intake Visit Reasons: 2 week f/u Intake Note: Patient is here to follow up on IBS, Low back pain. Speech Instructor Required: No Darkroom Technician: Present Accompanied by: WOOD BUFFER Allergies codeine (Codeine) Allergy (Severe, Verified 04/28/25 13:27) DIFFICULTY BREATHING albuterol Allergy (Intermediate, Verified 04/28/25 13:27) unknown adhesive (Adhesive) Allergy (Mild, Verified 04/28/25 13:27) RASH amlodipine (AMLODIPINE) Allergy (Mild, Verified 04/28/25 13:27) ITCHING clonidine (CLONIDINE) Allergy (Mild, Verified 04/28/25 13:27) sleepiness hydralazine (HYDRALAZINE) Allergy (Mild, Verified 04/28/25 13:27) dizziness Iodinated Contrast Media (IV Dye, Iodine Containing) Allergy (Mild, Verified 04/28/25 13:27) HIVES latex (LATEX) Allergy (Mild, Verified 04/28/25 13:27) RASH lisinopril (LISINOPRIL) Allergy (Mild, Verified 04/28/25 13:27) ITCHING oxybutynin (From Ditropan) Allergy (Mild, Verified 04/28/25 13:27) UNKNOWN doxazosin (DOXAZOSIN) Allergy (Unknown, Verified 04/28/25 13:27) PURITIS, pruritus hydrochlorothiazide (HYDROCHLOROTHIAZIDE) Allergy (Unknown, Verified 04/28/25 13:27) ITCHING, syncope losartan Allergy (Unknown, Verified 04/28/25 13:27) pruritus metoprolol (METOPROLOL) Allergy (Unknown, Verified 04/28/25 13:27) ITCHING metronidazole (From FLAGYL) Allergy (Unknown, Verified 04/28/25 13:27) VOMITING omeprazole (OMEPRAZOLE) Allergy (Unknown, Verified 04/28/25 13:27) RASH psyllium (Metamucil) Allergy (Unknown, Verified 04/28/25 13:27) diarrhea diltiazem Adverse Reaction (Intermediate, Verified 04/28/25 13:27) Palpitations Medication List - Last Reconciled 04/28/25 by Miladys Simms MD acetaminophen ER 650 mg PO Q8H PRN 30 days [adult diapers pull-ups Use 1 diaper four times a day] cholecalciferol (vitamin D3) 50 mcg (2 x 25 mcg (1,000 unit)) PO DAILY 90 days diclofenac sodium 1% (Voltaren Arthritis Pain) 2 grams topical BID esomeprazole magnesium 40 mg PO DAILY 90 days hydrocortisone 2.5% (Proctosol HC) 1 appl NH BID-QID PRN incontinence pad, liner, disp As directed lidocaine 5% 1 appl topical QID PRN 15 days loratadine 10 mg PO DAILY olmesartan 40 mg PO DAILY sertraline 25 mg PO DAILY 90 days simethicone (Gas Relief (simethicone)) 125 mg PO TID-QID PRN spironolactone 25 mg PO DAILY triamcinolone acetonide 0.5% 1 appl topical BID PRN 30 days underpads (Bed Underpads) Use 5 pads per day prn walker (Ultra-Light Rollator misc) As directed [wipes Use 10 wipes per day prn] Tobacco use date assessed: 04/28/25 Dental Screening Dental Screen Date: 04/14/25 HPI HPI Comments History of Present Illness Details The patient is a 69-year-old female presenting for follow-up for left leg pain and management of chronic bloating. She reports persistent left leg pain that occurs when she gets up from a sitting position and aches all night. Associated swelling has improved. Her symptoms are managed with Tylenol and Voltaren gel, which she finds helpful. A prior back x-ray was negative. Physical therapy was recommended, but she has not yet been contacted to schedule it. The patient also has a history of chronic bloating, which she is accustomed to. For the past 22 years, she has followed a specific diet, eliminating tomatoes, peanuts, corn, fried foods, and pork. She also avoids beans due to gas. Her blood pressure has historically been high, but today's reading was 110 systolic. She has a history of a stomach ulcer. She notes a history of bilateral, symmetric swelling on her upper extremities that has been present for a while. [facility] Medical History (Updated 04/28/25 @ 14:12 by Miladys Simms MD) Internal hemorrhoid Obesity (BMI 30-39.9) Depression Allergic rhinitis GERD without esophagitis Vitamin D deficiency HTN (hypertension) Chronic pancreatitis Postmenopausal bleeding Polyarthralgia History of breast cancer Obese Thyroid nodule Hypovitaminosis D Essential hypertension Breast implant status Surgical History Hx of total mastectomy of right breast (2004) Hx of total mastectomy of left breast (1985) History of biopsy History of suburethral sling procedure H/O esophagogastroduodenoscopy Hx of colonoscopy History of breast reconstruction History of appendectomy History of breast surgery History of breast biopsy History of tubal ligation History of carpal tunnel release History of cholecystectomy Family History Father Prostate cancer Mother Ovarian cancer Chronic mental illness Mental health disorder Paternal Aunt Cancer Family/Other FH: mental illness Mental health disorder Social History Household Members: None Housing: Apartment Are you a primary child day care provider to a significant other at home: No Do you presently have visiting nurse or other home services: Yes Alcohol intake: current Alcohol intake frequency: holidays/special occasions only Patient Tobacco Use Status: Never used Tobacco e-Cigarette/Vaping Use: Never Used Second Hand Smoke Exposure: No service: No Current occupational status: unemployed Cognitive needs: Yes Hearing needs: No Vision needs: No Female Reproductive History Menstrual Date of menopause: 05/09/05 Questionnaire Thrive Questionnaire Date Thrive assessed: 02/11/25 I am a: Patient What is your living situation today?: I have a steady place to live Within the past 12 months, did the food you bought not last and you didn't have the money to get more?: I choose not to answer this question Within the past 12 months, did you worry whether your food would run out before you got money to buy more?: Never true Do you have trouble paying for medicines?: No Do you have trouble getting transportation to medical appointments?: No Do you have trouble paying your heating and electricity bill?: No Do you have trouble taking care of your child, family member or friend?: No Do you have trouble with day-to-day activities such as bathing, preparing meals, shopping, managing finances, etc.?: Yes Are you currently unemployed and looking for a job?: I choose not to answer this question Are you interested in more education?: I choose not to answer this question Please select the resources that you would like help with: None Currently or been in a relationship where the following occur: I choose not to answer THRIVE Score: 0 AUDIT C Alcohol Use Questionnaire (AUDIT-C) 1. How often do you have a drink containing alcohol?: Never Total Score: 0 VENESSA-7 AMB Questionnaire VENESSA-7 Date VENESSA - 7 assessed: 02/11/25 Feeling nervous, anxious, or on edge: 0 = Not at all Not being able to stop or control worryin = Not at all Worrying too much about different things: 0 = Not at all Trouble relaxin = More than half the days Being so restless that it is hard to sit still: 2 = More than half the days Becoming easily annoyed or irritable: 0 = Not at all Feeling afraid as if something awful might happen: 0 = Not at all Total VENESSA-7 score (0-4 normal; 5-9 mild; 10-14 moderate; 15-21 severe): 4 Source: Developed by Drs. Bunny Dennis, Jimena Stock, Jarred Mclaughlin and colleagues, with an educational cruzito from [employer]. Physical exam (Primary Care) Vital Signs: Last Vital Signs Temp 97.1 F 04/28/25 13:27 Pulse 88 04/28/25 13:27 BP 110/64 04/28/25 13:27 Pulse Ox 97 04/28/25 13:27 Oxygen Delivery Method Room Air 04/28/25 13:27 BMI result Body Mass Index 38.3 Tobacco/Smoking Status: Tobacco use Status Tobacco use date assessed 04/28/25 04/28/25 13:32 Patient Tobacco Use Status Never used Tobacco 04/28/25 13:26 e-Cigarette/Vaping Use Never Used 04/28/25 13:26 Thrive Assessment: Date of Thrive Assessment Date Thrive assessed 02/11/25 04/28/25 13:26 Currently or been in a relationship where the following occur: I choose not to answer Coding Level of Care Code Est Pt Level 3 (92303) Diagnoses Acute midline low back pain without sciatica M54.50 Back pain laterality: midline Chronicity: acute Sciatica presence: without sciatica Hypertension, unspecified type I10 Hypertension type: unspecified Time Spent (min) 20 Assessment & Plan Assessment & Plan (1) Low back pain: Comment: With negative leg raise, reports pain radiates to her foot. Code(s): M54.50 - Low back pain, unspecified Category: Medical Qualifiers: Back pain laterality: midline Chronicity: acute Sciatica presence: without sciatica Qualified Code(s): M54.50 - Low back pain, unspecified Plan: - Continue with Tylenol for pain management, up to 4 grams per day as needed. - Apply Voltaren gel twice daily for localized pain relief. I advised patient to be cautious with voltaren gel knowing her history of peptic ulcer disease. - Referral to physical therapy for stretching and strengthening exercises. - CT scan to rule out nerve impingement. (2) HTN (hypertension): Code(s): I10 - Essential (primary) hypertension Category: Medical Qualifiers: Hypertension type: unspecified Qualified Code(s): I10 - Essential (primary) hypertension Plan: - The patient's blood pressure was well-controlled at 110 systolic. - She will continue her current management. Plan I discussed with the patient that her persistent left leg pain, despite a negative back X-ray, warrants further investigation. I recommended a CT scan of her back to better assess the cause of her symptoms. I reinforced the importance of physical therapy for her condition. Regarding her chronic bloating, we reviewed her current dietary habits and I suggested further elimination of potential triggers, including dairy, gluten, red meat, and sugars, to see if her symptoms improve. I also reassured her that the bilateral swelling she noted on her upper extremities is likely not concerning due to its symmetric nature and long-standing presence. Orders: Orders CT lumbar spine wo IV con Today M54.50 - Low back pain, unspecified
[2025-04-28 13:27] VITALS: BP 110/64; PULSE 88; TEMP 36.2; O2SAT 97; BMI 38.3
--- OUTSIDE RECORDS SUMMARY | 2025-04-28 16:58 | XMS_ITS | Encounter Summary ---
Author Organization [facility] Address [address] [facility] [address] [place] [address] Phone Care Team Providers Care Bungy Jump Master Name Role Phone Reese Ragland MD Primary Care Provider [phone] Reason for Visit * Reason Comments Med Refill Encounter Details Date Type Department Care Team ([facility] Contact Info) Description 07/26/2024 Refill [facility] [address] [place] [phone] Skinny Awan MD [facility] [address] [address] Social History Tobacco Use Types [...] Upcoming Encounters Date Type Department Care Team ([facility] Contact Info) Description 11/04/2025 3:00 PM EDT Office Visit [facility] [address] [place] [phone] Skinny Awan MD [address] [facility] [address] [place] [address] documented as of this encounter Visit Diagnoses Not on filedocumented in this encounter Care Teams Bungy Jump Master Relationship Specialty Start Date End Date Reese Ragland MD [address] [place] PCP - General 07/11/20 documented as of this encounter
--- OUTSIDE RECORDS SUMMARY | 2025-04-28 16:58 | XMS_ITS | Clinical Summary ---
Author Organization [facility] Address [address] [place] [address] Phone Care Team Providers Care Plastic Surgery Technician Name Role Phone Reese Ragland MD Primary Care Provider [phone] Allergies Active Allergy Reactions Criticality Noted Date [...] day Active ergocalciferol (VITAMIN D2) 1.25 MG (07501 UT) capsule 1 Active esomeprazole (NexIUM) 40 [...] DAY NEEDED FOR HEMORRHOIDS 2 Active Creon 41165-25020 units capsule TAKE 1 CAP ORALLY 4 [...] Visit [facility] of the [address] [place] [address] Skinny Awan MD [address] [address] Health Maintenance Due Date Last Done Comments Breast Cancer Screening 1955 Pneumococcal Vaccine: 50+ Ye ars (1 of 2 - PCV) 1972 Colorectal Cancer Screening: Annual FOBT 2002 Colorectal Cancer Screening: Colonoscopy 2002 Colorectal Cancer Screening: Sigmoidoscopy 2002 Influenza Vaccine (#1) 2025 Hepatitis B Vaccine Aged Out No longe r eligible based on patient's age to complete this topic Insurance ([id number]) [place] [address] ([id number]) Care Teams Plastic Surgery Technician Relationship Specialty Start Date End Date Reese Ragland MD [address] [place] PCP - General 07/11/20
--- OUTSIDE RECORDS SUMMARY | 2025-04-28 16:58 | XMS_ITS | Patient Health Record ---
Author Organization [facility] Address [address] [place] [address] Care Team Providers Care Doctor Assistant Name Role Phone Po aJy ROBERTSON Primary Care Provider Bunny Reece [phone] Reason For Referral No Information Plan Of Treatment No Information Insurance Providers Payer Name Payer Address Payer Phone Subscriber Number Group Number Insured Name Patient Relationship to Insured Coverage Start Date Coverage End Date MEDICAID OF [facility] [address] [place] [address] [phone] [id number] KATHERINE BARKER Self - patient is the insured
--- OUTSIDE RECORDS SUMMARY | 2025-04-28 16:58 | XMS_ITS | Patient Health Record ---
[facility] Address [address] [place] [address] Care Team Providers Care Transaction Coordinator Name Role Phone Alan ROBERTSON, Susana Primary Care Provider Unavail able Patrick Mcnally Unavailable [phone] Allergies Allergen (clinical drug ingredient) Drug/Non Drug [...] Duration: 30 day(s) Active Ergocalciferol 1.25 MG (45092 UT) 1 capsule Orally; Duration: 30 day(s) [...] Insured Coverage Start Date Coverage End Date [facility] [employer] Claims [id number] [place] [id number] Serenity Tena Self - patient is the [...]
--- OUTSIDE RECORDS SUMMARY | 2025-04-28 16:58 | XMS_ITS | Clinical Summary ---
Author Organization [address] [facility] Address [address] [place] [address] Phone Care Team Providers Care Loan Administrator Name Role Phone Susana Holcomb MD Primary Care Provider [phone] Allergies Active Allergy Reactions Criticality Noted Date [...] Care Team Description 03/29/2025 Telephone Orthopedic Surgery [place] [address] [address] Beatrice Siddiqui 02/24/2025 Telephone Orthopedic Surgery [facility] [address] [phone] Lionel Almaguer DPM from Last 3 Months Social History Tobacco [...] Description 07/16/2025 9:15 AM EST Hospital Encounter [facility] Main OR [address] [place] [phone] Lionel Almaguer DPM [address] [place] [phone] 07/16/2025 9:15 AM EST - 07/16/2025 10:45 AM EST Surgery [facility] Main OR [address] [place] [address] Lionel Almaguer DPM [address] [place] [phone] EXCISION LESION SOFT TISSUE RIGHT FOOT [12444 (CPT )] Scheduled Procedures Name Priority Associated [...] Goal Care Plan Autogenerated Problem No Lionel Almaguer, DPM Additional Health Concerns Active Problems Noted Date Diagnosed Date Autogenerated Problem 03/29/2025 Insurance [employer] MEDICARE Member Subscriber Plan / Payer (Ef fective 2018-Present) Name:Serenity Tena Relation to Subscriber:Self Name:Serenity Tena Payer ID:[id number] Group ID:[id number] Type:Not on file Address: [facility] [address] [place] [address] Care Teams Loan Administrator Relationship Specialty Start Date End Date Susana Holcomb MD [address] [place] [address] , [address] [facility] [place] PCP - General 12/27/16
== END 2025-04-28 14:07 | disposition home or self-care (01) ==
LOC: HO.HMCH 13:21
PROVIDERS: PCP Internal Medicine; Visit Provider Internal Medicine
DX: M54.50 Low back pain, unspecified (principal); I10 Essential (primary) hypertension

== ENCOUNTER → 2025-04-28 13:20 | Outpatient (BNVA) | payer OTHER, SELFPAY | PROVIDERS: PCP Internal Medicine; Visit Provider Internal Medicine | DX: M79.605 Pain in left leg (principal); R14.0 Abdominal distension (gaseous); M54.50 Low back pain, unspecified; I10 Essential (primary) hypertension | CPT/HCPCS: 99212 ==

== ENCOUNTER 2025-05-05 15:47 | Outpatient (AMB) | payer OTHER, SELFPAY ==
--- OUTSIDE RECORDS SUMMARY | 2025-04-29 22:59 | XMS_ITS | Continuity of Care Document ---
Author Organization [facility] Address [address] [place] [address] Care Team Providers Care Aircraft Power Plant Assembler Name Role Phone Michael Holcomb MD, Jessica Primary Care Physician [place] [facility] [place] 03/30/25 - 04/29/25 [facility] [address] [place], [place] [address] Attending Physician: Herbie Goodwin Admitting Physician: Herbie Goodwin Referring Physician: Herbie Goodwin Encounter Type: Triage Allergies, Adverse Reactions, Alerts Substance Criticality Severity Reaction Reaction Severity Status Contrast Dye Active Medications Benicar 40 mg oral tablet 1 tablet = 40 mg, By Mouth, Daily, 0 Refills, Maintenance, 12/05/17 1:57:53 PM EDT Start Date: 12/05/17 Status: Ordered Medication Dispense Status: Completed Total Allowed Fills: 1 Fills Dispensed: 0 cloNIDine 0.1 mg oral tablet 0.1 mg, 1, tablet, By Mouth, 2 times a day, Refills 0, Maintenance, 12/05/17 1:59:29 PM EDT Start Date: 12/05/17 Status: Ordered Medication Dispense Status: Completed Total Allowed Fills: 1 Fills Dispensed: 0 loperamide 2 mg oral capsule 2 mg, 1, capsule, By Mouth, Every 4 hours, Refills 0, Maintenance, 12/05/17 1:58:20 PM EDT Start Date: 12/05/17 Status: Ordered Medication Dispense Status: Completed Total Allowed Fills: 1 Fills Dispensed: 0 LORazepam 0.5 mg oral tablet 1 tablet = 0.5 mg, By Mouth, 3 times a day, 0 Refills, Maintenance, 12/05/17 1:59:41 PM EDT Start Date: 12/05/17 Status: Ordered Medication Dispense Status: Completed Total Allowed Fills: 1 Fills Dispensed: 0 NuLYTELY Lemon [place] oral powder for reconstitution See Instructions, 240 mL By Mouth Daily as directed on package labelingsplit prep, # 4,000 mL, 0 Refills, Maintenance, 12/05/17 2:17:57 PM EDT, REC Powder, [id number] Start Date: 12/05/17 Status: Ordered Medication Dispense Status: Completed Quantity: 4000.0 Unit: mL Total Allowed Fills: 1 Fills Dispensed: 0 Questran 4 gm/9 gm oral powder for reconstitution 1 pack/packet, By Mouth, 2 times a day, # 60 each, 0 Refills, Maintenance, 12/05/17 2:18:10 PM EDT, REC Powder, [id number] Start Date: 12/05/17 Status: Ordered Medication Dispense Status: Completed Quantity: 60.0 Unit: each Total Allowed Fills: 1 Fills Dispensed: 0 Ranitidine 0 Refills, Maintenance, 12/05/17 1:59:04 PM EDT Start Date: 12/05/17 Status: Ordered Medication Dispense Status: Completed Total Allowed Fills: 1 Fills Dispensed: 0 ranitidine 150 mg oral capsule 1 capsule = 150 mg, By Mouth, 2 times a day, # 60 capsule, 2 Refills, Maintenance, 02/06/18 1:04:06 PM EDT, Capsule, [id number] Start Date: 02/06/18 Stop Date: 05/07/18 Status: Ordered Medication Dispense Status: Completed Quantity: 60.0 Unit: capsule Total Allowed Fills: 3 Fills Dispensed: 0 Tylenol 8 HR Arthritis Pain = 1,300 mg, By Mouth, Every 8 hours, 0 Refills, Maintenance, 12/05/17 1:59:14 PM EDT Start Date: 12/05/17 Status: Ordered Medication Dispense Status: Completed Total Allowed Fills: 1 Fills Dispensed: 0 Social History Social History Type Response Smoking Status Never smoker entered on: 12/31/17 Sex Sex Representation Female (finding) Patient Care team information Care Team Personnel Name: Susana Schmitz MD Position: Reference Physician Member Role: PCP Address: [address] [place] [address]- Telecom: Care Team Related Persons Name: RICO BARKER Name: ESTUARDO PARIS Insurance Providers Guarantor name: KATHERINE MJ Health Plan Information #: 1 Payer: [facility] [employer] Payer Identifier: NA Member Number: [id number] Group Number: NA Subscriber Identifier: NA Relationship to Subscriber: self Coverage Type: Medicare Managed Care (Includes Medicare Advantage Plans) Coverage Verification Date: NA Telecom: NA Address: NA
--- OUTSIDE RECORDS SUMMARY | 2025-04-29 22:59 | XMS_ITS | Continuity of Care Document ---
Author Organization [facility] Address [address] [place] [address]- Care Team Providers Care Side Stitcher Name Role Phone Michael Holcomb MD, Jessica Primary Care Physician [phone] [id number] Date(s): 02/28/25 - 04/29/25 [facility] [address] [place], [place] [address] Attending Physician: Travis Trujillo DO Referring Physician: Lionel Almaguer DPM Encounter Type: Pre Office Visit Allergies, Adverse Reactions, Alerts Substance Criticality Severity [...] Fills: 1 Fills Dispensed: 0 NuLYTELY Lemon [employer] oral powder for reconstitution See Instructions, 240 [...] Care team information Care Team Personnel Name: Michael Holcomb MD , Susana Willis Position: Reference Physician Member Role: PCP Address: [address] [place], [place] [address] [place] [address]- Telecom: Care Team Related Persons Name: RICO BARKER Name: ESTUARDO PARIS Insurance Providers Guarantor name: KATHERINE MJ Health Plan Information #: 1 Payer: [employer] Payer Identifier: NA Member Number: [id number] Group Number: [id number] Subscriber Identifier: [id number] Relationship to Subscriber: self Coverage Type: Medicare Managed Care (Includes Medicare Advantage Plans) Coverage Verification Date: NA Telecom: NA Address: NA
--- NOTE | 2025-05-05 15:50 | MHC.OFFVIS ---
Vital Signs 05/05/25 15:51 Height 4 ft 10 in Weight 183 lb BMI 38.2 BP 124/68 Blood Pressure Location Rt brachial Position Sitting Pulse 82 Pulse Source Pulse Oximeter Pulse Oximetry (%) 96 Oxygen Delivery Method Room Air Intake Visit Reasons: 3m Intake Note: Est pt for mgmt of GERD + IBS. CC; Pt reports having a brief episode of epigastric / RUQ pain this week which she believes was related to her diet. She is doing well otherwise and confirms her current Rx are working as intended. New Car Make Ready Mechanic Required: No Accompanied by: Self / Same As Patient Allergies codeine (Codeine) Allergy (Severe, Verified 05/05/25 15:54) DIFFICULTY BREATHING albuterol Allergy (Intermediate, Verified 05/05/25 15:54) unknown adhesive (Adhesive) Allergy (Mild, Verified 05/05/25 15:54) RASH amlodipine (AMLODIPINE) Allergy (Mild, Verified 05/05/25 15:54) ITCHING clonidine (CLONIDINE) Allergy (Mild, Verified 05/05/25 15:54) sleepiness hydralazine (HYDRALAZINE) Allergy (Mild, Verified 05/05/25 15:54) dizziness Iodinated Contrast Media (IV Dye, Iodine Containing) Allergy (Mild, Verified 05/05/25 15:54) HIVES latex (LATEX) Allergy (Mild, Verified 05/05/25 15:54) RASH lisinopril (LISINOPRIL) Allergy (Mild, Verified 05/05/25 15:54) ITCHING oxybutynin (From Ditropan) Allergy (Mild, Verified 05/05/25 15:54) UNKNOWN doxazosin (DOXAZOSIN) Allergy (Unknown, Verified 05/05/25 15:54) PURITIS, pruritus hydrochlorothiazide (HYDROCHLOROTHIAZIDE) Allergy (Unknown, Verified 05/05/25 15:54) ITCHING, syncope losartan Allergy (Unknown, Verified 05/05/25 15:54) pruritus metoprolol (METOPROLOL) Allergy (Unknown, Verified 05/05/25 15:54) ITCHING metronidazole (From FLAGYL) Allergy (Unknown, Verified 05/05/25 15:54) VOMITING omeprazole (OMEPRAZOLE) Allergy (Unknown, Verified 05/05/25 15:54) RASH psyllium (Metamucil) Allergy (Unknown, Verified 05/05/25 15:54) diarrhea diltiazem Adverse Reaction (Intermediate, Verified 05/05/25 15:54) Palpitations HPI HPI 3m: Details: LAST VISIT: Chronic GERD GERD without esophagitis Chronic pancreatitis Chronic diarrhea Internal hemorrhoid Abdominal pain Plan Continue Nexium daily. Avoid dietary triggers and late night snacking. Staying upright for minimal 3 hours after meals discussed with patient. Continue Dulcolax and add stool softeners 1-2 capsules daily. Referral to General surgery to evaluate the need for possible hemorrhoidectomy per patient's request. Patient was encouraged to increase fluid intake and activity to promote better bowel motility. Continue using Proctosol as needed. Patient will return to the office in 3 months, sooner on as needed basis. Patient is agreeable to this plan and verbalizes understanding of instructions. She was given the opportunity to ask questions and all questions answered. ? Thank you for allowing me to participate in her care Referrals General Surgery Referral K64.8 TODAY'S VISIT Patient is here today for follow-up. Patient reports that she has been doing quite well. One episode of right upper quadrant pain, however patient reports that it was after she ate food that she was not supposed to. Patient otherwise is trying to do well. Avoids eating late at night. Currently she is moving her bowels better. Not taking any laxatives. Takes fiber daily. Patient denies any melena, hematochezia, unintentional weight loss or ribbon like stools. Patient denies any dyspepsia, dysphagia or odynophagia. She is taking Nexium daily. Reports that she has no acid reflux. Patient denies any GI symptoms. [facility] Medical History Internal hemorrhoid Obesity (BMI 30-39.9) Depression Allergic rhinitis GERD without esophagitis Vitamin D deficiency HTN (hypertension) Chronic pancreatitis Postmenopausal bleeding Polyarthralgia History of breast cancer Obese Thyroid nodule Hypovitaminosis D Essential hypertension Breast implant status Surgical History Hx of total mastectomy of right breast (2004) Hx of total mastectomy of left breast (1985) History of biopsy History of suburethral sling procedure H/O esophagogastroduodenoscopy Hx of colonoscopy History of breast reconstruction History of appendectomy History of breast surgery History of breast biopsy History of tubal ligation History of carpal tunnel release History of cholecystectomy Family History Father Prostate cancer Mother Ovarian cancer Chronic mental illness Mental health disorder Paternal Aunt Cancer Family/Other FH: mental illness Mental health disorder Social History Household Members: None Housing: Apartment Are you a primary assurance services manager health care to a significant other at home: No Do you presently have visiting nurse or other home services: Yes Alcohol intake: current Alcohol intake frequency: holidays/special occasions only Patient Tobacco Use Status: Never used Tobacco e-Cigarette/Vaping Use: Never Used Second Hand Smoke Exposure: No service: No Current occupational status: unemployed Cognitive needs: Yes Hearing needs: No Vision needs: No Female Reproductive History Menstrual Date of menopause: 05/09/05 Review of Systems Const Denies weight gain and Denies weight loss ENT Reports no additional complaints, Denies dysphagia and Denies odynophagia Card Reports no additional complaints Resp Reports no additional complaints GI Denies abdominal pain, Denies belching, Denies melena, Reports bloating, Reports hematochezia (When wiping after bowel movement), Denies change in bowel habits, Denies dysphagia, Denies excessive flatus, Denies dyspepsia, Denies heartburn, Denies diarrhea, Denies loose stools, Denies nausea, Denies odynophagia and Denies vomiting Reports no additional complaints Musc Reports no additional complaints Neuro Reports no additional complaints Psych Reports no additional complaints Endo Reports no additional complaints Physical Exam Vital Signs: Last Vital Signs Pulse 82 05/05/25 15:51 BP 124/68 05/05/25 15:51 Pulse Ox 96 05/05/25 15:51 Oxygen Delivery Method Room Air 05/05/25 15:51 BMI result Body Mass Index 38.2 Const General: healthy appearing and no acute distress Nutritional Appearance: obese Orientation/consciousness: patient oriented x3 Resp Effort & Inspection: normal respiratory effort, able to speak in complete sentences, no tracheal deviation and symmetric chest movement Auscultation: clear to auscultation bilaterally Cardio Rate: regular rate GI Inspection: Yes normal to inspection, No distended and Yes obesity Palpation (GI): Soft to palpation, not firm, nontender and No hepatosplenomegaly present Auscultation: normal bowel sounds General: Yes no CVA tenderness Back/Spine/Pelvis Back: no CVA tenderness Skin General skin exam: elasticity normal, turgor normal and dry skin Neuro General: patient oriented x3 Psych Appearance: grossly normal Mental Status: mental status grossly normal Assessment & Plan Assessment & Plan (1) Chronic GERD: Code(s): K21.9 - Gastro-esophageal reflux disease without esophagitis Category: Medical (2) Acute pancreatitis: Code(s): K85.90 - Acute pancreatitis without necrosis or infection, unspecified Category: Medical Qualifiers: Pancreatitis type: unspecified pancreatitis type Acute pancreatitis complication: no infection or necrosis Qualified Code(s): K85.90 - Acute pancreatitis without necrosis or infection, unspecified (3) Chronic pancreatitis: Code(s): K86.1 - Other chronic pancreatitis Category: Medical Qualifiers: Pancreatitis type: unspecified pancreatitis type Qualified Code(s): K86.1 - Other chronic pancreatitis (4) Internal hemorrhoid: Code(s): K64.8 - Other hemorrhoids Category: Medical (5) IBS (irritable bowel syndrome): Code(s): K58.9 - Irritable bowel syndrome, unspecified Category: Medical Qualifiers: Irritable bowel syndrome type: with both diarrhea and constipation Qualified Code(s): K58.2 - Mixed irritable bowel syndrome Plan Patient will continue taking omeprazole daily. Avoid dietary triggers and late night snacking. Staying upright for minimum 3 hours after meals discussed with patient. Patient will increase fiber intake. May take MiraLax [id number] if necessary. Patient was encouraged to continue low-fat, low carb and high-protein diet. Follow-up in the office in 4 months, sooner on as needed basis. She is agreeable to this plan and verbalizes understanding of instructions. She was given the opportunity to ask questions and all questions answered. Thank you for allowing me to participate in her care Medications: Refilled esomeprazole magnesium 40 mg PO DAILY 90 caps 2RF 90 days K21.9 - Gastro-esophageal reflux disease without esophagitis Coding Level of Care Code Est Pt Level 3 (96413) Diagnoses Chronic GERD K21.9 Acute pancreatitis without infection or necrosis, unspecified pancreatitis type K85.90 Pancreatitis type: unspecified pancreatitis type Acute pancreatitis complication: no infection or necrosis Chronic pancreatitis, unspecified pancreatitis type K86.1 Pancreatitis type: unspecified pancreatitis type Internal hemorrhoid K64.8 Irritable bowel syndrome with both constipation and diarrhea K58.2 Irritable bowel syndrome type: with both diarrhea and constipation Time Spent (min) 30 Comment 20 minutes spent with patient and additional 10 minutes spent reviewing her records
[2025-05-05 15:51] VITALS: BP 124/68; PULSE 82; O2SAT 96; BMI 38.2
--- OUTSIDE RECORDS SUMMARY | 2025-05-05 18:34 | XMS_ITS | Clinical Summary ---
Author Organization [facility] Address [address] [place] [address] Phone Care Team Providers Care Delivery Stock Clerk Name Role Phone Reese Ragland MD Primary Care Provider [phone] Allergies Active Allergy Reactions Criticality Noted Date [...] day Active ergocalciferol (VITAMIN D2) 1.25 MG (54475 UT) capsule 1 Active esomeprazole (NexIUM) 40 [...] DAY NEEDED FOR HEMORRHOIDS 2 Active Creon 55944-75799 units capsule TAKE 1 CAP ORALLY 4 [...] Visit [facility] the [address] [place] [address] Skinny Awan MD [address] [address] Health Maintenance Due Date Last Done Comments Breast Cancer Screening 1955 Pneumococcal Vaccine: 50+ Ye ars (1 of 2 - PCV) 1972 Colorectal Cancer Screening: Annual FOBT 2002 Colorectal Cancer Screening: Colonoscopy 2002 Colorectal Cancer Screening: Sigmoidoscopy 2002 Influenza Vaccine (#1) 2025 Hepatitis B Vaccine Aged Out No longe r eligible based on patient's age to complete this topic Insurance ([id number]) [place] [address] ([id number]) Care Teams Delivery Stock Clerk Relationship Specialty Start Date End Date Reese Ragland MD [address] [place] PCP - General 07/11/20
--- OUTSIDE RECORDS SUMMARY | 2025-05-05 18:34 | XMS_ITS | Patient Health Record ---
Author [facility] Address [address] [place] [address] Care Team Providers Care Lens Edge Grinder Machine Name Role Phone Alan ROBERTSON, Susana Primary Care Provider Unavail able Patrick Mcnally Unavailable [phone] Allergies Allergen (clinical drug ingredient) Drug/Non Drug [...] Duration: 30 day(s) Active Ergocalciferol 1.25 MG (71312 UT) 1 capsule Orally; Duration: 30 day(s) [...] Insured Coverage Start Date Coverage End Date [facility] [employer] Claims [id number] [place] [id number] Serenity Tena Self - patient is the [...]
--- OUTSIDE RECORDS SUMMARY | 2025-05-05 18:34 | XMS_ITS | Patient Health Record ---
Author Organization [facility] Address [address] [place] [address] Care Team Providers Care Fiberglass Quality Technician Name Role Phone Po Jay ROBERTSON Primary Care Provider Bunny Reece [phone] Reason For Referral No Information Plan Of Treatment No Information Insurance Providers Payer Name Payer Address Payer Phone Subscriber Number Group Number Insured Name Patient Relationship to Insured Coverage Start Date Coverage End Date MEDICAID OF [facility] [address] [place] [phone] [id number] KATHERINE BARKER Self - patient is the insured
--- OUTSIDE RECORDS SUMMARY | 2025-05-05 18:34 | XMS_ITS | Encounter Summary ---
Author Organization [facility] Address [address] [facility] [address] [place] [address] Phone Care Team Providers Care Community Resource Consultant Name Role Phone Reese Ragland MD Primary Care Provider [phone] Reason for Visit * Reason Comments Med Refill Encounter Details Date Type Department Care Team ([facility] Contact Info) Description 07/26/2024 Refill [facility] [address] [place] [place] [address] Skinny Awan MD [facility] [address] [address] Social History Tobacco Use Types [...] Upcoming Encounters Date Type Department Care Team ([facility] Contact Info) Description 11/04/2025 3:00 PM EDT Office Visit [facility] [address] [place] [address] Skinny Awan MD [address] [facility] [address] [place] [address] documented as of this encounter Visit Diagnoses Not on filedocumented in this encounter Care Teams Community Resource Consultant Relationship Specialty Start Date End Date Reese Ragland MD [address] [place] PCP - General 07/11/20 documented as of this encounter
--- OUTSIDE RECORDS SUMMARY | 2025-05-05 18:34 | XMS_ITS | Clinical Summary ---
Author Organization 175 [facility] Address [address] [place] [address] Phone Care Team Providers Care Booking Police Officer Name Role Phone Susana Holcomb MD Primary Care Provider [phone] Allergies Active Allergy Reactions Criticality Noted Date [...] Care Team Description 03/29/2025 Telephone Orthopedic Surgery [place] [address] [phone] Beatrice Siddiqui 02/24/2025 Telephone Orthopedic Surgery [facility] [address] [phone] Lionel Almaguer DPM from Last 3 Months [...] 07/16/2025 9:15 AM EST Hospital Encounter [facility] Main OR [address] [place] [phone] Lionel Almaguer DPM [address] [phone] 07/16/2025 9:15 AM EST - 07/16/2025 10:45 AM EST Surgery [facility] Main OR [address] [place] [phone] Lionel Almaguer DPM [address] [address] EXCISION LESION SOFT TISSUE RIGHT FOOT [45220 (CPT )] Scheduled Procedures Name Priority Associated [...] Plan Autogenerated Problem No Lionel Almaguer DPM Additional Health Concerns Active Problems Noted Date Diagnosed Date Autogenerated Problem 03/29/2025 Insurance [facility] MEDICARE Member Subscriber Plan / Payer (Ef fective 2018-Present) Name:Serenity Tena Relation to Subscriber:Self Name:Serenity Tena Payer ID:[id number] Group ID:[id number] Type:Not on file Address: [place] [address] [place] [address] Care Teams Booking Police Officer Relationship Specialty Start Date End Date Susana Holcomb MD [address] [place] [address] , [address] [facility] D/B/A: [facility] [place], [place] PCP - General 12/27/16
== END 2025-05-05 16:20 | disposition home or self-care (01) ==
LOC: HO.HGI 15:48
PROVIDERS: PCP Internal Medicine; Visit Provider Nurse Practitioner Family
DX: K21.9 Gastro-esophageal reflux disease without esophagitis (principal); K85.90 Acute pancreatitis without necrosis or infection, unspecified; K86.1 Other chronic pancreatitis; K64.8 Other hemorrhoids; K58.2 Mixed irritable bowel syndrome
CPT/HCPCS: 99213

== ENCOUNTER → 2025-05-05 15:47 | Outpatient (BNVA) | payer OTHER, SELFPAY | PROVIDERS: PCP Internal Medicine; Visit Provider Nurse Practitioner Family | DX: K21.9 Gastro-esophageal reflux disease without esophagitis (principal); K85.90 Acute pancreatitis without necrosis or infection, unspecified; K86.1 Other chronic pancreatitis; K58.2 Mixed irritable bowel syndrome; K64.8 Other hemorrhoids | CPT/HCPCS: 99212 ==

== ENCOUNTER 2025-06-01 10:38 | Outpatient (REF) | payer OTHER, SELFPAY ==
[2025-06-01 10:51] LABS: MANUAL DIFF FLAG NO
[2025-06-01 11:01] LABS: Hematocrit 44.4 % (37.0-47.0); Hemoglobin 14.3 g/dl (12.0-16.0); Imm Gran Abs Auto 0.03 X10*3/uL (0.00-0.03); Imm Gran Pct Auto 0.4 % (0.0-0.4); Lymphocytes Absolute Auto 2.4 X10*3/uL (1.2-4.9); Mean Corpuscular HGB Conc 32.2 g/dl (31.0-35.0); Mean Corpuscular Hemoglobin 28.5 pg (27.0-33.0); Mean Corpuscular Volume 88.6 fL (80.0-98.0); NRBC Abs Auto 0.000 X10*3/uL (0.0-0.012); NRBC Pct Auto 0.0 /100WBC (0.0-0.2); Platelet Count 240 X10*3/uL (160-400); Red Blood Count 5.01 X10*6/uL (4.20-5.50); White Blood Count 8.2 X10*3/uL (4.8-10.8)
[2025-06-01 11:57] LABS: Alanine Aminotransferase 17 U/L (0-31); Albumin Level 4.5 g/dL (3.5-5.0); Alkaline Phosphatase 98 U/L (39-117); Anion Gap 16 (12-20); Aspartate Amino Transferase 27 U/L (5-31); Blood Urea Nitrogen 17 mg/dL (9-16); Calcium 10.0 mg/dL (8.4-10.2); Carbon Dioxide 28 mmol/L (22-29); Chloride 106 mmol/L (96-108); Cholesterol 214 mg/dL (<200); Estimated Glomerular Filt Rate 59; HDL Cholesterol 56 mg/dL (>40); Iron 98 mcg/dL (30-160); Percent Iron Saturation 34 % (15-50); Potassium 4.6 mmol/L (3.3-5.1); Sodium 145 mmol/L (135-145); Total Iron Binding Capacity 291 mcg/dL (228-428); Total Protein 7.5 g/dL (6.5-8.0); Triglycerides 129 mg/dL (<150); Unsaturated Iron Binding 193 ug/dL
--- OUTSIDE RECORDS SUMMARY | 2025-06-01 12:25 | XMS_ITS | Clinical Summary ---
Author Organization [address] [facility] Address [address] [place] [address] Phone Care Team Providers Care Carbon Blocks Press Operator Name Role Phone Susana Holcomb MD Primary Care Provider [phone] Allergies Active Allergy Reactions Criticality Noted Date [...] Care Team Description 03/29/2025 Telephone Orthopedic Surgery [place] [address] [address] Beatrice Siddiqui from Last 3 Months Social History Tobacco [...] Description 07/16/2025 9:15 AM EST Hospital Encounter [facility] Main OR [address] [place] [phone] Lionel Almaguer, DPM [address] [address] 07/16/2025 9:15 AM EST - 07/16/2025 10:45 AM EST Surgery [facility] Main OR [address] [place] [address] Lionel Almaguer, DPM 175 [facility] [address] [place] [address] EXCISION LESION SOFT TISSUE RIGHT FOOT [06530 (CPT )] Scheduled Procedures Name Priority Associated [...] Care Plan Autogenerated Problem No Lionel Almaguer DPAlba Additional Health Concerns Active Problems Noted Date Diagnosed Date Autogenerated Problem 03/29/2025 Insurance [facility] MEDICARE Member Subscriber Plan / Payer (Ef fective 2018-Present) Name:Serenity Tena Relation to Subscriber:Self Name:Serenity Tena Payer ID:[id number] Group ID:[id number] Type:Not on file Address: [place] [address] [place] [address] Care Teams Carbon Blocks Press Operator Relationship Specialty Start Date End Date Susana Holcomb MD [address] [place] [address] , [address] [facility] D/B/A: [facility] [place] PCP - General 12/27/16
[2025-06-01 12:28] LABS: Folate 13.9 ng/mL (> or = 4.0); Vitamin B12 301 pg/mL (200-900)
== END 2025-06-01 10:39 | disposition home or self-care (01) ==
LOC: HO.LAB 10:38
PROVIDERS: PCP Internal Medicine; Visit Provider Internal Medicine
DX: Z00.00 Encounter for general adult medical examination without abnormal findings (principal); E53.8 Deficiency of other specified B group vitamins; E78.5 Hyperlipidemia, unspecified; E55.9 Vitamin D deficiency, unspecified; D64.9 Anemia, unspecified
CPT/HCPCS: 36415; 80053; 80061; 82306; 82607; 82746; 83540; 85025

== ENCOUNTER 2025-06-03 14:05 | Outpatient (AMB) | payer OTHER, SELFPAY ==
--- NOTE | 2025-06-03 14:07 | MHC.OFFVIS ---
Vital Signs 06/03/25 14:13 Height 4 ft 10 in Weight 183 lb 4 oz BMI 38.3 Intake Visit Reasons: hemorrhoids Intake Note: Patient presents for an assessment for hemorrhoids. Pt c/o; Hx colitis, reports rectal bleeidng, reports her last colonoscopy was 3 years ago and she will be due for a recall in the next 2 years. Transport Coordinator Required: No Accompanied by: Self / Same As Patient Allergies codeine (Codeine) Allergy (Severe, Verified 06/03/25 14:14) DIFFICULTY BREATHING albuterol Allergy (Intermediate, Verified 06/03/25 14:14) unknown adhesive (Adhesive) Allergy (Mild, Verified 06/03/25 14:14) RASH amlodipine (AMLODIPINE) Allergy (Mild, Verified 06/03/25 14:14) ITCHING clonidine (CLONIDINE) Allergy (Mild, Verified 06/03/25 14:14) sleepiness hydralazine (HYDRALAZINE) Allergy (Mild, Verified 06/03/25 14:14) dizziness Iodinated Contrast Media (IV Dye, Iodine Containing) Allergy (Mild, Verified 06/03/25 14:14) HIVES latex (LATEX) Allergy (Mild, Verified 06/03/25 14:14) RASH lisinopril (LISINOPRIL) Allergy (Mild, Verified 06/03/25 14:14) ITCHING oxybutynin (From Ditropan) Allergy (Mild, Verified 06/03/25 14:14) UNKNOWN doxazosin (DOXAZOSIN) Allergy (Unknown, Verified 06/03/25 14:14) PURITIS, pruritus hydrochlorothiazide (HYDROCHLOROTHIAZIDE) Allergy (Unknown, Verified 06/03/25 14:14) ITCHING, syncope losartan Allergy (Unknown, Verified 06/03/25 14:14) pruritus metoprolol (METOPROLOL) Allergy (Unknown, Verified 06/03/25 14:14) ITCHING metronidazole (From FLAGYL) Allergy (Unknown, Verified 06/03/25 14:14) VOMITING omeprazole (OMEPRAZOLE) Allergy (Unknown, Verified 06/03/25 14:14) RASH psyllium (Metamucil) Allergy (Unknown, Verified 06/03/25 14:14) diarrhea diltiazem Adverse Reaction (Intermediate, Verified 06/03/25 14:14) Palpitations Medication List - Last Reconciled 06/03/25 by Stephen Motta MD acetaminophen ER 650 mg PO Q8H PRN 30 days [adult diapers pull-ups Use 1 diaper four times a day] cholecalciferol (vitamin D3) 50 mcg (2 x 25 mcg (1,000 unit)) PO DAILY 90 days diclofenac sodium 1% (Voltaren Arthritis Pain) 2 grams topical BID esomeprazole magnesium 40 mg PO DAILY 90 days hydrocortisone 2.5% (Proctosol HC) 1 appl DE BID-QID PRN incontinence pad, liner, disp As directed lidocaine 5% 1 appl topical QID PRN 15 days loratadine 10 mg PO DAILY olmesartan 40 mg PO DAILY sertraline 25 mg PO DAILY 90 days simethicone (Gas Relief (simethicone)) 125 mg PO TID-QID PRN spironolactone 25 mg PO DAILY triamcinolone acetonide 0.5% 1 appl topical BID PRN 30 days underpads (Bed Underpads) Use 5 pads per day prn walker (Ultra-Light Rollator misc) As directed [wipes Use 10 wipes per day prn] HPI HPI hemorrhoids: Details: [age] year old female referred for bleeding hemorrhoids. She has a long history of IBS. She says that she has had this for over 30 years. She describes frequent bowel movements, 5-10 times a day, often times very loose. She would therefore see small amounts of blood on wiping periodically. She says that this has not a lot. She denies any problems with anal pain or swelling. She is following the math coach because of her chronic GI problems. [facility] Medical History (Updated 06/03/25 @ 14:25 by Stephen Motta MD) Bleeding hemorrhoids Internal hemorrhoid Obesity (BMI 30-39.9) Depression Allergic rhinitis GERD without esophagitis Vitamin D deficiency HTN (hypertension) Chronic pancreatitis Postmenopausal bleeding Polyarthralgia History of breast cancer Obese Thyroid nodule Hypovitaminosis D Essential hypertension Breast implant status Surgical History Hx of total mastectomy of right breast (2004) Hx of total mastectomy of left breast (1985) History of biopsy History of suburethral sling procedure H/O esophagogastroduodenoscopy Hx of colonoscopy History of breast reconstruction History of appendectomy History of breast surgery History of breast biopsy History of tubal ligation History of carpal tunnel release History of cholecystectomy Family History Father Prostate cancer Mother Ovarian cancer Chronic mental illness Mental health disorder Paternal Aunt Cancer Family/Other FH: mental illness Mental health disorder Social History Household Members: None Housing: Apartment Are you a primary animal care supervisor to a significant other at home: No Do you presently have visiting nurse or other home services: Yes Alcohol intake: current Alcohol intake frequency: holidays/special occasions only Patient Tobacco Use Status: Never used Tobacco e-Cigarette/Vaping Use: Never Used Second Hand Smoke Exposure: No service: No Current occupational status: unemployed Cognitive needs: Yes Hearing needs: No Vision needs: No Female Reproductive History Menstrual Date of menopause: 05/09/05 Review of Systems Const Denies chills and Denies fever(s) Card Denies chest pain, Denies dyspnea and Denies dyspnea on exertion Resp Denies cough, Denies dyspnea and Denies dyspnea on exertion GI Reports hematochezia, Denies change in bowel habits and Reports diarrhea Denies hematuria Musc Denies back pain and Denies limited range of motion Neuro Denies focal weakness and Denies convulsions Psych Denies depression and Denies mood swings Physical Exam Vital Signs: BMI result Body Mass Index 38.3 Const General: comfortable and no acute distress Orientation/consciousness: patient oriented x3 Neck Neck: Yes no lymphadenopathy Resp Auscultation: clear to auscultation bilaterally Cardio Rhythm: regular rhythm GI Other: Rectal exam shows small external hemorrhoids Palpation (GI): Soft to palpation, nontender and no guarding Neuro General: patient oriented x3 Office Procedures Anoscopy She was in kneeling estefania-knife position. The anoscope was gently inserted. A full examination of the anal canal was done. She did have some prominent internal hemorrhoids with no bleeding. There were no other lesions. There was no fissure or ulceration. There was no induration on digital exam. [id number] Assessment & Plan Assessment & Plan (1) Bleeding hemorrhoids: Code(s): K64.9 - Unspecified hemorrhoids Category: Medical Plan: She describes the small amounts of blood on wiping currently. This is likely outlet bleeding from her internal hemorrhoids. She does have a long history of IBS and this is likely to be contributory to her problems. I explained to her that frequent bowel movements may be irritating her hemorrhoids causing these to bleed I told her that at this time, in view of her minimal symptoms, not recommend any hemorrhoidectomy. However, she may benefit from rubber band ligation of the internal hemorrhoids at some point if her bleeding becomes worse I told her therefore to come back to the office to visit again to be re-evaluated at some point in the future. She understands the plan and is comfortable with this. Coding Level of Care Code New Pt Level 3 (10820) Diagnoses Bleeding hemorrhoids K64.9 CPT Codes Details - CPT: 97791-Emazzajn ([id number])
[2025-06-03 14:13] VITALS: BMI 38.3
--- OUTSIDE RECORDS SUMMARY | 2025-06-03 19:28 | XMS_ITS | Clinical Summary ---
Author Organization [facility] Address [address] [place] [address] Phone Care Team Providers Care Chiropractor Sole Practitioner Name Role Phone Reese Ragland MD Primary [...] day Active ergocalciferol (VITAMIN D2) 1.25 MG (93447 UT) capsule 1 Active esomeprazole (NexIUM) 40 [...] DAY NEEDED FOR HEMORRHOIDS 2 Active Creon 96756-09607 units capsule TAKE 1 CAP ORALLY 4 [...] [facility] the [address] [place] [address] Skinny Awan MD [address] [address] Health Maintenance Due Date Last Done Comments Breast Cancer Screening 1955 Pneumococcal Vaccine: 50+ Ye ars (1 of 2 - PCV) 1972 Colorectal Cancer Screening: Annual FOBT 2002 Colorectal Cancer Screening: Colonoscopy 2002 Colorectal Cancer Screening: Sigmoidoscopy 2002 Influenza Vaccine (#1) 2025 Hepatitis B Vaccine Aged Out No longe r eligible based on patient's age to complete this topic Insurance ([id number]) [place] [address] ([id number]) Care Teams Chiropractor Sole Practitioner Relationship Specialty Start Date End Date Reese Ragland MD [address] [place] PCP - General 07/11/20
--- OUTSIDE RECORDS SUMMARY | 2025-06-03 19:28 | XMS_ITS | Patient Health Record ---
Author Organization [facility] Address [address] [place] [address] Care Team Providers Care Supervisor Looping Name Role Phone Alan ROBERTSON, Susana Primary Care Provider Unavail able Patrick Mcnally Unavailable [phone] Allergies Allergen (clinical drug ingredient) Drug/Non Drug [...] Duration: 30 day(s) Active Ergocalciferol 1.25 MG (66135 UT) 1 capsule Orally; Duration: 30 day(s) [...] Insured Coverage Start Date Coverage End Date [facility] SCO Claims [id number] [place] [id number] Serenity Tena Self - patient is the [...]
--- OUTSIDE RECORDS SUMMARY | 2025-06-03 19:28 | XMS_ITS | Patient Health Record ---
Author Organization [facility] Address [address] [place] [address] Care Team Providers Care Emergency Medicine Specialist Name Role Phone Po Jay ROBERTSON Primary Care Provider Bunny Reece [phone] Reason For Referral No Information Plan Of Treatment No Information Insurance Providers Payer Name Payer Address Payer Phone Subscriber Number Group Number Insured Name Patient Relationship to Insured Coverage Start Date Coverage End Date MEDICAID OF [facility] [address] [place] [address] [phone] [id number] KATHERINE BARKER Self - patient is the insured
--- OUTSIDE RECORDS SUMMARY | 2025-06-03 19:28 | XMS_ITS | Encounter Summary ---
Author Organization [facility] Address [address] [place] [address] Phone Care Team Providers Care Card Doffer Name Role Phone Reese Ragland MD Primary Care Provider Reason for Visit * Reason Comments Med Refill Encounter Details Date Type Department Care Team ([facility] Contact Info) Description 07/26/2024 Refill [facility] [address] [place] [address] Skinny Awan MD [facility] [address] [address] Social History Tobacco Use Types [...] Upcoming Encounters Date Type Department Care Team ([facility] Contact Info) Description 11/04/2025 3:00 PM EDT Office Visit [facility] [address] [place] [address] Skinny Awan MD [address] [place] [address] documented as of this encounter Visit Diagnoses Not on filedocumented in this encounter Care Teams Card Doffer Relationship Specialty Start Date End Date Reese Ragland MD [address] [place] PCP - General 07/11/20 documented as of this encounter
--- OUTSIDE RECORDS SUMMARY | 2025-06-03 19:28 | XMS_ITS | Clinical Summary ---
Author Organization 175 [facility] Address [address] [place] [address] Phone Care Team Providers Care College Archivist Name Role Phone Susana Holcomb MD Primary Care Provider [phone] Allergies Active Allergy Reactions Criticality Noted Date [...] Team Description 03/29/2025 Telephone Orthopedic Surgery - [place] [address] [address] Beatrice Siddiqui from Last 3 [...] Description 07/16/2025 9:15 AM EST Hospital Encounter [facility] Main OR [address] [place] [address] Lionel Almaguer, DPM [address] [address] 07/16/2025 9:15 AM EST - 07/16/2025 10:45 AM EST Surgery [facility] Main OR [address] [place] [address] Lionel Almaguer, DPM 175 [facility] [address] [place] [address] EXCISION LESION SOFT TISSUE RIGHT FOOT [67199 (CPT )] Scheduled Procedures Name Priority Associated [...] ID:[id number] Group ID:[id number] Type:Not on file Address: [place] [address] [place] [address] Care Teams College Archivist Relationship Specialty Start Date End Date Susana Holcomb MD [address] [place] [address] , [address] [facility] D/B/A: [facility] GREG Valles PCP - General 12/27/16
== END 2025-06-03 14:22 | disposition home or self-care (01) ==
LOC: HO.HGS 14:06
PROVIDERS: PCP Internal Medicine; Visit Provider Surgery
DX: K64.9 Unspecified hemorrhoids (principal)
CPT/HCPCS: 46600; 99203

== ENCOUNTER → 2025-06-03 14:05 | Outpatient (BNVA) | payer OTHER, SELFPAY | PROVIDERS: PCP Internal Medicine; Visit Provider Surgery | DX: K64.8 Other hemorrhoids (principal); K58.9 Irritable bowel syndrome, unspecified | CPT/HCPCS: 46600; 99202 ==

== ENCOUNTER 2025-06-15 15:59 | Outpatient (AMB) | payer OTHER, SELFPAY ==
[2025-06-15 16:04] VITALS: BP 164/80; PULSE 77; RESP 16; TEMP 36.2; O2SAT 99
--- NOTE | 2025-06-15 16:04 | A.OFFPC_ITS ---
Vital Signs 06/15/25 16:04 06/15/25 16:55 Height 4 ft 10 in BP 164/80 H 138/88 Blood Pressure Location Rt brachial Lt brachial Position Sitting Respiration 16 Pulse 77 Pulse Source Pulse Oximeter Temp 97.1 F Temp Source Temporal Artery Scan Pulse Oximetry (%) 99 Oxygen Delivery Method Room Air Intake Visit Reasons: pe Intake Note: Patient is here to follow up on IBS, Low back pain. Snowboarding Instructor Required: No Cytotechnologist Supervisor: Present Accompanied by: MOISTURE CONDITIONER OPERATOR Allergies codeine (Codeine) Allergy (Severe, Verified 06/15/25 16:34) DIFFICULTY BREATHING albuterol Allergy (Intermediate, Verified 06/15/25 16:34) unknown adhesive (Adhesive) Allergy (Mild, Verified 06/15/25 16:34) RASH amlodipine (AMLODIPINE) Allergy (Mild, Verified 06/15/25 16:34) ITCHING clonidine (CLONIDINE) Allergy (Mild, Verified 06/15/25 16:34) sleepiness hydralazine (HYDRALAZINE) Allergy (Mild, Verified 06/15/25 16:34) dizziness Iodinated Contrast Media (IV Dye, Iodine Containing) Allergy (Mild, Verified 06/15/25 16:34) HIVES latex (LATEX) Allergy (Mild, Verified 06/15/25 16:34) RASH lisinopril (LISINOPRIL) Allergy (Mild, Verified 06/15/25 16:34) ITCHING oxybutynin (From Ditropan) Allergy (Mild, Verified 06/15/25 16:34) UNKNOWN doxazosin (DOXAZOSIN) Allergy (Unknown, Verified 06/15/25 16:34) PURITIS, pruritus hydrochlorothiazide (HYDROCHLOROTHIAZIDE) Allergy (Unknown, Verified 06/15/25 16:34) ITCHING, syncope losartan Allergy (Unknown, Verified 06/15/25 16:34) pruritus metoprolol (METOPROLOL) Allergy (Unknown, Verified 06/15/25 16:34) ITCHING metronidazole (From FLAGYL) Allergy (Unknown, Verified 06/15/25 16:34) VOMITING omeprazole (OMEPRAZOLE) Allergy (Unknown, Verified 06/15/25 16:34) RASH psyllium (Metamucil) Allergy (Unknown, Verified 06/15/25 16:34) diarrhea diltiazem Adverse Reaction (Intermediate, Verified 06/15/25 16:34) Palpitations Medication List - Last Reconciled 06/15/25 by Susana Holcomb MD acetaminophen ER 650 mg PO Q8H PRN 30 days [adult diapers pull-ups Use 1 diaper four times a day] cholecalciferol (vitamin D3) 50 mcg (2 x 25 mcg (1,000 unit)) PO DAILY 90 days diclofenac sodium 1% (Voltaren Arthritis Pain) 2 grams topical BID esomeprazole magnesium 40 mg PO DAILY 90 days hydrocortisone 2.5% (Proctosol HC) 1 appl AZ BID-QID PRN incontinence pad, liner, disp As directed lidocaine 5% 1 appl topical QID PRN 15 days loratadine 10 mg PO DAILY olmesartan 40 mg PO DAILY sertraline 25 mg PO DAILY 90 days simethicone (Gas Relief (simethicone)) 125 mg PO TID-QID PRN spironolactone 25 mg PO DAILY triamcinolone acetonide 0.5% 1 appl topical BID PRN 30 days underpads (Bed Underpads) Use 5 pads per day prn walker (Ultra-Light Rollator misc) As directed [wipes Use 10 wipes per day prn] Tobacco use date assessed: 06/15/25 Fall risk assessment: No Falls in past year Dental Screening Dental Screen Date: 06/15/25 Did you have a dental visit in the last 12 months?: Yes Did you have a dental problem in the last 6 months where you did not have access to dental care?: No Was dental information given to patient?: Patient has dentist HPI HPI Comments History of Present Illness Details The patient is a 70-year-old female presenting for an annual physical examination. She has a history of allergies or side effects to codeine, albuterol adhesive, amlodipine, clonidine, hydralazine, contrast dye, latex, lisinopril, oxybutynin, doxazosin, hydrochlorothiazide, losartan, metoprolol, Flagyl, and omeprazole. Current medications include Tylenol as needed, diapers for urinary incontinence, vitamin D, omeprazole for acid reflux, loratadine as needed for allergies, sertraline for depression with anxiety, olmesartan 40 mg for hypertension, and spironolactone 25 mg, which she takes later in the day. Her surgical history is significant for bilateral mastectomies, a vaginal biopsy, a bladder sling procedure, endoscopy, colonoscopy, appendectomy, cholecystectomy, tubal ligation, and right carpal tunnel release. Her mother had fallopian tube cancer, and her father had heart disease. Regarding health maintenance, her last tetanus vaccine was in 2008. A colonoscopy in 2022 was normal. A bone densitometry scan in August of this year showed osteopenia, for which she was advised to take calcium with vitamin D. The patient reports recent onset of difficulty walking and a limp since last , associated with symptoms radiating from her back to her feet, sometimes affecting one foot and sometimes the other. She has an upcoming CT scan scheduled for July 30 and is awaiting a referral to pain management. She also reports a recent episode of severe pain on Saturday, which she believed was a recurrence of pancreatitis. [facility] Medical History (Updated 06/15/25 @ 21:16 by Susana Holcomb MD) Bleeding hemorrhoids Internal hemorrhoid Obesity (BMI 30-39.9) Depression Allergic rhinitis GERD without esophagitis Vitamin D deficiency HTN (hypertension) Chronic pancreatitis Postmenopausal bleeding Polyarthralgia History of breast cancer Obese Thyroid nodule Hypovitaminosis D Essential hypertension Breast implant status Surgical History Hx of total mastectomy of right breast (2004) Hx of total mastectomy of left breast (1985) History of biopsy History of suburethral sling procedure H/O esophagogastroduodenoscopy Hx of colonoscopy History of breast reconstruction History of appendectomy History of breast surgery History of breast biopsy History of tubal ligation History of carpal tunnel release History of cholecystectomy Family History (Updated 06/15/25 @ 16:42 by Susana Holcomb MD) Father CAD (coronary artery disease) Mother Ovarian cancer Chronic mental illness Mental health disorder Paternal Aunt Cancer Family/Other FH: mental illness Mental health disorder Social History Household Members: None Housing: Apartment Are you a primary career coach to a significant other at home: No Do you presently have visiting nurse or other home services: Yes Alcohol intake: current Alcohol intake frequency: holidays/special occasions only Patient Tobacco Use Status: Never used Tobacco e-Cigarette/Vaping Use: Never Used Second Hand Smoke Exposure: No service: No Current occupational status: unemployed Cognitive needs: Yes Hearing needs: No Vision needs: No Female Reproductive History Menstrual Date of menopause: 05/09/05 Questionnaire PHQ-9 Over the last 2 weeks, how often have you been bothered by any of the following problems? 1. Little interest or pleasure in doing things: several days 2. Feeling down, depressed, or hopeless: several days 3. Trouble falling or staying asleep, or sleeping too much: not at all 4. Feeling tired or having little energy: several days 5. Poor appetite or overeating: not at all 6. Feeling bad about yourself - or that you are a failure or have let yourself or your family down: not at all 7. Trouble concentrating on things, such as reading the newspaper or watching television: not at all 8. Moving or speaking so slowly that other people could have noticed. Or the opposite - being so fidgety or restless that you have been moving around a lot more than usual: not at all 9. Thoughts that you would be better off or of hurting yourself in some way: not at all Total score: 3 Depression Screening Interpretation: Positive Depression Screening Follow-up: Existing condition, In treatment and Follow-up Visit Requested Depression Screening Done: Yes 29587 - PHQ-9 Billing: Yes Source: Developed by Drs. Bunny Dennis, Jimena Stock, Jarred Mclaughlin and colleagues, with an educational cruzito from [employer]. Thrive Questionnaire Date Thrive assessed: 06/15/25 I am a: Patient What is your living situation today?: I have a steady place to live Within the past 12 months, did the food you bought not last and you didn't have the money to get more?: I choose not to answer this question Within the past 12 months, did you worry whether your food would run out before you got money to buy more?: Never true Do you have trouble paying for medicines?: No Do you have trouble getting transportation to medical appointments?: No Do you have trouble paying your heating and electricity bill?: No Do you have trouble taking care of your child, family member or friend?: No Do you have trouble with day-to-day activities such as bathing, preparing meals, shopping, managing finances, etc.?: Yes Are you currently unemployed and looking for a job?: I choose not to answer this question Are you interested in more education?: I choose not to answer this question Please select the resources that you would like help with: None Currently or been in a relationship where the following occur: I choose not to answer THRIVE Score: 0 AUDIT C Alcohol Use Questionnaire (AUDIT-C) 1. How often do you have a drink containing alcohol?: Never Total Score: 0 Score Reviewed/Action Taken: No VENESSA-7 AMB Questionnaire VENESSA-7 Date VENESSA - 7 assessed: 06/15/25 Feeling nervous, anxious, or on edge: 0 = Not at all Not being able to stop or control worryin = Not at all Worrying too much about different things: 0 = Not at all Trouble relaxin = More than half the days Being so restless that it is hard to sit still: 2 = More than half the days Becoming easily annoyed or irritable: 0 = Not at all Feeling afraid as if something awful might happen: 0 = Not at all Total VENESSA-7 score (0-4 normal; 5-9 mild; 10-14 moderate; 15-21 severe): 4 Source: Developed by Drs. Bunny Dennis, Jimena Stock, Jarred Mclaughlin and colleagues, with an educational cruzito from [employer]. VENESSA-7 Assessment Billing VENESSA-7 Assessment Tool: VENESSA-7 Assessment 62243 Review of Systems Const All systems reviewed & are unremarkable except as noted in HPI and below Card Denies chest pain at rest, Denies chest pain with activity, Denies edema, Denies irregular heart rhythm, Denies claudication, Denies dyspnea, Denies dyspnea on exertion, Denies orthopnea, Denies paroxysmal nocturnal dyspnea and Denies slow heart rate Resp Denies cough, Denies dyspnea and Denies dyspnea on exertion Physical exam (Primary Care) Vital Signs: Last Vital Signs Temp 97.1 F 06/15/25 16:04 Pulse 77 06/15/25 16:04 Resp 16 06/15/25 16:04 BP 138/88 06/15/25 16:55 Pulse Ox 99 06/15/25 16:04 Oxygen Delivery Method Room Air 06/15/25 16:04 Tobacco/Smoking Status: Tobacco use Status Tobacco use date assessed 06/15/25 06/15/25 16:11 Patient Tobacco Use Status Never used Tobacco 06/15/25 16:11 e-Cigarette/Vaping Use Never Used 06/15/25 16:11 PHQ-9: PHQ-9 Score PHQ-9: Total score 3 06/15/25 16:36 Depression Screening Interpretation: Positive Depression Screening Follow-up: Existing condition, In treatment and Follow-up Visit Requested Thrive Assessment: Date of Thrive Assessment Date Thrive assessed 06/15/25 06/15/25 16:11 Currently or been in a relationship where the following occur: I choose not to a [facility] Head: Yes normal to inspection, Yes normocephalic and Yes atraumatic Ears: external ears normal Eyes General: appearance normal, both eyes and all related structures Eyelids: Yes eyelids normal Conjunctivae: conjunctivae normal Neck Neck: Yes normal visual inspection and Yes supple Resp Effort & Inspection: normal respiratory effort Auscultation: clear to auscultation bilaterally Cardio Jugular venous distension: no JVD Rate: regular rate Rhythm: regular rhythm Heart sounds: S1 normal heart sound present and S2 normal heart sound present GI Inspection: Yes normal to inspection Palpation (GI): Soft to palpation and nontender Auscultation: normal bowel sounds Skin General skin exam: no rashes or lesions noted Neuro General: no focal motor deficits Extrem General: Yes full ROM Psych Appearance: grossly normal Coding Level of Care Code Est Pt Level 3 (89811) Est Pt Prev Care >65y(41881) Diagnoses Physical exam Z00.00 Bilateral sciatica M54.31; M54.32 Vaginal irritation N89.8 Additional Codes VENESSA-7 Assessment Billing - VENESSA-7 Assessment Tool: VENESSA-7 Assessment 49372 ([id number]) PHQ-9 - 22403 - PHQ-9 Billing: Yes ([id number]) Time Spent (min) 34 Assessment & Plan Assessment & Plan (1) Physical exam: Code(s): Z00.00 - Encounter for general adult medical examination without abnormal findings Category: Medical (2) Bilateral sciatica: Code(s): M54.31 - Sciatica, right side; M54.32 - Sciatica, left side Category: Medical (3) Vaginal irritation: Code(s): N89.8 - Other specified noninflammatory disorders of vagina Category: Medical Plan Plan 1. Physical exam Repeat in a year. She decline all vaccines today. 2. Hypercholesterolemia The patient's total cholesterol is elevated at 214. Her calculated 10-year Agenda Risk Score for a cardiovascular event is 11.1%, which is above the 6% threshold for initiating medication. A low-dose statin will be prescribed to be taken at night to lower her cholesterol. Dietary modifications were discussed, including avoiding fried foods and egg yolks, and increasing fiber intake with cereal. 3. Vaginal Irritation The patient reports vaginal irritation and itching, likely secondary to using incontinence products. A cream will be prescribed for this issue. 4. Lumbago With Sciatica The patient reports difficulty walking and foot pain, which is believed to be referred pain from a nerve issue in her lumbar spine. She has a CT of the lumbar spine scheduled for July 30. A referral to physical medicine/physiotherapy will be placed while she awaits a pain management consultation. Orders: Orders Lipid Panel 4 Months E78.5 - Hyperlipidemia, unspecified Comprehensive [place]. Panel Fast 4 Months I10 - Essential (primary) hypertension Referrals Pain Management Referral M54.31 - Sciatica, right side, M54.32 - Sciatica, left side Medications: New estradiol 0.01%(0.1mg/gram) (Estrace) 1 g vaginal QWEEK 42.5 grams 1RF 30 days Refilled triamcinolone acetonide 0.5% 1 appl topical BID PRN 15 grams 3RF Rash 30 days
[2025-06-15 16:55] VITALS: BP 138/88
--- OUTSIDE RECORDS SUMMARY | 2025-06-15 20:05 | XMS_ITS | Patient Health Record ---
Author [facility] Address [address] [place] [address] Care Team Providers Care Pot Pusher Name Role Phone Alan ROBERTSON, Susana Primary Care Provider Unavail able Patrick Mcnally Unavailable [phone] Allergies Allergen (clinical drug ingredient) Drug/Non Drug [...] Duration: 30 day(s) Active Ergocalciferol 1.25 MG (80072 UT) 1 capsule Orally; Duration: 30 day(s) [...] Coverage Start Date Coverage End Date [facility] SCO Claims [id number] [place] [id number] Serenity Tena Self - patient is the [...]
--- OUTSIDE RECORDS SUMMARY | 2025-06-15 20:05 | XMS_ITS | Patient Health Record ---
Author Organization [facility] Address [address] [place] [address] Care Team Providers Care Account Resolution Expert Name Role Phone Po Jay ROBERTSON Primary Care Provider Bunny Reece [phone] Reason For Referral No Information Plan Of Treatment No Information Insurance Providers Payer Name Payer Address Payer Phone Subscriber Number Group Number Insured Name Patient Relationship to Insured Coverage Start Date Coverage End Date MEDICAID OF [facility] [address] [place] [address] [phone] [id number] KATHERINE BARKER Self - patient is the insured
--- OUTSIDE RECORDS SUMMARY | 2025-06-15 20:05 | XMS_ITS | Clinical Summary ---
Author Organization 175 [facility] Address [address] [place] [address] Phone Care Team Providers Care Row Boss Name Role Phone Susana Holcomb MD Primary Care Provider [phone] Allergies Active Allergy Reactions Criticality Noted Date [...] Team Description 03/29/2025 Telephone Orthopedic Surgery - [place] [address] [address] Beatrice Siddiqui from Last 3 [...] Description 07/16/2025 9:15 AM EST Hospital Encounter [facility] Main OR [address] [place] [address] Lionel Almaguer, DPM [address] [address] 07/16/2025 9:15 AM EST - 07/16/2025 10:[address] [facility] Main [place] [address] [place] [address] Lionel Almaguer, DPM 175 [facility] [address] [place] [address] EXCISION LESION SOFT TISSUE RIGHT FOOT [18561 (CPT )] Scheduled Procedures Name Priority Associated [...] ID:[id number] Group ID:SCO Type:Not on file Address: [place] [address] [place] [address] Care Teams Row Boss Relationship Specialty Start Date End Date Susana Holcomb MD [address] [place] [address] , [address] [facility] D/B/A: [facility] GREG Valles PCP - General 12/27/16
== END 2025-06-15 16:58 | disposition home or self-care (01) ==
LOC: HO.HMCH 16:00
PROVIDERS: PCP Internal Medicine; Visit Provider Internal Medicine
DX: Z00.00 Encounter for general adult medical examination without abnormal findings (principal); M54.31 Sciatica, right side; M54.32 Sciatica, left side; N89.8 Other specified noninflammatory disorders of vagina

== ENCOUNTER → 2025-06-15 15:59 | Outpatient (BNVA) | payer OTHER, SELFPAY | PROVIDERS: PCP Internal Medicine; Visit Provider Internal Medicine | DX: Z00.00 Encounter for general adult medical examination without abnormal findings (principal); M54.31 Sciatica, right side; M54.32 Sciatica, left side; N89.8 Other specified noninflammatory disorders of vagina | CPT/HCPCS: 96127; 99212; 99397 ==